=== PATIENT | male | born 1965 ===

== ENCOUNTER 2022-01-10 12:26 | Outpatient (REF) | payer OTHER, SELFPAY | END 2022-01-10 12:27 | disposition home or self-care (01) | LOC: HO.LAB 12:26 | PROVIDERS: Absent Provider Family Medicine; PCP Family Medicine; Visit Provider Internal Medicine Nephrology | DX: Z13.89 Encounter for screening for other disorder (principal) ==

== ENCOUNTER → 2022-01-20 14:16 | Outpatient (BNVA) | payer OTHER, SELFPAY | PROVIDERS: PCP Family Medicine; Visit Provider Internal Medicine Gastroenterology | DX: Z13.89 Encounter for screening for other disorder (principal) | CPT/HCPCS: Q3014 ==

== ENCOUNTER 2023-07-07 13:53 | Outpatient (REF) | payer OTHER, SELFPAY ==
[2023-07-07 16:07] LABS: MANUAL DIFF FLAG NO
[2023-07-07 16:30] LABS: Basophils Absolute Auto 0.1 X10*3/uL (0.0-0.2); Basophils Percent Auto 0.7 % (0-2); Eosinophils Absolute Auto 0.2 X10*3/uL (0.0-0.4); Eosinophils Percent Auto 1.9 % (0-4); Hematocrit 36.3 % (42.0-52.0); Hemoglobin 11.5 g/dl (14.0-18.0); Imm Gran Abs Auto 0.07 X10*3/uL (0.00-0.03); Imm Gran Pct Auto 0.6 % (0.0-0.4); Lymphocytes Absolute Auto 3.1 X10*3/uL (1.2-4.9); Lymphocytes Percent Auto 27.6 % (20-40); Mean Corpuscular HGB Conc 31.7 g/dl (31.0-36.0); Mean Corpuscular Hemoglobin 28.5 pg (27.0-33.0); Mean Corpuscular Volume 89.9 fL (80.0-98.0); Mean Platelet Volume 10.5 fL (9.4-12.4); Monocytes Absolute Auto 0.7 X10*3/uL (0.1-1.2); Monocytes Percent Auto 6.3 % (2-11); Neutrophils Absolute Auto 7.1 x10*3/uL (2.0-8.3); Neutrophils Percent Auto 62.9 % (45-73); Platelet Count 314 X10*3/uL (160-400); Red Blood Count 4.04 X10*6/uL (4.60-5.80); Red Cell Distribution Width 12.8 % (11.0-16.0); White Blood Count 11.4 X10*3/uL (4.8-10.8)
[2023-07-07 16:56] LABS: Cholesterol 130 mg/dL (<200); HDL Cholesterol 25 mg/dL (>40); LDL Cholesterol Calculated 65 mg/dL (<100); Triglycerides 200 mg/dL (<150)
[2023-07-07 17:00] LABS: Microalbum/Creatinine Ratio Ur 21.3 ug/mg cr (<30)
[2023-07-07 17:01] LABS: Alanine Aminotransferase 56 U/L (0-40); Albumin Level 4.2 g/dL (3.5-5.0); Alkaline Phosphatase 125 U/L (39-117); Anion Gap 15 (12-20); Aspartate Amino Transferase 34 U/L (5-37); Bilirubin Total 0.5 mg/dL (0.0-1.0); Blood Urea Nitrogen 16 mg/dL (9-16); Calcium 9.5 mg/dL (8.4-10.2); Carbon Dioxide 23 mmol/L (22-29); Chloride 104 mmol/L (96-108); Estimated Glomerular Filt Rate 48; Glucose Random 233 mg/dL (60-115); Potassium 3.8 mmol/L (3.3-5.1); Sodium 138 mmol/L (135-145); Total Protein 8.4 g/dL (6.5-8.0)
[2023-07-07 17:18] LABS: TSH reflex Free T4 5.45 uIU/mL (0.32-4.0)
[2023-07-07 17:28] LABS: Reflex LDLD? No
[2023-07-07 18:02] LABS: Free T4 (Free Thyroxine) 0.86 ng/dL (0.71-1.85)
[2023-07-12 15:08] LABS: Testosterone, Free 10.9 pg/mL (35.0-155.0); Testosterone, Total 53 ng/dL (250-1100)
== END 2023-07-07 13:54 | disposition home or self-care (01) ==
LOC: HO.HHCL 13:53
PROVIDERS: Visit Provider Family Medicine
DX: I12.9 Hypertensive chronic kidney disease with stage 1 through stage 4 chronic kidney disease, or unspecified chronic kidney disease (principal); E11.22 Type 2 diabetes mellitus with diabetic chronic kidney disease; N18.30 Chronic kidney disease, stage 3 unspecified; R79.89 Other specified abnormal findings of blood chemistry; D63.8 Anemia in other chronic diseases classified elsewhere; E29.1 Testicular hypofunction; Z79.4 Long term (current) use of insulin
CPT/HCPCS: 36415; 80053; 80061; 82043; 82570; 84402; 84403; 84439; 84443; 85025

== ENCOUNTER 2023-08-07 11:57 | Outpatient (REF) | payer OTHER, SELFPAY | END 2023-08-07 11:58 | disposition home or self-care (01) | LOC: HO.US 11:57 | PROVIDERS: PCP Family Medicine; Visit Provider Family Medicine | DX: I87.8 Other specified disorders of veins (principal) | CPT/HCPCS: 93970 ==

== ENCOUNTER 2023-08-26 14:24 | Outpatient (AMB) | payer OTHER, SELFPAY ==
--- NOTE | 2023-08-26 14:50 | A.OFFVIS_ITS ---
Intake Intake Visit Reasons: Testicular Hypofunction/Low testosterone Intake Note: NEW Patient presents today to established treatment for Testicular Hypofunction/Low testosterone: Meds- None Allergies to Antibiotic- No Known Allergies Blood Thinner- None Patient Symptoms: None Frame Bander Required: No Accompanied by: Significant Other Allergies No Known Allergies Allergy (Mild, Verified 09/01/23 13:58) NOT APPLICABLE HPI HPI Comments History of Present Illness Details Hussein is a 58-year-old male who presents today to the office to establish as a new patient for an evaluation of testicular hypofunction/low testosterone. 08/26/2023? He presents today for an evaluation of testicular hypofunction/ low testosterone. The patient has a past medical history significant for DM2, CKD, and venous insufficiency. I reviewed the consult notes from 07/10/2023. He was referred hypogonadism. He had an accident in 2016 and had a brain injury. He is here with a family member, He is a poor historian. He denies urinary complaints. Plan: LH hormone testing, fasting glucose, prolactin test, sex hormone binding globulin, FSH, Free, and total testosterone, HbA1c were ordered. 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 Diabetes mellitus type 2, controlled Traumatic subarachnoid hemorrhage Traumatic subdural hematoma Temporal skull fracture Traumatic brain injury Major depression Controlled type 2 diabetes mellitus with diabetic nephropathy Nephritis NOS in other disease Chronic kidney disease, stage III (moderate) Other chronic pain Neck pain Dyslipidemia Asthma Anemia of chronic disease Chronic constipation HTN (hypertension) Glaucoma suspect Surgical History Bilateral inguinal hernia S/P cervical spinal fusion Patient Tobacco Use Status: Former Tobacco user Tobacco use type: Cigarette Review of Systems Const All systems reviewed & are unremarkable except as noted in HPI and below Reports no additional complaints Eyes Reports no additional complaints ENT Reports no additional complaints Card Denies dyspnea Resp Denies cough and Denies dyspnea GI Reports no additional complaints Musc Reports no additional complaints Skin/Breast Denies rash and Denies unusual bruising Neuro Reports no additional complaints Psych Reports no additional complaints Endo Reports no additional complaints Igor/Lymph Reports no additional complaints Aller/Immun Reports no additional complaints Physical Exam Const General: healthy appearing, no acute distress and well developed Orientation/consciousness: patient oriented x3 HEENT Head: Yes normocephalic and Yes atraumatic Eyes Conjunctivae: conjunctivae normal Neck Neck: Yes normal visual inspection Chest Chest palpation & inspection: normal inspection of the chest Resp Effort & Inspection: normal respiratory effort Cardio Rate: regular rate GI Inspection: Yes normal to inspection Palpation (GI): Soft to palpation General: Yes no CVA tenderness Back/Spine/Pelvis Back: no CVA tenderness Skin General skin exam: no rashes or lesions noted Neuro General: patient oriented x3 Psych Appearance: grossly normal Affect: normal affect Results AMB Urinalysis, Automated UA Leukoctes 0 Shahida/uL Last Edit by Munir Vega [facility] on 08/26/23 15:24 UA Nitrite Negative Last Edit by Munir Vega [facility] on 08/26/23 15:24 UA Urobilinogen 0 mg/dL Last Edit by Munir Vega [facility] on 08/26/23 15:24 UA Protein 0.2 mg/dL Last Edit by Munir Vega [facility] on 08/26/23 15:24 UA pH 6.0 Last Edit by Munir Vega [facility] on 08/26/23 15:24 UA Blood 0 Vidal/uL Last Edit by Munir Vega [facility] on 08/26/23 15:24 UA Specific [place] 1.020 Last Edit by Munir Vega [facility] on 08/26/23 15: 24 UA Ketone Negative Last Edit by Munir Vega [facility] on 08/26/23 15:24 UA Bilirubin 0 mg/dL Last Edit by Munir Vega [facility] on 08/26/23 15:24 UA Glucose 1000 mg/dL Last Edit by Munir Vega [facility] on 08/26/23 15:24 3+ Munir Vega 08/26/23 15:24 Results Reviewed Results Reviewed: Laboratory Last Values Urine pH (Auto) 6.0 08/26/23 15:19 Specific [place] (Auto) 1.020 08/26/23 15:19 Urine Protein (Auto) 0.2 mg/dL 08/26/23 15:19 Glucose (UA)(Auto) 1000 mg/dL 08/26/23 15:19 Urine Ketones (Auto) Negative 08/26/23 15:19 Urine Blood (Auto) 0 Vidal/uL 08/26/23 15:19 Urine Nitrite (Auto) Negative 08/26/23 15:19 Urine Bilirubin (Auto) 0 mg/dL 08/26/23 15:19 Urine Urobilinogen (Auto) 0 mg/dL 08/26/23 15:19 Leukocyte Esterase (Auto) 0 Shahida/uL 08/26/23 15:19 Assessment & Plan Assessment & Plan (1) Hypogonadism in male: Code(s): E29.1 - Testicular hypofunction (2) History of traumatic brain injury: Code(s): Z87.820 - Personal history of traumatic brain injury Plan LH hormone testing, fasting glucose, prolactin test, sex hormone binding globulin, FSH, Free, and total testosterone, HbA1c were ordered. Orders: Orders Lutenizing Hormone 09/01/23 E29.1 - Testicular hypofunction Testosterone, Free/Total 09/01/23 E29.1 - Testicular hypofunction Hemoglobin A1c 09/01/23 E29.1 - Testicular hypofunction AMB Urinalysis Automated 08/26/23 Z13.9 - Encounter for screening, unspecified Glucose Fasting 09/01/23 E29.1 - Testicular hypofunction Sex Hormone Binding Globulin 09/01/23 E29.1 - Testicular hypofunction Prolactin 09/01/23 E29.1 - Testicular hypofunction Follicle Stimulating Hormone 09/01/23 E29.1 - Testicular hypofunction Patient Instructions: The patient had an opportunity to ask questions regarding treatment plan. All questions were answered. Imaging, Laboratory studies and physical exam results were discussed and reviewed in detail. No major barriers to understanding were identified. The patient expressed understanding and agreement with the above treatment plan.? ? ? The patient is aware they should contact our office by phone for worsening of their current condition or the appearance of new symptoms. Compliance is encouraged with any medications and followup testing that is ordered.? ? ? It is a privilege to be allowed the opportunity to participate in the urologic care of your patient. If you have any questions or concerns regarding treatment for the above conditions please do not hesitate to contact me. The office telephone contact is [phone].? ? ? This note is constructed in part using voice recognition software. While every effort has been made to ensure accuracy etl consultant errors may have been included.? ? ? Yours sincerely,? ? ? Bashir Smith MD? Coding Level of Care Code New Pt Level 4 (23978) Diagnoses Hypogonadism in male E29.1 History of traumatic brain injury Z87.820
== END 2023-08-26 16:23 | disposition home or self-care (01) ==
PROVIDERS: PCP Family Medicine; Visit Provider Urology
DX: E29.1 Testicular hypofunction (principal); Z87.820 Personal history of traumatic brain injury
CPT/HCPCS: 99204

== ENCOUNTER → 2023-08-26 14:24 | Outpatient (BNVA) | payer OTHER, SELFPAY | PROVIDERS: PCP Family Medicine; Visit Provider Urology | DX: E29.1 Testicular hypofunction (principal); Z87.820 Personal history of traumatic brain injury | CPT/HCPCS: 81003; 99202 ==

== ENCOUNTER 2023-09-01 10:03 | Outpatient (REF) | payer OTHER, SELFPAY ==
[2023-09-01 10:55] LABS: Estimated Average Glucose 171 mg/dL; Hemoglobin A1c % 7.6 % (<6.0)
[2023-09-01 11:21] LABS: Glucose Fasting 224 mg/dL (60-99)
[2023-09-03 04:19] LABS: Follicle Stimulating Hormone 3.1 mIU/mL (1.6-8.0); Lutenizing Hormone 1.4 mIU/mL (1.5-9.3); Sex Hormone Binding Globulin 14 nmol/L (22-77)
[2023-09-05 17:44] LABS: Testosterone, Free 15.6 pg/mL (35.0-155.0); Testosterone, Total 71 ng/dL (250-1100)
== END 2023-09-01 10:04 | disposition home or self-care (01) ==
LOC: HO.LAB 10:03
PROVIDERS: PCP Family Medicine; Visit Provider Urology
DX: I89.0 Lymphedema, not elsewhere classified (principal); I83.11 Varicose veins of right lower extremity with inflammation; E11.22 Type 2 diabetes mellitus with diabetic chronic kidney disease; N18.9 Chronic kidney disease, unspecified
CPT/HCPCS: 36415; 82947; 83001; 83002; 83036; 84146; 84270; 84402; 84403; 99202

== ENCOUNTER 2023-09-01 13:52 | Outpatient (AMB) | payer OTHER, SELFPAY ==
--- NOTE | 2023-09-01 13:55 | A.OFFVIS_ITS ---
Intake Intake Visit Reasons: [employer]/[facility] referral for LE edema Intake Note: [employer]?[facility] referral for LE edema .Pt says he has alot of swelling redness and discoloration. He says its going on for a few years he has trouble walking most of the days.He states he is diabetic but that it is well controlled. Allergies No Known Allergies Allergy (Mild, Verified 09/01/23 13:58) NOT APPLICABLE HPI [employer]/[facility] referral for LE edema HPI Details Morbidly obese 58-year-old gentleman presents for evaluation regarding lower extremity swelling. He has a history of diabetes and chronic kidney disease. He has become quite concerned about his lower extremity edema. He reports no prior history of any venous surgery. No prior history of DVT. He also denies any trauma or injury to the lower extremities. He is concerned about the discoloration of the lower extremities along with the we being. He now presents for follow-up. Of note primary care team has obtain venous insufficiency testing for us. 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 Diabetes mellitus type 2, controlled Traumatic subarachnoid hemorrhage Traumatic subdural hematoma Temporal skull fracture Traumatic brain injury Major depression Controlled type 2 diabetes mellitus with diabetic nephropathy Nephritis NOS in other disease Chronic kidney disease, stage III (moderate) Other chronic pain Neck pain Dyslipidemia Asthma Anemia of chronic disease Chronic constipation HTN (hypertension) Glaucoma suspect Surgical History Bilateral inguinal hernia S/P cervical spinal fusion Social History Patient Tobacco Use Status: Former Tobacco user Tobacco use type: Cigarette Review of Systems Const Reports as per HPI ENT Reports no additional complaints Card Denies chest pain, Denies chest pain at rest and Denies chest pain with activity Resp Denies chest congestion and Denies cough GI Reports no additional complaints Musc Details: pain over varicosities, aching of lower extremities, swelling, cramping, heaviness and tiredness, itching Denies abnormal gait Skin/Breast Reports pruritus and Denies wounds Neuro Reports no additional complaints and Denies abnormal gait Psych Denies no additional complaints Physical Exam Const General: cooperative, healthy appearing and comfortable Orientation/consciousness: oriented to person, oriented to place and oriented to time Neck Carotids: no bruits Chest Chest palpation & inspection: normal inspection of the chest and normal palpation of entire chest wall Resp Effort & Inspection: normal respiratory effort and able to speak in complete sentences Cardio Rate: regular rate Heart sounds: S1 normal heart sound present and S2 normal heart sound present Peripheral pulses: Peripheral pulses 2+ throughout GI Inspection: Yes normal to inspection Skin Other: +2 edema, limb for Verena hyperplasia skin discoloration Right in cm: Thigh 68 Knee 53 Calf 50.5 Ankle 33.5 Left in cm: Thigh 67 Knee 51 Calf 48.5 Ankle 35.5 Hip/abdomen 127.5 General skin exam: dry skin Neuro General: oriented to person, oriented to place and oriented to time Extrem Right lower extremity: full ROM, normal capillary refill and edema Left lower extremity: full ROM, normal capillary refill and edema Psych Mental Status: mental status grossly normal Assessment & Plan Assessment & Plan (1) Lymphedema: Code(s): I89.0 - Lymphedema, not elsewhere classified Plan: In short the patient has late on sent lymphedema. The patient has been on conservative treatment for at least 3 months with minimal relief. Patient has tried 30 mm of mercury compression garments, elevation, exercise healthy diet and doing manual says self MLD to the best of their ability for over 4 weeks but with no significant relief. She has been compliant with the program but has provided minimal relief. In addition on physical we are noticing hyperpigmenta tion, lymphorrhea, and hyperplasia. It appears that she has stage 2 lymphedema. Patient has completed multiple forms of conservative therapy yet significant symptoms remain. Patient requires the use of a pneumatic compression device which we will assist in trying to have the patient obtain them. In addition he does have some abdominal and truncal swelling. He will require an advance pump A pneumatic compression device will help reduce swelling and other lymphedema comorbidities. Thank you for allowing us to assist in this patient's care. (2) Varicose veins of right lower extremity with inflammation: Code(s): I83.11 - Varicose veins of right lower extremity with inflammation Plan: It appears that the patient does not have any significant venous insufficiency. We will try to obtain him lymphedema pumps. Coding Level of Care Code New Pt Level 4 (44000) Diagnoses Lymphedema I89.0 Varicose veins of right lower extremity with inflammation I83.11
== END 2023-09-01 14:21 | disposition home or self-care (01) ==
LOC: HO.HVS 13:52
PROVIDERS: PCP Family Medicine; Visit Provider Surgery Vascular Surgery
DX: I89.0 Lymphedema, not elsewhere classified (principal); I83.11 Varicose veins of right lower extremity with inflammation
CPT/HCPCS: 99204

== ENCOUNTER 2023-10-07 13:51 | Outpatient (AMB) | payer OTHER, SELFPAY ==
--- NOTE | 2023-10-07 15:00 | MHC.OFFVIS ---
Intake Intake Visit Reasons: F/u Testosterone Labs Result Intake Note: Patient presents today for a follow-up on Testosterone Labs Results: Meds- None Allergies to Antibiotic- No Known Allergies Blood Thinner- None Box Closing Machine Operator Required: No Accompanied by: Significant Other Allergies No Known Allergies Allergy (Mild, Verified 10/07/23 15:02) NOT APPLICABLE Medication List - Last Reconciled 10/07/23 by Bashir Smith MD atorvastatin 40 mg PO BEDTIME dapagliflozin propanediol (Farxiga) 10 mg PO DAILY docusate sodium (Colace) 200 mg (2 x 100 mg) PO BEDTIME 30 days furosemide 20 mg PO DAILY insulin syringe-needle U-100 (BD Insulin Syringe) As directed linaclotide (Linzess) 290 mcg PO QAM naloxegol (Movantik) 12.5 mg PO QAM quetiapine 100 mg PO BEDTIME zolpidem 10 mg PO BEDTIME PRN HPI HPI Comments History of Present Illness Details Hussein is a 58-year-old male who presents today to the office for a follow-up. 10/07/2023? He is followed today for testosterone lab results for testicular hypofunction. The patient has a past medical history significant for DM2, CKD, and venous insufficiency. I have reviewed the lab results, Low testosterone, 09/01/23--TT and FT-- 71 and 15.6, LH 1.4, HB A1c 7.6 Review of chart: I reviewed the consult notes from 07/10/2023. He was referred hypogonadism. He had an accident in 2016 and had a brain injury. He is here with a family member, He is a poor historian. He denies urinary complaints. Plan: LH hormone testing, fasting glucose, prolactin test, sex hormone binding globulin, FSH, Free, and total testosterone, HbA1c were ordered. 10/07/2023: Plan: Xyosted 75 mg injection was ordered. Repeat testosterone levels in 3 months and follow-up via Tele-health to review the results. 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 Diabetes mellitus type 2, controlled Traumatic subarachnoid hemorrhage Traumatic subdural hematoma Temporal skull fracture Traumatic brain injury Major depression Controlled type 2 diabetes mellitus with diabetic nephropathy Nephritis NOS in other disease Chronic kidney disease, stage III (moderate) Other chronic pain Neck pain Dyslipidemia Asthma Anemia of chronic disease Chronic constipation HTN (hypertension) Glaucoma suspect Surgical History Bilateral inguinal hernia S/P cervical spinal fusion Social History Patient Tobacco Use Status: Former Tobacco user Tobacco use type: Cigarette Review of Systems Const All systems reviewed & are unremarkable except as noted in HPI and below Reports no additional complaints Eyes Reports no additional complaints ENT Reports no additional complaints Card Denies dyspnea Resp Denies cough and Denies dyspnea GI Reports no additional complaints Musc Reports no additional complaints Skin/Breast Denies rash and Denies unusual bruising Neuro Reports no additional complaints Psych Reports no additional complaints Endo Reports no additional complaints Igor/Lymph Reports no additional complaints Aller/Immun Reports no additional complaints Assessment & Plan Assessment & Plan (1) Hypogonadism in male: Code(s): E29.1 - Testicular hypofunction (2) History of traumatic brain injury: Code(s): Z87.820 - Personal history of traumatic brain injury Plan Xyosted 75 mg injection was ordered. Repeat testosterone levels in 3 months and follow-up via Tele-health to review the results. Medications: New testosterone enanthate (Xyosted) 75 mg (0.5 mL) subcut QWEEK 2 mL 0RF hypogonadism 4 weeks Patient Instructions: The patient had an opportunity to ask questions regarding treatment plan. All questions were answered. Laboratory studies and physical exam results were discussed and reviewed in detail. No major barriers to understanding were identified. The patient expressed understanding and agreement with the above treatment plan. The patient is aware they should contact our office by phone for worsening of their current condition or the appearance of new symptoms. Compliance is encouraged with any medications and followup testing that is ordered. It is a privilege to be allowed the opportunity to participate in the urologic care of your patient. If you have any questions or concerns regarding treatment for the above conditions please do not hesitate to contact me. The office telephone contact is [phone]. This note is constructed in part using voice recognition software. While every effort has been made to ensure accuracy gas engine operator errors may have been included. Yours sincerely, Bashir Smith MD Coding Level of Care Code Est Pt Level 4 (67567) Diagnoses Hypogonadism in male E29.1 History of traumatic brain injury Z87.820
== END 2023-10-07 15:19 | disposition home or self-care (01) ==
PROVIDERS: PCP Family Medicine; Visit Provider Urology
DX: E29.1 Testicular hypofunction (principal); Z87.820 Personal history of traumatic brain injury
CPT/HCPCS: 99214

== ENCOUNTER → 2023-10-07 13:51 | Outpatient (BNVA) | payer OTHER, SELFPAY | PROVIDERS: PCP Family Medicine; Visit Provider Urology | DX: E29.1 Testicular hypofunction (principal); Z87.820 Personal history of traumatic brain injury | CPT/HCPCS: 99212 ==

== ENCOUNTER 2023-11-17 15:21 | Emergency (ER) | payer OTHER, SELFPAY ==
--- NOTE | ~2023-11-17 | XR_ITS ---
EXAMINATION: XR FOOT, RIGHT CLINICAL INFORMATION: Fifth toe pain. Question ostium myelitis COMPARISON: None available. TECHNIQUE: AP, lateral, and oblique views of the right foot. FINDINGS: There is moderate dorsal foot midfoot soft tissue swelling. The ankle mortise and subtalar joints are normal. There is no visible acute fracture or dislocation. Especially no abnormality seen involving the fifth toe. XR/XR foot RT 2V IMPRESSION: Moderate dorsal foot soft tissue swelling. Otherwise unremarkable right foot. Especially no fracture or abnormality seen right fifth digit.
[2023-11-17 15:25] VITALS: BP 148/90; PULSE 118; O2SAT 98
[2023-11-17 15:40] VITALS: BP 159/69; PULSE 104; RESP 18; TEMP 36.6; O2SAT 96; BMI 38.7
--- NOTE | 2023-11-17 15:42 | ED.GENADULT ---
HPI - General Adult General Chief complaint: General Medical Stated complaint: INCREASED WEAKNESS NAUSEA VOMITING Time Seen by Provider: 11/18/23 00:33 Source: patient Mode of arrival: ambulatory Limitations: no limitations History of Present Illness HPI narrative: Patient comes to the emergency room complaining of diffuse body aches, nausea, vomiting. Patient states that 2 weeks ago he tested positive for COVID. Also, while his here, patient would like us to check out his 5th digit of the right foot. Patient states that he is diabetic and he has had infection in the toe for several days. Patient states that he has very bad neuropathy and is unable to feel much. Patient denies any pain. Related Data Home Medications Medication Instructions Recorded Confirmed atorvastatin 40 mg tablet 40 mg PO BEDTIME 01/20/22 10/07/23 dapagliflozin propanediol 10 mg 10 mg PO DAILY 01/20/22 10/07/23 tablet (Farxiga) furosemide 20 mg tablet 20 mg PO DAILY 01/20/22 10/07/23 quetiapine 100 mg tablet 100 mg PO BEDTIME 01/20/22 10/07/23 zolpidem 10 mg tablet 10 mg PO BEDTIME PRN 01/20/22 10/07/23 Previous Rx's Medication Instructions Recorded docusate sodium 100 mg capsule 200 mg (2 x 100 mg) PO BEDTIME 30 10/17/20 (Colace) days #60 caps insulin syringe-needle U-100 1 mL #25 ea 04/26/21 25 gauge x 5/8 (BD Insulin Syringe) linaclotide 290 mcg capsule 290 mcg PO QAM #30 caps 10/05/23 (Linzess) naloxegol 12.5 mg tablet (Movantik) 12.5 mg PO QAM #30 tabs 10/05/23 testosterone enanthate 75 mg/0.5 75 mg (0.5 mL) subcut QWEEK 11/11/23 mL subcutaneous auto-injector hypogonadism 4 weeks #2 mL (Xyosted) Lactobacillus rhamnosus GG 10 1 cap PO DAILY #30 caps 11/18/23 billion cell capsule (Culturelle) cephalexin 500 mg capsule 500 mg PO BID #20 caps 11/18/23 doxycycline hyclate 100 mg tablet 100 mg PO BID #20 tabs 11/18/23 Allergies Allergy/AdvReac Type Severity Reaction Status Date / Time No Known Allergies Allergy Mild NOT Verified 10/07/23 15:02 APPLICABLE Review of Systems Review of Systems: Constitutional : No Weight loss, No Fever, No Chills, No Night Sweats, complaining of fatigue and generalized malaise, recovering from COVID, complaining of diffuse body aches ENT/Mouth : No Hearing loss, No Ear Pain, No Nasal Congestion, No Sinus Pain, No Hoarseness, No sore throat, No Rhinorrhea, No Swallowing Difficulty Eyes: No Eye Pain, No Swelling, No Redness, No Foreign Body, No Discharge, No Vision Changes Cardiovascular : No Chest Pain, No SOB, No Dyspnea on Exertion, No Orthopnea, No Edema, No Palpitations Respiratory : No Cough, No Sputum, No Wheezing, No Smoke Exposure, No Dyspnea Gastrointestinal : No Nausea, No Vomiting, No Diarrhea, No Constipation, No abdominal Pain, No Hematochezia, No Melena Genitourinary : no irregular bleeding, No Dysuria, No Urinary Frequency, No Hematuria, No Urinary Incontinence, No Urgency, No Flank Pain, No Urinary Flow Changes, No Hesitancy Musculoskeletal : No joint pain, No Myalgias, No Joint Swelling Skin : Complaining of infection in the 5th toe of the right foot No Skin Lesions, No rash Neuro : No Weakness, No Numbness, No Paresthesias, No Loss of Consciousness, No Dizziness, No Headache Psych : No Anxiety/Panic, No Depression, No SI/HI/AH/VH, No Social Issues, Heme/Lymph: No Bruising, No Bleeding,No Lymphadenopathy Endocrine : No Polyuria, No Polydipsia, No Temperature Intolerance PMFSH Past Medical History Onset Date is defined in the Problem List Problems that require an onset date and time if occurred within 24 hrs of arrival to the ED Aortic Dissection and Rupture; Neurologic impairment; Cardiopulmonary Arrest; Endotracheal Intubation; Insertion or Replacement of Mechanical Circulatory Assist Device Medical History Chronic, continuous use of opioids 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 Concussion 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 Diabetes mellitus type 2, controlled Traumatic subarachnoid hemorrhage Traumatic subdural hematoma Temporal skull fracture Traumatic brain injury Major depression Controlled type 2 diabetes mellitus with diabetic nephropathy Nephritis NOS in other disease Chronic kidney disease, stage III (moderate) Other chronic pain Neck pain Dyslipidemia Asthma Anemia of chronic disease Chronic constipation HTN (hypertension) Glaucoma suspect Surgical History Bilateral inguinal hernia S/P cervical spinal fusion Social History Social History Patient Tobacco Use Status: Former Tobacco user Tobacco use type: Cigarette Smoked in Last 30 Days: No Use of substances other than those prescribed or required for medical reasons: No Advance Directives: No Advance Directives Information Provided: Yes Physical Exam ED Vital Signs: Vital Signs - 24 hr 11/17/23 15:40 11/17/23 23:21 11/18/23 01:15 Temperature 97.8 F 99.3 F 98.3 F Pulse Rate 104 H 93 89 Respiratory Rate 18 20 16 Blood Pressure 159/69 H 137/70 144/72 H Pulse Oximetry 96 96 100 Oxygen Delivery Method Room Air Room Air Room Air 11/18/23 01:43 Temperature 98.8 F Pulse Rate 86 Respiratory Rate 18 Blood Pressure 148/79 H Pulse Oximetry 97 Oxygen Delivery Method Room Air BMI result Body Mass Index 38.7 Const Other: Appearance: Alert. Oriented X3. No acute distress. Eyes: Pupils equal, round and reactive to light. ENT: Pharynx normal. Neck: Normal inspection. Neck supple. No lymph nodes noted. No crepitus CVS: Normal heart rate and rhythm. Pulses normal. Normal S1 and S2 Respiratory: No respiratory distress. Breath sounds normal. No Wheezing. No rales Abdomen: Soft and nontender. No rigidity. No distention. Skin: Skin warm and dry. Normal skin color. Normal skin turgor. Extremities: No lower extremity edema. No Lacerations. No Rash, there is mild erythema on the toe, there is no ulcer or foul-smelling smell, no drainage. Neuro: Oriented X 3. No motor deficit. No sensory deficit. Moving all extremities. No slurred speech. CN 2 through 12 grossly intact Psych: calm, cooperative, normal affect Course Course Course Narrative: This is a rapid medical exam: Additional HPI, ROS, PE not included below will be deferred to primary provider. Patient is a 58-year-old male with history of DM, peripheral neuropathy presenting to the emergency department with complaint of weakness, nausea, and vomiting since yesterday. States has been unable to tolerate fluids. States took 2 Covid tests at home which were faintly positive. Also reports that he lose a toenail to 5th toe of right foot, and also noted his dog chewing on the same toe, did not feel it due to his neuropathy. Plan: viral swabs, labs, x-ray Medications Administered Discontinued Medications Generic Name Dose Route Start Last Admin Trade Name Kwasi PRN Reason Stop Dose Admin Doxycycline Monohydrate 100 mg 11/18/23 00:42 11/18/23 01:15 Doxycycline Monohydrate 100 Mg Capsule PO 11/18/23 00:43 100 mg ONCE ONE Administration Sodium Chloride 1,000 mls @ 999 mls/hr 11/18/23 00:42 11/18/23 01:33 Ns IVCONT 11/18/23 01:42 999 mls/hr .Q1H1M ONE Administration Ceftriaxone Sodium 1 gm/ 50 mls @ 100 mls/hr 11/18/23 00:42 11/18/23 01:34 Sodium Chloride IV 11/18/23 01:11 100 mls/hr ONCE ONE Administration Ondansetron HCl 4 mg 11/18/23 00:42 11/18/23 01:15 Ondansetron Hcl 4 Mg/2 Ml Vial IVPUSH 11/18/23 00:43 4 mg ONCE ONE Administration Medical Decision Making Medical Decision Making MDM Narrative: -my interpretation of labs: Patient tested negative for COVID and influenza. Patient likely still decompensated from COVID, however patient is ambulatory, patient's white blood cell count is elevated, likely to reactive leukocytosis from COVID and cellulitis of the toe. Patient's creatinine slightly elevated above baseline, likely secondary to dehydration from vomiting. Patient received IV fluids and Zofran. Patient feeling better. Hyponatremia of 131 improved after IV fluids 133, likely secondary to poor p.o. intake. -my interpretation of x-ray of the foot: No obvious osteomyelitis of the 5th digit -patient in addition to receiving IV fluids received IV ceftriaxone and p.o. doxycycline. Patient will continue p.o. treatment. -discussed with the patient that we will give him the phone number to follow-up with the wound clinic as he will need chronic treatment. -patient agrees with plan Differential Diagnosis Differential Diagnoses: The differential diagnosis associated with the presentation includes (Cellulitis, osteomyelitis, viral syndrome) Admission/Observation Consideration of admission/observation: Escalation of care including admission/observation considered (Admission was considered, I discussed the patient with Dr. Deluna, we both agree that this time the patient would benefit more from wound care rather than admission.) Consult Healthcare Provider Management of the patient was discussed with: Hospitalist Lab Data [facility] Lab Attestation statement: I reviewed the patient's lab results. 11/17/23 16:00 11/18/23 02:16 Labs: Lab Results 11/17/23 11/18/23 11/18/23 Range/Units 16:00 00:29 01:28 WBC 16.8 H (4.8-10.8) X10*3/uL RBC 3.75 L (4.60-5.80) X10*6/uL Hgb 10.6 L (14.0-18.0) g/dl Hct 32.7 L (42.0-52.0) % MCV 87.2 (80.0-98.0) fL MCH 28.3 (27.0-33.0) pg MCHC 32.4 (31.0-36.0) g/dl RDW 13.5 (11.0-16.0) % Plt Count 200 D (160-400) X10*3/uL MPV 9.7 (9.4-12.4) fL Immature Gran % (Auto) 0.9 H (0.0-0.4) % Neut % (Auto) 88.9 H (45-73) % Lymph % (Auto) 5.5 L (20-40) % [place] % (Auto) 4.6 (2-11) % Eos % (Auto) 0.0 (0-4) % Baso % (Auto) 0.1 (0-2) % Lymph # (Auto) 0.9 L (1.2-4.9) X10*3/uL [place] # (Auto) 0.8 (0.1-1.2) X10*3/uL Eos # (Auto) 0.0 (0.0-0.4) X10*3/uL Baso # (Auto) 0.0 (0.0-0.2) X10*3/uL Abs Immat Gran (auto) 0.15 H (0.00-0.03) X10*3/uL Absolute Neuts (auto) 15.0 H (2.0-8.3) x10*3/uL Absolute Nucleated RBC 0.000 (0.0-0.012) X10*3/uL Nucleated RBC % (auto) 0.0 (0.0-0.2) /100WBC ESR 57 H (0-15) MM/HR Sodium 131 L (135-145) mmol/L Potassium 3.6 (3.3-5.1) mmol/L Chloride 98 (96-108) mmol/L Carbon Dioxide 23 (22-29) mmol/L Anion Gap 14 (12-20) BUN 17 H (9-16) mg/dL Creatinine 1.79 H (0.5-1.4) mg/dL Estim Creat Clear Calc 59.0 Estimated GFR 39 POC Glucose 245 H (60-115) mg/dL Random Glucose 288 H (60-115) mg/dL Lactic Acid 1.4 (0.5-2.0) mmol/L Calcium 8.7 D (8.4-10.2) mg/dL Total Bilirubin 1.1 H (0.0-1.0) mg/dL AST 23 (5-37) U/L ALT 37 (0-40) U/L Alkaline Phosphatase 95 (39-117) U/L C-Reactive Protein 16.12 H (< or = 0.50) mg/dL Total Protein 7.9 (6.5-8.0) g/dL Albumin 3.8 (3.5-5.0) g/dL COVID-19 (JACEK) Negative (Negative) COVID-19 Clin Com See Note Influenza Type A (CHARANJIT) Negative (Negative) Influenza Type B (CHARANJIT) Negative (Negative) Influenza A & B Note See Note 11/18/23 Range/Units 02:16 WBC (4.8-10.8) X10*3/uL RBC (4.60-5.80) X10*6/uL Hgb (14.0-18.0) g/dl Hct (42.0-52.0) % MCV (80.0-98.0) fL MCH (27.0-33.0) pg MCHC (31.0-36.0) g/dl RDW (11.0-16.0) % Plt Count (160-400) X10*3/uL MPV (9.4-12.4) fL Immature Gran % (Auto) (0.0-0.4) % Neut % (Auto) (45-73) % Lymph % (Auto) (20-40) % [place] % (Auto) (2-11) % Eos % (Auto) (0-4) % Baso % (Auto) (0-2) % Lymph # (Auto) (1.2-4.9) X10*3/uL [place] # (Auto) (0.1-1.2) X10*3/uL Eos # (Auto) (0.0-0.4) X10*3/uL Baso # (Auto) (0.0-0.2) X10*3/uL Abs Immat Gran (auto) (0.00-0.03) X10*3/uL Absolute Neuts (auto) (2.0-8.3) x10*3/uL Absolute Nucleated RBC (0.0-0.012) X10*3/uL Nucleated RBC % (auto) (0.0-0.2) /100WBC ESR (0-15) MM/HR Sodium 133 L (135-145) mmol/L Potassium 3.9 (3.3-5.1) mmol/L Chloride 99 (96-108) mmol/L Carbon Dioxide 25 (22-29) mmol/L Anion Gap 13 (12-20) BUN 18 H (9-16) mg/dL Creatinine 1.63 H (0.5-1.4) mg/dL Estim Creat Clear Calc 64.8 Estimated GFR 44 POC Glucose (60-115) mg/dL Random Glucose 266 H (60-115) mg/dL Lactic Acid (0.5-2.0) mmol/L Calcium 8.3 L (8.4-10.2) mg/dL Total Bilirubin (0.0-1.0) mg/dL AST (5-37) U/L ALT (0-40) U/L Alkaline Phosphatase (39-117) U/L C-Reactive Protein (< or = 0.50) mg/dL Total Protein (6.5-8.0) g/dL Albumin (3.5-5.0) g/dL COVID-19 (JACEK) (Negative) COVID-19 Clin Com Influenza Type A (CHARANJIT) (Negative) Influenza Type B (CHARANJIT) (Negative) Influenza A & B Note Independent Interpretation I performed an independent interpretation of an: Plain X-Ray Radiology Impression Discussion of test interpretation with radiology: I have reviewed the radiologist's reading. Radiologist Impression: There is moderate dorsal foot midfoot soft tissue swelling. The ankle mortise and subtalar joints are normal. There is no visible acute fracture or dislocation. Especially no abnormality seen involving the fifth toe. XR/XR foot RT 2V IMPRESSION: Moderate dorsal foot soft tissue swelling. Otherwise unremarkable right foot. Especially no fracture or abnormality seen right fifth digit. Critical Care Time Critical Care Time Critical Care Time: Yes Total Critical Care Time: 60 Attestation: I have personally provided critical care time. Time includes review of lab data, radiology results, discussion with consultants, and monitoring for potential decompensation. Intervention performed as documented. Discharge Plan Discharge Clinical Impression: Acute viral syndrome, Cellulitis Patient Disposition: Home, Self-Care Instructions: Cellulitis (ED) Additional Instructions: Please follow-up with your primary care physician and with the wound clinic tomorrow. If you have any worsening or new symptoms, please return to the emergency room or call 911 Prescriptions: New cephalexin 500 mg capsule 500 mg PO BID Qty: 20 0RF doxycycline hyclate 100 mg tablet 100 mg PO BID Qty: 20 0RF Culturelle 10 billion cell capsule 1 cap PO DAILY Qty: 30 0RF No Action docusate sodium [Colace] 100 mg capsule 200 mg PO BEDTIME 30 Days Qty: 60 6RF (DME) BD Insulin Syringe 1 mL 25 gauge x 5/8 syringe See Rx Instructions miscellaneous .MEDSUPPLY Qty: 25 0RF Rx Instructions: As directed Linzess 290 mcg capsule 290 mcg PO QAM Qty: 30 6RF Movantik 12.5 mg tablet 12.5 mg PO QAM Qty: 30 3RF Xyosted 75 mg/0.5 mL auto-injector 75 mg subcut QWEEK 28 Days Qty: 2 5RF Farxiga 10 mg tablet 10 mg PO DAILY quetiapine 100 mg tablet 100 mg PO BEDTIME zolpidem 10 mg tablet 10 mg PO BEDTIME PRN furosemide 20 mg tablet 20 mg PO DAILY atorvastatin 40 mg tablet 40 mg PO BEDTIME Referrals: Paz Richter MD [Physician] - 01/18/24
[2023-11-17 16:05] LABS: MANUAL DIFF FLAG NO
[2023-11-17 16:07] LABS: Basophils Percent Auto 0.1 % (0-2); Hematocrit 32.7 % (42.0-52.0); Hemoglobin 10.6 g/dl (14.0-18.0); Imm Gran Abs Auto 0.15 X10*3/uL (0.00-0.03); Imm Gran Pct Auto 0.9 % (0.0-0.4); Lymphocytes Absolute Auto 0.9 X10*3/uL (1.2-4.9); Lymphocytes Percent Auto 5.5 % (20-40); Mean Corpuscular HGB Conc 32.4 g/dl (31.0-36.0); Mean Corpuscular Hemoglobin 28.3 pg (27.0-33.0); Mean Corpuscular Volume 87.2 fL (80.0-98.0); Mean Platelet Volume 9.7 fL (9.4-12.4); Monocytes Absolute Auto 0.8 X10*3/uL (0.1-1.2); Monocytes Percent Auto 4.6 % (2-11); Neutrophils Percent Auto 88.9 % (45-73); Platelet Count 200 X10*3/uL (160-400); Red Blood Count 3.75 X10*6/uL (4.60-5.80); Red Cell Distribution Width 13.5 % (11.0-16.0); White Blood Count 16.8 X10*3/uL (4.8-10.8)
[2023-11-17 16:26] LABS: Alanine Aminotransferase 37 U/L (0-40); Albumin Level 3.8 g/dL (3.5-5.0); Alkaline Phosphatase 95 U/L (39-117); Anion Gap 14 (12-20); Aspartate Amino Transferase 23 U/L (5-37); Bilirubin Total 1.1 mg/dL (0.0-1.0); Blood Urea Nitrogen 17 mg/dL (9-16); C Reactive Protein 16.12 mg/dL (< or = 0.50); Calcium 8.7 mg/dL (8.4-10.2); Carbon Dioxide 23 mmol/L (22-29); Chloride 98 mmol/L (96-108); Estimated Glomerular Filt Rate 39; Glucose Random 288 mg/dL (60-115); Potassium 3.6 mmol/L (3.3-5.1); Sodium 131 mmol/L (135-145); Total Protein 7.9 g/dL (6.5-8.0)
[2023-11-17 16:32] LABS: COVID-19 Test Negative (Negative); IDNOW Serial# 08D9AD1C; IDNOW Serial# 152EDE1D; Influenza A Negative (Negative); Influenza B2 Negative (Negative)
[2023-11-17 16:55] LABS: Erythrocyte Sedimentation Rate 57 MM/HR (0-15)
[2023-11-17 23:21] VITALS: BP 137/70; PULSE 93; RESP 20; TEMP 37.4; O2SAT 96
[2023-11-18 00:36] LABS: Glucose, Whole Blood 245 mg/dL (60-115)
[2023-11-18 01:15] VITALS: BP 144/72; PULSE 89; RESP 16; TEMP 36.8; O2SAT 100
[2023-11-18] MEDS: Doxycycline Monohydrate 100 MG CAPSULE PO (01:15)
[2023-11-18] MEDS: ondansetron HCL 4 MG/2 ML VIAL IVPUSH (01:15)
[2023-11-18] MEDS: 0.9 % Sodium Chloride 1,000 ML 999 ML IVCONT (01:33)
[2023-11-18] MEDS: cefTRIAXone sodium 1 GM in 0.9 % Sodium Chloride 50 ML IV (01:34)
--- NOTE | 2023-11-18 01:39 | PC.NURSE ---
Pts labs drawn and sent Pt medicated per dec. Plan of care ongoing.
[2023-11-18 01:43] VITALS: BP 148/79; PULSE 86; RESP 18; TEMP 37.1; O2SAT 97
--- NOTE | 2023-11-18 01:43 | PC.NURSE ---
Pt ca&ox4, no signs of distress. Pt reports 8/10 foot and abdm pain. Pt spouse at bedside. Plan of care ongoing.
--- NOTE | 2023-11-18 01:44 | MHC.EDTECH ---
Hourly rounds and vitals completed, Second set of blood cultures obtained and sent to lab. Call chavez in reach and family at bedside
[2023-11-18 01:50] LABS: Lactic Acid 1.4 mmol/L (0.5-2.0)
--- NOTE | 2023-11-18 02:19 | PC.NURSE ---
Labs drawn and sent Plan of care ongoing.
[2023-11-18 02:33] LABS: Anion Gap 13 (12-20); Blood Urea Nitrogen 18 mg/dL (9-16); Calcium 8.3 mg/dL (8.4-10.2); Carbon Dioxide 25 mmol/L (22-29); Chloride 99 mmol/L (96-108); Creatinine Clr Calc Pharmacy 64.8; Estimated Glomerular Filt Rate 44; Glucose Random 266 mg/dL (60-115); Potassium 3.9 mmol/L (3.3-5.1); Sodium 133 mmol/L (135-145)
== END 2023-11-18 03:39 | disposition home or self-care (01) ==
PROVIDERS: Registered Nurse Emergency; Emergency Provider Emergency Medicine
DX: B34.9 Viral infection, unspecified (principal); M79.10 Myalgia, unspecified site; L03.031 Cellulitis of right toe; Z11.52 Encounter for screening for COVID-19; E11.9 Type 2 diabetes mellitus without complications; I10 Essential (primary) hypertension; E78.5 Hyperlipidemia, unspecified; Z79.4 Long term (current) use of insulin; Z79.02 Long term (current) use of antithrombotics/antiplatelets; Z79.899 Other long term (current) drug therapy
CPT/HCPCS: 36415; 73620; 80048; 80053; 82947; 83605; 85025; 85652; 86140; 87040; 87502; 87635; 96361; 96374; 96375; 99284; J0696; J2405

== ENCOUNTER 2024-01-12 10:08 | Outpatient (REF) | payer OTHER, SELFPAY ==
[2024-01-12 10:53] LABS: Hemoglobin 12.5 g/dl (14.0-18.0); Mean Corpuscular HGB Conc 32.1 g/dl (31.0-36.0); Mean Corpuscular Hemoglobin 27.2 pg (27.0-33.0); Mean Corpuscular Volume 84.8 fL (80.0-98.0); Mean Platelet Volume 10.4 fL (9.4-12.4); Platelet Count 282 X10*3/uL (160-400); Red Cell Distribution Width 13.2 % (11.0-16.0); White Blood Count 9.6 X10*3/uL (4.8-10.8)
[2024-01-12 12:22] LABS: PSA,Total (Free>4and<10) 0.17 ng/mL (0.00-4.00)
[2024-01-17 14:23] LABS: Testosterone, Free 136.3 pg/mL (35.0-155.0); Testosterone, Total 459 ng/dL (250-1100)
== END 2024-01-12 10:09 | disposition home or self-care (01) ==
LOC: HO.LAB 10:08
PROVIDERS: PCP Family Medicine; Visit Provider Urology
DX: Z12.5 Encounter for screening for malignant neoplasm of prostate (principal); E29.1 Testicular hypofunction
CPT/HCPCS: 36415; 84153; 84402; 84403; 85027

== ENCOUNTER 2024-01-19 10:40 | Inpatient (IN) | payer OTHER, SELFPAY ==
--- NOTE | ~2024-01-19 | XR_ITS ---
EXAMINATION: XR CHEST CLINICAL INFORMATION: Reason for Exam hypoxia COMPARISON: Chest radiograph 01/19/2024 TECHNIQUE: One view of the chest FINDINGS: Lines and tubes: Cervical fusion hardware. EKG leads overlie the patient. Clear lungs. No pleural effusion. No pneumothorax. Unchanged cardiomediastinal silhouette. XR/XR chest 1V IMPRESSION: * Clear lungs.
--- NOTE | ~2024-01-19 | CT_ITS ---
EXAMINATION: CT HEAD WITHOUT CONTRAST CLINICAL INFORMATION: Altered mental status COMPARISON: None available. TECHNIQUE: Contiguous axial imaging was performed from the skull base to vertex without intravenous administration of contrast. This CT examination was performed using dose optimization techniques as appropriate, variously including the following: *Automated exposure control *Adjustment of mA and/or kV according to patient size (this includes techniques or standardized protocols for targeted exams where dose is matched to indication/reason for exam; i.e. extremities or head) *Use of iterative reconstruction technique DLP: 805 mGy-cm FINDINGS: There is no evidence of acute intracranial hemorrhage or territorial infarction. No abnormal mass effect or midline shift is appreciated. Adame-white differentiation is well preserved. No extra-axial fluid collections. The ventricular system and cortical sulci are minimally prominent, consistent with age-appropriate volume loss. There are areas of low density in the periventricular and subcortical white matter, most consistent with sequelae of microvascular ischemic change. Soft tissues and osseous structures are unremarkable. There are a few opacified ethmoid air cells. The visualized paranasal sinuses and mastoid air cells are otherwise well aerated. CT/CT head/brain wo IV con IMPRESSION: Chronic microvascular ischemic changes with no CT evidence of acute intracranial abnormality.
--- NOTE | ~2024-01-19 | US_ITS ---
EXAMINATION: US VENOUS ULTRASOUND WITH DOPPLER LOWER EXTREMITY, BILATERAL CLINICAL INFORMATION: Bilateral lower extremity edema COMPARISON: CT abdomen pelvis 01/20/2024 TECHNIQUE: Ultrasound of the deep veins is performed from the hip to the calf with compression sonography and color and pulse Doppler assessment. Spectral analysis with color-flow imaging is performed. FINDINGS: RIGHT: There is normal venous compression and respiratory variation and augmented flow. The visualized common femoral vein, superficial femoral vein, profunda femoral vein, popliteal vein, and the posterior tibial vein show no evidence of deep venous thrombosis. The peroneal vein on the right could not be seen secondary to edema. There is no significant popliteal fossa cyst. Prominent lymph nodes are seen in the right inguinal region. LEFT: There is normal venous compression and respiratory variation and augmented flow. The visualized common femoral vein, superficial femoral vein, profunda femoral vein and popliteal vein show no evidence of deep venous thrombosis. Calf veins on the left could not be seen secondary to edema. There is no significant popliteal fossa cyst. Prominent lymph nodes are seen in the left inguinal region. If the patient's symptoms persist, followup ultrasound in 5 days 7 days might be of value to exclude proximal propagation from a non-visualized calf vein. US/US venous duplex LE BI IMPRESSION: No DVT demonstrated in either lower extremity.
--- NOTE | ~2024-01-19 | XR_ITS ---
EXAMINATION: XR CHEST CLINICAL INFORMATION: Shortness of breath and anasarca. COMPARISON: None available. TECHNIQUE: Frontal view of the chest was obtained. FINDINGS: Cardiac silhouette is enlarged. The lungs are well aerated. There is no lobar consolidation. No pleural effusion or pneumothorax. Degenerative and postsurgical changes of the spine. XR/XR chest 1V IMPRESSION: Cardiomegaly without acute pulmonary pathology.
--- NOTE | ~2024-01-19 | CT_ITS ---
EXAMINATION: CT ABDOMEN AND PELVIS WITHOUT CONTRAST CLINICAL INFORMATION: Abdominal distention, acute kidney injury COMPARISON: None available. TECHNIQUE: Multidetector volumetric imaging was performed from the superior aspect of the liver through the pubic symphysis. Sagittal and coronal reformatted images were obtained on the technologist's workstation. This CT examination was performed using dose optimization techniques as appropriate, variously including the following: *Automated exposure control *Adjustment of mA and/or kV according to patient size (this includes techniques or standardized protocols for targeted exams where dose is matched to indication/reason for exam; i.e. extremities or head) *Use of iterative reconstruction technique DLP: 875 mGy-cm FINDINGS: LUNG BASES: Bibasilar atelectasis is present, left greater than right LIVER, GALLBLADDER, AND BILIARY TREE: The liver is enlarged measuring 18.9 cm in cephalocaudad dimension. Attenuation and shape are normal. No focal hepatic lesion or biliary ductal dilatation is present. The gallbladder contains layering stones without pericholecystic inflammatory changes. PANCREAS: There is fatty replacement of the pancreas. SPLEEN: Spleen is enlarged at 14.4 cm in greatest cephalocaudad dimension. ADRENAL GLANDS: Unremarkable. KIDNEYS AND URETERS: The kidneys are normal in size, shape, and attenuation. There is mild prominence of the renal collecting systems and proximal ureters with the ureter is measuring about 1.5 cm in the midportion. However, there is no gross hydronephrosis,, calculi or obstructing mass seen. The study is limited, course, by lack of IV contrast. No perinephric stranding. BLADDER: Unremarkable. GASTROINTESTINAL TRACT: The small and large bowel are unremarkable. The appendix is unremarkable. ABDOMINAL WALL: There is been prior lower abdominal wall hernia repair/surgery with no evidence of significant hernia at this time. There is a tiny periumbilical hernia containing only fat. LYMPH NODES: There are some shotty retroperitoneal and inguinal VASCULAR: Calcific atherosclerotic changes are present in the aorta and iliofemoral vessels. There is no evidence of an abdominal aortic aneurysm. PELVIC VISCERA: There is mild to moderate BPH. Seminal vesicles appear normal. OSSEOUS STRUCTURES: Unremarkable. CT/CT abdomen pelvis wo IV con IMPRESSION: 1. A cause for the patient's abdominal distention has not been found. 2. There is mild prominence of the renal collecting systems bilaterally as well as the proximal ureters. 3. Incidental note made of enlarged liver and spleen, cholelithiasis, fatty replacement of the pancreas, mild to moderate BPH and other findings described above. Fleischner guidelines were followed.
[2024-01-19 11:25] VITALS: BP 124/72; BP 137/86; PULSE 114; RESP 20; TEMP 37.2; O2SAT 87; O2SAT 95; BMI 35.9
[2024-01-19 11:42] VITALS: BP 139/80; PULSE 122; RESP 22; TEMP 36.9; O2SAT 91
--- NOTE | 2024-01-19 11:45 | ED_ITS ---
HPI - General Adult General Chief complaint: Altered Mental Status Stated complaint: CELLULITIS ON BOTH LEGS DIFFICULTY SPEAKING Time Seen by Provider: 01/19/24 11:30 Source: patient, family and EMS Mode of arrival: ambulatory Limitations: no limitations History of Present Illness HPI narrative: Patient brought in by EMS for lethargy and swelling. Mother and patient feels that his legs are infected. Patient denies fever, denies using pain medication or drugs. He has bulla of both legs for weeks Onset (ago): week(s) Pain Consistency: constant Related Data Home Medications Medication Instructions Recorded Confirmed atorvastatin 40 mg tablet 40 mg PO BEDTIME 01/20/22 10/07/23 dapagliflozin propanediol 10 mg 10 mg PO DAILY 01/20/22 10/07/23 tablet (Farxiga) furosemide 20 mg tablet 20 mg PO DAILY 01/20/22 10/07/23 quetiapine 100 mg tablet 100 mg PO BEDTIME 01/20/22 10/07/23 zolpidem 10 mg tablet 10 mg PO BEDTIME PRN 01/20/22 10/07/23 Previous Rx's Medication Instructions Recorded docusate sodium 100 mg capsule 200 mg (2 x 100 mg) PO BEDTIME 30 10/17/20 (Colace) days #60 caps insulin syringe-needle U-100 1 mL #25 ea 04/26/21 25 gauge x 5/8 (BD Insulin Syringe) linaclotide 290 mcg capsule 290 mcg PO QAM #30 caps 10/05/23 (Linzess) naloxegol 12.5 mg tablet (Movantik) 12.5 mg PO QAM #30 tabs 10/05/23 testosterone enanthate 75 mg/0.5 75 mg (0.5 mL) subcut QWEEK 11/11/23 mL subcutaneous auto-injector hypogonadism 4 weeks #2 mL (Xyosted) Lactobacillus rhamnosus GG 10 1 cap PO DAILY #30 caps 11/18/23 billion cell capsule (Culturelle) cephalexin 500 mg capsule 500 mg PO BID #20 caps 11/18/23 doxycycline hyclate 100 mg tablet 100 mg PO BID #20 tabs 11/18/23 Allergies Allergy/AdvReac Type Severity Reaction Status Date / Time No Known Allergies Allergy Mild NOT Verified 10/07/23 15:02 APPLICABLE Review of Systems 2 Review of Systems: Yes all other systems are reviewed and are negative Neurologic: Denies Sensory deficit (Neuro) [facility] Past Medical History Medical History Chronic, continuous use of opioids 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 Concussion 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 Diabetes mellitus type 2, controlled Traumatic subarachnoid hemorrhage Traumatic subdural hematoma Temporal skull fracture Traumatic brain injury Major depression Controlled type 2 diabetes mellitus with diabetic nephropathy Nephritis NOS in other disease Chronic kidney disease, stage III (moderate) Other chronic pain Neck pain Dyslipidemia Asthma Anemia of chronic disease Chronic constipation HTN (hypertension) Glaucoma suspect Surgical History Bilateral inguinal hernia S/P cervical spinal fusion Social History Social History Patient Tobacco Use Status: Former Tobacco user Tobacco use type: Cigarette Smoked in Last 30 Days: No Use of substances other than those prescribed or required for medical reasons: No Advance Directives: No Physical Exam ED Vital Signs: Vital Signs - 24 hr 01/19/24 11:25 01/19/24 11:42 01/19/24 11:58 Temperature 98.9 F 98.5 F Pulse Rate 122 H 110 H Respiratory Rate 20 22 H 14 Blood Pressure 124/72 139/80 Pulse Oximetry 87 L 91 L 96 Oxygen Delivery Method Room Air Room Air Nasal Cannula Oxygen Flow Rate 2 BMI result Body Mass Index 35.9 Const Other: obese, chronically ill appearing lethargic Orientation/consciousness: oriented to person Limitations: no limitations HENMT Head: Yes normal to inspection Ears: external ears normal General nose exam: Normal external nose present Mouth: Normal oral and palatal mucosa present and oropharynx normal Throat: Yes posterior oropharynx normal Eyes Other: small pupils Neck Neck: Yes normal visual inspection Chest Chest palpation & inspection: normal inspection of the chest Resp Auscultation: clear to auscultation bilaterally Cardio Jugular venous distension: no JVD Rate: regular rate Rhythm: regular rhythm Heart sounds: S1 normal heart sound present and S2 normal heart sound present GI Inspection: Yes normal to inspection Palpation (GI): Soft to palpation, nontender and No hepatosplenomegaly present Auscultation: normal bowel sounds General: Yes no CVA tenderness Back/Spine/Pelvis Back: no CVA tenderness Skin Other: chronic edematous changes with weeping and bulla Neuro General: oriented to person Cranial nerves: Yes CN's II-XII intact bilaterally Motor exam (neuro): 5/5 motor strength present throughout Sensory Exam: No Sensory deficit (Neuro) Extrem Other: 3+ edema up abdomen Psych Appearance: grossly normal Course Reevaluation(s) Reevaluation #1: Patient with anasarca and worsening renal function, BNP low, CXR shows large heart will admit for diuresis Time: 13:51 Reevaluation #2: I spent 40 minutes of critical care, with interventions, assessments, speaking to patient, consultants, and family. Time: 14:01 Medications Administered Discontinued Medications Generic Name Dose Route Start Last Admin Trade Name Freq PRN Reason Stop Dose Admin Furosemide 40 mg 01/19/24 11:45 01/19/24 12:01 Furosemide 40 Mg/4 Ml Vial IVPUSH 01/19/24 11:46 40 mg ONCE ONE Administration Protocol Medical Decision Making Differential Diagnosis Differential Diagnoses: The differential diagnosis associated with the presentation includes (CHF, COPD, anasarca, renal failure, opiate use disorder, pneumonia, liver failure were all considered) Admission/Observation Consideration of admission/observation: Escalation of care including admission/observation considered (upon arrival patient considered for admission) Consult Healthcare Provider Management of the patient was discussed with: Hospitalist Lab Data worsening renal function 01/19/24 11:56 01/19/24 12:58 Labs: Lab Results 01/19/24 01/19/24 01/19/24 Range/Units 11:56 11:57 12:29 WBC 19.2 H (4.8-10.8) X10*3/uL RBC 4.53 L (4.60-5.80) X10*6/uL Hgb 12.0 L (14.0-18.0) g/dl Hct 37.7 L (42.0-52.0) % MCV 83.2 (80.0-98.0) fL MCH 26.5 L (27.0-33.0) pg MCHC 31.8 (31.0-36.0) g/dl RDW 13.3 (11.0-16.0) % Plt Count 250 (160-400) X10*3/uL MPV 10.6 (9.4-12.4) fL Immature Gran % (Auto) 0.7 H (0.0-0.4) % Neut % (Auto) 86.8 H (45-73) % Lymph % (Auto) 6.2 L (20-40) % [place] % (Auto) 4.7 (2-11) % Eos % (Auto) 1.4 (0-4) % Baso % (Auto) 0.2 (0-2) % Lymph # (Auto) 1.2 (1.2-4.9) X10*3/uL A[place] # (Auto) 0.9 (0.1-1.2) X10*3/uL Eos # (Auto) 0.3 (0.0-0.4) X10*3/uL Baso # (Auto) 0.0 (0.0-0.2) X10*3/uL Abs Immat Gran (auto) 0.14 H (0.00-0.03) X10*3/uL Absolute Neuts (auto) 16.6 H (2.0-8.3) x10*3/uL Absolute Nucleated RBC 0.000 (0.0-0.012) X10*3/uL Nucleated RBC % (auto) 0.0 (0.0-0.2) /100WBC VBG pH 7.36 (7.32-7.43) VBG pCO2 34 mmHg VBG pO2 68 mmHg VBG HCO3 19 L (22-26) mmol/L VBG O2 Saturation 94.0 % VBG Base Excess -5.0 mmol/L Sodium (135-145) mmol/L Potassium (3.3-5.1) mmol/L Chloride (96-108) mmol/L Carbon Dioxide (22-29) mmol/L Anion Gap (12-20) BUN (9-16) mg/dL Creatinine (0.5-1.4) mg/dL Estim Creat Clear Calc Estimated GFR POC Glucose (60-115) mg/dL Random Glucose (60-115) mg/dL Calcium (8.4-10.2) mg/dL Total Bilirubin (0.0-1.0) mg/dL AST (5-37) U/L ALT (0-40) U/L Alkaline Phosphatase (39-117) U/L Troponin I High Sens (<3.5-35.0) ng/L B-Natriuretic Peptide 39 (<100) pg/mL Total Protein (6.5-8.0) g/dL Albumin (3.5-5.0) g/dL Urine Color Yellow Urine Appearance Clear Urine pH 5.5 (5.0-9.0) Ur Specific [place] >= 1.030 H (1.005-1.025) Urine Protein 30 (1+) H (Neg-Trace) mg/dL Urine Glucose (UA) >=1000 H (Negative) mg/dL Urine Ketones Trace (Negative) mg/dL Urine Blood Small (1+) H (Negative) Urine Nitrite Negative (Negative) Ur Leukocyte Esterase Negative (Negative) Urine RBC 0-2 (0-2) /HPF Urine WBC 0-5 (0-5) /HPF Ur Squamous Epith Cells 0-2 (0-2) /HPF Urine Bacteria None Seen (None Seen) Hyaline Casts 0-2 (0-2) /LPF Urine Opiates Screen POSITIVE H (Not Detect) Urine Fentanyl Screen Not Detected (Not Detect) Ur Barbiturates Screen Not Detected (Not Detect) Ur Phencyclidine Scrn Not Detected (Not Detect) Ur Amphetamines Screen Not Detected (Not Detect) U Benzodiazepines Scrn Not Detected (Not Detect) Urine Cocaine Screen Not Detected (Not Detect) U Marijuana (THC) Screen Not Detected (Not Detect) 01/19/24 01/19/24 Range/Units 12:58 13:55 WBC (4.8-10.8) X10*3/uL RBC (4.60-5.80) X10*6/uL Hgb (14.0-18.0) g/dl Hct (42.0-52.0) % MCV (80.0-98.0) fL MCH (27.0-33.0) pg MCHC (31.0-36.0) g/dl RDW (11.0-16.0) % Plt Count (160-400) X10*3/uL MPV (9.4-12.4) fL Immature Gran % (Auto) (0.0-0.4) % Neut % (Auto) (45-73) % Lymph % (Auto) (20-40) % Avery % (Auto) (2-11) % Eos % (Auto) (0-4) % Baso % (Auto) (0-2) % Lymph # (Auto) (1.2-4.9) X10*3/uL [place] # (Auto) (0.1-1.2) X10*3/uL Eos # (Auto) (0.0-0.4) X10*3/uL Baso # (Auto) (0.0-0.2) X10*3/uL Abs Immat Gran (auto) (0.00-0.03) X10*3/uL Absolute Neuts (auto) (2.0-8.3) x10*3/uL Absolute Nucleated RBC (0.0-0.012) X10*3/uL Nucleated RBC % (auto) (0.0-0.2) /100WBC VBG pH (7.32-7.43) VBG pCO2 mmHg VBG pO2 mmHg VBG HCO3 (22-26) mmol/L VBG O2 Saturation % VBG Base Excess mmol/L Sodium 130 L (135-145) mmol/L Potassium 4.3 (3.3-5.1) mmol/L Chloride 96 (96-108) mmol/L Carbon Dioxide 22 (22-29) mmol/L Anion Gap 16 (12-20) BUN 25 H (9-16) mg/dL Creatinine 2.97 H (0.5-1.4) mg/dL Estim Creat Clear Calc 34.1 Estimated GFR 22 POC Glucose 346 H (60-115) mg/dL Random Glucose 374 H* (60-115) mg/dL Calcium 8.8 D (8.4-10.2) mg/dL Total Bilirubin 1.2 H (0.0-1.0) mg/dL AST 29 (5-37) U/L ALT 23 (0-40) U/L Alkaline Phosphatase 124 H (39-117) U/L Troponin I High Sens 46.4 H (<3.5-35.0) ng/L B-Natriuretic Peptide (<100) pg/mL Total Protein 8.5 H (6.5-8.0) g/dL Albumin 3.7 (3.5-5.0) g/dL Urine Color Urine Appearance Urine pH (5.0-9.0) Ur Specific [place] (1.005-1.025) Urine Protein (Neg-Trace) mg/dL Urine Glucose (UA) (Negative) mg/dL Urine Ketones (Negative) mg/dL Urine Blood (Negative) Urine Nitrite (Negative) Ur Leukocyte Esterase (Negative) Urine RBC (0-2) /HPF Urine WBC (0-5) /HPF Ur Squamous Epith Cells (0-2) /HPF Urine Bacteria (None Seen) Hyaline Casts (0-2) /LPF Urine Opiates Screen (Not Detect) Urine Fentanyl Screen (Not Detect) Ur Barbiturates Screen (Not Detect) Ur Phencyclidine Scrn (Not Detect) Ur Amphetamines Screen (Not Detect) U Benzodiazepines Scrn (Not Detect) Urine Cocaine Screen (Not Detect) U Marijuana (THC) Screen (Not Detect) Independent Interpretation I performed an independent interpretation of an: EKG (sinus 100, non specific st segment changes), Plain X-Ray (CXR: large heart no infiltrate) and CT Scan (brain: atrophy) Radiology Impression Discussion of test interpretation with radiology: I have reviewed the radiologist's reading. Independent Historian Clinical information obtained from an independent historian. History obtained from or confirmed by: Parent Prescription Management I considered prescription management with: Antibiotic (no evidence of infection) Chronic Conditions Patient?s care impacted by: Diabetes and Hypertension Social Determinants Patient?s care significantly limited by Social Determinants of Health including: Low income Discharge Plan Discharge Clinical Impression: Anasarca, Renal failure, Opiate use Patient Disposition: Admitted As Inpatient
--- NOTE | 2024-01-19 11:45 | ECG_ITS ---
Test Reason : LOW O2 SAT,AMS Blood Pressure : / mmHG Vent. Rate : 109 BPM Atrial Rate : 109 BPM P-R Int : 160 ms QRS Dur : 096 ms QT Int : 342 ms P-R-T Axes : 057 068 002 degrees QTc Int : 460 ms Sinus tachycardia Cannot rule out Anterior infarct , age undetermined T wave abnormality, consider inferior ischemia Abnormal ECG When compared with ECG of 24-OCT-2008 13:53, Inverted T waves have replaced nonspecific T wave abnormality in Inferior leads Referred By: Sylvester Tamayo Electronically Signed By:SATYA DENG
--- NOTE | 2024-01-19 11:46 | PC.NURSE ---
Pt coming from home via EMS. Pt reports fall couple weeks ago , with abrasions to bilat shins. Pt believes they are infected, weaping and red/hot. Redness extends to bilat thigh area. Family reports pt is decreased responsiveness and generally unwell, speech slurring and cannot stay awake. Sepsis alert by EMS, no prior interventions. Pt is alert, oriented but slowly answering questions. Breathing is even but appears heavy. Skin is warm and dry, slightly pale. Pt noted to have edema to bilat legs and abdomen, hard and distended. Pt reports all over body pain/aching, 10/10. Pt appears generally unwell. Provider aware and is at bedside. Pt on bedside color television console monitor, sinus tachycardia. Pt on end tidal capno 35-40. SPO2 on RA 87-90%.Wounds on bilat lower legs weaping.
[2024-01-19 11:58] VITALS: PULSE 110; RESP 14; O2SAT 96
[2024-01-19 11:59] LABS: MANUAL DIFF FLAG NO
[2024-01-19 12:01] LABS: Basophils Percent Auto 0.2 % (0-2); Eosinophils Absolute Auto 0.3 X10*3/uL (0.0-0.4); Eosinophils Percent Auto 1.4 % (0-4); Hematocrit 37.7 % (42.0-52.0); Imm Gran Abs Auto 0.14 X10*3/uL (0.00-0.03); Imm Gran Pct Auto 0.7 % (0.0-0.4); Lymphocytes Absolute Auto 1.2 X10*3/uL (1.2-4.9); Lymphocytes Percent Auto 6.2 % (20-40); Mean Corpuscular HGB Conc 31.8 g/dl (31.0-36.0); Mean Corpuscular Hemoglobin 26.5 pg (27.0-33.0); Mean Corpuscular Volume 83.2 fL (80.0-98.0); Mean Platelet Volume 10.6 fL (9.4-12.4); Monocytes Absolute Auto 0.9 X10*3/uL (0.1-1.2); Monocytes Percent Auto 4.7 % (2-11); Neutrophils Absolute Auto 16.6 x10*3/uL (2.0-8.3); Neutrophils Percent Auto 86.8 % (45-73); Platelet Count 250 X10*3/uL (160-400); Red Blood Count 4.53 X10*6/uL (4.60-5.80); Red Cell Distribution Width 13.3 % (11.0-16.0); White Blood Count 19.2 X10*3/uL (4.8-10.8)
[2024-01-19] MEDS: Furosemide 40 MG/4 ML VIAL IVPUSH (12:01)
[2024-01-19 12:03] LABS: VBG HCO3 19 mmol/L (22-26); VBG pCO2 34 mmHg; VBG pH 7.36 (7.32-7.43); VBG pO2 68 mmHg
[2024-01-19 12:03] LABS: Venous Blood Gas Refer to POC result
[2024-01-19 12:24] LABS: B Type Natriuretic Peptide 39 pg/mL (<100)
[2024-01-19 12:41] LABS: Appearance Urine Clear; Color Urine Yellow; Glucose Urine UA >=1000 mg/dL (Negative); Leukocyte Esterase Urine Negative (Negative); Nitrite Urine Negative (Negative); PH 5.5 (5.0-9.0); Specific Gravity - Urine >= 1.030 (1.005-1.025); UMIC TRIGGER UACC YES; Urine Blood Small (1+) (Negative); Urine Ketones Trace mg/dL (Negative); Urine Protein 30 (1+) mg/dL (Neg-Trace)
[2024-01-19 12:45] LABS: Amphetamine Screen Urine Not Detected (Not Detect); Barbiturates, Urine Not Detected (Not Detect); Benzodiazepines Screen Urine Not Detected (Not Detect); Cannabinoid Screen Urine Not Detected (Not Detect); Cocaine Screen Urine Not Detected (Not Detect); Fentanyl, urine Not Detected (Not Detect); Opiate Screen Urine POSITIVE (Not Detect); Phencyclidine Screen Urine Not Detected (Not Detect)
[2024-01-19 12:59] LABS: Bacteria Urine None Seen (None Seen); Hyaline Casts Urine 0-2 /LPF (0-2); RBC Urine 0-2 /HPF (0-2); Squamous Epithelial Cell Urine 0-2 /HPF (0-2); WBC Urine 0-5 /HPF (0-5)
[2024-01-19 13:26] LABS: Alanine Aminotransferase 23 U/L (0-40); Albumin Level 3.7 g/dL (3.5-5.0); Alkaline Phosphatase 124 U/L (39-117); Anion Gap 16 (12-20); Aspartate Amino Transferase 29 U/L (5-37); Bilirubin Total 1.2 mg/dL (0.0-1.0); Blood Urea Nitrogen 25 mg/dL (9-16); Calcium 8.8 mg/dL (8.4-10.2); Carbon Dioxide 22 mmol/L (22-29); Chloride 96 mmol/L (96-108); Creatinine Clr Calc Pharmacy 34.1; Estimated Glomerular Filt Rate 22; Glucose Random 374 mg/dL (60-115); Potassium 4.3 mmol/L (3.3-5.1); Sodium 130 mmol/L (135-145); Total Protein 8.5 g/dL (6.5-8.0)
[2024-01-19 13:28] LABS: Troponin-I High Sensitivity 46.4 ng/L (<3.5-35.0)
[2024-01-19 14:00] LABS: Glucose, Whole Blood 346 mg/dL (60-115)
[2024-01-19] MEDS: Insulin Lispro 100 UNIT/ML 3 ML VIAL 10 UNIT SUBCUT (14:03)
[2024-01-19] MEDS: Naloxone HCl 2 MG/2 ML SYRINGE 1 MG IVPUSH (14:05)
[2024-01-19 14:08] VITALS: BP 189/86; PULSE 123; RESP 16; O2SAT 98
[2024-01-19] MEDS: ondansetron HCL 4 MG/2 ML VIAL IVPUSH (14:13)
[2024-01-19 14:50] LABS: Troponin-I High Sensitivity 49.8 ng/L (<3.5-35.0)
--- NOTE | 2024-01-19 15:11 | PC.NURSE ---
Pt given Narcan as ordered to improve alertness as pt sleepy but easily arousable. Per provider pt denies opiates, Narcan admin and pt noted with chills, yawning, agitation and nausea. Hallucinating. Dr Tamayo to bedside to assess. Pt then reported taking Morphine TID at home prescribed s/p neck injury years ago. Pt agitation is improving at this time. Repositioned in bed. Pt more restful. Leg continue to weep. Skin macerated appearance. Redness and swelling up to abdomen, skin taught all over including b/l arms. Sinus tach on tele rate 106
--- NOTE | 2024-01-19 15:35 | P.HPHOSP_ITS ---
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 Patient is alert and oriented x4, but a poor historian who is unable to provide detailed or accurate HPI, which is instead obtained from family who is at bedside. states that patient fell in December and hit his head, and was hospitalized at [facility]. Apparently did okay once discharged until two weeks ago when he had an open bleeding gash on his lower leg. Has had visiting nurse who has bandaged wound and wrapped legs. However, since wound on leg pt has become slowly more lethargic, weak, and confused. Apparently has been mumbling to himself, grabbing at things that are not there, and speaking nonsensically at times. Also had redness to lower extremities. Pt became progressively weaker, more lethargic, and unable to walk. Patient refused to be evaluated at the hospital, though condition deteriorated further this morning when pt was unable to even stand and leg erythema spread further up legs and to lower back. Denies fever, chills, nausea, vomiting, abdominal pain. Of note, pt is chronically on p.o. morphine for chronic pain and may have taken extra doses the past week due to confusion. Was given Narcan in ED with good response. In the ED pt was tachycardic up to 123, tachypneic up to 22, hypertensive up to 189/86, and satting 91% on RA. Labs were significant for leukocytosis of 19.2, sodium 130, BUN 25, creatinine 2.97, random glucose 374, total bilirubin 1.2, alk-phos 124, and initial troponin 46.4 with repeat flat at 49.8. Lactic acid WNL at 1.3. UA negative for UTI. CXR showed cardiomegaly without acute pulmonary pathology. CT?of head showed chronic microvascular ischemic changes with no CT evidence of acute intracranial abnormality. EKG demonstrated sinus tachycardia with T-wave inversions in III and aVF, but no evidence of ST elevations or depressions. Pt was treated with furosemide, insulin, naloxone, and ondansetron. Pt will be admitted to the hospital for acute metabolic encephalopathy in the setting of lower leg cellulitis with sepsis. Review of Systems 2 Review of Systems: Negative except for that stated in the HPI. [facility] Medical History Chronic, continuous use of opioids 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 Concussion 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 Diabetes mellitus type 2, controlled Traumatic subarachnoid hemorrhage Traumatic subdural hematoma Temporal skull fracture Traumatic brain injury Major depression Controlled type 2 diabetes mellitus with diabetic nephropathy Nephritis NOS in other disease Chronic kidney disease, stage III (moderate) Other chronic pain Neck pain Dyslipidemia Asthma Anemia of chronic disease Chronic constipation HTN (hypertension) Glaucoma suspect Surgical History Bilateral inguinal hernia S/P cervical spinal fusion Social History Patient Tobacco Use Status: Former Tobacco user Tobacco use type: Cigarette Smoked in Last 30 Days: No Use of substances other than those prescribed or required for medical reasons: No Advance Directives: No Meds Allergies Allergy/AdvReac Type Severity Reaction Status Date / Time No Known Allergies Allergy Mild NOT Verified 10/07/23 15:02 APPLICABLE Home Medications Medication Instructions Recorded Confirmed Last Taken Type atorvastatin 40 mg tablet 40 mg PO DAILY 01/20/22 01/19/24 01/18/24 History dapagliflozin propanediol 10 mg 10 mg PO DAILY 01/20/22 01/19/24 01/18/24 History tablet (Farxiga) acetaminophen-caffeine 500 mg-65 1 tab PO Q6H PRN Pain 01/19/24 01/19/24 Unknown History mg tablet amlodipine 2.5 mg tablet 2.5 mg PO DAILY 01/19/24 01/19/24 01/18/24 History aspirin 81 mg tablet,delayed 81 mg PO DAILY 01/19/24 01/19/24 01/18/24 History release docusate sodium 100 mg capsule 200 mg PO DAILY 01/19/24 01/19/24 01/18/24 History (Colace) escitalopram oxalate 20 mg tablet 20 mg PO DAILY 01/19/24 01/19/24 01/18/24 History insulin aspart U-100 100 unit/mL 80 unit subcut TIDAC 01/19/24 01/19/24 01/18/24 History subcutaneous solution (Novolog U-100 Insulin aspart) insulin glargine 100 unit/mL 80 unit subcut BEDTIME 01/19/24 01/19/24 01/18/24 History subcutaneous solution (Lantus U-100 Insulin) ketoconazole 2 % topical cream 1 appl topical DAILY feet 01/19/24 01/19/24 Unknown History linaclotide 290 mcg capsule 290 mcg PO QAM PRN Constipation 01/19/24 01/19/24 Unknown History (Linzess) morphine 30 mg tablet,extended 30 mg PO BEDTIME 01/19/24 01/19/24 01/18/24 History release morphine 30 mg tablet,extended 60 mg PO DAILY 01/19/24 01/19/24 01/18/24 History release naloxegol 12.5 mg tablet (Movantik) 12.5 mg PO QAM PRN Constipation 01/19/24 01/19/24 Unknown History polyethylene glycol 3350 17 gram 17 g PO DAILY PRN Constipation 01/19/24 01/19/24 Unknown History oral powder packet (Gavilax) quetiapine 50 mg tablet 50 mg PO BEDTIME 01/19/24 01/19/24 01/18/24 History sennosides 8.6 mg tablet (senna) 17.2 mg PO DAILY constipation 01/19/24 01/19/24 01/18/24 History testosterone enanthate 75 mg/0.5 75 mg subcut FR hypogonadism 01/19/24 01/19/24 01/15/24 History mL subcutaneous auto-injector (Xyosted) zolpidem 12.5 mg tablet,extended 12.5 mg PO BEDTIME insomnia 01/19/24 01/19/24 01/18/24 History release,multiphase Physical Exam 2 Vital Signs and Narrative: Vital Signs: Last Vital Signs Temp 98.5 F 01/19/24 11:42 Pulse 123 H 01/19/24 14:08 Resp 16 01/19/24 14:08 BP 189/86 H 01/19/24 14:08 Pulse Ox 98 01/19/24 14:08 O2 Del Method Room Air 01/19/24 14:08 O2 Flow Rate 2 01/19/24 11:58 BMI result Body Mass Index 35.9 Constitutional: Alert though somnolent. In no acute distress. Mental Status: Oriented to person, place, and time, though not to situation. Eyes: Pupils are equal, round, and reactive to light. Ear, Nose, and Throat: Oropharynx clear, mucous membranes moist. Ears and nose without deformities. Trachea midline. Respiratory: Clear to auscultation bilaterally. No wheezing, rales, or rhonchi. Cardiovascular: S1, S2, tachy. No murmurs, rubs, or gallops. Gastrointestinal: Abdomen soft, non-tender, obese. Normal bowel sounds. Neurologic: Cranial nerves II-XII are grossly intact bilaterally. No focal neurological deficits. Moves all extremities spontaneously. Skin: Warm, dry. Musculoskeletal: No cyanosis or clubbing. Extremities: Multiple weeping bulla superimposed over chronic venous stasis dermatitis. Erythema with warmth of lower extremities bilaterally extending from calves to lower back. As pictured below. Lower leg edema bilaterally. Psychiatric: Normal mood and affect. Results Labs 01/19/24 11:56 01/19/24 12:58 Labs: Laboratory Results - last 24 hr 01/19/24 01/19/24 01/19/24 11:56 11:57 12:29 MCV 83.2 MCH 26.5 L MCHC 31.8 RDW 13.3 Plt Count 250 MPV 10.6 Immature Gran % (Auto) 0.7 H Neut % (Auto) 86.8 H Lymph % (Auto) 6.2 L Emmons % (Auto) 4.7 Eos % (Auto) 1.4 Baso % (Auto) 0.2 Lymph # (Auto) 1.2 Emmons # (Auto) 0.9 Eos # (Auto) 0.3 Baso # (Auto) 0.0 Abs Immat Gran (auto) 0.14 H Absolute Neuts (auto) 16.6 H Absolute Nucleated RBC 0.000 Nucleated RBC % (auto) 0.0 VBG pH 7.36 VBG pCO2 34 VBG pO2 68 VBG HCO3 19 L VBG O2 Saturation 94.0 VBG Base Excess -5.0 Anion Gap Estim Creat Clear Calc Estimated GFR POC Glucose Random Glucose Calcium Total Bilirubin AST ALT Alkaline Phosphatase Troponin I High Sens B-Natriuretic Peptide 39 Total Protein Albumin Urine Color Yellow Urine Appearance Clear Urine pH 5.5 Ur Specific [place] >= 1.030 H Urine Protein 30 (1+) H Urine Glucose (UA) >=1000 H Urine Ketones Trace Urine Blood Small (1+) H Urine Nitrite Negative Ur Leukocyte Esterase Negative Urine RBC 0-2 Urine WBC 0-5 Ur Squamous Epith Cells 0-2 Urine Bacteria None Seen Hyaline Casts 0-2 Urine Opiates Screen POSITIVE H Urine Fentanyl Screen Not Detected Ur Barbiturates Screen Not Detected Ur Phencyclidine Scrn Not Detected Ur Amphetamines Screen Not Detected U Benzodiazepines Scrn Not Detected Urine Cocaine Screen Not Detected U Marijuana (THC) Screen Not Detected 01/19/24 01/19/24 01/19/24 12:58 13:55 14:23 MCV MCH MCHC RDW Plt Count MPV Immature Gran % (Auto) Neut % (Auto) Lymph % (Auto) Emmons % (Auto) Eos % (Auto) Baso % (Auto) Lymph # (Auto) Emmons # (Auto) Eos # (Auto) Baso # (Auto) Abs Immat Gran (auto) Absolute Neuts (auto) Absolute Nucleated RBC Nucleated RBC % (auto) VBG pH VBG pCO2 VBG pO2 VBG HCO3 VBG O2 Saturation VBG Base Excess Anion Gap 16 Estim Creat Clear Calc 34.1 Estimated GFR 22 POC Glucose 346 H Random Glucose 374 H* Calcium 8.8 D Total Bilirubin 1.2 H AST 29 ALT 23 Alkaline Phosphatase 124 H Troponin I High Sens 46.4 H 49.8 H B-Natriuretic Peptide Total Protein 8.5 H Albumin 3.7 Urine Color Urine Appearance Urine pH Ur Specific [place] Urine Protein Urine Glucose (UA) Urine Ketones Urine Blood Urine Nitrite Ur Leukocyte Esterase Urine RBC Urine WBC Ur Squamous Epith Cells Urine Bacteria Hyaline Casts Urine Opiates Screen Urine Fentanyl Screen Ur Barbiturates Screen Ur Phencyclidine Scrn Ur Amphetamines Screen U Benzodiazepines Scrn Urine Cocaine Screen U Marijuana (THC) Screen Imaging Radiologist's Impressions: Impressions Chest X-Ray 01/19/24 12:34 IMPRESSION: Cardiomegaly without acute pulmonary pathology. Head CT 01/19/24 13:15 IMPRESSION: Chronic microvascular ischemic changes with no CT evidence of acute intracranial abnormality. 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 Pt will be admitted to the hospital for acute metabolic encephalopathy in the setting of lower leg cellulitis with sepsis. Acute metabolic encephalopathy in the setting lower leg cellulitis with sepsis Patient with confusion, lethargy, weakness, warmth and erythema of lower extremities, chronic lower leg wounds, worsening over 1-2 weeks Patient meets sepsis criteria: Tachycardia, tachypnea, leukocytosis; lactic acid WNL at 1.3 Will treat with vancomycin, started 01/19/2024 Will defer IVF to avoid fluid overload Wound care consult Monitor mentation Follow cultures Acute hypoxic respiratory failure Pt desatting as low as 87% on RA No pulmonary diagnosis, not on home O2 Likely multifactorial: secondary to sepsis and obesity Titrate supplemental O2 >92, wean as tolerated Question of CHF CXR showing cardiomegaly, increased lower leg edema CXR without acute pulmonary pathology; BNP WNL Will treat with furosemide 40 mg IV daily Echocardiogram Follow BNP, Mag, I/O Monitor on telemetry ETHAN Creatinine 2.97, up from 0.63 on 11/08/2023 Likely cardiorenal Treat as above Follow BMP Elevated troponins Initial troponin 46.4 with repeat flat at 49.8 Patient asymptomatic, EKG without significant ischemic changes Most likely type 2 in the setting of increased demand Monitor on telemetry Hyponatremia, mild Sodium 130 time of presentation, similar to labs in November Follow BMP Insulin-dependent diabetes type 2 SSI, Lantus Diabetic diet HTN Continue amlodipine HLD Continue statin Chronic musculoskeletal pain Continue chronic home opioids Mood disorder Continue home meds Full Code Attending:?Dr. Guan DVT Prophylaxis: Lovenox Pt will require a hospitalization of at least two nights for treatment of?acute metabolic encephalopathy and acute hypoxic respiratory failure in setting of lower leg cellulitis with sepsis. Patient will require hospitalization for administration of IV antibiotics, IV diuretics, and supplemental O2, and close monitoring of electrolytes, vitals, and mentation. Quality Stroke Does the patient have a stroke diagnosis?: No VTE Prior VTE?: No VTE Risk Level:: Medical - moderate - high VTE Device Contraindication: Treatment Not Indicated VTE Drug Contraindication: N/A - Med Ordered
[2024-01-19 16:26] VITALS: BP 169/64; PULSE 108; RESP 12; TEMP 36.8; O2SAT 95
--- NOTE | 2024-01-19 17:21 | PHA.MEDREC ---
Pharmacy Consult ? Medication Reconciliation Pharmacy has completed the medication reconciliation. Confirmed medications with patient (and girl friend) and through claim history. Patient reports that he takes Movantick and Linzess PRN. Also reports that he take Morphine ER 30mg 2 tablets in the AM and 1tablet at bedtime.
[2024-01-19 17:46] LABS: Lactic Acid 1.3 mmol/L (0.5-2.0)
[2024-01-19] MEDS: Enoxaparin Sodium 40 MG/0.4 ML SYRINGE SUBCUT (18:06)
[2024-01-19] MEDS: vancomycin/NS 2,000 MG/500 ML PLAST..BAG 250 MG IV (18:06)
--- NOTE | 2024-01-19 18:52 | PHA.PROG ---
Admission Date/Time: January 19, 2024 17:01 Indication: Cellulitis Weight in k.398 kg Adjusted body weight in K.1 kg [place] body weight in K kg Obesity Dosing Indication % IBW: 154% Serum Creatinine - Last 168 Hours 01/19/24 12:58 Creatinine 2.97 H Estimated CrCl and GFR - Last 168 Hours 01/19/24 12:58 Estim Creat Clear Calc 34.1 Estimated GFR 22 Vancomycin Loading Dose: 2000 mg Current Vancomycin Dosing Regimen: 1000 mg Q24H Date and Time for next Vancomycin Level to be drawn: 01/20 @ 1600 Pharmacist Comments on Vancomycin Plan: patient received an adequate load dose in the ER on 01/18 @ 1806 maintenance dose vancomycin 1000 mg q24h is scheduled os tart 01/19 @ 1800. Predicted AUC 494 with a trough of 16.8 Patient is obese with %IBW > 154%, therefore carefully monitor is require due to vancomycin's high volume of distribution Level is be drawn prior to 3rd dose to access for safety due to renal function and obesity. If renal function worsen level may need to be drawn prior to starting maintenance dose Pharmacy will monitor renal function daily Trina Mayo, Debbie Vancomycin dosing will take advantage of [employer] as a clinical decision support tool that uses Bayesian modeling to calculate individual patient's pharmacokinetic parameters and forecast the patient's drug concentration time course with the target goal AUC 24 range of 400 - 600 mg/L/hr.
[2024-01-19 18:56] LABS: Glucose, Whole Blood 376 mg/dL (60-115)
[2024-01-19] MEDS: amLODIPine Besylate 2.5 MG TABLET PO (20:05)
[2024-01-19] MEDS: Atorvastatin Calcium 40 MG TABLET PO (20:05)
[2024-01-19] MEDS: Aspirin Enteric Coated 81 MG TABLET.DR PO (20:05)
--- NOTE | 2024-01-19 20:08 | PC.NURSE ---
Pt ca&ox3, no signs of distress. Pt resting in bed quietly. Pt medicated per dec. Plan of care ongoing.
[2024-01-19 21:29] LABS: Glucose, Whole Blood 429 mg/dL (60-115)
--- NOTE | 2024-01-19 21:38 | PC.NURSE ---
Dr Deluna notified of pts 426 POC. Plan of care ongoing.
[2024-01-19] MEDS: Insulin Lispro 100 UNIT/ML 3 ML VIAL SUBCUT (21:40)
[2024-01-19] MEDS: Insulin Glargine,Hum.rec.anlog 100 UNIT/ML 10 ML VIAL 56 UNIT SUBCUT (21:40)
[2024-01-19] MEDS: Morphine Sulfate ER 30 MG TABLET.ER PO (21:41)
[2024-01-19] MEDS: QUEtiapine Fumarate 50 MG TABLET PO (21:41)
[2024-01-19] MEDS: Zolpidem Tartrate 5 MG TABLET 12.5 MG PO (21:41)
--- NOTE | 2024-01-19 21:46 | PC.NURSE ---
Pt ca&ox4, no signs of distress. Pt reporting 10/10 pain. Pt medicated per mar. Plan of care ongoing.
[2024-01-19 22:00] VITALS: BP 158/87; PULSE 101; RESP 14; TEMP 36.8; O2SAT 94
[2024-01-20] VITALS (7 sets, daily range): BP systolic 158–203; BP diastolic 78–98; PULSE 101–122; RESP 12–20; TEMP 35.9–36.8; O2SAT 91–97
[2024-01-20] MEDS: 0.9 % Sodium Chloride Flush 3 ML SYRINGE IVFLUSH ×4 (01:00→22:11)
[2024-01-20] MEDS: Labetalol HCL 100 MG/20 ML VIAL 10 MG IVPUSH (01:51)
--- NOTE | 2024-01-20 07:00 | CA_ITS ---
Transthoracic Echocardiogram Patient (Last, First, Middle): Hussein Mandujano F Gender: Male Date of : 1965 Age: 58 Procedure Date: 01/20/2024 Procedure Type: Transthoracic Echocardiogram Location: [facility] – [place] Height: 177.8 cm Weight: 113.4 kg BSA: 2.29 m2 Heart Rate: bpm BP: 158 / 92 mmHg Assembly Line Brazer: Referring MD: Jose BROWN Symptoms: ?CHF Study Quality: Fair, contrast ECG Rhythm: Sinus tachycardia Conclusions: - The left ventricular systolic function is normal. The visually estimated ejection fraction is between 60-65%. - There is moderately increased left ventricular wall thickness. - No obvious valvular pathology seen on this study. Findings Procedure Information Contrast agent, definity, is being given per protocol without apparent complications. Left Ventricle Normal left ventricular cavity size. There is moderately increased left ventricular wall thickness. The left ventricular systolic function is normal. The visually estimated ejection fraction is between 60-65%. There is no evidence of regional wall motion abnormalities. Diastolic function is normal for age. Right Ventricle The right ventricle was not well visualized. Atria Both atria are normal in size. Aortic Valve The aortic valve was not well visualized. There is no aortic valve stenosis. There is no aortic valve regurgitation. Mitral Valve The mitral valve appears normal. There is no mitral valve regurgitation. There is no mitral valve stenosis. Pulmonic Valve The pulmonic valve is likely normal. Tricuspid Valve There is trace tricuspid valve regurgitation. Tricuspid regurgitation envelope is inadequate for calculation of right ventricular systolic pressure. Great Vessels The asc aorta is normal in size. Venous The inferior vena cava is normal in size and collapses greater than 50% with inspiration. Pericardium/Pleural There is no evidence of pericardial effusion. Prior Study Comparison No prior study available for comparison. Recommendations, Care & Conclusions No obvious valvular pathology seen on this study. Measurements 2D Linear Measurements IVSd: 1.39 0.6-0.9/0.6-1.0 cm LVIDd: 4.28 3.9-5.3/4.2-5.9 cm LVIDd Index: 1.87 2.4-3.2/2.2-3.1 cm/m2 LVIDs: 2.76 2.0-3.6 cm LVPWd: 1.36 0.7-1.1 cm Ao Root: 3.30 2.1-3.5 cm LA Diam: 3.40 2.7-3.8/3.0-4.0 cm LAIDs Index: 1.48 1.5-2.3 cm/m2 LV Mass: 279.79 67-162/88-224 g LV Mass Index: 122.18 43-95/49-115 g/m2 LVOT Diam: 2.00 3.0+(-)1.3 cm 2D Systolic Function EF 4C: 72.20 >55% EF 2C: 68.50 >55% EF BiP: 68.60 >55% Mitral Valve MV Pk E: 0.72 MV PK A: 0.57 MV Decel Time: 104.00 E/A: 1.30 E'Lateral: 4.90 E'Medial: 9.03 E/E' Med: 8.00 E/E' Lat: 14.70 PHT: 30.00 MVA PHT: 7.33 Decel [place]: 6.95 Aortic Valve AoV Pk Arron: 1.38 AoV Mn Arron: 0.91 AoV VTI: 0.20 AoV Pk Grad: 8.00 Aov Mn Grad: 4.00 MELANIA Cont.VTI: 2.32 LVOT LVOT Pk Arron: 0.80 LVOT Mn Arron: 0.53 LVOT VTI: 0.15 LVOT Pk Grad: 3.00 LVOT Mn Grad: 1.00 LVOT Diam: 2.00 LVOT Area: 3.14 Diastolic Function MV Pk E: 0.72 MV Pk A: 0.57 E/A: 1.30 E'Medial: 9.03 E/E' Med: 8.00 E' Laterial: 4.90 E/E' Lat: 14.70 Tricuspid Valve TR Pk Arron: 1.61 TR Pk Grad: 10.00 Great Vessels Aorta Ao Root-2D: 3.30 2.0-3.7 cm Ao Asc: 3.30 2.1-3.4 cm Pulmonary Valve PV Pk Arron: 1.30 Peak PV Grad: 7.00 Updated in Other Vendor System with Status of Final Oswald Burks MD electronically signed on 01/20/2024 11:19:22 AM with status of Final
[2024-01-20 07:10] LABS: Hematocrit 37.3 % (42.0-52.0); Mean Corpuscular HGB Conc 32.2 g/dl (31.0-36.0); Mean Corpuscular Hemoglobin 26.8 pg (27.0-33.0); Mean Corpuscular Volume 83.3 fL (80.0-98.0); Mean Platelet Volume 10.6 fL (9.4-12.4); Platelet Count 274 X10*3/uL (160-400); Red Blood Count 4.48 X10*6/uL (4.60-5.80); Red Cell Distribution Width 13.4 % (11.0-16.0); White Blood Count 18.6 X10*3/uL (4.8-10.8)
[2024-01-20 07:33] LABS: Anion Gap 21 (12-20); Blood Urea Nitrogen 33 mg/dL (9-16); Calcium 8.8 mg/dL (8.4-10.2); Carbon Dioxide 18 mmol/L (22-29); Chloride 95 mmol/L (96-108); Creatinine Clr Calc Pharmacy 29.9; Estimated Glomerular Filt Rate 19; Magnesium 2.1 mg/dL (1.6-2.6); Potassium 4.8 mmol/L (3.3-5.1); Sodium 129 mmol/L (135-145)
[2024-01-20 07:42] LABS: Glucose, Whole Blood 404 mg/dL (60-115)
[2024-01-20 07:44] LABS: Glucose Random 412 mg/dL (60-115)
--- NOTE | 2024-01-20 07:48 | PC.NURSE ---
Provider notified of BS of 404, report given to accepting unit. Patient incont of urine, incont care provided.
--- NOTE | 2024-01-20 08:13 | HE.PHANOTE ---
RE: vanco Patient's renal function worsening, getting random level before first maintenance dose; decreased dose to 750mg Q24H with predicted AUC 413 mg/L, trough of 14.4 mg/L. Will adjust based on results
--- NOTE | 2024-01-20 08:21 | PC.NURSE ---
Unable to give 20 units of insulin d/t no insulin in ED. Pharmacy , provider and accepting provider notified
[2024-01-20] MEDS: Morphine Sulfate ER 30 MG TABLET.ER 60 MG PO (08:51)
[2024-01-20] MEDS: amLODIPine Besylate 2.5 MG TABLET PO (08:52)
[2024-01-20] MEDS: Aspirin Enteric Coated 81 MG TABLET.DR PO (08:52)
[2024-01-20] MEDS: Atorvastatin Calcium 40 MG TABLET PO (08:52)
[2024-01-20] MEDS: Escitalopram Oxalate 20 MG TABLET PO (08:52)
[2024-01-20] MEDS: Docusate Sodium 100 MG CAPSULE 200 MG PO (08:52)
[2024-01-20] MEDS: Sennosides 8.6 MG TABLET 17.2 MG PO (08:52)
[2024-01-20] MEDS: Insulin Glargine,Hum.rec.anlog 100 UNIT/ML 10 ML VIAL 80 UNIT SUBCUT (08:54)
[2024-01-20] MEDS: Insulin Lispro 100 UNIT/ML 3 ML VIAL 10 UNIT SUBCUT (08:55)
[2024-01-20] MEDS: Insulin Lispro 100 UNIT/ML 3 ML VIAL SUBCUT ×4 (08:55→22:11)
--- NOTE | 2024-01-20 09:15 | P.PNIM_ITS ---
Subjective Subjective Date of Service: 01/20/24 Interval History: sore throat Physical Exam 2 Vital Signs: Vital Signs: Last Vital Signs Temp 97.3 F 01/20/24 08:51 Pulse 109 H 01/20/24 08:51 Resp 20 01/20/24 08:51 BP 199/86 H 01/20/24 08:51 Pulse Ox 97 01/20/24 08:51 O2 Del Method Nasal Cannula 01/20/24 08:51 O2 Flow Rate 2 01/20/24 08:51 BMI result Body Mass Index 35.9 General: AO X 3, ill appearing Resp: diminished bilateral, no accessory muscles used CVS: S1,S2,RRR GI: soft, non tender, non distended bilateral lower extremity edema, chronic and acute skin changes Objective Data Active Medications Acetaminophen (Acetaminophen 325 Mg Tablet) 650 mg PO Q6H PRN PRN Reason: Pain, Mild (Pain Scale 1-3) Amlodipine Besylate (Amlodipine Besylate 2.5 Mg Tablet) 2.5 mg PO DAILY [facility]; Protocol Last Admin: 01/20/24 08:52 Dose: 2.5 mg Documented By: VALENTÍN Aspirin (Aspirin Enteric Coated 81 Mg Tablet.) 81 mg PO DAILY [facility] Last Admin: 01/20/24 08:52 Dose: 81 mg Documented By: VALENTÍN Atorvastatin Calcium (Atorvastatin Calcium 40 Mg Tablet) 40 mg PO DAILY [facility] Last Admin: 01/20/24 08:52 Dose: 40 mg Documented By: VALENTÍN Benzonatate (Benzonatate 100 Mg Capsule) 100 mg PO TID PRN PRN Reason: Cough Dextrose (Dextrose 50 % 25 Gm/50 Ml Syringe) 25 gm IVPUSH Q15M PRN; Protocol PRN Reason: per Hypoglycemia Standing Ord. Docusate Sodium (Docusate Sodium 100 Mg Capsule) 200 mg PO DAILY [facility] Last Admin: 01/20/24 08:52 Dose: 200 mg Documented By: VALENTÍN Enoxaparin Sodium (Enoxaparin Sodium 40 Mg/0.4 Ml Syringe) 40 mg SUBCUT Q24H [facility] Last Admin: 01/19/24 18:06 Dose: 40 mg Documented By: KENNEDY Escitalopram Oxalate (Escitalopram Oxalate 20 Mg Tablet) 20 mg PO DAILY [facility] Last Admin: 01/20/24 08:52 Dose: 20 mg Documented By: VALENTÍN Glucose (Glucose Gel 15 Gm Gel..Gram.) 15 gm PO Q15M PRN; Protocol PRN Reason: per Hypoglycemia Standing Ord. Vancomycin HCl 750 mg/ Sodium (Chloride) 265 mls @ 265 mls/hr IV Q24H [facility] Insulin Glargine (Insulin Glargine,Hum.Rec.Anlog 100 Unit/Ml 10 Ml Vial) 56 unit SUBCUT BEDTIME [facility] Last Admin: 01/19/24 21:40 Dose: 56 unit Documented By: LUMA Insulin Glargine (Insulin Glargine,Hum.Rec.Anlog 100 Unit/Ml 10 Ml Vial) 80 unit SUBCUT DAILY [facility] Last Admin: 01/20/24 08:54 Dose: 80 unit Documented By: VALENTÍN Insulin Human Lispro (Insulin Lispro 100 Unit/Ml 3 Ml Vial) 0 unit SUBCUT QIDACHS [facility]; Protocol Last Admin: 01/20/24 08:55 Dose: 10 unit Documented By: VALENTÍN Insulin Human Lispro (Insulin Lispro 100 Unit/Ml 3 Ml Vial) 15 unit SUBCUT QIDACHS [facility] Lidocaine/Diphenhydr/Alum/Mg/Simeth (Mag&Al/Sim/Diphenhyd/Lidocaine 10 Ml Oral.Susp) 10 ml PO Q4H PRN; Protocol PRN Reason: sore throat Melatonin (Melatonin 3 Mg Tablet) 6 mg PO BEDTIME PRN PRN Reason: Insomnia Morphine Sulfate (Morphine Sulfate Er 30 Mg Tablet.Er) 30 mg PO BEDTIME [facility] Last Admin: 01/19/24 21:41 Dose: 30 mg Documented By: LUMA Morphine Sulfate (Morphine Sulfate Er 30 Mg Tablet.Er) 60 mg PO DAILY [facility] Last Admin: 01/20/24 08:51 Dose: 60 mg Documented By: VALENTÍN Ondansetron HCl (Ondansetron Hcl 4 Mg/2 Ml Vial) 4 mg IVPUSH Q8H PRN PRN Reason: Nausea and Vomiting Pharmacy Consult (Consult Rx Vancomycin Dosing) 1 each MISCELLANE DAILY PRN PRN Reason: Consult order Polyethylene Glycol (Polyethylene Glycol 3350 17 Gm Powd.Pack) 17 gm PO DAILY PRN PRN Reason: Constipation Quetiapine Fumarate (Quetiapine Fumarate 50 Mg Tablet) 50 mg PO BEDTIME [facility] Last Admin: 01/19/24 21:41 Dose: 50 mg Documented By: LUMA Senna (Sennosides 8.6 Mg Tablet) 17.2 mg PO DAILY [facility] Last Admin: 01/20/24 08:52 Dose: 17.2 mg Documented By: VALENTÍN Sodium Chloride (0.9 % Sodium Chloride Flush 3 Ml Syringe) 3 ml IVFLUSH QSHIFT [facility] Last Admin: 01/20/24 08:54 Dose: 3 ml Documented By: VALENTÍN Zolpidem Tartrate (Zolpidem Tartrate 5 Mg Tablet) 12.5 mg PO BEDTIME [facility] Last Admin: 01/19/24 21:41 Dose: 12.5 mg Documented By: LUMA Labs 01/20/24 04:51 01/20/24 04:51 Labs: Laboratory Results - last 24 hr 01/19/24 01/19/24 01/19/24 11:56 11:57 12:29 MCV 83.2 MCH 26.5 L MCHC 31.8 RDW 13.3 Plt Count 250 MPV 10.6 Immature Gran % (Auto) 0.7 H Neut % (Auto) 86.8 H Lymph % (Auto) 6.2 L Power % (Auto) 4.7 Eos % (Auto) 1.4 Baso % (Auto) 0.2 Lymph # (Auto) 1.2 Power # (Auto) 0.9 Eos # (Auto) 0.3 Baso # (Auto) 0.0 Abs Immat Gran (auto) 0.14 H Absolute Neuts (auto) 16.6 H Absolute Nucleated RBC 0.000 Nucleated RBC % (auto) 0.0 VBG pH 7.36 VBG pCO2 34 VBG pO2 68 VBG HCO3 19 L VBG O2 Saturation 94.0 VBG Base Excess -5.0 Anion Gap Estim Creat Clear Calc Estimated GFR POC Glucose Random Glucose Lactic Acid Calcium Magnesium Total Bilirubin AST ALT Alkaline Phosphatase Troponin I High Sens B-Natriuretic Peptide 39 Total Protein Albumin Urine Color Yellow Urine Appearance Clear Urine pH 5.5 Ur Specific [place] >= 1.030 H Urine Protein 30 (1+) H Urine Glucose (UA) >=1000 H Urine Ketones Trace Urine Blood Small (1+) H Urine Nitrite Negative Ur Leukocyte Esterase Negative Urine RBC 0-2 Urine WBC 0-5 Ur Squamous Epith Cells 0-2 Urine Bacteria None Seen Hyaline Casts 0-2 Urine Opiates Screen POSITIVE H Urine Fentanyl Screen Not Detected Ur Barbiturates Screen Not Detected Ur Phencyclidine Scrn Not Detected Ur Amphetamines Screen Not Detected U Benzodiazepines Scrn Not Detected Urine Cocaine Screen Not Detected U Marijuana (THC) Screen Not Detected 01/19/24 01/19/24 01/19/24 12:58 13:55 14:23 MCV MCH MCHC RDW Plt Count MPV Immature Gran % (Auto) Neut % (Auto) Lymph % (Auto) Power % (Auto) Eos % (Auto) Baso % (Auto) Lymph # (Auto) Power # (Auto) Eos # (Auto) Baso # (Auto) Abs Immat Gran (auto) Absolute Neuts (auto) Absolute Nucleated RBC Nucleated RBC % (auto) VBG pH VBG pCO2 VBG pO2 VBG HCO3 VBG O2 Saturation VBG Base Excess Anion Gap 16 Estim Creat Clear Calc 34.1 Estimated GFR 22 POC Glucose 346 H Random Glucose 374 H* Lactic Acid Calcium 8.8 D Magnesium Total Bilirubin 1.2 H AST 29 ALT 23 Alkaline Phosphatase 124 H Troponin I High Sens 46.4 H 49.8 H B-Natriuretic Peptide Total Protein 8.5 H Albumin 3.7 Urine Color Urine Appearance Urine pH Ur Specific [place] Urine Protein Urine Glucose (UA) Urine Ketones Urine Blood Urine Nitrite Ur Leukocyte Esterase Urine RBC Urine WBC Ur Squamous Epith Cells Urine Bacteria Hyaline Casts Urine Opiates Screen Urine Fentanyl Screen Ur Barbiturates Screen Ur Phencyclidine Scrn Ur Amphetamines Screen U Benzodiazepines Scrn Urine Cocaine Screen U Marijuana (THC) Screen 01/19/24 01/19/24 01/19/24 17:28 18:50 21:25 MCV MCH MCHC RDW Plt Count MPV Immature Gran % (Auto) Neut % (Auto) Lymph % (Auto) Power % (Auto) Eos % (Auto) Baso % (Auto) Lymph # (Auto) Power # (Auto) Eos # (Auto) Baso # (Auto) Abs Immat Gran (auto) Absolute Neuts (auto) Absolute Nucleated RBC Nucleated RBC % (auto) VBG pH VBG pCO2 VBG pO2 VBG HCO3 VBG O2 Saturation VBG Base Excess Anion Gap Estim Creat Clear Calc Estimated GFR POC Glucose 376 H* 429 H* Random Glucose Lactic Acid 1.3 Calcium Magnesium Total Bilirubin AST ALT Alkaline Phosphatase Troponin I High Sens B-Natriuretic Peptide Total Protein Albumin Urine Color Urine Appearance Urine pH Ur Specific [place] Urine Protein Urine Glucose (UA) Urine Ketones Urine Blood Urine Nitrite Ur Leukocyte Esterase Urine RBC Urine WBC Ur Squamous Epith Cells Urine Bacteria Hyaline Casts Urine Opiates Screen Urine Fentanyl Screen Ur Barbiturates Screen Ur Phencyclidine Scrn Ur Amphetamines Screen U Benzodiazepines Scrn Urine Cocaine Screen U Marijuana (THC) Screen 01/20/24 01/20/24 04:51 07:38 MCV 83.3 MCH 26.8 L MCHC 32.2 RDW 13.4 Plt Count 274 MPV 10.6 Immature Gran % (Auto) Neut % (Auto) Lymph % (Auto) Power % (Auto) Eos % (Auto) Baso % (Auto) Lymph # (Auto) Power # (Auto) Eos # (Auto) Baso # (Auto) Abs Immat Gran (auto) Absolute Neuts (auto) Absolute Nucleated RBC 0.000 Nucleated RBC % (auto) 0.0 VBG pH VBG pCO2 VBG pO2 VBG HCO3 VBG O2 Saturation VBG Base Excess Anion Gap 21 H Estim Creat Clear Calc 29.9 Estimated GFR 19 POC Glucose 404 H* Random Glucose 412 H* Lactic Acid Calcium 8.8 Magnesium 2.1 Total Bilirubin AST ALT Alkaline Phosphatase Troponin I High Sens B-Natriuretic Peptide Total Protein Albumin Urine Color Urine Appearance Urine pH Ur Specific [place] Urine Protein Urine Glucose (UA) Urine Ketones Urine Blood Urine Nitrite Ur Leukocyte Esterase Urine RBC Urine WBC Ur Squamous Epith Cells Urine Bacteria Hyaline Casts Urine Opiates Screen Urine Fentanyl Screen Ur Barbiturates Screen Ur Phencyclidine Scrn Ur Amphetamines Screen U Benzodiazepines Scrn Urine Cocaine Screen U Marijuana (THC) Screen Assessment and Plan (1) Renal failure: Status: Acute Plan 58M PMH HTN, HLD, CKDIII, lymphedema, DM, TBI, hypognoadism, presented with generalized weakness, worsening lower leg redness, and confusion, now complicated by ETHAN and hyperglycemia acute metabolic encephalopathy due to sepsis due to bilateral lower extremity cellulitis in setting of lymphedema continue vancomycin, follow up cultures, wound care acute hypoxic respiratory failure due to sesis, possible acute unspecified chf wean o2, 87%on room air check echo will hold diuretics as creatinine increased with iv lasix, volume status difficult to tell with lymphedema ETHAN on CKD III possible cardiorenal nephro eval montior DM with hyperglycemia basal bolus insulin increased, monitor htn amldopine hld statin mood disorder seroquel dvt prophylaxis - lovenox full code reason for continued hospitalization: hypoxia, ethan Quality Stroke Does the patient have a stroke diagnosis?: No VTE Prior VTE?: No VTE Risk Level:: Medical - moderate - high VTE Device Contraindication: Treatment Not Indicated VTE Drug Contraindication: N/A - Med Ordered
[2024-01-20 10:31] LABS: Glucose, Whole Blood 415 mg/dL (60-115)
[2024-01-20] MEDS: Insulin Lispro 100 UNIT/ML 3 ML VIAL 20 UNIT SUBCUT (10:46)
[2024-01-20] MEDS: Mag&Al/Sim/Diphenhyd/Lidocaine 10 ML ORAL.SUSP PO (11:03)
[2024-01-20 11:49] LABS: Glucose, Whole Blood 440 mg/dL (60-115)
[2024-01-20] MEDS: Insulin Lispro 100 UNIT/ML 3 ML VIAL 30 UNIT SUBCUT (12:05)
--- NOTE | 2024-01-20 12:21 | MHC.CM.PN ---
IMM 01/19. CM intake completed with pt and his girlfriend who was present at beside. Pt somnolent during interview. Pt lives at home alone, his son/WAITER WAITRESS helps care for him, and his girlfriend stays with him to help him. Pt uses a walker. Pts girlfriend will transport him home at D/C. DCP: likely return home with new VNA. No HCP, pt unable to complete one at this time due to somnolence, will attempt to assist with this at a later time when pt more awake. PCP: Dr. Madonna Plascencia
[2024-01-20 13:39] LABS: Glucose, Whole Blood 394 mg/dL (60-115)
[2024-01-20 14:42] LABS: Anion Gap 15 (12-20); Blood Urea Nitrogen 40 mg/dL (9-16); Calcium 8.8 mg/dL (8.4-10.2); Carbon Dioxide 21 mmol/L (22-29); Chloride 96 mmol/L (96-108); Creatinine Clr Calc Pharmacy 25.3; Estimated Glomerular Filt Rate 15; Glucose Random 399 mg/dL (60-115); Sodium 128 mmol/L (135-145)
--- NOTE | 2024-01-20 15:43 | HO.WOUND ---
Wound Consult: Initial 58yr old?Female admitted to [facility] on 01/18 - See progress notes and H&P for detailed history.? Wound consult placed for Bilateral Lower Legs and scrotal wound POA.? Patient agreeable to assessment and photo documentation.? Per my discussion with his girlfriend given his baseline enxiety it is difficult for him to make it to outside appointments. She reports he has tried to treat at the outpatient wound center but has not been able to actually get to the appointments due to panic attacks - she was encouraged to continue to try to get to Wound care clinic for continued treatment. She reports he recently started to treat with Dr. Valdez and was able to get a lymphedema pump for home use. She reports he has been consistent with use and they have seen a significant improvment in his legs since starting lymphedema treatment with the home pump use. She reports his legs were worse a few months ago. Scrotum Etiology: ?Scotum and Bilateral Inner Thighs - MASD- IAD (Moisture Associated Skin Damage - Incontinence Associated Dermatitis) Wound Bed: generalized blanchable redness with in skin folds and on the scrotum - scattered areas of partial thickness tissue loss Drainage / Odor: None noted at the time of my consult Edges: ? Irregular and mirrored within the thighs Aditi wound: ?Intact No Induration, Fluctuance or Warmth noted Pain: Pt reports pain and tenderness Goals of Treatment: ? [place] to protect from excess moisture and friction Bilateral Lower Legs Etiology: ??Venous dermatitis with venous wounds Measurements: various sizes in wounds Wound Bed: multiple areas of partial thickness tissue loss red pink moist wound bed with thin veil of yellow slough noted - dried crusting drainage noted on wound edge Drainage / Odor: dried and crusting - serous fluid noted on linen Edges: ? irregular Aditi wound: Red erythema, firm swelling, hemosiderin staining - No Fluctuance or Warmth noted - of note the open sites do not appear infected - he does have red erythema up bilateral thighs Pain: Patient denies pain Goals of Treatment: ?[place] for moisture management Continued follow up with Dr Valdez and outpt wound clinic if able Recommendations: 1. Turn and Reposition every 2 hours and as needed for patient comfort.? Use pillows or wedges to support off loading positions. 2. Off Load all bony prominences with use of pillows and heel boots if needed.? Apply Preventative foams where needed. ? 3. Monitor for incontinence and moisture control, use barrier creams when needed for prevention and treatment. 4. Provide adequate and supplemental nutrition.? 5. Order or Continue low air loss mattress. 6. When applicable maintain blood glucose levels per Providers order. 7. Scrotum and Bilateral Inner Thighs - Off Load Pressure - Cleanse with PH balance spray or wipes, pat dry. ?Apply thin layer of Triad to wound bed - only pat and dab no scrub and rub when soiling occurs. Reapply thin layer PRN after each episode of incontinence. 8. Bilateral Lower Legs - Elevate lower legs off of surface of bed with use of pillows.? Cleanse with [place], Pat dry.? Apply vaseline to both legs, apply Triad to macerated wound edges, apply Durafiber AG to open wound beds secure with ABD pad, gauze wrap and tape.? Change Daily. Recommend follow up out patient Wound Clinic at [address] [place] [id number] and to call for an appointment at time of discharge. [phone].? Continue to followup with Dr. Valdez. Re-consult wound care Nurse for wound deterioration or wound changes.
--- NOTE | 2024-01-20 15:50 | MHC.SL.SWA ---
Risk of Aspiration Due to: Neurological Condition Dysphasia Diet Status: UPGRADE from NPO Liquid Consistency and Strategies for Safe Swallow: Liquid Intake Recommendation: Thin Liquid Intake Strategies: Double Swallow Solid Food Consistency: Dietary Recommendations: Grnd/Mech Altered (NDD2) Oral Medication Intake: Whole with Liquid (ONE at a time) or crushed/whole in puree depending on patient preference Please contact the pharmacy regarding appropriate crushable or liquid drug formulations that are available whenever modified delivery is recommended. Compensatory Strategies and Precautions to be Taken for Safe Swallow: Sitting Upright (90 deg) Alternate liquids and solids Slow rate of ingestion Supervision While Eating and Drinking for Safe Swallow: Total Assistance (1:1) Foods to Avoid: Sticky foods Recommendation for Speech: Inpatient Speech Therapy Comment: Recommend UPGRADE to GROUND/MECH ALTERED solids (NDD2) and THIN liquids. Pills to be taken ONE at a time if whole w/ liquid or crushed/whole in puree, depending on patient preference. RN and MD provided recommendations via [place]. Patient's whiteboard updated. [employer]ER to continue to follow. Senior Information Security Consultant Clinican/Clinical Fellow: No Supervisory Statement: I have reviewed and agree with the student/clinical fellow's documentation: N/A Speech Language Pathologist: Marion Patel M.A., CCC-CIG[employer] HEAD H[employer]ER
--- NOTE | 2024-01-20 17:06 | HE.PHANOTE ---
Vancomycin Dosing Addendum Vancomycin random level 16.0 after receiveing #1 2000 mg dose. Patients Cr increased from 2.97 to 3.39 today. Reducing dose to 500 mg q24h and will monitor levels daily.
[2024-01-20 17:10] LABS: Glucose, Whole Blood 271 mg/dL (60-115)
[2024-01-20] MEDS: hydrALAZINE HCl 25 MG TABLET PO ×2 (17:18→22:10)
[2024-01-20] MEDS: Enoxaparin Sodium 40 MG/0.4 ML SYRINGE SUBCUT (17:18)
[2024-01-20] MEDS: Insulin Lispro 100 UNIT/ML 3 ML VIAL 60 UNIT SUBCUT (17:38)
[2024-01-20] MEDS: vancomycin HCL 500 MG in 0.9 % Sodium Chloride 100 ML 110 MG IV (18:42)
[2024-01-20 20:40] LABS: Glucose, Whole Blood 171 mg/dL (60-115)
--- NOTE | 2024-01-20 21:00 | PM.CNNEP ---
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 Patient is alert and oriented x4, but a poor historian who is unable to provide detailed or accurate HPI, which is instead obtained from family who is at bedside. states that patient fell in December and hit his head, and was [place] [facility] Apparently did okay once discharged until two weeks ago when he had an open bleeding gash on his lower leg. Has had visiting nurse who has bandaged wound and wrapped legs. However, since wound on leg pt has become slowly more lethargic, weak, and confused. Apparently has been mumbling to himself, grabbing at things that are not there, and speaking nonsensically at times. Also had redness to lower extremities. Pt became progressively weaker, more lethargic, and unable to walk. Patient refused to be evaluated at the hospital, though condition deteriorated & pt was unable to even stand and leg erythema spread further up legs and to lower back. Denies fever, chills, nausea, vomiting, abdominal pain. Of note, pt is chronically on p.o. morphine for chronic pain . Was given Narcan in ED with good response. In the ED pt was tachycardic up to 123, tachypneic up to 22, hypertensive up to 189/86, and satting 91% on RA. Labs were significant for leukocytosis of 19.2, sodium 130, BUN 25, creatinine 2.97, random glucose 374, total bilirubin 1.2, alk-phos 124, and initial troponin 46.4 with repeat flat at 49.8. Lactic acid WNL at 1.3. UA negative for UTI. CXR showed cardiomegaly without acute pulmonary pathology. CT?of head showed chronic microvascular ischemic changes with no CT evidence of acute intracranial abnormality. EKG demonstrated sinus tachycardia with T-wave inversions in III and aVF, but no evidence of ST elevations or depressions. Pt was treated with furosemide, insulin, naloxone, and ondansetron. Pt will be admitted to the hospital for acute metabolic encephalopathy in the setting of lower leg cellulitis with sepsis. His serum creatinine has gone upto 4.0. Nephrology has been consulted to assist in his clinical care during his current hospital stay Review of Systems Review of Systems Yes all other systems are reviewed and are negative PENDING SALE TO [facility] Past Medical History Medical History Chronic, continuous use of opioids 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 Concussion 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 Diabetes mellitus type 2, controlled Traumatic subarachnoid hemorrhage Traumatic subdural hematoma Temporal skull fracture Traumatic brain injury Major depression Controlled type 2 diabetes mellitus with diabetic nephropathy Nephritis NOS in other disease Chronic kidney disease, stage III (moderate) Other chronic pain Neck pain Dyslipidemia Asthma Anemia of chronic disease Chronic constipation HTN (hypertension) Glaucoma suspect Family History Pertinent family history: Mother has ESRD and is on HD Surgical History Surgical History Bilateral inguinal hernia S/P cervical spinal fusion Social History Social History Household Members: Significant Other Housing: House Do you presently have visiting nurse or other home services: Yes Patient Tobacco Use Status: Former Tobacco user Tobacco use type: Cigarette service: No Meds Allergies Allergy/AdvReac Type Severity Reaction Status Date / Time No Known Allergies Allergy Mild NOT Verified 10/07/23 15:02 APPLICABLE Active Medications: Current Medications Acetaminophen (Acetaminophen 325 Mg Tablet) 650 mg PO Q6H PRN PRN Reason: Pain, Mild (Pain Scale 1-3) Amlodipine Besylate (Amlodipine Besylate 5 Mg Tablet) 5 mg PO DAILY [facility]; Protocol Aspirin (Aspirin Enteric Coated 81 Mg Tablet.) 81 mg PO DAILY [facility] Last Admin: 01/20/24 08:52 Dose: 81 mg Atorvastatin Calcium (Atorvastatin Calcium 40 Mg Tablet) 40 mg PO DAILY [facility] Last Admin: 01/20/24 08:52 Dose: 40 mg Benzonatate (Benzonatate 100 Mg Capsule) 100 mg PO TID PRN PRN Reason: Cough Dextrose (Dextrose 50 % 25 Gm/50 Ml Syringe) 25 gm IVPUSH Q15M PRN; Protocol PRN Reason: per Hypoglycemia Standing Ord. Docusate Sodium (Docusate Sodium 100 Mg Capsule) 200 mg PO DAILY [facility] Last Admin: 01/20/24 08:52 Dose: 200 mg Enoxaparin Sodium (Enoxaparin Sodium 40 Mg/0.4 Ml Syringe) 40 mg SUBCUT Q24H [facility] Last Admin: 01/20/24 17:18 Dose: 40 mg Escitalopram Oxalate (Escitalopram Oxalate 20 Mg Tablet) 20 mg PO DAILY [facility] Last Admin: 01/20/24 08:52 Dose: 20 mg Glucose (Glucose Gel 15 Gm Gel..Gram.) 15 gm PO Q15M PRN; Protocol PRN Reason: per Hypoglycemia Standing Ord. Hydralazine HCl (Hydralazine Hcl 25 Mg Tablet) 25 mg PO TID [facility]; Protocol Last Admin: 01/20/24 17:18 Dose: 25 mg Vancomycin HCl 500 mg/ Sodium (Chloride) 110 mls @ 110 mls/hr IV Q24H [facility] Last Infusion: 01/20/24 19:55 Dose: Infused Insulin Glargine (Insulin Glargine,Hum.Rec.Anlog 100 Unit/Ml 10 Ml Vial) 80 unit SUBCUT DAILY [facility] Last Admin: 01/20/24 08:54 Dose: 80 unit Insulin Glargine (Insulin Glargine,Hum.Rec.Anlog 100 Unit/Ml 10 Ml Vial) 80 unit SUBCUT BEDTIME [facility] Insulin Human Lispro (Insulin Lispro 100 Unit/Ml 3 Ml Vial) 0 unit SUBCUT QIDACHS [facility]; Protocol Last Admin: 01/20/24 17:39 Dose: 6 unit Insulin Human Lispro (Insulin Lispro 100 Unit/Ml 3 Ml Vial) 60 unit SUBCUT QIDACHS [facility] Last Admin: 01/20/24 17:38 Dose: 60 unit Lidocaine/Diphenhydr/Alum/Mg/Simeth (Mag&Al/Sim/Diphenhyd/Lidocaine 10 Ml Oral.Susp) 10 ml PO Q4H PRN; Protocol PRN Reason: sore throat Last Admin: 01/20/24 11:03 Dose: 10 ml Melatonin (Melatonin 3 Mg Tablet) 6 mg PO BEDTIME PRN PRN Reason: Insomnia Morphine Sulfate (Morphine Sulfate Er 30 Mg Tablet.Er) 30 mg PO BEDTIME [facility] Last Admin: 01/19/24 21:41 Dose: 30 mg Morphine Sulfate (Morphine Sulfate Er 30 Mg Tablet.Er) 60 mg PO DAILY [facility] Last Admin: 01/20/24 08:51 Dose: 60 mg Ondansetron HCl (Ondansetron Hcl 4 Mg/2 Ml Vial) 4 mg IVPUSH Q8H PRN PRN Reason: Nausea and Vomiting Pharmacy Consult (Consult Rx Vancomycin Dosing) 1 each MISCELLANE DAILY PRN PRN Reason: Consult order Polyethylene Glycol (Polyethylene Glycol 3350 17 Gm Powd.Pack) 17 gm PO DAILY PRN PRN Reason: Constipation Quetiapine Fumarate (Quetiapine Fumarate 50 Mg Tablet) 50 mg PO BEDTIME [facility] Last Admin: 01/19/24 21:41 Dose: 50 mg Senna (Sennosides 8.6 Mg Tablet) 17.2 mg PO DAILY [facility] Last Admin: 01/20/24 08:52 Dose: 17.2 mg Sodium Chloride (0.9 % Sodium Chloride Flush 3 Ml Syringe) 3 ml IVFLUSH QSHIFT [facility] Last Admin: 01/20/24 17:18 Dose: 3 ml Zolpidem Tartrate (Zolpidem Tartrate 5 Mg Tablet) 12.5 mg PO BEDTIME [facility] Last Admin: 01/19/24 21:41 Dose: 12.5 mg Home Medications Medication Instructions Recorded Confirmed Last Taken Type atorvastatin 40 mg tablet 40 mg PO DAILY 01/20/22 01/19/24 01/18/24 History dapagliflozin propanediol 10 mg 10 mg PO DAILY 01/20/22 01/19/24 01/18/24 History tablet (Farxiga) acetaminophen-caffeine 500 mg-65 1 tab PO Q6H PRN Pain 01/19/24 01/19/24 Unknown History mg tablet amlodipine 2.5 mg tablet 2.5 mg PO DAILY 01/19/24 01/19/24 01/18/24 History aspirin 81 mg tablet,delayed 81 mg PO DAILY 01/19/24 01/19/24 01/18/24 History release docusate sodium 100 mg capsule 200 mg PO DAILY 01/19/24 01/19/24 01/18/24 History (Colace) escitalopram oxalate 20 mg tablet 20 mg PO DAILY 01/19/24 01/19/24 01/18/24 History insulin aspart U-100 100 unit/mL 80 unit subcut TIDAC 01/19/24 01/19/24 01/18/24 History subcutaneous solution (Novolog U-100 Insulin aspart) insulin glargine 100 unit/mL 80 unit subcut BEDTIME 01/19/24 01/19/24 01/18/24 History subcutaneous solution (Lantus U-100 Insulin) ketoconazole 2 % topical cream 1 appl topical DAILY feet 01/19/24 01/19/24 Unknown History linaclotide 290 mcg capsule 290 mcg PO QAM PRN Constipation 01/19/24 01/19/24 Unknown History (Linzess) morphine 30 mg tablet,extended 30 mg PO BEDTIME 01/19/24 01/19/24 01/18/24 History release morphine 30 mg tablet,extended 60 mg PO DAILY 01/19/24 01/19/24 01/18/24 History release naloxegol 12.5 mg tablet (Movantik) 12.5 mg PO QAM PRN Constipation 01/19/24 01/19/24 Unknown History polyethylene glycol 3350 17 gram 17 g PO DAILY PRN Constipation 01/19/24 01/19/24 Unknown History oral powder packet (Gavilax) quetiapine 50 mg tablet 50 mg PO BEDTIME 01/19/24 01/19/24 01/18/24 History sennosides 8.6 mg tablet (senna) 17.2 mg PO DAILY constipation 01/19/24 01/19/24 01/18/24 History testosterone enanthate 75 mg/0.5 75 mg subcut FR hypogonadism 01/19/24 01/19/24 01/15/24 History mL subcutaneous auto-injector (Xyosted) zolpidem 12.5 mg tablet,extended 12.5 mg PO BEDTIME insomnia 01/19/24 01/19/24 01/18/24 History release,multiphase Physical Exam Vital Signs: Last Vital Signs Temp 97 F 01/20/24 20:00 Pulse 109 H 01/20/24 20:00 Resp 18 01/20/24 20:00 BP 180/84 H 01/20/24 20:00 Pulse Ox 97 01/20/24 20:00 O2 Del Method Nasal Cannula 01/20/24 20:00 O2 Flow Rate 5 01/20/24 20:00 BMI result Body Mass Index 35.9 Const General: no acute distress Eyes General: appearance normal, both eyes and all related structures Neck Neck: Yes supple Resp Auscultation: diminished lung sounds Cardio Rate: regular rate GI Palpation (GI): Soft to palpation Neuro General: moves all extremities Extrem General: Yes edema Results Lab Results 01/20/24 04:51 01/20/24 14:03 Lab results: Chemistry 01/19/24 01/20/24 01/20/24 12:58 04:51 14:03 Sodium 130 L 129 L 128 L Potassium 4.3 4.8 4.0 Carbon Dioxide 22 18 L 21 L BUN 25 H 33 H 40 H Creatinine 2.97 H 3.39 H 4.01 H* Calcium 8.8 D 8.8 8.8 Hematology 01/19/24 01/20/24 11:56 04:51 WBC 19.2 H 18.6 H Hgb 12.0 L 12.0 L Plt Count 250 274 Urinalysis 01/19/24 12:29 Urine Color Yellow Urine Appearance Clear Urine pH 5.5 Ur Specific Mico >= 1.030 H Urine Protein 30 (1+) H Urine Glucose (UA) >=1000 H Urine Ketones Trace Urine Blood Small (1+) H Urine Nitrite Negative Ur Leukocyte Esterase Negative Urine RBC 0-2 Urine WBC 0-5 Ur Squamous Epith Cells 0-2 Hyaline Casts 0-2 Assessment and Plan (1) Acute kidney injury superimposed on chronic kidney disease: Status: Acute Plan ETHAN likely due to tubular injury Differential diagnosis include dheeraj infectious GN/AIN Ordered C3/C4/Urine eosinophils Monitor Vancomycin levels Clinically very hypervolemic Would start on lasix 10mg/ hr AM for 24 hours May need renal replacement temporarily if he continue to worsen ( No indication at this moment in time) Labs AM; Shall closely F/U; D/W family Procedures Date of Service Date of Service: 01/20/24
[2024-01-20] MEDS: QUEtiapine Fumarate 50 MG TABLET PO (22:09)
[2024-01-20] MEDS: Morphine Sulfate ER 30 MG TABLET.ER PO (22:09)
[2024-01-20] MEDS: Zolpidem Tartrate 5 MG TABLET 12.5 MG PO (22:10)
[2024-01-20] MEDS: Insulin Glargine,Hum.rec.anlog 100 UNIT/ML 10 ML VIAL 20 UNIT SUBCUT (22:11)
[2024-01-21] VITALS (8 sets, daily range): BP systolic 104–180; BP diastolic 64–91; PULSE 97–130; RESP 16–20; TEMP 36.4–37; O2SAT 79–98
[2024-01-21 00:28] LABS: Glucose, Whole Blood 125 mg/dL (60-115)
[2024-01-21 04:16] LABS: Glucose, Whole Blood 142 mg/dL (60-115)
[2024-01-21 07:17] LABS: Glucose, Whole Blood 178 mg/dL (60-115)
[2024-01-21] MEDS: amLODIPine Besylate 5 MG TABLET PO (08:33)
[2024-01-21] MEDS: Aspirin Enteric Coated 81 MG TABLET.DR PO (08:33)
[2024-01-21] MEDS: Escitalopram Oxalate 20 MG TABLET PO (08:34)
[2024-01-21] MEDS: Atorvastatin Calcium 40 MG TABLET PO (08:34)
[2024-01-21] MEDS: Sennosides 8.6 MG TABLET 17.2 MG PO (08:34)
[2024-01-21] MEDS: Morphine Sulfate ER 30 MG TABLET.ER 60 MG PO (08:34)
[2024-01-21] MEDS: Docusate Sodium 100 MG CAPSULE 200 MG PO (08:34)
[2024-01-21] MEDS: Insulin Glargine,Hum.rec.anlog 100 UNIT/ML 10 ML VIAL 80 UNIT SUBCUT (08:34)
[2024-01-21] MEDS: hydrALAZINE HCl 25 MG TABLET PO ×3 (08:34→20:57)
[2024-01-21] MEDS: Insulin Lispro 100 UNIT/ML 3 ML VIAL SUBCUT ×8 (08:35→20:59)
[2024-01-21] MEDS: 0.9 % Sodium Chloride Flush 3 ML SYRINGE IVFLUSH ×3 (08:35→20:59)
--- NOTE | 2024-01-21 08:52 | HO.PM.IMPN ---
Subjective Subjective Date of Service: 01/21/24 Interval History: less sob today Physical Exam Vital Signs: Vital Signs: Last Vital Signs Temp 98.2 F 01/21/24 07:06 Pulse 110 H 01/21/24 07:06 Resp 20 01/21/24 07:06 BP 162/84 H 01/21/24 07:06 Pulse Ox 97 01/21/24 07:06 O2 Del Method Oxymask 01/21/24 07:06 O2 Flow Rate 5 01/21/24 07:06 BMI result Body Mass Index 35.9 Const: General: no acute distress Eyes: General: appearance normal, both eyes and all related structures Neck: Neck: Yes supple Resp: Auscultation: diminished lung sounds Cardio: Rate: regular rate GI: Palpation (GI): Soft to palpation Neuro: General: moves all extremities Extrem: General: Yes edema Objective Data Active Medications Acetaminophen (Acetaminophen 325 Mg Tablet) 650 mg PO Q6H PRN PRN Reason: Pain, Mild (Pain Scale 1-3) Amlodipine Besylate (Amlodipine Besylate 5 Mg Tablet) 5 mg PO DAILY [facility]; Protocol Last Admin: 01/21/24 08:33 Dose: 5 mg Documented By: CARLITOS Aspirin (Aspirin Enteric Coated 81 Mg Tablet.) 81 mg PO DAILY [facility] Last Admin: 01/21/24 08:33 Dose: 81 mg Documented By: CARLITOS Atorvastatin Calcium (Atorvastatin Calcium 40 Mg Tablet) 40 mg PO DAILY [facility] Last Admin: 01/21/24 08:34 Dose: 40 mg Documented By: CARLITOS Benzonatate (Benzonatate 100 Mg Capsule) 100 mg PO TID PRN PRN Reason: Cough Dextrose (Dextrose 50 % 25 Gm/50 Ml Syringe) 25 gm IVPUSH Q15M PRN; Protocol PRN Reason: per Hypoglycemia Standing Ord. Docusate Sodium (Docusate Sodium 100 Mg Capsule) 200 mg PO DAILY [facility] Last Admin: 01/21/24 08:34 Dose: 200 mg Documented By: CARLITOS Enoxaparin Sodium (Enoxaparin Sodium 40 Mg/0.4 Ml Syringe) 40 mg SUBCUT Q24H [facility] Last Admin: 01/20/24 17:18 Dose: 40 mg Documented By: VALENTÍN Escitalopram Oxalate (Escitalopram Oxalate 20 Mg Tablet) 20 mg PO DAILY [facility] Last Admin: 01/21/24 08:34 Dose: 20 mg Documented By: CARLITOS Glucose (Glucose Gel 15 Gm Gel..Gram.) 15 gm PO Q15M PRN; Protocol PRN Reason: per Hypoglycemia Standing Ord. Hydralazine HCl (Hydralazine Hcl 25 Mg Tablet) 25 mg PO TID [facility]; Protocol Last Admin: 01/21/24 08:34 Dose: 25 mg Documented By: CARLITOS Vancomycin HCl 500 mg/ Sodium (Chloride) 110 mls @ 110 mls/hr IV Q24H [facility] Last Infusion: 01/20/24 19:55 Dose: Infused Documented By: TK Insulin Glargine (Insulin Glargine,Hum.Rec.Anlog 100 Unit/Ml 10 Ml Vial) 80 unit SUBCUT DAILY [facility] Last Admin: 01/21/24 08:34 Dose: 80 unit Documented By: CARLITOS Insulin Glargine (Insulin Glargine,Hum.Rec.Anlog 100 Unit/Ml 10 Ml Vial) 20 unit SUBCUT BEDTIME [facility] Last Admin: 01/20/24 22:11 Dose: 20 unit Documented By: TK Insulin Human Lispro (Insulin Lispro 100 Unit/Ml 3 Ml Vial) 0 unit SUBCUT QIDACHS [facility]; Protocol Last Admin: 01/21/24 08:35 Dose: 2 unit Documented By: CARLITOS Insulin Human Lispro (Insulin Lispro 100 Unit/Ml 3 Ml Vial) 5 unit SUBCUT QIDACHS [facility] Last Admin: 01/21/24 08:35 Dose: 5 unit Documented By: CARLITOS Lidocaine/Diphenhydr/Alum/Mg/Simeth (Mag&Al/Sim/Diphenhyd/Lidocaine 10 Ml Oral.Susp) 10 ml PO Q4H PRN; Protocol PRN Reason: sore throat Last Admin: 01/20/24 11:03 Dose: 10 ml Documented By: VALENTÍN Melatonin (Melatonin 3 Mg Tablet) 6 mg PO BEDTIME PRN PRN Reason: Insomnia Morphine Sulfate (Morphine Sulfate Er 30 Mg Tablet.Er) 30 mg PO BEDTIME [facility] Last Admin: 01/20/24 22:09 Dose: 30 mg Documented By: TK Morphine Sulfate (Morphine Sulfate Er 30 Mg Tablet.Er) 60 mg PO DAILY [facility] Last Admin: 01/21/24 08:34 Dose: 60 mg Documented By: CARLITOS Ondansetron HCl (Ondansetron Hcl 4 Mg/2 Ml Vial) 4 mg IVPUSH Q8H PRN PRN Reason: Nausea and Vomiting Pharmacy Consult (Consult Rx Vancomycin Dosing) 1 each MISCELLANE DAILY PRN PRN Reason: Consult order Polyethylene Glycol (Polyethylene Glycol 3350 17 Gm Powd.Pack) 17 gm PO DAILY PRN PRN Reason: Constipation Quetiapine Fumarate (Quetiapine Fumarate 50 Mg Tablet) 50 mg PO BEDTIME [facility] Last Admin: 01/20/24 22:09 Dose: 50 mg Documented By: TK Senna (Sennosides 8.6 Mg Tablet) 17.2 mg PO DAILY [facility] Last Admin: 01/21/24 08:34 Dose: 17.2 mg Documented By: CARLITOS Sodium Chloride (0.9 % Sodium Chloride Flush 3 Ml Syringe) 3 ml IVFLUSH QSHIFT [facility] Last Admin: 01/21/24 08:35 Dose: 3 ml Documented By: CARLITOS Zolpidem Tartrate (Zolpidem Tartrate 5 Mg Tablet) 12.5 mg PO BEDTIME [facility] Last Admin: 01/20/24 22:10 Dose: 12.5 mg Documented By: TK Labs 01/20/24 04:51 01/20/24 14:03 Labs: Laboratory Results - last 24 hr 01/20/24 01/20/24 01/20/24 10:27 11:46 13:33 Anion Gap Estim Creat Clear Calc Estimated GFR POC Glucose 415 H* 440 H* 394 H* Random Glucose Calcium Random Vancomycin 01/20/24 01/20/24 01/20/24 14:03 16:09 17:06 Anion Gap 15 Estim Creat Clear Calc 25.3 Estimated GFR 15 POC Glucose 271 H Random Glucose 399 H* Calcium 8.8 Random Vancomycin 16.0 01/20/24 01/21/24 01/21/24 20:36 00:21 04:12 Anion Gap Estim Creat Clear Calc Estimated GFR POC Glucose 171 H 125 H 142 H Random Glucose Calcium Random Vancomycin 01/21/24 07:09 Anion Gap Estim Creat Clear Calc Estimated GFR POC Glucose 178 H Random Glucose Calcium Random Vancomycin Microbiology Microbiology Results: Microbiology 01/19/24 17:45 Blood Culture - Preliminary Blood - Venous No growth after 24 hours. 01/19/24 17:28 Blood Culture - Preliminary Blood - Venous No growth after 24 hours. Assessment and Plan (1) Renal failure: Status: Acute Plan 58M PMH HTN, HLD, CKDIII, lymphedema, DM, TBI, hypognoadism, presented with generalized weakness, worsening lower leg redness, and confusion, now complicated by ETHAN and hyperglycemia acute metabolic encephalopathy due to sepsis due to bilateral lower extremity cellulitis in setting of lymphedema continue vancomycin, follow up cultures, wound care acute hypoxic respiratory failure due to sesis, acute on chronic diastolic chf weaned to room air, 93% on room air holding diuretics for now, follow up bmp ETHAN on CKD III possible cardiorenal, ATN, GN - work up ongoing follow up ct abd nephro following montior DM with hyperglycemia improved basal bolus insulin, monitor htn amldopine hld statin mood disorder seroquel dvt prophylaxis - lovenox full code reason for continued hospitalization:ethan Quality Stroke Does the patient have a stroke diagnosis?: No VTE Prior VTE?: No VTE Risk Level:: Medical - moderate - high VTE Device Contraindication: Treatment Not Indicated VTE Drug Contraindication: N/A - Med Ordered
[2024-01-21 09:24] LABS: Hematocrit 35.7 % (42.0-52.0); Hemoglobin 11.6 g/dl (14.0-18.0); Mean Corpuscular HGB Conc 32.5 g/dl (31.0-36.0); Mean Corpuscular Hemoglobin 26.5 pg (27.0-33.0); Mean Corpuscular Volume 81.7 fL (80.0-98.0); Mean Platelet Volume 10.1 fL (9.4-12.4); Platelet Count 279 X10*3/uL (160-400); Red Blood Count 4.37 X10*6/uL (4.60-5.80); Red Cell Distribution Width 13.6 % (11.0-16.0); White Blood Count 15.5 X10*3/uL (4.8-10.8)
[2024-01-21 09:29] LABS: Prothrombin Time 12.4 SEC (11.1-13.3)
[2024-01-21 09:41] LABS: Alanine Aminotransferase 39 U/L (0-40); Albumin Level 3.5 g/dL (3.5-5.0); Alkaline Phosphatase 111 U/L (39-117); Anion Gap 15 (12-20); Aspartate Amino Transferase 81 U/L (5-37); Bilirubin Direct 0.5 mg/dL (0.0-0.5); Bilirubin Total 0.8 mg/dL (0.0-1.0); Blood Urea Nitrogen 38 mg/dL (9-16); Calcium 8.8 mg/dL (8.4-10.2); Carbon Dioxide 23 mmol/L (22-29); Chloride 97 mmol/L (96-108); Creatinine Clr Calc Pharmacy 34.3; Estimated Glomerular Filt Rate 22; Glucose Fasting 240 mg/dL (60-99); Glucose Random 244 mg/dL (60-115); Magnesium 2.1 mg/dL (1.6-2.6); Potassium 4.3 mmol/L (3.3-5.1); Sodium 131 mmol/L (135-145); Total Protein 8.3 g/dL (6.5-8.0)
[2024-01-21] MEDS: Furosemide 40 MG/4 ML VIAL IVPUSH ×2 (10:23→16:52)
[2024-01-21 11:12] LABS: Glucose, Whole Blood 242 mg/dL (60-115)
[2024-01-21 13:06] LABS: EOS Counted 0 CELLS; EOS QC POS YES; EOS Stain Quality OK YES; WBC, Counted 100 CELLS
[2024-01-21] MEDS: polyethylene glycoL 3350 17 GM POWD.PACK PO (13:57)
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
--- NOTE | 2024-01-21 15:33 | PC.NURSE ---
Patient reported not having a bowel movement for about 4 days. patient given bowel medication per DEC. Assessed 1 hour later per DEC and patient reported no bowel movement. MD garcia notified and offered enema and Docusate GA which patient refused. Patient mentioned he would rather wait for the PO medications to work.
[2024-01-21 16:09] LABS: Glucose, Whole Blood 334 mg/dL (60-115)
[2024-01-21] MEDS: Enoxaparin Sodium 40 MG/0.4 ML SYRINGE SUBCUT (16:52)
[2024-01-21] MEDS: vancomycin HCL 500 MG in 0.9 % Sodium Chloride 100 ML 110 MG IV (16:53)
[2024-01-21 17:18] LABS: Vancomycin Random 12.1 mcg/mL (15-20)
--- NOTE | 2024-01-21 17:30 | MHC.SLORD ---
Speech Language Pathology Order Status: Patient seen briefly at lunch today. Patient w/ C/o sore throat today, was preferring to eat pureed foods on tray. Patient observed taking food and drinking with straw with no difficulties noted on swallow. [employer] COMPLIANCE SPECIALIST will continue to follow.
--- NOTE | 2024-01-21 17:40 | HE.PHANOTE ---
RE: VANCO DOSING Random came back as 12.1. For the dose due @1800, nurse ([place]) hung it @1653. By the time pharmacy reached out to her, the bag was almost finished. Patient's sCr is high so it's better to be cautious with dosing. Another random is scheduled on 01/22/24 @1600, will reassess and adjust dose.
--- NOTE | 2024-01-21 20:17 | P.PNNP_ITS ---
Subjective Subjective Date of Service: 01/21/24 Interval history: Less sob today; events noted. All recent data reviewed Physical Exam 2 Vital Signs: Vital Signs: Last Vital Signs Temp 98.6 F 01/21/24 19:13 Pulse 104 H 01/21/24 19:13 Resp 20 01/21/24 19:13 BP 122/91 H 01/21/24 19:13 Pulse Ox 92 01/21/24 19:13 O2 Del Method Room Air 01/21/24 19:13 O2 Flow Rate 5 01/21/24 07:06 BMI result Body Mass Index 35.9 Const: General: comfortable and no acute distress O rientation/consciousness: patient oriented x3 HEENT: Head: Yes normocephalic Mouth: Normal oral and palatal mucosa present Eyes: EOM: EOMs intact bilaterally Neck: Neck: Yes supple Resp: Auscultation: clear to auscultation bilaterally Cardio: Rate: regular rate GI: Palpation (GI): Soft to palpation Auscultation: normal bowel sounds : General: Yes no CVA tenderness Back/Spine/Pelvis: Back: no CVA tenderness Skin: General skin exam: no rashes or lesions noted Neuro: General: patient oriented x3 and moves all extremities Extrem: General: Yes edema Objective Data Labs 01/21/24 09:18 01/21/24 09:18 Labs: Laboratory Results - last 24 hr 01/20/24 01/21/24 01/21/24 20:36 00:21 04:12 WBC RBC Hgb Hct MCV MCH MCHC RDW Plt Count MPV Absolute Nucleated RBC Nucleated RBC % (auto) PT INR Sodium Potassium Chloride Carbon Dioxide Anion Gap BUN Creatinine Estim Creat Clear Calc Estimated GFR POC Glucose 171 H 125 H 142 H Random Glucose Fasting Glucose Calcium Magnesium Total Bilirubin Direct Bilirubin AST ALT Alkaline Phosphatase Total Protein Albumin Urine Eosinophils % Random Vancomycin 01/21/24 01/21/24 01/21/24 07:09 09:18 11:04 WBC 15.5 H RBC 4.37 L Hgb 11.6 L Hct 35.7 L MCV 81.7 MCH 26.5 L MCHC 32.5 RDW 13.6 Plt Count 279 MPV 10.1 Absolute Nucleated RBC 0.000 Nucleated RBC % (auto) 0.0 PT 12.4 INR 1.0 Sodium 131 L Potassium 4.3 Chloride 97 Carbon Dioxide 23 Anion Gap 15 BUN 38 H Creatinine 2.96 H Estim Creat Clear Calc 34.3 Estimated GFR 22 POC Glucose 178 H 242 H Random Glucose 244 H Fasting Glucose 240 H Calcium 8.8 Magnesium 2.1 Total Bilirubin 0.8 Direct Bilirubin 0.5 AST 81 H ALT 39 Alkaline Phosphatase 111 Total Protein 8.3 H Albumin 3.5 Urine Eosinophils % Random Vancomycin 01/21/24 01/21/24 01/21/24 11:22 15:43 16:39 WBC RBC Hgb Hct MCV MCH MCHC RDW Plt Count MPV Absolute Nucleated RBC Nucleated RBC % (auto) PT INR Sodium Potassium Chloride Carbon Dioxide Anion Gap BUN Creatinine Estim Creat Clear Calc Estimated GFR POC Glucose 334 H Random Glucose Fasting Glucose Calcium Magnesium Total Bilirubin Direct Bilirubin AST ALT Alkaline Phosphatase Total Protein Albumin Urine Eosinophils % 0.0 Random Vancomycin 12.1 L Microbiology Microbiology Results: Microbiology 01/19/24 17:45 Blood - Venous Blood Culture - Preliminary No growth after 48 hours. 01/19/24 17:28 Blood - Venous Blood Culture - Preliminary No growth after 48 hours. Procedures Date of Service Date of Service: 01/21/24 Assessment & Plan Assessment and plan (1) Acute kidney injury superimposed on chronic kidney disease: Status: Acute Plan ETHAN likely due to tubular injury Differential diagnosis include dheeraj infectious GN/AIN Clinically very hypervolemic Started on lasix today No indication for renal replacement now Labs AM; Shall closely F/U Progress Note: Quality Stroke Does the patient have a stroke diagnosis?: No
[2024-01-21 20:26] LABS: Glucose, Whole Blood 309 mg/dL (60-115)
[2024-01-21] MEDS: QUEtiapine Fumarate 50 MG TABLET PO (20:57)
[2024-01-21] MEDS: Zolpidem Tartrate 5 MG TABLET 12.5 MG PO (20:58)
[2024-01-21] MEDS: Morphine Sulfate ER 30 MG TABLET.ER PO (20:58)
[2024-01-21] MEDS: Insulin Glargine,Hum.rec.anlog 100 UNIT/ML 10 ML VIAL 20 UNIT SUBCUT (20:58)
[2024-01-22 03:18] VITALS: BP 158/72; PULSE 88; RESP 20; TEMP 36.6; O2SAT 98
[2024-01-22 07:12] LABS: Hematocrit 34.2 % (42.0-52.0); Hemoglobin 11.4 g/dl (14.0-18.0); Mean Corpuscular HGB Conc 33.3 g/dl (31.0-36.0); Mean Platelet Volume 10.4 fL (9.4-12.4); Platelet Count 297 X10*3/uL (160-400); Red Blood Count 4.22 X10*6/uL (4.60-5.80); Red Cell Distribution Width 13.8 % (11.0-16.0); White Blood Count 13.9 X10*3/uL (4.8-10.8)
[2024-01-22 07:33] VITALS: BP 165/77; PULSE 98; RESP 20; TEMP 36.4; O2SAT 97
[2024-01-22 07:44] LABS: Alanine Aminotransferase 33 U/L (0-40); Albumin Level 3.5 g/dL (3.5-5.0); Alkaline Phosphatase 108 U/L (39-117); Anion Gap 16 (12-20); Aspartate Amino Transferase 58 U/L (5-37); Bilirubin Direct 0.4 mg/dL (0.0-0.5); Bilirubin Total 0.9 mg/dL (0.0-1.0); Blood Urea Nitrogen 35 mg/dL (9-16); Calcium 8.7 mg/dL (8.4-10.2); Carbon Dioxide 24 mmol/L (22-29); Chloride 96 mmol/L (96-108); Creatinine Clr Calc Pharmacy 38.9; Estimated Glomerular Filt Rate 25; Glucose Fasting 202 mg/dL (60-99); Glucose Random 200 mg/dL (60-115); Magnesium 2.1 mg/dL (1.6-2.6); Potassium 3.9 mmol/L (3.3-5.1); Sodium 132 mmol/L (135-145)
[2024-01-22 08:03] LABS: Glucose, Whole Blood 203 mg/dL (60-115)
[2024-01-22 08:56] VITALS: BP 165/77; PULSE 98; O2SAT 97
--- NOTE | 2024-01-22 09:13 | HO.PM.IMPN ---
Subjective Subjective Date of Service: 01/22/24 Interval History: Pt feels much better today, sob improved Review of Systems Negative except for that stated in the HPI. Physical Exam Vital Signs: Vital Signs: Last Vital Signs Temp 97.6 F 01/22/24 07:33 Pulse 98 01/22/24 07:33 Resp 20 01/22/24 07:33 BP 165/77 H 01/22/24 07:33 Pulse Ox 97 01/22/24 07:33 O2 Del Method Room Air 01/22/24 07:33 O2 Flow Rate 2 01/22/24 03:18 BMI result Body Mass Index 35.9 Const: General: no acute distress Eyes: General: appearance normal, both eyes and all related structures Neck: Neck: Yes supple Resp: Effort & Inspection: normal respiratory effort and able to speak in complete sentences Auscultation: diminished lung sounds Cardio: Rate: regular rate Heart sounds: S1 normal heart sound present and S2 normal heart sound present GI: Palpation (GI): Soft to palpation Neuro: General: moves all extremities Extrem: General: Yes edema Objective Data Active Medications Acetaminophen (Acetaminophen 325 Mg Tablet) 650 mg PO Q6H PRN PRN Reason: Pain, Mild (Pain Scale 1-3) Amlodipine Besylate (Amlodipine Besylate 5 Mg Tablet) 5 mg PO DAILY [facility]; Protocol Last Admin: 01/21/24 08:33 Dose: 5 mg Documented By: CARLITOS Aspirin (Aspirin Enteric Coated 81 Mg Tablet.) 81 mg PO DAILY [facility] Last Admin: 01/21/24 08:33 Dose: 81 mg Documented By: CARLITOS Atorvastatin Calcium (Atorvastatin Calcium 40 Mg Tablet) 40 mg PO DAILY [facility] Last Admin: 01/21/24 08:34 Dose: 40 mg Documented By: CARLITOS Benzonatate (Benzonatate 100 Mg Capsule) 100 mg PO TID PRN PRN Reason: Cough Dextrose (Dextrose 50 % 25 Gm/50 Ml Syringe) 25 gm IVPUSH Q15M PRN; Protocol PRN Reason: per Hypoglycemia Standing Ord. Docusate Sodium (Docusate Sodium 100 Mg Capsule) 200 mg PO DAILY [facility] Last Admin: 01/21/24 08:34 Dose: 200 mg Documented By: CARLITOS Enoxaparin Sodium (Enoxaparin Sodium 40 Mg/0.4 Ml Syringe) 40 mg SUBCUT Q24H [facility] Last Admin: 01/21/24 16:52 Dose: 40 mg Documented By: CARLITOS Escitalopram Oxalate (Escitalopram Oxalate 20 Mg Tablet) 20 mg PO DAILY [facility] Last Admin: 01/21/24 08:34 Dose: 20 mg Documented By: CARLITOS Glucose (Glucose Gel 15 Gm Gel..Gram.) 15 gm PO Q15M PRN; Protocol PRN Reason: per Hypoglycemia Standing Ord. Hydralazine HCl (Hydralazine Hcl 25 Mg Tablet) 25 mg PO TID [facility]; Protocol Last Admin: 01/21/24 20:57 Dose: 25 mg Documented By: HERMILO Vancomycin HCl 500 mg/ Sodium (Chloride) 110 mls @ 110 mls/hr IV Q24H [facility] Last Infusion: 01/21/24 18:06 Dose: Infused Documented By: CARLITOS Insulin Glargine (Insulin Glargine,Hum.Rec.Anlog 100 Unit/Ml 10 Ml Vial) 80 unit SUBCUT DAILY [facility] Last Admin: 01/21/24 08:34 Dose: 80 unit Documented By: CARLITOS Insulin Glargine (Insulin Glargine,Hum.Rec.Anlog 100 Unit/Ml 10 Ml Vial) 20 unit SUBCUT BEDTIME [facility] Last Admin: 01/21/24 20:58 Dose: 20 unit Documented By: HERMILO Insulin Human Lispro (Insulin Lispro 100 Unit/Ml 3 Ml Vial) 0 unit SUBCUT QIDACHS [facility]; Protocol Last Admin: 01/21/24 20:59 Dose: 8 unit Documented By: HERMILO Insulin Human Lispro (Insulin Lispro 100 Unit/Ml 3 Ml Vial) 5 unit SUBCUT QIDACHS [facility] Last Admin: 01/21/24 20:59 Dose: 5 unit Documented By: HERMILO Lidocaine/Diphenhydr/Alum/Mg/Simeth (Mag&Al/Sim/Diphenhyd/Lidocaine 10 Ml Oral.Susp) 10 ml PO Q4H PRN; Protocol PRN Reason: sore throat Last Admin: 01/20/24 11:03 Dose: 10 ml Documented By: VALENTÍN Melatonin (Melatonin 3 Mg Tablet) 6 mg PO BEDTIME PRN PRN Reason: Insomnia Morphine Sulfate (Morphine Sulfate Er 30 Mg Tablet.Er) 30 mg PO BEDTIME [facility] Last Admin: 01/21/24 20:58 Dose: 30 mg Documented By: HERMILO Morphine Sulfate (Morphine Sulfate Er 30 Mg Tablet.Er) 60 mg PO DAILY [facility] Last Admin: 01/21/24 08:34 Dose: 60 mg Documented By: CARLITOS Ondansetron HCl (Ondansetron Hcl 4 Mg/2 Ml Vial) 4 mg IVPUSH Q8H PRN PRN Reason: Nausea and Vomiting Pharmacy Consult (Consult Rx Vancomycin Dosing) 1 each MISCELLANE DAILY PRN PRN Reason: Consult order Polyethylene Glycol (Polyethylene Glycol 3350 17 Gm Powd.Pack) 17 gm PO DAILY PRN PRN Reason: Constipation Last Admin: 01/21/24 13:57 Dose: 17 gm Documented By: CARLITOS Quetiapine Fumarate (Quetiapine Fumarate 50 Mg Tablet) 50 mg PO BEDTIME [facility] Last Admin: 01/21/24 20:57 Dose: 50 mg Documented By: HERMILO Senna (Sennosides 8.6 Mg Tablet) 17.2 mg PO DAILY [facility] Last Admin: 01/21/24 08:34 Dose: 17.2 mg Documented By: CARLITOS Sodium Chloride (0.9 % Sodium Chloride Flush 3 Ml Syringe) 3 ml IVFLUSH QSHIFT [facility] Last Admin: 01/21/24 20:59 Dose: 3 ml Documented By: HERMILO Torsemide (Torsemide 20 Mg Tablet) 20 mg PO BID [facility]; Protocol Zolpidem Tartrate (Zolpidem Tartrate 5 Mg Tablet) 12.5 mg PO BEDTIME [facility] Last Admin: 01/21/24 20:58 Dose: 12.5 mg Documented By: HERMILO Labs 01/22/24 06:26 01/22/24 06:26 Labs: Laboratory Results - last 24 hr 01/21/24 01/21/24 01/21/24 09:18 11:04 11:22 MCV 81.7 MCH 26.5 L MCHC 32.5 RDW 13.6 Plt Count 279 MPV 10.1 Absolute Nucleated RBC 0.000 Nucleated RBC % (auto) 0.0 PT 12.4 INR 1.0 Anion Gap 15 Estim Creat Clear Calc 34.3 Estimated GFR 22 POC Glucose 242 H Random Glucose 244 H Fasting Glucose 240 H Calcium 8.8 Magnesium 2.1 Total Bilirubin 0.8 Direct Bilirubin 0.5 AST 81 H ALT 39 Alkaline Phosphatase 111 Total Protein 8.3 H Albumin 3.5 Urine Eosinophils % 0.0 Random Vancomycin 01/21/24 01/21/24 01/21/24 15:43 16:39 20:18 MCV MCH MCHC RDW Plt Count MPV Absolute Nucleated RBC Nucleated RBC % (auto) PT INR Anion Gap Estim Creat Clear Calc Estimated GFR POC Glucose 334 H 309 H Random Glucose Fasting Glucose Calcium Magnesium Total Bilirubin Direct Bilirubin AST ALT Alkaline Phosphatase Total Protein Albumin Urine Eosinophils % Random Vancomycin 12.1 L 01/22/24 01/22/24 06:26 07:37 MCV 81.0 MCH 27.0 MCHC 33.3 RDW 13.8 Plt Count 297 MPV 10.4 Absolute Nucleated RBC 0.000 Nucleated RBC % (auto) 0.0 PT INR Anion Gap 16 Estim Creat Clear Calc 38.9 Estimated GFR 25 POC Glucose 203 H Random Glucose 200 H Fasting Glucose 202 H Calcium 8.7 Magnesium 2.1 Total Bilirubin 0.9 Direct Bilirubin 0.4 AST 58 H ALT 33 Alkaline Phosphatase 108 Total Protein 8.0 Albumin 3.5 Urine Eosinophils % Random Vancomycin Microbiology Microbiology Results: Microbiology 01/19/24 17:45 Blood Culture - Preliminary Blood - Venous No growth after 48 hours. 01/19/24 17:28 Blood Culture - Preliminary Blood - Venous No growth after 48 hours. Assessment and Plan (1) Acute kidney injury superimposed on chronic kidney disease: Status: Acute Plan 58M PMH HTN, HLD, CKDIII, lymphedema, DM, TBI, hypognoadism, presented with generalized weakness, worsening lower leg redness, and confusion, now complicated by ETHAN and hyperglycemia acute metabolic encephalopathy due to sepsis due to bilateral lower extremity cellulitis in setting of lymphedema encephalopathy resolved continue vancomycin, follow up cultures, wound care acute hypoxic respiratory failure due to sepsis, acute on chronic diastolic chf weaned to room air, 93% on room air ETHAN on CKD III improving with diuresis discussed with nephro - will switch from IV furosemide to po torsemide , follow up with nephro in 2 wks montior DM with hyperglycemia improved Increased basal, continue basal bolus insulin, monitor htn amldopine hld statin mood disorder seroquel dvt prophylaxis - lovenox full code reason for continued hospitalization: rehab placement Quality Stroke Does the patient have a stroke diagnosis?: No VTE Prior VTE?: No VTE Risk Level:: Medical - moderate - high VTE Device Contraindication: Treatment Not Indicated VTE Drug Contraindication: N/A - Med Ordered
[2024-01-22] MEDS: Atorvastatin Calcium 40 MG TABLET PO (09:51)
[2024-01-22] MEDS: Aspirin Enteric Coated 81 MG TABLET.DR PO (09:53)
[2024-01-22] MEDS: Torsemide 20 MG TABLET PO (09:53)
[2024-01-22] MEDS: Sennosides 8.6 MG TABLET 17.2 MG PO (09:53)
[2024-01-22] MEDS: Morphine Sulfate ER 30 MG TABLET.ER 60 MG PO (09:53)
[2024-01-22] MEDS: amLODIPine Besylate 5 MG TABLET PO (09:54)
[2024-01-22] MEDS: Docusate Sodium 100 MG CAPSULE 200 MG PO (09:54)
[2024-01-22] MEDS: Escitalopram Oxalate 20 MG TABLET PO (09:54)
[2024-01-22] MEDS: polyethylene glycoL 3350 17 GM POWD.PACK PO (09:54)
[2024-01-22] MEDS: Insulin Lispro 100 UNIT/ML 3 ML VIAL SUBCUT ×4 (09:54→12:10)
[2024-01-22] MEDS: hydrALAZINE HCl 25 MG TABLET PO (09:54)
[2024-01-22] MEDS: Insulin Glargine,Hum.rec.anlog 100 UNIT/ML 10 ML VIAL 80 UNIT SUBCUT (10:00)
[2024-01-22] MEDS: 0.9 % Sodium Chloride Flush 3 ML SYRINGE IVFLUSH (10:01)
--- NOTE | 2024-01-22 10:43 | P.PNNP_ITS ---
Subjective Subjective Date of Service: 01/22/24 Interval history: Pt feels much better today, sob improved; D/W family Physical Exam 2 Vital Signs: Vital Signs: Last Vital Signs Temp 97.6 F 01/22/24 07:33 Pulse 98 01/22/24 08:56 Resp 20 01/22/24 07:33 BP 165/77 H 01/22/24 08:56 Pulse Ox 97 01/22/24 08:56 O2 Del Method Room Air 01/22/24 07:33 O2 Flow Rate 2 01/22/24 03:18 BMI result Body Mass Index 35.9 Const: General: comfortable and no acute distress O rientation/consciousness: patient oriented x3 HEENT: Head: Yes normocephalic Mouth: Normal oral and palatal mucosa present Eyes: EOM: EOMs intact bilaterally Neck: Neck: Yes supple Resp: Auscultation: clear to auscultation bilaterally Cardio: Jugular venous distension: no JVD Rate: regular rate GI: Palpation (GI): Soft to palpation Auscultation: normal bowel sounds : General: Yes no CVA tenderness Back/Spine/Pelvis: Back: no CVA tenderness Skin: General skin exam: no rashes or lesions noted Neuro: General: patient oriented x3 and moves all extremities Objective Data Labs 01/22/24 06:26 01/22/24 06:26 Labs: Laboratory Results - last 24 hr 01/21/24 01/21/24 01/21/24 11:04 11:22 15:43 WBC RBC Hgb Hct MCV MCH MCHC RDW Plt Count MPV Absolute Nucleated RBC Nucleated RBC % (auto) Sodium Potassium Chloride Carbon Dioxide Anion Gap BUN Creatinine Estim Creat Clear Calc Estimated GFR POC Glucose 242 H 334 H Random Glucose Fasting Glucose Calcium Magnesium Total Bilirubin Direct Bilirubin AST ALT Alkaline Phosphatase Total Protein Albumin Urine Eosinophils % 0.0 Random Vancomycin 01/21/24 01/21/24 01/22/24 16:39 20:18 06:26 WBC 13.9 H RBC 4.22 L Hgb 11.4 L Hct 34.2 L MCV 81.0 MCH 27.0 MCHC 33.3 RDW 13.8 Plt Count 297 MPV 10.4 Absolute Nucleated RBC 0.000 Nucleated RBC % (auto) 0.0 Sodium 132 L Potassium 3.9 Chloride 96 Carbon Dioxide 24 Anion Gap 16 BUN 35 H Creatinine 2.61 H Estim Creat Clear Calc 38.9 Estimated GFR 25 POC Glucose 309 H Random Glucose 200 H Fasting Glucose 202 H Calcium 8.7 Magnesium 2.1 Total Bilirubin 0.9 Direct Bilirubin 0.4 AST 58 H ALT 33 Alkaline Phosphatase 108 Total Protein 8.0 Albumin 3.5 Urine Eosinophils % Random Vancomycin 12.1 L 01/22/24 07:37 WBC RBC Hgb Hct MCV MCH MCHC RDW Plt Count MPV Absolute Nucleated RBC Nucleated RBC % (auto) Sodium Potassium Chloride Carbon Dioxide Anion Gap BUN Creatinine Estim Creat Clear Calc Estimated GFR POC Glucose 203 H Random Glucose Fasting Glucose Calcium Magnesium Total Bilirubin Direct Bilirubin AST ALT Alkaline Phosphatase Total Protein Albumin Urine Eosinophils % Random Vancomycin Microbiology Microbiology Results: Microbiology 01/19/24 17:45 Blood - Venous Blood Culture - Preliminary No growth after 48 hours. 01/19/24 17:28 Blood - Venous Blood Culture - Preliminary No growth after 48 hours. Procedures Date of Service Date of Service: 01/22/24 Assessment & Plan Assessment and plan (1) Acute kidney injury superimposed on chronic kidney disease: Status: Acute Plan ETHAN likely due to tubular injury Differential diagnosis include dheeraj infectious GN/AIN Was very hypervolemic- improved with diuresis Could switch to torsemide 20 mg bid today No indication for renal replacement now Shall closely F/U in 2 weeks after D/C Progress Note: Quality Stroke Does the patient have a stroke diagnosis?: No
[2024-01-22 11:16] VITALS: BP 160/75; PULSE 97; RESP 18; TEMP 36.9; O2SAT 95
[2024-01-22 11:31] LABS: Glucose, Whole Blood 257 mg/dL (60-115)
--- NOTE | 2024-01-22 12:46 | P.DS_ITS ---
DS: Providers Provider Date of Service: 01/22/24 Date of admission: 01/19/24 17:01 Primary care physician: Madonna Plascencia MD Consults: 01/19/24 16:59 Consult to Wound Care Routine Reason for consultation: Weeping bulla superimposed on chronic venous stasis 01/20/24 09:13 Consult to Nephrology Routine Consulting Provider: [facility] Reason for consultation: jamey on ckd 3-4 Has provider been notified: Yes DS: Diagnosis Discharge Diagnosis (1) Acute kidney injury superimposed on chronic kidney disease: Status: Acute (2) Cellulitis: Status: Inactive DS: Summary Hospital Course Hospital Course: Pt is a 58-year-old male with a PMH significant for?HTN, HLD, CKD 3, insulin- dependent type 2 diabetes, 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 Patient is alert and oriented x4, but a poor historian who is unable to provide detailed or accurate HPI, which is instead obtained from family who is at bedside. states that patient fell in December and hit his head, and was hospitalized at [facility]. Apparently did okay once discharged until two weeks ago when he had an open bleeding gash on his lower leg. Has had visiting nurse who has bandaged wound and wrapped legs. However, since wound on leg pt has become slowly more lethargic, weak, and confused. Apparently has been mumbling to himself, grabbing at things that are not there, and speaking nonsensically at times. Also had redness to lower extremities. Pt became progressively weaker, more lethargic, and unable to walk. Patient refused to be evaluated at the hospital, though condition deteriorated further this morning when pt was unable to even stand and leg erythema spread further up legs and to lower back. Denies fever, chills, nausea, vomiting, abdominal pain. Of note, pt is chronically on p.o. morphine for chronic pain and may have taken extra doses the past week due to confusion. Was given Narcan in ED with good response. Hospital course: Patient was initiated on empiric IV antibiotics for sepsis due to lower extremity cellulitis in the setting of lymphedema. Metabolic encephalopathy resolved with IV antibiotics. Leukocytosis and cellulitis improved with IV antibiotics. Blood cultures negative x 48 hours. Patient is stable to be discharged on p.o. antibiotics for 1 week. Patient also needed supplemental oxygen throughout hospital stay due to acute on chronic diastolic CHF. He was initiated on IV diuresis and weaned to room air. Kidney function improved with IV diuresis and patient will be discharged with p.o. torsemide. For diabetes mellitus, patient was on basal bolus regimen throughout hospital stay. He is stable to be discharged with close follow-up with his Nephrology. Physical therapy evaluated the patient and recommended STR but patient refused rehab placement. He will be discharged home with VNA Status at Discharge Overall status at discharge: patient is back to baseline Time Attestation Total time managing care of this patient today: 40 mintues. Discharge Coordination Time (in mins): 40 Quality: Safe Use of Opioids Does Pt have an Active Cancer Diagnosis on the Problem List?: No Quality: Stroke Does the patient have a stroke diagnosis?: No Physical Exam Vital Signs: Vital Signs: Last Vital Signs Temp 98.4 F 01/22/24 11:16 Pulse 97 01/22/24 11:16 Resp 18 01/22/24 11:16 BP 160/75 H 01/22/24 11:16 Pulse Ox 95 01/22/24 11:16 O2 Del Method Room Air 01/22/24 11:16 O2 Flow Rate 2 01/22/24 03:18 BMI result Body Mass Index 35.9 Middle-aged male lying in bed in no distress Neck supple, no JVD Regular rate and rhythm, S1-S2 heard Diminished lung sounds Abdomen soft nontender, no guarding, no rigidity Patient is awake, alert and oriented to self, place, time and person ; no focal motor deficit Psych: Normal mood Bilateral lower extremity edema DS: Data Data Completed and Pending Labs on day of discharge: Laboratory Results - last 24 hr 01/21/24 01/21/24 01/21/24 11:22 15:43 16:39 WBC RBC Hgb Hct MCV MCH MCHC RDW Plt Count MPV Absolute Nucleated RBC Nucleated RBC % (auto) Sodium Potassium Chloride Carbon Dioxide Anion Gap BUN Creatinine Estim Creat Clear Calc Estimated GFR POC Glucose 334 H Random Glucose Fasting Glucose Calcium Magnesium Total Bilirubin Direct Bilirubin AST ALT Alkaline Phosphatase Total Protein Albumin Urine Eosinophils % 0.0 Random Vancomycin 12.1 L 01/21/24 01/22/24 01/22/24 20:18 06:26 07:37 WBC 13.9 H RBC 4.22 L Hgb 11.4 L Hct 34.2 L MCV 81.0 MCH 27.0 MCHC 33.3 RDW 13.8 Plt Count 297 MPV 10.4 Absolute Nucleated RBC 0.000 Nucleated RBC % (auto) 0.0 Sodium 132 L Potassium 3.9 Chloride 96 Carbon Dioxide 24 Anion Gap 16 BUN 35 H Creatinine 2.61 H Estim Creat Clear Calc 38.9 Estimated GFR 25 POC Glucose 309 H 203 H Random Glucose 200 H Fasting Glucose 202 H Calcium 8.7 Magnesium 2.1 Total Bilirubin 0.9 Direct Bilirubin 0.4 AST 58 H ALT 33 Alkaline Phosphatase 108 Total Protein 8.0 Albumin 3.5 Urine Eosinophils % Random Vancomycin 01/22/24 11:22 WBC RBC Hgb Hct MCV MCH MCHC RDW Plt Count MPV Absolute Nucleated RBC Nucleated RBC % (auto) Sodium Potassium Chloride Carbon Dioxide Anion Gap BUN Creatinine Estim Creat Clear Calc Estimated GFR POC Glucose 257 H Random Glucose Fasting Glucose Calcium Magnesium Total Bilirubin Direct Bilirubin AST ALT Alkaline Phosphatase Total Protein Albumin Urine Eosinophils % Random Vancomycin Preliminary micro results at discharge 01/19/24 17:45 Blood Culture - Preliminary Blood - Venous No growth after 48 hours. 01/19/24 17:28 Blood Culture - Preliminary Blood - Venous No growth after 48 hours. Imaging Chest x-ray: Radiologist's impression: ITS Impressions Chest X-Ray 01/19/24 12:34 IMPRESSION: Cardiomegaly without acute pulmonary pathology. Head CT 01/19/24 13:15 IMPRESSION: Chronic microvascular ischemic changes with no CT evidence of acute intracranial abnormality. Chest X-Ray 01/20/24 13:20 IMPRESSION: * Clear lungs. Abdomen/Pelvis CT 01/20/24 16:10 IMPRESSION: 1. A cause for the patient's abdominal distention has not been found. 2. There is mild prominence of the renal collecting systems bilaterally as well as the proximal ureters. 3. Incidental note made of enlarged liver and spleen, cholelithiasis, fatty replacement of the pancreas, mild to moderate BPH and other findings described above. Fleischner guidelines were followed. Venous Duplex 01/21/24 13:07 IMPRESSION: No DVT demonstrated in either lower extremity. Discharge Plan Discharge Anticipated Discharge Date/Time: 01/22/24 12:50 Patient Disposition: Home, Self-Care Discharge Diagnosis: Acute metabolic encephalopathy due to sepsis in the setting of bilateral lower extremity cellulitis Acute hypoxemic respiratory failure and acute kidney injury due to acute on chronic diastolic CHF Referrals: Rmaone Garay MD [Physician] - 2 Weeks Madonna Plascencia MD [Primary Care Provider] - 1 Week Discharge Medications: New torsemide 20 mg Tablet 20 mg PO BID 15 Days Qty: 30 0RF Protocol: Hold for SBP< HOLD for SBP < : 90 amoxicillin-pot clavulanate [Augmentin] 500-125 mg tablet 1 tab PO Q12H 7 Days Qty: 14 0RF Continued (DME) BD Insulin Syringe 1 mL 25 gauge x 5/8 syringe See Rx Instructions miscellaneous .MEDSUPPLY Qty: 25 0RF Rx Instructions: As directed Culturelle 10 billion cell capsule 1 cap PO DAILY Qty: 30 0RF sennosides [senna] 8.6 mg tablet 17.2 mg PO DAILY insulin glargine [Lantus U-100 Insulin] 100 unit/mL solution 80 unit subcut BEDTIME amlodipine 2.5 mg tablet 2.5 mg PO DAILY morphine 30 mg tablet extended release 60 mg PO DAILY aspirin 81 mg tablet,delayed release (DR/EC) 81 mg PO DAILY insulin aspart U-100 [Novolog U-100 Insulin aspart] 100 unit/mL solution 80 unit subcut TIDAC escitalopram oxalate 20 mg tablet 20 mg PO DAILY zolpidem 12.5 mg tablet,ext release multiphase 12.5 mg PO BEDTIME quetiapine 50 mg tablet 50 mg PO BEDTIME acetaminophen-caffeine 500-65 mg Tablet 1 tab PO Q6H PRN (Reason: Pain) morphine 30 mg tablet extended release 30 mg PO BEDTIME ketoconazole 2 % cream 1 appl topical DAILY docusate sodium [Colace] 100 mg capsule 200 mg PO DAILY Linzess 290 mcg capsule 290 mcg PO QAM PRN (Reason: Constipation) Movantik 12.5 mg tablet 12.5 mg PO QAM PRN (Reason: Constipation) Xyosted 75 mg/0.5 mL auto-injector 75 mg subcut FR polyethylene glycol 3350 [Gavilax] 17 gram Powder In Packet 17 g PO DAILY PRN (Reason: Constipation) doxycycline hyclate 100 mg tablet 100 mg PO BID 7 Days Qty: 20 0RF Rx Instructions: x 10 days, finish 01/27/24 Farxiga 10 mg tablet 10 mg PO DAILY atorvastatin 40 mg tablet 40 mg PO DAILY Discharge Orders: Discharge Order (Routine); Ordered 01/22/24 Ordered By: Aravind Deluna Diet: Low salt diet Activity on Discharge: As tolerated Stand Alone Forms: Patient Portal Discharge page Care Plan Goals: Follow-up with PCP within 1 week Follow-up with nephrology within 2 weeks Health Concerns: Bilateral lower extremity lymphedema with cellulitis Chronic kidney disease Congestive heart failure with preserved ejection fraction Plan of Treatment: P.o. doxycycline and p.o. Augmentin twice daily x 7 days Torsemide 20 mg p.o. twice daily Assessment: As above
--- NOTE | 2024-01-22 12:55 | W.MHC.F2F ---
Service Date Service Date: 01/22/24 Encounter Date of encounter: 01/22/24 Reasons for Services Signs and symptoms assessed: FDC for wound care. Reason for fdc: wound care, diabetic teaching and monitoring of unstable blood sugar Reason for physical therapy: home safety and mobility, therapeutic exercises, restore joint function, gait/transfer training, assess need for DME and ADL training Reason for occupational therapy: home safety and mobility, therapeutic exercises, restore joint function, gait/transfer training, assess need for DME and ADL training Homebound: Leaving the home is medically contraindicated at this time without the asist of a device and/or another person due th the listed conditions above and below. Reason homebound: unsteady gait / fall risk and weakness related to hospital stay Certification: Based on the above findings, I certify that this patient is confined to the home and needs intermittent fdc care, physical therapy and/or speech therapy, or continues to need occupational therapy. The patient is under my care, and I have initiated the establishment of the plan of care. The patient will be followed by a physician who will periodically review the plan of care. Time Spent With Patient Time: Total time managing care of this patient today ____ minutes.
--- NOTE | 2024-01-22 13:02 | MHC.CM.PN ---
Second IMM given 01/21. Pt is medically cleared for D/C home with [facility]. Pts girlfriend/HCP Amarylis to transport him home.
[2024-01-22 16:19] LABS: Complement C3 177 mg/dL (82-185)
== END 2024-01-22 14:30 | disposition home or self-care (01) | DRG 871 ==
LOC: HO.ED 14:01 → HO.EDOVER 17:19 → HO.IMC 01-20 07:12
PROVIDERS: Internal Medicine; Internal Medicine Nephrology; Admitting Provider Student in an Organized Health Care Education/Training Program; Emergency Provider Emergency Medicine; PCP Family Medicine; Visit Provider Student in an Organized Health Care Education/Training Program
DX: A41.9 Sepsis, unspecified organism (principal); G93.41 Metabolic encephalopathy; I50.33 Acute on chronic diastolic (congestive) heart failure; J96.01 Acute respiratory failure with hypoxia; N17.0 Acute kidney failure with tubular necrosis; L03.115 Cellulitis of right lower limb; L03.116 Cellulitis of left lower limb; E87.1 Hypo-osmolality and hyponatremia; F39 Unspecified mood [affective] disorder; E11.65 Type 2 diabetes mellitus with hyperglycemia; G89.29 Other chronic pain; I87.8 Other specified disorders of veins; S06.9XAS Unspecified intracranial injury with loss of consciousness status unknown, sequela; X58.XXXS Exposure to other specified factors, sequela; R41.3 Other amnesia; N18.30 Chronic kidney disease, stage 3 unspecified; E11.22 Type 2 diabetes mellitus with diabetic chronic kidney disease; Z98.1 Arthrodesis status; Z87.891 Personal history of nicotine dependence; Z79.4 Long term (current) use of insulin; Z79.891 Long term (current) use of opiate analgesic; Z79.899 Other long term (current) drug therapy
CPT/HCPCS: 36415; 70450; 71045; 74176; 80048; 80053; 80076; 80202; 80307; 81001; 82803; 82947; 83605; 83735; 83880; 84484; 85025; 85027; 85610; 85999; 86160; 87040; 92526; 92610; 93005; 93306; 93970; 97116; 97162; 97166; 99285; J1650; J1920; J1940; J2310; J2405; J3370; Q9957

== ENCOUNTER → 2024-01-19 11:45 | Outpatient (BNV) | payer OTHER, SELFPAY | PROVIDERS: Emergency Provider Emergency Medicine; PCP Family Medicine; Visit Provider Internal Medicine | DX: R94.31 Abnormal electrocardiogram [ECG] [EKG] (principal) | CPT/HCPCS: 93010 ==

== ENCOUNTER 2024-01-19 17:01 | Outpatient (BNV) | payer OTHER, SELFPAY | END 2024-01-20 07:00 | PROVIDERS: Admitting Provider Student in an Organized Health Care Education/Training Program; Emergency Provider Emergency Medicine; PCP Family Medicine; Visit Provider Internal Medicine | DX: I36.1 Nonrheumatic tricuspid (valve) insufficiency (principal) | CPT/HCPCS: 93306 ==

== ENCOUNTER → 2024-01-19 17:01 | Outpatient (BNV) | payer OTHER, SELFPAY | PROVIDERS: Admitting Provider Student in an Organized Health Care Education/Training Program; Emergency Provider Emergency Medicine; PCP Family Medicine; Visit Provider Student in an Organized Health Care Education/Training Program | DX: N17.9 Acute kidney failure, unspecified (principal); N18.30 Chronic kidney disease, stage 3 unspecified; L03.115 Cellulitis of right lower limb; L03.116 Cellulitis of left lower limb | CPT/HCPCS: 99223; 99233; 99239; G0180 ==

== ENCOUNTER → 2024-01-19 17:01 | Outpatient (BNV) | payer OTHER, SELFPAY | PROVIDERS: Admitting Provider Student in an Organized Health Care Education/Training Program; Emergency Provider Emergency Medicine; PCP Family Medicine; Visit Provider Internal Medicine Nephrology | DX: N17.9 Acute kidney failure, unspecified (principal); N18.30 Chronic kidney disease, stage 3 unspecified | CPT/HCPCS: 99223; 99232 ==

== ENCOUNTER 2024-01-25 11:50 | Outpatient (AMB) | payer OTHER, SELFPAY ==
--- NOTE | 2024-01-25 11:51 | A.OFFVIS_ITS ---
Intake Visit Reasons: 14 weeks follow up/ Testo Intake Note: Patient presents today for a telehealth follow up on Testo Meds- Testosterone enanthale subq. Allergies to Antibiotic- No Known Allergies Blood Thinner- Aspirin Support Director Required: No Allergies No Known Allergies Allergy (Mild, Verified 02/01/24 10:09) NOT APPLICABLE HPI Comments Details: Hussein is a 58-year-old male who presents today for telehealth visit, followed for testicular hypofunction. He was started on Xyosted 75 mg. He has not completed repeat testosterone levels. He states he is doing well. LV-?past medical history significant for DM2, CKD, and venous insufficiency. I have reviewed the lab results, Low testosterone, 09/01/23--TT and FT-- 71 and 15.6, LH 1.4, HB A1c 7.6 Review of chart: 07/10/2023. He was referred hypogonadism. He had an accident in 2016 and had a brain injury. He is here with a family member, He is a poor historian. He denies urinary complaints. Plan: LH hormone testing, fasting glucose, prolactin test, sex hormone binding globulin, FSH, Free, and total testosterone, HbA1c were ordered. 01/25/24--Continue Testosterone, Xyosted 75 mg, Repeat Testosterone levels. 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 Diabetes mellitus type 2, controlled Traumatic subarachnoid hemorrhage Traumatic subdural hematoma Temporal skull fracture Traumatic brain injury Major depression Controlled type 2 diabetes mellitus with diabetic nephropathy Nephritis NOS in other disease Chronic kidney disease, stage III (moderate) Other chronic pain Neck pain Dyslipidemia Asthma Anemia of chronic disease Chronic constipation HTN (hypertension) Glaucoma suspect Surgical History Bilateral inguinal hernia S/P cervical spinal fusion Social History Household Members: Significant Other Housing: House Do you presently have visiting nurse or other home services: Yes Patient Tobacco Use Status: Former Tobacco user Tobacco use type: Cigarette service: No Review of Systems Const All systems reviewed & are unremarkable except as noted in HPI and below Reports no additional complaints Eyes Reports no additional complaints ENT Reports no additional complaints Card Reports no additional complaints Resp Reports no additional complaints GI Reports no additional complaints Reports as per HPI Musc Reports no additional complaints Skin/Breast Reports system reviewed and no additional complaints, except as documented Neuro Reports no additional complaints Psych Reports no additional complaints Endo Reports no additional complaints Igor/Lymph Reports no additional complaints Aller/Immun Reports no additional complaints Telehealth Telehealth Location of provider rendering services: practice address Location of patient: address on file Patient Identification confirmed using: Name, : Yes Telehealth method: video Patient verbally consented to treatment: Yes Patient verbally consented to billing insurance company: Yes Patient informed of any privacy concerns related to visit: Yes Assessment & Plan Assessment & Plan (1) Hypogonadism in male: Code(s): E29.1 - Testicular hypofunction Category: Medical (2) Long-term current use of testosterone replacement therapy: Code(s): Z79.890 - Hormone replacement therapy Category: Medical Plan Continue Testosterone, Xyosted 75 mg, Repeat Testosterone levels. Patient Instructions: The patient had an opportunity to ask questions regarding treatment plan. The patient expressed understanding and agreement with the above treatment plan. The patient is aware they should contact our office by phone for worsening of their current condition or the appearance of new symptoms. Compliance is encouraged with any medications and followup testing that is ordered. It is a privilege to be allowed the opportunity to participate in the urologic care of your patient. If you have any questions or concerns regarding treatment for the above conditions please do not hesitate to contact me. The office telephone contact is [phone]. This note is constructed in part using voice recognition software. While every effort has been made to ensure accuracy metal tile setter errors may have been included. Yours sincerely, Bashir Smith MD Coding Level of Care Code Tele Est Pt Level 3 (06586) Diagnoses Hypogonadism in male E29.1 Long-term current use of testosterone replacement therapy Z79.890
== END 2024-01-25 15:01 | disposition home or self-care (01) ==
LOC: HO.HUSH 11:50
PROVIDERS: PCP Family Medicine; Visit Provider Urology
DX: E29.1 Testicular hypofunction (principal); Z79.890 Hormone replacement therapy
CPT/HCPCS: 99213

== ENCOUNTER → 2024-01-25 11:50 | Outpatient (BNVA) | payer OTHER, SELFPAY | PROVIDERS: PCP Family Medicine; Visit Provider Urology ==

== ENCOUNTER 2024-01-29 11:27 | Outpatient (AMB) | payer OTHER, SELFPAY ==
--- NOTE | 2024-01-29 11:37 | HO.NEPHOV ---
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 At the time H/O suggested since he had wound on leg he had become slowly more lethargic, weak, and confused with leg erythema spreading further up legs and to lower back without any fever, chills, nausea, vomiting, abdominal pain. He was initiated on empiric IV antibiotics at presentation for sepsis due to lower extremity cellulitis in the setting of lymphedema. During the course of hospitalization his metabolic encephalopathy resolved with improvement in leukocytosis and cellulitis . He was discharged on p.o. antibiotics for 1 week. Patient also needed supplemental oxygen throughout hospital stay due to acute on chronic diastolic CHF. He was initiated on IV diuresis and weaned to room air. He had developed ETHAN but his renal function improved with IV diuresis and was discharged on p.o. torsemide. He feels improved since hospital discharge and denies nausea, vomiting, diarrhea, chest pain, SOB or urinary symptoms. He is not taking any over the counter medications. 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 Diabetes mellitus type 2, controlled Traumatic subarachnoid hemorrhage Traumatic subdural hematoma Temporal skull fracture Traumatic brain injury Major depression Controlled type 2 diabetes mellitus with diabetic nephropathy Nephritis NOS in other disease Chronic kidney disease, stage III (moderate) Other chronic pain Neck pain Dyslipidemia Asthma Anemia of chronic disease Chronic constipation HTN (hypertension) Glaucoma suspect Surgical History Bilateral inguinal hernia S/P cervical spinal fusion Social History Household Members: Significant Other Housing: House Do you presently have visiting nurse or other home services: Yes Patient Tobacco Use Status: Former Tobacco user Tobacco use type: Cigarette service: No Physical Exam Vital Signs: Last Vital Signs Pulse 94 01/29/24 11:38 BP 132/74 01/29/24 11:38 Pulse Ox 96 01/29/24 11:38 Oxygen Delivery Method Room Air 01/29/24 11:38 BMI result Body Mass Index 41.5 Const General: comfortable and no acute distress HEENT Head: Yes normocephalic Mouth: Normal oral and palatal mucosa present Eyes EOM: EOMs intact bilaterally Neck Neck: Yes supple Resp Auscultation: clear to auscultation bilaterally Cardio Jugular venous distension: no JVD Rate: regular rate GI Palpation (GI): Soft to palpation Auscultation: normal bowel sounds General: Yes no CVA tenderness Back/Spine/Pelvis Back: no CVA tenderness Skin General skin exam: no rashes or lesions noted Neuro General: moves all extremities Results Reviewed Nephrology Results: Hgb 11.4 g/dl (14.0-18.0) L 01/22/24 WBC 13.9 X10*3/uL (4.8-10.8) H 01/22/24 Plt Count 297 X10*3/uL (160-400) 01/22/24 Sodium 132 mmol/L (135-145) L 01/22/24 Potassium 3.9 mmol/L (3.3-5.1) 01/22/24 Chloride 96 mmol/L (96-108) 01/22/24 Carbon Dioxide 24 mmol/L (22-29) 01/22/24 BUN 35 mg/dL (9-16) H 01/22/24 Creatinine 2.61 mg/dL (0.5-1.4) H 01/22/24 Calcium 8.7 mg/dL (8.4-10.2) 01/22/24 Urine Protein 30 (1+) mg/dL (Neg-Trace) H 01/19/24 Assessment & Plan Assessment & Plan (1) Acute kidney injury superimposed on chronic kidney disease: Code(s): N17.9 - Acute kidney failure, unspecified; N18.9 - Chronic kidney disease, unspecified Category: Medical (2) Chronic kidney disease, stage III (moderate): Comment: 01/02/2015 Code(s): N18.30 - Chronic kidney disease, stage 3 unspecified Category: Medical Qualifiers: Chronic kidney disease stage 3 subtype: stage 3b (GFR 30-44) Qualified Code(s): N18.32 - Chronic kidney disease, stage 3b (3) HTN (hypertension): Comment: 08/14/2011 Code(s): I10 - Essential (primary) hypertension Category: Medical Qualifiers: Hypertension type: primary hypertension Qualified Code(s): I10 - Essential (primary) hypertension Plan ETHAN likely due to tubular injury on a backdrop of CKD 3B Differential diagnosis during recent hsopitalizationincluded dheeraj infectious GN/AIN Was very hypervolemic- improved with diuresis; C/W current dose of diuretics On Amlodipine which I may switch as it may be contributing to some edema Continue current dose of SGLT2 i. May not tolerate any ACEI/ARB now- needs to reassess No NSAID's. No other medication changes made. All records of recent hospitalization reviewed Follow up labs ordered. Answered all questions. F/U given( Mom has ESRD and is on HD) Orders: Orders Creatinine 01/29/24 N17.9 - Acute kidney failure, unspecified, N18.9 - Chronic kidney disease, unspecified Blood Urea Nitrogen 01/29/24 N17.9 - Acute kidney failure, unspecified, N18.9 - Chronic kidney disease, unspecified Electrolytes 01/29/24 N17.9 - Acute kidney failure, unspecified, N18.9 - Chronic kidney disease, unspecified Parathyroid Hormone Intact 01/29/24 N17.9 - Acute kidney failure, unspecified, N18.9 - Chronic kidney disease, unspecified Complete Blood Count Auto Diff 01/29/24 N17.9 - Acute kidney failure, unspecified, N18.9 - Chronic kidney disease, unspecified Vitamin D 25-OH Total 01/29/24 N17.9 - Acute kidney failure, unspecified, N18.9 - Chronic kidney disease, unspecified Medications: New torsemide 20 mg PO BID 60 tabs 3RF Discontinued torsemide Discontinued Reason: Doctor's Order 20 mg See Protocol PO BID 15 days 30 tabs 0RF
[2024-01-29 11:38] VITALS: BP 132/74; PULSE 94; O2SAT 96; BMI 41.5
== END 2024-01-29 12:06 | disposition home or self-care (01) ==
PROVIDERS: PCP Family Medicine; Visit Provider Internal Medicine Nephrology
DX: N17.9 Acute kidney failure, unspecified (principal); I12.9 Hypertensive chronic kidney disease with stage 1 through stage 4 chronic kidney disease, or unspecified chronic kidney disease; N18.9 Chronic kidney disease, unspecified; N18.32 Chronic kidney disease, stage 3b
CPT/HCPCS: 99214

== ENCOUNTER → 2024-01-29 11:27 | Outpatient (BNVA) | payer OTHER, SELFPAY | PROVIDERS: PCP Family Medicine; Visit Provider Internal Medicine Nephrology | DX: N17.9 Acute kidney failure, unspecified (principal) | CPT/HCPCS: 99212 ==

== ENCOUNTER 2024-02-01 10:08 | Outpatient (AMB) | payer OTHER, SELFPAY ==
--- NOTE | 2024-02-01 10:09 | A.OFFVIS_ITS ---
Intake Intake Visit Reasons: f/u don Intake Note: Hussein presents as a video call today. CC: Don seems to be working and does not have any concerns. Allergies No Known Allergies Allergy (Mild, Verified 02/01/24 10:09) NOT APPLICABLE HPI f/u don HPI Details A 58 y/o male referred with chronic constipation-being called for f/u RECAP: saw [facility] [facility] 01/2020 He has a BM every couple days, hard to pass stool. On going for years. He will not take fiber, he thinks that it worsens his constipation. If he uses fleets, he has good results- but refuses to use it any further TSH was nml 2007 Colonoscopy 11/2018 - normal poor prep recommend repeat 1 year- Dr. Sidhu- he was given linaclotide and it was working very well He was admitted 01/2024 with AMS and leg erythema, swelling from CHf exacerbation, rx with ABx and diuretics, AMS resolved INTERIM: he had great results with linaclotide and movantik and wants to continue he denies abdominal pain no nausea or vomiting appetite is fair he has been on diurectics which are working well he is not needing to use oxygen at this time he takes morphine for back and neck pain, 20 mg TID EXAM: good color, talking easily, not SOB A/P: 1/ Constipation, related to opiate use, good results with lianclotide and movantik low dose PLAN: cont movantik 12.5 mg, and linaclotide 290 mcg await cardiology assessment, pending, and after that can decide on colonoscopy if indicated [facility] Medical History Chronic, continuous use of opioids 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 Concussion 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 Diabetes mellitus type 2, controlled Traumatic subarachnoid hemorrhage Traumatic subdural hematoma Temporal skull fracture Traumatic brain injury Major depression Controlled type 2 diabetes mellitus with diabetic nephropathy Nephritis NOS in other disease Chronic kidney disease, stage III (moderate) Other chronic pain Neck pain Dyslipidemia Asthma Anemia of chronic disease Chronic constipation HTN (hypertension) Glaucoma suspect Surgical History Bilateral inguinal hernia S/P cervical spinal fusion Social History Household Members: Significant Other Housing: House Do you presently have visiting nurse or other home services: Yes Patient Tobacco Use Status: Former Tobacco user Tobacco use type: Cigarette service: No Assessment & Plan Assessment & Plan (1) Opiate use: Code(s): F11.90 - Opioid use, unspecified, uncomplicated Plan: PLAN: cont movantik 12.5 mg, and linaclotide 290 mcg await cardiology assessment, pending, and after that can decide on colonoscopy if indicated Medications: New naloxegol (Movantik) 12.5 mg PO QAM PRN 30 tabs 2RF Constipation linaclotide (Linzess) 290 mcg PO QAM PRN 30 caps 2RF Constipation Telehealth Telehealth Location of provider rendering services: practice address Location of patient: address on file Patient Identification confirmed using: Name, : Yes Telehealth method: video Patient verbally consented to treatment: Yes Patient verbally consented to billing insurance company: Yes Patient informed of any privacy concerns related to visit: Yes Minutes spent on Phone/Video with Pt.: 8 Coding Level of Care Code Tele Est Pt Level 3 (14916) Diagnoses Opiate use F11.90
== END 2024-02-01 11:39 | disposition home or self-care (01) ==
LOC: HO.HGI 10:09
PROVIDERS: PCP Family Medicine; Visit Provider Internal Medicine Gastroenterology
DX: F11.90 Opioid use, unspecified, uncomplicated (principal)
CPT/HCPCS: 99213

== ENCOUNTER → 2024-02-01 10:08 | Outpatient (BNVA) | payer OTHER, SELFPAY | PROVIDERS: PCP Family Medicine; Visit Provider Internal Medicine Gastroenterology ==

== ENCOUNTER 2024-02-23 10:17 | Outpatient (REF) | payer OTHER, SELFPAY ==
[2024-02-23 11:32] LABS: MANUAL DIFF FLAG NO
[2024-02-23 11:42] LABS: Basophils Absolute Auto 0.1 X10*3/uL (0.0-0.2); Basophils Percent Auto 0.6 % (0-2); Eosinophils Absolute Auto 0.2 X10*3/uL (0.0-0.4); Eosinophils Percent Auto 1.7 % (0-4); Hemoglobin 11.1 g/dl (14.0-18.0); Imm Gran Abs Auto 0.06 X10*3/uL (0.00-0.03); Imm Gran Pct Auto 0.6 % (0.0-0.4); Lymphocytes Absolute Auto 2.2 X10*3/uL (1.2-4.9); Lymphocytes Percent Auto 22.9 % (20-40); Mean Corpuscular HGB Conc 31.7 g/dl (31.0-36.0); Mean Corpuscular Hemoglobin 26.4 pg (27.0-33.0); Mean Corpuscular Volume 83.3 fL (80.0-98.0); Mean Platelet Volume 10.2 fL (9.4-12.4); Monocytes Percent Auto 10.6 % (2-11); Neutrophils Percent Auto 63.6 % (45-73); Platelet Count 319 X10*3/uL (160-400); Red Cell Distribution Width 14.8 % (11.0-16.0); White Blood Count 9.4 X10*3/uL (4.8-10.8)
[2024-02-23 12:29] LABS: Anion Gap 11 (12-20); Blood Urea Nitrogen 18 mg/dL (9-16); Carbon Dioxide 23 mmol/L (22-29); Chloride 104 mmol/L (96-108); Estimated Glomerular Filt Rate 39; Potassium 3.8 mmol/L (3.3-5.1); Sodium 134 mmol/L (135-145)
[2024-02-23 12:46] LABS: Vitamin D 25-OH Total 16.7 ng/mL (>30)
[2024-02-23 12:56] LABS: Parathyroid Hormone Intact 178.9 pg/mL (8.7-77.1)
== END 2024-02-23 10:18 | disposition home or self-care (01) ==
LOC: HO.HHCL 10:17
PROVIDERS: Visit Provider Internal Medicine Nephrology
DX: N17.9 Acute kidney failure, unspecified (principal); N18.9 Chronic kidney disease, unspecified
CPT/HCPCS: 36415; 80051; 82306; 82565; 83970; 84520; 85025

== ENCOUNTER 2024-03-04 11:59 | Outpatient (AMB) | payer OTHER, SELFPAY ==
--- NOTE | 2024-03-04 12:19 | HO.NEPHOV ---
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 At the time H/O suggested since he had wound on leg he had become slowly more lethargic, weak, and confused with leg erythema spreading further up legs and to lower back without any fever, chills, nausea, vomiting, abdominal pain. He was initiated on empiric IV antibiotics at presentation for sepsis due to lower extremity cellulitis in the setting of lymphedema. During the course of hospitalization his metabolic encephalopathy resolved with improvement in leukocytosis and cellulitis . He was discharged on p.o. antibiotics for 1 week. Patient also needed supplemental oxygen throughout hospital stay due to acute on chronic diastolic CHF. He was initiated on IV diuresis and weaned to room air. He had developed ETHAN but his renal function improved with IV diuresis and was discharged on p.o. torsemide. He feels improved since hospital discharge and denies nausea, vomiting, diarrhea, chest pain, SOB or urinary symptoms. He is not taking any over the counter medications. 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 Concussion 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 Diabetes mellitus type 2, controlled Traumatic subarachnoid hemorrhage Traumatic subdural hematoma Temporal skull fracture Traumatic brain injury Major depression Controlled type 2 diabetes mellitus with diabetic nephropathy Nephritis NOS in other disease Chronic kidney disease, stage III (moderate) Other chronic pain Neck pain Dyslipidemia Asthma Anemia of chronic disease Chronic constipation HTN (hypertension) Glaucoma suspect Surgical History Bilateral inguinal hernia S/P cervical spinal fusion Social History Household Members: Significant Other Housing: House Do you presently have visiting nurse or other home services: Yes Patient Tobacco Use Status: Former Tobacco user Tobacco use type: Cigarette service: No Physical Exam Vital Signs: Last Vital Signs Pulse 91 03/04/24 12:22 BP 130/70 03/04/24 12:22 Pulse Ox 96 03/04/24 12:22 Oxygen Delivery Method Room Air 03/04/24 12:22 BMI result Body Mass Index 42.3 Const General: comfortable and no acute distress Orientation/consciousness: patient oriented x3 HEENT Head: Yes normocephalic Mouth: Normal oral and palatal mucosa present Eyes EOM: EOMs intact bilaterally Neck Neck: Yes supple Resp Auscultation: clear to auscultation bilaterally Cardio Jugular venous distension: no JVD Rate: regular rate GI Palpation (GI): Soft to palpation Auscultation: normal bowel sounds General: Yes no CVA tenderness Back/Spine/Pelvis Back: no CVA tenderness Skin General skin exam: no rashes or lesions noted Neuro General: patient oriented x3 and moves all extremities Results Reviewed Nephrology Results: Hgb 11.1 g/dl (14.0-18.0) L 02/23/24 WBC 9.4 X10*3/uL (4.8-10.8) 02/23/24 Plt Count 319 X10*3/uL (160-400) 02/23/24 Sodium 134 mmol/L (135-145) L 02/23/24 Potassium 3.8 mmol/L (3.3-5.1) 02/23/24 Chloride 104 mmol/L (96-108) 02/23/24 Carbon Dioxide 23 mmol/L (22-29) 02/23/24 BUN 18 mg/dL (9-16) H 02/23/24 Creatinine 1.78 mg/dL (0.5-1.4) H 02/23/24 Calcium 8.7 mg/dL (8.4-10.2) 01/22/24 PTH Intact 178.9 pg/mL (8.7-77.1) H 02/23/24 Urine Protein 30 (1+) mg/dL (Neg-Trace) H 01/19/24 Assessment & Plan Assessment & Plan (1) Chronic kidney disease, stage III (moderate): Comment: 01/02/2015 Code(s): N18.30 - Chronic kidney disease, stage 3 unspecified Category: Medical Qualifiers: Chronic kidney disease stage 3 subtype: stage 3b (GFR 30-44) Qualified Code(s): N18.32 - Chronic kidney disease, stage 3b (2) HTN (hypertension): Comment: 08/14/2011 Code(s): I10 - Essential (primary) hypertension Category: Medical Qualifiers: Hypertension type: primary hypertension Qualified Code(s): I10 - Essential (primary) hypertension (3) Vitamin D deficiency: Code(s): E55.9 - Vitamin D deficiency, unspecified Category: Medical (4) Secondary hyperparathyroidism (of renal origin): Code(s): N25.81 - Secondary hyperparathyroidism of renal origin Category: Medical Plan ETHAN likely due to tubular injury on a backdrop of CKD 3B- resolved Was very hypervolemic- improved with diuresis; C/W current dose of diuretics On Amlodipine which I may switch as it may be contributing to some edema Continue current dose of SGLT2 i. May not tolerate any ACEI/ARB now- needs to reassess Started on Vitamin D 67921 U once a week; WIll monitor Vitamin D and PTH No NSAID's. No other medication changes made. Follow up labs ordered. Answered all questions. F/U given( Mom has ESRD and is on HD) Orders: Orders Creatinine Today N18.32 - Chronic kidney disease, stage 3b Vitamin D 25-OH Total Today N18.32 - Chronic kidney disease, stage 3b Blood Urea Nitrogen Today N18.32 - Chronic kidney disease, stage 3b Electrolytes Today N18.32 - Chronic kidney disease, stage 3b Medications: New cholecalciferol (vitamin D3) 1,250 mcg PO QWEEK 3 months 13 caps 0RF Coding Level of Care Code Est Pt Level 4 (59380) Diagnoses Stage 3b chronic kidney disease N18.32 Chronic kidney disease stage 3 subtype: stage 3b (GFR 30-44) Primary hypertension I10 Hypertension type: primary hypertension Vitamin D deficiency E55.9 Secondary hyperparathyroidism (of renal origin) N25.81
[2024-03-04 12:22] VITALS: BP 130/70; PULSE 91; O2SAT 96; BMI 42.3
== END 2024-03-04 12:52 | disposition home or self-care (01) ==
PROVIDERS: PCP Family Medicine; Visit Provider Internal Medicine Nephrology
DX: N18.32 Chronic kidney disease, stage 3b (principal); I10 Essential (primary) hypertension; E55.9 Vitamin D deficiency, unspecified; N25.81 Secondary hyperparathyroidism of renal origin
CPT/HCPCS: 99214

== ENCOUNTER → 2024-03-04 11:59 | Outpatient (BNVA) | payer OTHER, SELFPAY | PROVIDERS: PCP Family Medicine; Visit Provider Internal Medicine Nephrology | DX: I12.9 Hypertensive chronic kidney disease with stage 1 through stage 4 chronic kidney disease, or unspecified chronic kidney disease (principal); N18.32 Chronic kidney disease, stage 3b; E55.9 Vitamin D deficiency, unspecified; N25.81 Secondary hyperparathyroidism of renal origin; Z79.899 Other long term (current) drug therapy | CPT/HCPCS: 99212 ==

== ENCOUNTER 2024-03-08 13:36 | Outpatient (AMB) | payer OTHER, SELFPAY ==
[2024-03-08 13:41] VITALS: BMI 42.2
--- NOTE | 2024-03-08 13:41 | A.OFFVIS_ITS ---
Vital Signs 03/08/24 13:41 Height 5 ft 10 in Weight 294 lb BMI 42.2 Intake Visit Reasons: Hospital follow up LE wounds Intake Note: Hospital follow up for bilateral LE non-healing wounds w/ Hx of lymphedema pumps. Dressing changes daily, heavy drainage. Was on IV Abx for 1 week and started to improve, stopped improving s/p oral Abx. Pt does use lymphedema pumps daily. Allergies No Known Allergies Allergy (Mild, Verified 03/08/24 13:50) NOT APPLICABLE [facility] Hospital follow up LE wounds: Details: Morbidly obese 58-year-old gentleman presents for follow-up regarding nonhealing lower extremity ulcers. History of diabetes and chronic kidney disease. In addition he has history significant for Congestive heart failure. He has no prior histories of DVTs. He had been seen in the hospital and was then re- referred to us he now presents to us for evaluation. 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 Diabetes mellitus type 2, controlled Traumatic subarachnoid hemorrhage Traumatic subdural hematoma Temporal skull fracture Traumatic brain injury Major depression Controlled type 2 diabetes mellitus with diabetic nephropathy Nephritis NOS in other disease Chronic kidney disease, stage III (moderate) Other chronic pain Neck pain Dyslipidemia Asthma Anemia of chronic disease Chronic constipation HTN (hypertension) Glaucoma suspect Surgical History Bilateral inguinal hernia S/P cervical spinal fusion Social History Household Members: Significant Other Housing: House Do you presently have visiting nurse or other home services: Yes Patient Tobacco Use Status: Former Tobacco user Tobacco use type: Cigarette service: No Review of Systems Const Reports as per HPI ENT Reports no additional complaints Card Denies chest pain, Denies chest pain at rest and Denies chest pain with activity Resp Denies chest congestion and Denies cough GI Reports no additional complaints Musc Details: pain over varicosities, aching of lower extremities, swelling, cramping, heaviness and tiredness, itching Denies abnormal gait Skin/Breast Reports pruritus and Denies wounds Neuro Reports no additional complaints and Denies abnormal gait Psych Denies no additional complaints Physical Exam Vital Signs: BMI result Body Mass Index 42.2 Const General: cooperative, healthy appearing and comfortable Orientation/consciousness: oriented to person, oriented to place and oriented to time Neck Carotids: no bruits Chest Chest palpation & inspection: normal inspection of the chest and normal palpation of entire chest wall Resp Effort & Inspection: normal respiratory effort and able to speak in complete sentences Cardio Rate: regular rate Heart sounds: S1 normal heart sound present and S2 normal heart sound present Peripheral pulses: Peripheral pulses 2+ throughout GI Inspection: Yes normal to inspection Skin Other: +2 edema, Hyperkeratosis of skin bilateral lower extremities with significantly edematous legs. Serous fluid drainage. General skin exam: dry skin Neuro General: oriented to person, oriented to place and oriented to time Extrem Right lower extremity: full ROM, normal capillary refill and edema Left lower extremity: full ROM, normal capillary refill and edema Psych Mental Status: mental status grossly normal Assessment & Plan Assessment & Plan (1) Lymphedema: Code(s): I89.0 - Lymphedema, not elsewhere classified Category: Medical Plan: In short patient has significantly edematous bilateral lower extremities. I did re-review his previous venous insufficiency testing which was essentially negative. We did discuss routine risk factor modification and making sure that he stays on his medications. In addition I did suggest that he use his lymphedema pumps twice daily. Does have a wound care center follow-up scheduled for 515. Will follow up with us on an as-needed basis. Thank you for allowing us to assist in his care Coding Level of Care Code Est Pt Level 3 (30265) Diagnoses Lymphedema I89.0
== END 2024-03-08 14:01 | disposition home or self-care (01) ==
PROVIDERS: PCP Family Medicine; Visit Provider Surgery Vascular Surgery
DX: I89.0 Lymphedema, not elsewhere classified (principal)
CPT/HCPCS: 99213

== ENCOUNTER → 2024-03-08 13:36 | Outpatient (BNVA) | payer OTHER, SELFPAY | PROVIDERS: PCP Family Medicine; Visit Provider Surgery Vascular Surgery | DX: I89.0 Lymphedema, not elsewhere classified (principal); E11.22 Type 2 diabetes mellitus with diabetic chronic kidney disease; N18.9 Chronic kidney disease, unspecified; I50.9 Heart failure, unspecified | CPT/HCPCS: 99212 ==

== ENCOUNTER 2024-03-16 11:43 | Outpatient (RCR) | payer OTHER, SELFPAY ==
--- NOTE | ~2024-03-16 | XR_ITS ---
EXAMINATION: XR FOOT, RIGHT CLINICAL INFORMATION: Right foot wound attention fifth metatarsal head COMPARISON: X-rays of the right foot November 2023 TECHNIQUE: AP, lateral, and oblique views of the right foot. FINDINGS: Fifth digit: Metatarsal head normal. Remaining bone and joints of the small toe. Digit normal. First metatarsophalangeal joint there is mild to moderate osteoarthritis manifested by marginal osteophytes and subchondral cystic change stable compared to prior. IP joint of the great toe: Small marginal osteophytes the and possible small subchondral cysts iterative of mild osteoarthritis unchanged. Remaining bone and joints are normal. Soft tissue prominence along the dorsal aspect of the midfoot forefoot compatible edema unchanged. XR/XR foot RT min 3V IMPRESSION: 1. No acute abnormality. 2. Degenerative changes of the first metatarsophalangeal joint and IP joint of the great toe unchanged compared to prior. 3. Dorsal soft tissue swelling unchanged
== END 2024-06-24 10:14 | disposition home or self-care (01) ==
LOC: HO.WCC 11:43
PROVIDERS: PCP Family Medicine; Visit Provider Physician Assistant
DX: E11.621 Type 2 diabetes mellitus with foot ulcer (principal); E11.52 Type 2 diabetes mellitus with diabetic peripheral angiopathy with gangrene; I87.311 Chronic venous hypertension (idiopathic) with ulcer of right lower extremity; L97.515 Non-pressure chronic ulcer of other part of right foot with muscle involvement without evidence of necrosis; I87.302 Chronic venous hypertension (idiopathic) without complications of left lower extremity; E11.22 Type 2 diabetes mellitus with diabetic chronic kidney disease; N18.30 Chronic kidney disease, stage 3 unspecified; Q82.0 Hereditary lymphedema; I11.0 Hypertensive heart disease with heart failure; I50.9 Heart failure, unspecified; Z87.891 Personal history of nicotine dependence
CPT/HCPCS: 11042; 11043; 29581; 73630; 97597; 97598; 99212; 99213

== ENCOUNTER 2024-05-06 10:09 | Inpatient (IN) | payer OTHER, SELFPAY ==
[2024-05-06] VITALS (9 sets, daily range): BP systolic 109–168; BP diastolic 55–84; PULSE 84–108; RESP 15–22; TEMP 36.5–38.9; O2SAT 92–99; BMI 41.6
--- NOTE | ~2024-05-06 | US_ITS ---
EXAMINATION: US ABDOMEN LIMITED CLINICAL INFORMATION: Right upper quadrant abdominal pain. COMPARISON: None available. TECHNIQUE: Real-time imaging of the right upper quadrant abdominal viscera. FINDINGS: PANCREAS: Normal. LIVER: Normal. The liver is normal in size. The liver contour is normal. Parenchymal echogenicity is normal. No focal hepatic lesion. There is no intrahepatic biliary duct dilatation seen. GALLBLADDER: Multiple shadowing stones and sludge seen within the gallbladder. There is nonspecific gallbladder wall thickening measuring 7 mm. No significant pericholecystic fluid. COMMON BILE DUCT: Dilated measuring 1.0 cm in diameter. RIGHT KIDNEY: There is prominence of the right renal pelvis and calyces. No hydronephrosis. No renal calculi or focal parenchymal lesions. The kidney measures 10.9 cm in maximum dimension. FREE FLUID: None. US/US abdomen limited IMPRESSION: Cholelithiasis with nonspecific gallbladder wall thickening. Dilated common bile duct. No significant intrahepatic biliary ductal dilatation. Further evaluation with nuclear medicine biliary scan could be performed.
--- NOTE | ~2024-05-06 | FL_ITS ---
EXAMINATION: XR FLUOROSCOPY WITH IMAGES CLINICAL INFORMATION: Common bile duct stone, fluoroscopic guidance in OR cholangiogram COMPARISON: None available. TECHNIQUE: Fluoroscopy Supervised By: Dr. Triston Gross. Fluoroscopy Time: 0.3 minutes, 38.6 seconds. Cumulative Dose: 99.070 mGy. DAP: 43.094 Gy-cm2. Images: 8. FINDINGS: Fluoroscopic guidance was provided for a cholangiogram. Please refer to operative report for detailed evaluation. FL/FL guidance in OR IMPRESSION: Fluoroscopic guidance provided for a cholangiogram. Please refer to operative report for detailed evaluation.
--- NOTE | ~2024-05-06 | CT_ITS ---
EXAMINATION: CT HEAD WITHOUT CONTRAST CLINICAL INFORMATION: Altered mental status. COMPARISON: Head CT dated 01/19/2024. TECHNIQUE: Contiguous axial imaging was performed from the skullbase to vertex without intravenous administration of contrast. This CT examination was performed using dose optimization techniques as appropriate, variously including the following: *Automated exposure control *Adjustment of mA and/or kV according to patient size (this includes techniques or standardized protocols for targeted exams where dose is matched to indication/reason for exam; i.e. extremities or head) *Use of iterative reconstruction technique DLP: 797.3 mGy-cm. FINDINGS: There is no evidence of acute intracranial hemorrhage or territorial infarction. No abnormal mass effect or midline shift is seen. No extra-axial fluid collections are identified. There is stable ex vacuo prominence of the ventricles. Moderate diffuse brain parenchymal volume loss again evident with encephalomalacia in the left frontotemporal lobes and left insular cortex. Chronic white matter microangiopathy again visible. The osseous structures and soft tissues are normal. The mastoid air cells are well aerated. Mild right ethmoid sinus mucosal thickening visible. There are chronic fatty atrophic changes of the parotid glands bilaterally. CT/CT head/brain wo IV con IMPRESSION: No acute intracranial hemorrhage or territorial infarction. Chronic encephalomalacia in the left frontotemporal lobes and left insular cortex, as on prior imaging. Moderate diffuse brain parenchymal volume loss.
--- NOTE | ~2024-05-06 | CT_ITS ---
EXAMINATION: CT CHEST, ABDOMEN, AND PELVIS WITH CONTRAST CLINICAL INFORMATION: Ascites rule out liver pathology, COMPARISON: CT abdomen from 01/20/2024 TECHNIQUE: Multidetector volumetric CT imaging of the chest, abdomen, and pelvis was obtained after the administration of 100 mL of Omnipaque 300 intravenous contrast without immediate adverse reactions. Axial MIP volume rendering provided. Sagittal and coronal reformatted images were obtained. This CT examination was performed using dose optimization techniques as appropriate, variously including the following: *Automated exposure control *Adjustment of mA and/or kV according to patient size (this includes techniques or standardized protocols for targeted exams where dose is matched to indication/reason for exam; i.e. extremities or head) *Use of iterative reconstruction technique DLP: 1226.7 mGy-cm chest and 633.23mGy-cm abdomen FINDINGS: LUNGS: Bibasilar atelectasis but no nodules infiltrates. MEDIASTINUM: The mediastinum appears unremarkable. CORONARY ARTERY CALCIFICATION: Moderate. PLEURA: There is no pleural effusion. No pleural mass or thickening. AXILLA: No lymphadenopathy by size criteria. LIVER, GALLBLADDER, AND BILIARY TREE: The liver appears unremarkable in size, shape, and attenuation. No focal hepatic lesion or biliary ductal dilatation is appreciated. There is wall thickening of the gallbladder with high attenuation material most likely stones PANCREAS: Pancreas revealed fatty infiltration, atrophic SPLEEN: Spleen measures 15 cm, enlarged ADRENAL GLANDS: Unremarkable KIDNEYS AND URETERS: The kidneys appear unremarkable in size, shape, and attenuation. No hydronephrosis, hydroureter, or calculi seen. BLADDER: Unremarkable GASTROINTESTINAL TRACT: There is constipation with retained feces throughout the colon. No masses or abnormal collections. There is no ascites. ABDOMINAL WALL: There is dehiscence of anterior abdominal wall and status post previous repair of inferior abdominal wall with mesh. LYMPH NODES: No evidence of adenopathy by size criteria. VASCULAR: Unremarkable. PELVIC VISCERA: Unremarkable OSSEOUS STRUCTURES: Unremarkable. CT/CT abdomen pelvis wo IV con IMPRESSION: 1. Bibasilar atelectasis. 2. Splenomegaly. 3. Cholelithiasis. 4. Constipation. 5. Dehiscence of the anterior abdominal wall is status post previous inferior abdominal wall.
--- NOTE | ~2024-05-06 | XR_ITS ---
EXAMINATION: XR FOOT, RIGHT CLINICAL INFORMATION: Diabetic ulcer on great toe COMPARISON: 11/18/2023 TECHNIQUE: AP, lateral, and oblique views of the right foot. FINDINGS: There is no evidence of fracture or osseous destruction. There are mild degenerative changes in the interphalangeal and first metatarsophalangeal joint of great toe and vascular calcifications. There is postdose revealed no abnormal findings. Soft tissues are prominent dorsally. There is minimal ulcer in the proximal foot seen on the lateral view only, measured approximately 3 cm wide XR/XR foot RT min 3V IMPRESSION: Soft tissue swelling, degenerative changes in the interphalangeal and first metatarsophalangeal joints and soft tissue ulcer
--- NOTE | ~2024-05-06 | XR_ITS ---
EXAMINATION: XR CHEST CLINICAL INFORMATION: Acute mental status change COMPARISON: 01/20/2024 TECHNIQUE: 2 views of the chest were obtained. FINDINGS: No significant abnormality is noted involving the heart, lungs, mediastinum, bony thorax or soft tissues. XR/XR chest 2V IMPRESSION: Unremarkable examination, without interval change.
--- NOTE | ~2024-05-06 | CT_ITS ---
EXAMINATION: CT ABDOMEN AND PELVIS WITHOUT CONTRAST CLINICAL INFORMATION: s/p lap loli, anemia, r/o bleed COMPARISON: CT scan abdomen pelvis May 06, 2024. Ultrasound of abdomen May 06, 2024 TECHNIQUE: Multidetector volumetric imaging was performed from the superior aspect of the liver through the pubic symphysis. Sagittal and coronal reformatted images were obtained on the technologist's workstation. This CT examination was performed using dose optimization techniques as appropriate, variously including the following: *Automated exposure control *Adjustment of mA and/or kV according to patient size (this includes techniques or standardized protocols for targeted exams where dose is matched to indication/reason for exam; i.e. extremities or head) *Use of iterative reconstruction technique DLP: 1065 mGy-cm FINDINGS: LUNG BASES: Small dependent bilateral pleural effusions. Compressive atelectasis at right and left lung bases. LIVER, GALLBLADDER, AND BILIARY TREE: The liver is normal in size, shape, and attenuation. No focal hepatic lesion or biliary ductal dilatation is present. Status post cholecystectomy. There is ill-defined density in the surgical bed at the gallbladder fossa but this is likely postoperative. No defined fluid collection or abscess or hematoma. PANCREAS: Fatty atrophy of the pancreas. No pancreatic mass or inflammation. SPLEEN: Unremarkable. ADRENAL GLANDS: Unremarkable. KIDNEYS AND URETERS: The kidneys are normal in size, shape, and attenuation. No hydronephrosis, hydroureter, or calculi seen. No perinephric stranding. BLADDER: Unremarkable. GASTROINTESTINAL TRACT: No acute abnormality of the bowel. There is no bowel wall thickening /edema. There is no bowel obstruction. There is a moderate to large volume of stool in the colon. The appendix is nonvisualized . The small bowel loops are unremarkable. The stomach is normal. There is no hiatal hernia. Mesentery: No inflammation. Small volume of abdominal ascites. This is simple fluid with density measurement about 6 Hounsfield units. No evidence of hematoma in the mesentery. ABDOMINAL WALL: No ventral hernia. Surgical mesh and clips at the lower anterior abdominal wall in the suprapubic region. Mild generalized anasarca. LYMPH NODES: Normal. VASCULAR: Unremarkable. PELVIC VISCERA: Unremarkable. OSSEOUS STRUCTURES: Unremarkable. CT/CT abdomen pelvis wo IV con IMPRESSION: 1. Small dependent bilateral pleural effusions. Compressive atelectasis at right and left lung bases. 2. Small volume of abdominal ascites. Mild generalized anasarca. 3. Status post cholecystectomy. Ill-defined soft tissue density of the gallbladder fossa likely postoperative in nature. No defined abscess or hematoma. 4. No acute abnormality of the bowel. Fleischner guidelines were followed.
--- NOTE | 2024-05-06 10:29 | ECG_ITS ---
Test Reason : sepsis Blood Pressure : / mmHG Vent. Rate : 086 BPM Atrial Rate : 086 BPM P-R Int : 154 ms QRS Dur : 098 ms QT Int : 412 ms P-R-T Axes : 036 049 037 degrees QTc Int : 493 ms Normal sinus rhythm Cannot rule out Anterior infarct (cited on or before 19-JAN-2024) Abnormal ECG When compared with ECG of 06-MAY-2024 10:26, No significant change was found Referred By: Rafia Jefferson Electronically Signed By:SATYA DENG
--- NOTE | 2024-05-06 10:49 | ED_ITS ---
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 at bedside reports fever x3 days with TMAX of 103F this morning. She administered tylenol and motrin with improvement. Also admits patient has yellow coloration to skin which is new as of 1 week ago. Reports liver issues however cannot provide me with further detail. Patient has lymphedema noted to bilateral lower extremities with recent diagnosis of overlying cellulitis. He is not currently on antibiotics for this however does follow with wound care out patient. His mother notes new ulceration to the bottom of his right foot which has not been medically addressed. Denies nausea, vomiting, chest pain/pressure, palpitations, shortness of breath or difficulty breathing. Related Data Home Medications ?Medication ?Instructions ?Recorded ?Confirmed atorvastatin 40 mg tablet 40 mg PO DAILY 01/20/22 05/06/24 amlodipine 2.5 mg tablet 2.5 mg PO DAILY 01/19/24 05/06/24 aspirin 81 mg tablet,delayed 81 mg PO DAILY 01/19/24 05/06/24 release docusate sodium 100 mg capsule 200 mg PO DAILY 01/19/24 05/06/24 (Colace) escitalopram oxalate 20 mg tablet 20 mg PO DAILY 01/19/24 05/06/24 insulin aspart U-100 100 unit/mL 80 unit subcut TIDAC 01/19/24 05/06/24 subcutaneous solution (Novolog U-100 Insulin aspart) insulin glargine 100 unit/mL 80 unit subcut BEDTIME 01/19/24 05/06/24 subcutaneous solution (Lantus U-100 Insulin) ketoconazole 2 % topical cream 1 appl topical DAILY feet 01/19/24 05/06/24 morphine 30 mg tablet,extended 30 mg PO BEDTIME 01/19/24 05/06/24 release morphine 30 mg tablet,extended 60 mg PO DAILY 01/19/24 05/06/24 release polyethylene glycol 3350 17 gram 17 g PO DAILY PRN Constipation 01/19/24 05/06/24 oral powder packet (Gavilax) quetiapine 50 mg tablet 50 mg PO BEDTIME 01/19/24 05/06/24 sennosides 8.6 mg tablet (senna) 17.2 mg PO DAILY constipation 01/19/24 05/06/24 testosterone enanthate 75 mg/0.5 75 mg subcut FR hypogonadism 01/19/24 05/06/24 mL subcutaneous auto-injector (Xyosted) zolpidem 12.5 mg tablet,extended 12.5 mg PO BEDTIME insomnia 01/19/24 05/06/24 release,multiphase insulin syringe-needle U-100 1 mL #10 ea 02/01/24 31 gauge x 5/16 (BD Insulin Syringe Ultra-Fine) naloxegol 12.5 mg tablet (Movantik) 12.5 mg PO DAILY PRN Constipation 05/06/24 05/06/24 Previous Rx's ?Medication ?Instructions ?Recorded insulin syringe-needle U-100 1 mL #25 ea 04/26/21 25 gauge x 5/8 (BD Insulin Syringe) linaclotide 290 mcg capsule 290 mcg PO QAM PRN Constipation 02/01/24 (Linzess) #30 caps torsemide 20 mg tablet 20 mg PO BID #180 tabs 02/09/24 Allergies Allergy/AdvReac Type Severity Reaction Status Date / Time No Known Allergies Allergy Mild NOT Verified 05/06/24 10:18 APPLICABLE Review of Systems 2 Review of Systems: Constitutional: No chills, fatigue, night sweats, weight changes, +fevers ENT/Mouth: No ear pain, hearing loss, nasal congestion, sinus pain, rhinorrhea, sore throat Eyes: No eye pain, swelling, redness, vision changes, discharge Cardio: No chest pain, palpitations, MICHEL, orthopnea, peripheral edema Pulm: No SOB, cough, sputum, wheezing, dyspnea, hemoptysis GI: No nausea, vomiting, hematemesis, abdominal pain, diarrhea, constipation, hematochezia, melena : No irregular bleeding, dysuria, frequency, urgency, hesitancy, hematuria, flank pain, urinary flow changes, urinary incontinence or retention MSK: No back pain, neck pain, joint pain, myalgias Skin: No lesions, rashes, +jaundice Neuro: No weakness, numbness, paresthesias, LOC, dizziness, headache Psych: No anxiety/panic, depression, SI/HI, AH/VH All other systems reviewed and are negative. [facility] Past Medical History Attestation statement: The following information was validated with the patient. 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 Diabetes mellitus type 2, controlled Traumatic subarachnoid hemorrhage Traumatic subdural hematoma Temporal skull fracture Traumatic brain injury Major depression Controlled type 2 diabetes mellitus with diabetic nephropathy Nephritis NOS in other disease Chronic kidney disease, stage III (moderate) Other chronic pain Neck pain Dyslipidemia Asthma Anemia of chronic disease Chronic constipation HTN (hypertension) Glaucoma suspect Surgical History Bilateral inguinal hernia S/P cervical spinal fusion Social History Social History Household Members: Family Housing: House Do you presently have visiting nurse or other home services: Yes Patient Tobacco Use Status: Former Tobacco user Tobacco use type: Cigarette Smoked in Last 30 Days: No Use of substances other than those prescribed or required for medical reasons: No Currently Displaying Signs/Symptoms of Drug Intoxication Withdrawal: No Have you been hit, kicked, punched, or otherwise hurt by someone within the past year? If so, by whom?: No Do you feel safe in your current relationship?: Yes Is there a partner from a previous relationship who is making you feel unsafe now?: No Are you made to feel afraid or neglected: No Are you DNR?: No Advance Directives: No Advance Directives Information Provided: Yes Do you have a plan to hurt others: No Plan Recently lost weight without trying: No Eating poorly because of decreased appetite: Yes Nutrition Risks: Difficulty swallowing Poor oral hygiene: No service: No Physical Exam ED Vital Signs: Vital Signs - 24 hr 05/06/24 14:00 05/06/24 16:00 05/06/24 16:13 Temperature 98.5 F 99.0 F Pulse Rate 108 H 105 H 108 H Respiratory Rate 18 15 22 H Blood Pressure 167/72 H 145/70 H 168/84 H Pulse Oximetry 94 95 93 Oxygen Delivery Method Room Air Room Air Room Air 05/06/24 17:17 05/06/24 18:10 Temperature 98.8 F 100.6 F H Pulse Rate 104 H 98 Respiratory Rate 18 20 Blood Pressure 162/55 H 157/79 H Pulse Oximetry 99 92 Oxygen Delivery Method Room Air Room Air BMI result Body Mass Index 41.6 Patient hypertensive, vitals otherwise wnl. Const Other: Somewhat somnolent however alert to person and place. Skin is jaundiced. General: no acute distress Orientation/consciousness: oriented to person and oriented to place HENMT Head: Yes normal to inspection, Yes No palpable skull fracture present, Yes normocephalic and Yes atraumatic Eyes Other: + Scleral icterus Pupils: Equal, round and reactive pupils present EOM: EOMs intact bilaterally Neck Neck: Yes normal visual inspection, Yes full ROM and Yes no JVD Resp Effort & Inspection: normal respiratory effort and able to speak in complete sentences Auscultation: clear to auscultation bilaterally Cardio Rate: regular rate Rhythm: regular rhythm GI Other: + abdomen distended, firm, nontender to palpation. no rebound or guarding. hypoactive bs x4. General: Yes no CVA tenderness Back/Spine/Pelvis Back: no CVA tenderness Skin Other: + see below + skin is jaundiced Neuro General: oriented to person and oriented to place Cranial nerves: Yes Equal, round and reactive pupils present Extrem Other: + see photos below + multiple weeping bulla with chronic venous stasis dermatitis. there is erythema and warmth noted to bilateral lower extremities extending from feet to knees. lower extremity edema. large ulceration with central necrosis noted to plantar aspect of right foot just proximal to fifth digit. no active drainage. Course Course Course Narrative: 1143-- CBC with leukocytosis to 18.9 with left shift. Chronic anemia, stable when compared to priors. Likely secondary to stage 3 kidney disease. VBG showing low bicarb at 20, otherwise WNL. Ammonia WNL at 23. Chemistry showing hyponatremia to 131. Acute kidney injury on chronic kidney disease with BUN 18 and creatinine 2.18. Patient receiving IV fluids. Random glucose 211. Total bili 7.5. AST 139. ALT 232. Alk phos 495. Concern for obstructive pathology. Dedicated right upper quadrant ultrasound ordered. lactic wnl. blood cultures pending. foot xr pending. > public health technologist attempted to take patient for imaging however patient became anxious when asked to lie flat. I did ask if this is because it is difficult for him to breath with lying flat. He denies orthopnea and tells me he feels anxious any time he is lying flat. 4 of Versed ordered for sedation in order to obtain necessary imaging. patient is agreeable with this. will closely monitor. > concern for severe sepsis. ceftriaxone and vanco ordered. sepsis bolus fluids ordered. 1508-- x-ray right foot with soft tissue ulcer, no evidence of osteomyelitis. Chest x-ray unremarkable. Toxicology positive for opiates and benzos. Ethanol undetectable. CTs are still pending. 1603-- CT head/brain without hemorrhage. There is chronic encephalomalacia in the left frontotemporal lobes and left insular cortex seen on prior imaging. Moderate diffuse brain parenchymal volume loss. > CT chest and abdomen/ pelvis pending. 1640-- CTA chest showing bibasilar atelectasis, otherwise unremarkable. CT abdomen showing splenomegaly, cholelithiasis with gallbladder wall thickening, constipation along with dehiscence of the anterior abdominal wall status post previous inferior abdominal wall mesh repair. I did re-evaluate patient in unable to appreciate any skin infection to abdomen. right upper quadrant ultrasound shows cholelithiasis with nonspecific gallbladder wall thickening along with dilated common bile duct. There is multiple shadowing stones and sludge seen within the gallbladder itself. The liver is normal in size. There is no significant intrahepatic biliary ductal dilation however further nuclear medicine biliary scan is recommended. > unclear if patient has septic presentation is secondary to abdominal wall dehiscence or biliary pathology. I do still have concern for possible acute cholangitis. Will discuss with general surgery and GI. > I discussed all above findings with salon shampoo assistant general surgeon, Dr. Guerrero, who after review recommends admission to medicine with GI consult in MRCP. > I reached out to on-call GI physician, Dr. Gross who agrees with urgent MRCP with admission to medicine. > discussed case with hospitalist Dr. Enriquez who will admit patient to medicine for ETHAN and acute cholangitis. Stat MRCP ordered by me. Medications Administered Generic Name Dose Route Start Last Admin Trade Name Freq PRN Reason Stop Dose Admin Acetaminophen 650 mg 05/06/24 19:02 05/06/24 21:37 Acetaminophen 325 Mg Tablet PO 650 mg Q6H PRN Administration Pain, Mild (Pain Scale 1-3), fever or headache Amlodipine Besylate 2.5 mg 05/07/24 09:00 05/07/24 08:55 Amlodipine Besylate 2.5 Mg Tablet PO 2.5 mg DAILY BUCKY Administration Protocol Atorvastatin Calcium 40 mg 05/07/24 09:00 05/07/24 08:56 Atorvastatin Calcium 40 Mg Tablet PO 40 mg DAILY BUCKY Administration Docusate Sodium 200 mg 05/07/24 09:00 05/07/24 08:56 Docusate Sodium 100 Mg Capsule PO 200 mg DAILY BUCKY Administration Escitalopram Oxalate 20 mg 05/07/24 09:00 05/07/24 08:55 Escitalopram Oxalate 20 Mg Tablet PO 20 mg DAILY BUCKY Administration Insulin Human Lispro 0 unit 05/06/24 21:00 05/07/24 09:06 Insulin Lispro 100 Unit/Ml 3 Ml Vial SUBCUT Not Given QIDACHS [facility] [place] Protocol Morphine Sulfate 30 mg 05/06/24 21:00 05/06/24 21:36 Morphine Sulfate Er 30 Mg Tablet.Er PO 30 mg BEDTIME BUCKY Administration Morphine Sulfate 60 mg 05/07/24 09:00 05/07/24 08:56 Morphine Sulfate Er 30 Mg Tablet.Er PO 60 mg DAILY BUCKY Administration Quetiapine Fumarate 50 mg 05/06/24 21:00 05/06/24 21:36 Quetiapine Fumarate 50 Mg Tablet PO 50 mg BEDTIME BUCKY Administration Senna 17.2 mg 05/07/24 09:00 05/07/24 08:56 Sennosides 8.6 Mg Tablet PO 17.2 mg DAILY BUCKY Administration Sodium Chloride 3 ml 05/07/24 00:00 05/07/24 09:06 0.9 % Sodium Chloride Flush 3 Ml Syringe IVFLUSH 3 ml QSHIFT BUCKY Administration Torsemide 20 mg 05/06/24 21:00 05/07/24 08:55 Torsemide 20 Mg Tablet PO 20 mg BID BUCKY Administration Protocol Zolpidem Tartrate 5 mg 05/06/24 21:00 05/06/24 21:36 Zolpidem Tartrate 5 Mg Tablet PO 5 mg BEDTIME BUCKY Administration Discontinued Medications Generic Name Dose Route Start Last Admin Trade Name Kwasi PRN Reason Stop Dose Admin Ceftriaxone Sodium 1 gm/ 50 mls @ 100 mls/hr 05/06/24 10:34 05/06/24 12:11 Sodium Chloride IV 05/06/24 11:03 Infused ONCE ONE Infusion Vancomycin HCl 2,000 mg in 500 mls @ 250 mls/hr 05/06/24 10:34 05/06/24 14:49 Vancomycin/Ns IV 05/06/24 12:33 Infused ONCE ONE Infusion Sodium Chloride 1,000 mls @ 999 mls/hr 05/06/24 11:00 05/06/24 12:11 Ns IV 05/06/24 12:00 Infused .Q1H1M BUCKY Infusion Sodium Chloride 3,946.26 mls @ 3,946.26 mls/hr 05/06/24 11:42 05/06/24 17:15 Ns 30 ml/kg infuse over 1 hr (3946.26 ml) 05/06/24 12:41 Infused IV Infusion .Q1H STA Phytonadione 10 mg/ Sodium 51 mls @ 51 mls/hr 05/06/24 17:30 05/06/24 18:44 Chloride IV 05/06/24 18:29 Infused ONCE ONE Infusion Piperacillin Sod/Tazobactam 50 mls @ 100 mls/hr 05/06/24 20:00 05/07/24 09:40 Sod 3.375 gm/ Sodium Chloride IV Infused Q6H BUCKY Infusion Midazolam HCl 4 mg 05/06/24 11:36 05/06/24 11:55 Midazolam Hcl/Pf 2 Mg/2 Ml Vial IVPUSH 05/06/24 11:37 4 mg ONCE ONE Administration Midazolam HCl 4 mg 05/06/24 17:33 05/06/24 17:50 Midazolam Hcl/Pf 2 Mg/2 Ml Vial IVPUSH 05/06/24 17:34 2 mg ONCE ONE Increment Incremental Dosing Total Given: 2 mg Medical Decision Making Medical Decision Making MDM Narrative: 58 year old male with pmhx significant for stage 3 CKD not on dialysis, hypertension, HDL, lymphedema, insulin dependent type 2 diabetes, 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 Vital signs stable on arrival. He has remained afebrile however is now tachy to 108. Skin is jaundice. Scleral icterus noted. Abdomen is firm, distended, nontender to palpation. No rebound tenderness or guarding. On lower extremity exam, there are multiple weeping bulla with chronic venous stasis dermatitis. there is erythema and warmth noted to bilateral lower extremities extending from feet to knees. lower extremity edema. large ulceration with central necrosis noted to plantar aspect of right foot just proximal to fifth digit. no active drainage. Differential diagnosis includes diabetic foot ulcer, osteomyelitis, hepatitis, cholelithiasis, cholecystitis, cholangitis, hepatic encephalitis, anemia, dehydration, electrolyte abnormality. Plan for labs, UA, U tox, ethanol, VBG, hepatitis panel, chest x-ray, x-ray right foot, CT head/brain/chest/abdomen/pelvis, EKG. Differential Diagnosis Differential Diagnoses: The differential diagnosis associated with the presentation includes As above Admission/Observation Consideration of admission/observation: Escalation of care including admission/observation considered Patient to be admitted to medicine for acute cholangitis with plan for MRCP and ETHAN. Consult Healthcare Provider Management of the patient was discussed with: Hospitalist (Dr. Enriquez) and Motor Room Controller (Dr. Guerrero (general surgery), Dr. Gross (GI)) Lab Data MDM Lab Attestation statement: I reviewed the patient's lab results. As above 05/07/24 05:26 05/07/24 05:26 Labs: Lab Results 05/06/24 05/06/24 05/06/24 Range/Units 10:38 10:39 10:45 WBC 18.9 H (4.8-10.8) X10*3/uL RBC 4.07 L (4.60-5.80) X10*6/uL Hgb 10.4 L (14.0-18.0) g/dl Hct 31.0 L (42.0-52.0) % MCV 76.2 L (80.0-98.0) fL MCH 25.6 L (27.0-33.0) pg MCHC 33.5 (31.0-36.0) g/dl RDW 15.1 (11.0-16.0) % Plt Count 398 (160-400) X10*3/uL MPV 9.7 (9.4-12.4) fL Immature Gran % (Auto) 1.0 H (0.0-0.4) % Neut % (Auto) 86.3 H (45-73) % Lymph % (Auto) 5.0 L (20-40) % [place] % (Auto) 7.4 (2-11) % Eos % (Auto) 0.1 (0-4) % Baso % (Auto) 0.2 (0-2) % Lymph # (Auto) 0.9 L (1.2-4.9) X10*3/uL [place] # (Auto) 1.4 H (0.1-1.2) X10*3/uL Eos # (Auto) 0.0 (0.0-0.4) X10*3/uL Baso # (Auto) 0.0 (0.0-0.2) X10*3/uL Abs Immat Gran (auto) 0.18 H (0.00-0.03) X10*3/uL Absolute Neuts (auto) 16.4 H (2.0-8.3) x10*3/uL Absolute Nucleated RBC 0.000 (0.0-0.012) X10*3/uL Nucleated RBC % (auto) 0.0 (0.0-0.2) /100WBC PT 16.2 H D (11.1-13.3) SEC INR 1.3 H (0.9-1.1) APTT 35.1 (26.0-36.8) SEC VBG pH (7.32-7.43) VBG pCO2 mmHg VBG pO2 mmHg VBG HCO3 (22-26) mmol/L VBG O2 Saturation % VBG Base Excess mmol/L Sodium 131 L (135-145) mmol/L Potassium 3.4 (3.3-5.1) mmol/L Chloride 99 (96-108) mmol/L Carbon Dioxide 20 L (22-29) mmol/L Anion Gap 15 (12-20) BUN 18 H (9-16) mg/dL Creatinine 2.18 H (0.5-1.4) mg/dL Estim Creat Clear Calc 50.3 Estimated GFR 31 Random Glucose 211 H (60-115) mg/dL Lactic Acid 1.1 (0.5-2.0) mmol/L Calcium 8.9 (8.4-10.2) mg/dL Magnesium 2.1 (1.6-2.6) mg/dL Total Bilirubin 7.5 H (0.0-1.0) mg/dL Direct Bilirubin 5.7 H (0.0-0.5) mg/dL AST 139 H (5-37) U/L ALT 232 H (0-40) U/L Alkaline Phosphatase 495 H (39-117) U/L Ammonia 23 (13-55) umol/L Total Creatine Kinase 52 (38-174) U/L C-Reactive Protein 14.02 H (< or = 0.50) mg/dL B-Natriuretic Peptide 51 (<100) pg/mL Total Protein 8.0 (6.5-8.0) g/dL Albumin 3.3 L (3.5-5.0) g/dL Lipase 12 (8-78) U/L TSH 3.67 (0.32-4.0) uIU/mL Urine Color Urine Appearance Urine pH (5.0-9.0) Ur Specific [place] (1.005-1.025) Urine Protein (Neg-Trace) mg/dL Urine Glucose (UA) (Negative) mg/dL Urine Ketones (Negative) mg/dL Urine Blood (Negative) Urine Nitrite (Negative) Ur Leukocyte Esterase (Negative) Urine RBC (0-2) /HPF Urine WBC (0-5) /HPF Ur Squamous Epith Cells (0-2) /HPF Urine Bacteria (None Seen) Hyaline Casts (0-2) /LPF Urine Opiates Screen (Not Detect) Ur Buprenorphine Scrn (Not Detect) ng/mL Ur Oxycodone Screen (Not Detect) ng/mL Urine Methadone Screen (Not Detect) ng/mL Urine Fentanyl Screen (Not Detect) Ur Barbiturates Screen (Not Detect) Ur Phencyclidine Scrn (Not Detect) Ur Amphetamines Screen (Not Detect) U Benzodiazepines Scrn (Not Detect) Urine Cocaine Screen (Not Detect) U Marijuana (THC) Screen (Not Detect) Ethyl Alcohol < 10 mg/dL Hepatitis A IgM Ab (Nonreactive) Hep Bs Antigen (Negative) Hep Bs Antibody (Nonreactive) Hep B Core Total Ab (Nonreactive) Hepatitis C Ab (EIA) (Nonreactive) 05/06/24 05/06/24 05/06/24 Range/Units 11:10 11:13 14:27 WBC (4.8-10.8) X10*3/uL RBC (4.60-5.80) X10*6/uL Hgb (14.0-18.0) g/dl Hct (42.0-52.0) % MCV (80.0-98.0) fL MCH (27.0-33.0) pg MCHC (31.0-36.0) g/dl RDW (11.0-16.0) % Plt Count (160-400) X10*3/uL MPV (9.4-12.4) fL Immature Gran % (Auto) (0.0-0.4) % Neut % (Auto) (45-73) % Lymph % (Auto) (20-40) % [place] % (Auto) (2-11) % Eos % (Auto) (0-4) % Baso % (Auto) (0-2) % Lymph # (Auto) (1.2-4.9) X10*3/uL [place] # (Auto) (0.1-1.2) X10*3/uL Eos # (Auto) (0.0-0.4) X10*3/uL Baso # (Auto) (0.0-0.2) X10*3/uL Abs Immat Gran (auto) (0.00-0.03) X10*3/uL Absolute Neuts (auto) (2.0-8.3) x10*3/uL Absolute Nucleated RBC (0.0-0.012) X10*3/uL Nucleated RBC % (auto) (0.0-0.2) /100WBC PT (11.1-13.3) SEC INR (0.9-1.1) APTT (26.0-36.8) SEC VBG pH 7.38 (7.32-7.43) VBG pCO2 33 mmHg VBG pO2 71 mmHg VBG HCO3 20 L (22-26) mmol/L VBG O2 Saturation 92.0 % VBG Base Excess -4.2 mmol/L Sodium (135-145) mmol/L Potassium (3.3-5.1) mmol/L Chloride (96-108) mmol/L Carbon Dioxide (22-29) mmol/L Anion Gap (12-20) BUN (9-16) mg/dL Creatinine (0.5-1.4) mg/dL Estim Creat Clear Calc Estimated GFR Random Glucose (60-115) mg/dL Lactic Acid (0.5-2.0) mmol/L Calcium (8.4-10.2) mg/dL Magnesium (1.6-2.6) mg/dL Total Bilirubin (0.0-1.0) mg/dL Direct Bilirubin (0.0-0.5) mg/dL AST (5-37) U/L ALT (0-40) U/L Alkaline Phosphatase (39-117) U/L Ammonia (13-55) umol/L Total Creatine Kinase (38-174) U/L C-Reactive Protein (< or = 0.50) mg/dL B-Natriuretic Peptide (<100) pg/mL Total Protein (6.5-8.0) g/dL Albumin (3.5-5.0) g/dL Lipase (8-78) U/L TSH (0.32-4.0) uIU/mL Urine Color Dark Yellow Urine Appearance Clear Urine pH 6.0 (5.0-9.0) Ur Specific [place] 1.015 (1.005-1.025) Urine Protein 30 (1+) H (Neg-Trace) mg/dL Urine Glucose (UA) >=1000 H (Negative) mg/dL Urine Ketones Trace (Negative) mg/dL Urine Blood Negative (Negative) Urine Nitrite Negative (Negative) Ur Leukocyte Esterase Negative (Negative) Urine RBC 0-2 (0-2) /HPF Urine WBC 0-5 (0-5) /HPF Ur Squamous Epith Cells 0-2 (0-2) /HPF Urine Bacteria None Seen (None Seen) Hyaline Casts 0-2 (0-2) /LPF Urine Opiates Screen POSITIVE H (Not Detect) Ur Buprenorphine Scrn Not Detected (Not Detect) ng/mL Ur Oxycodone Screen Not Detected (Not Detect) ng/mL Urine Methadone Screen Not Detected (Not Detect) ng/mL Urine Fentanyl Screen Not Detected (Not Detect) Ur Barbiturates Screen Not Detected (Not Detect) Ur Phencyclidine Scrn Not Detected (Not Detect) Ur Amphetamines Screen Not Detected (Not Detect) U Benzodiazepines Scrn POSITIVE H (Not Detect) Urine Cocaine Screen Not Detected (Not Detect) U Marijuana (THC) Screen Not Detected (Not Detect) Ethyl Alcohol mg/dL Hepatitis A IgM Ab Nonreactive (Nonreactive) Hep Bs Antigen Negative (Negative) Hep Bs Antibody REACTIVE (Nonreactive) Hep B Core Total Ab Nonreactive (Nonreactive) Hepatitis C Ab (EIA) GRAYZONE (Nonreactive) Independent Interpretation I performed an independent interpretation of an: EKG, Plain X-Ray, Ultrasound and CT Scan Interpretation: EKG showing normal sinus rhythm with a rate of 86 beats per minute, QT 412, prolonged QTC at 493, no acute ischemic changes or ST elevations. CXR without consolidation or infiltrate, agree with radiologist's interpretation. XR right foot with soft tissue ulcer, agree with radiologist's interpretation. CT chest showing atelectasis, agree with radiologist's interpretation. CT head/brain without mass, agree with radiologist's interpretation. CT abdomen/pelvis showing cholelithiasis, agree with radiologist's interpretation. Ultrasound right upper quadrant showing gallbladder wall thickening, agree with radiologist's interpretation. Radiology Impression Discussion of test interpretation with radiology: I have reviewed the radiologist's reading. Radiologist Impression: EXAMINATION: XR CHEST CLINICAL INFORMATION: Acute mental status change COMPARISON: 01/20/2024 TECHNIQUE: 2 views of the chest were obtained. FINDINGS: No significant abnormality is noted involving the heart, lungs, mediastinum, bony thorax or soft tissues. XR/XR chest 2V IMPRESSION: Unremarkable examination, without interval change. -------- EXAMINATION: XR FOOT, RIGHT CLINICAL INFORMATION: Diabetic ulcer on great toe COMPARISON: 11/18/2023 TECHNIQUE: AP, lateral, and oblique views of the right foot. FINDINGS: There is no evidence of fracture or osseous destruction. There are mild degenerative changes in the interphalangeal and first metatarsophalangeal joint of great toe and vascular calcifications. There is postdose revealed no abnormal findings. Soft tissues are prominent dorsally. There is minimal ulcer in the proximal foot seen on the lateral view only, measured approximately 3 cm wide XR/XR foot RT min 3V IMPRESSION: Soft tissue swelling, degenerative changes in the interphalangeal and first metatarsophalangeal joints and soft tissue ulcer EXAMINATION: CT HEAD WITHOUT CONTRAST CLINICAL INFORMATION: Altered mental status. COMPARISON: Head CT dated 01/19/2024. TECHNIQUE: Contiguous axial imaging was performed from the skullbase to vertex without intravenous administration of contrast. This CT examination was performed using dose optimization techniques as appropriate, variously including the following: *Automated exposure control *Adjustment of mA and/or kV according to patient size (this includes techniques or standardized protocols for targeted exams where dose is matched to indication/reason for exam; i.e. extremities or head) *Use of iterative reconstruction technique DLP: 797.3 mGy-cm. FINDINGS: There is no evidence of acute intracranial hemorrhage or territorial infarction. No abnormal mass effect or midline shift is seen. No extra-axial fluid collections are identified. There is stable ex vacuo prominence of the ventricles. Moderate diffuse brain parenchymal volume loss again evident with encephalomalacia in the left frontotemporal lobes and left insular cortex. Chronic white matter microangiopathy again visible. The osseous structures and soft tissues are normal. The mastoid air cells are well aerated. Mild right ethmoid sinus mucosal thickening visible. There are chronic fatty atrophic changes of the parotid glands bilaterally. CT/CT head/brain wo IV con IMPRESSION: No acute intracranial hemorrhage or territorial infarction. Chronic encephalomalacia in the left frontotemporal lobes and left insular cortex, as on prior imaging. Moderate diffuse brain parenchymal volume loss. EXAMINATION: CT CHEST, ABDOMEN, AND PELVIS WITH CONTRAST CLINICAL INFORMATION: Ascites rule out liver pathology, COMPARISON: CT abdomen from 01/20/2024 TECHNIQUE: Multidetector volumetric CT imaging of the chest, abdomen, and pelvis was obtained after the administration of 100 mL of Omnipaque 300 intravenous contrast without immediate adverse reactions. Axial MIP volume rendering provided. Sagittal and coronal reformatted images were obtained. This CT examination was performed using dose optimization techniques as appropriate, variously including the following: *Automated exposure control *Adjustment of mA and/or kV according to patient size (this includes techniques or standardized protocols for targeted exams where dose is matched to indication/reason for exam; i.e. extremities or head) *Use of iterative reconstruction technique DLP: 1226.7 mGy-cm chest and 633.23mGy-cm abdomen FINDINGS: LUNGS: Bibasilar atelectasis but no nodules infiltrates. MEDIASTINUM: The mediastinum appears unremarkable. CORONARY ARTERY CALCIFICATION: Moderate. PLEURA: There is no pleural effusion. No pleural mass or thickening. AXILLA: No lymphadenopathy by size criteria. LIVER, GALLBLADDER, AND BILIARY TREE: The liver appears unremarkable in size, shape, and attenuation. No focal hepatic lesion or biliary ductal dilatation is appreciated. There is wall thickening of the gallbladder with high attenuation material most likely stones PANCREAS: Pancreas revealed fatty infiltration, atrophic SPLEEN: Spleen measures 15 cm, enlarged ADRENAL GLANDS: Unremarkable KIDNEYS AND URETERS: The kidneys appear unremarkable in size, shape, and attenuation. No hydronephrosis, hydroureter, or calculi seen. BLADDER: Unremarkable GASTROINTESTINAL TRACT: There is constipation with retained feces throughout the colon. No masses or abnormal collections. There is no ascites. ABDOMINAL WALL: There is dehiscence of anterior abdominal wall and status post previous repair of inferior abdominal wall with mesh. LYMPH NODES: No evidence of adenopathy by size criteria. VASCULAR: Unremarkable. PELVIC VISCERA: Unremarkable OSSEOUS STRUCTURES: Unremarkable. CT/CT abdomen pelvis wo IV con IMPRESSION: 1. Bibasilar atelectasis. 2. Splenomegaly. 3. Cholelithiasis. 4. Constipation. 5. Dehiscence of the anterior abdominal wall is status post previous inferior abdominal wall. EXAMINATION: US ABDOMEN LIMITED CLINICAL INFORMATION: Right upper quadrant abdominal pain. COMPARISON: None available. TECHNIQUE: Real-time imaging of the right upper quadrant abdominal viscera. FINDINGS: PANCREAS: Normal. LIVER: Normal. The liver is normal in size. The liver contour is normal. Parenchymal echogenicity is normal. No focal hepatic lesion. There is no intrahepatic biliary duct dilatation seen. GALLBLADDER: Multiple shadowing stones and sludge seen within the gallbladder. There is nonspecific gallbladder wall thickening measuring 7 mm. No significant pericholecystic fluid. COMMON BILE DUCT: Dilated measuring 1.0 cm in diameter. RIGHT KIDNEY: There is prominence of the right renal pelvis and calyces. No hydronephrosis. No renal calculi or focal parenchymal lesions. The kidney measures 10.9 cm in maximum dimension. FREE FLUID: None. US/US abdomen limited IMPRESSION: Cholelithiasis with nonspecific gallbladder wall thickening. Dilated common bile duct. No significant intrahepatic biliary ductal dilatation. Further evaluation with nuclear medicine biliary scan could be performed. Independent Historian Clinical information obtained from an independent historian. History obtained from or confirmed by: Spouse () External Record Review External record reviewed: Inpatient record, Office record, Outpatient record, Prior outpatient labs, Prior outpatient radiology, Primary care record and Outside ED record Prescription Management I considered prescription management with: Pain Medication and Antibiotic Chronic Conditions Patient?s care impacted by: Diabetes Social Determinants Patient?s care significantly limited by Social Determinants of Health including: Other Social Determinant of Health Critical Care Time Critical Care Time Critical Care Time: Yes Total Critical Care Time: 45 Attestation: Critical care time in the amount of 45 minutes has been provided to the patient in terms of direct patient care, frequent reevaluation, consultation with general surgery, GI, and hospitalist, review and interpretation of medical data and results, and management of potentially life-threatening conditions. This is all outside of any medical procedures. Discharge Plan Discharge Clinical Impression: Cholangitis, ETHAN (acute kidney injury), Lymphedema, Hyponatremia Patient Disposition: Admitted As Inpatient Interventions: Admission Worksheet (ED) Last Done: 05/06/24 23:40 Discharge Date/Time: 05/07/24 04:56
--- NOTE | 2024-05-06 10:50 | PC.NURSE ---
patient arrives via external triage via wheelchair accompanied by family member, patient family states for the last few days the patient has been experiencing weakness and more lethargy and confusion. family states that the patients skin looks different and that his right leg is more swollen. patient with significant bilateral lower extremity swelling that they say is normal for them, right leg appears red and there is a large wound to the bottom of his foot that he stats is being treated by wound care. patient with extensive medical history, appears jaundice, abdomen is distended, sclera yellow. states he is unable to lay flat on the bed or else he has a panic attack. patient also states that he has a hard time urinating and states when he does lately it has been very dark in color. patient provided with urinal and states he can void for us for a urine sample. patient is alert and oriented while answering questions however lethargic. lung sounds are CTA, abdomen distended and firm, patient denies any pain to palpation, bowel sounds present in all fpur quadrants, limited mobility to bilateral lower extremities, obvious swelling, no pitting appreciated, approximately 4cm wound to right foot, no drainage apprecaited, redness noted to top of foot and appears more swollen than left. patient states he is unable to lay flat, and refused CT scan at this time. provider made aware. PIVx2 placed, EKG completed. blood work drawn and sent to lab. awaiting further orders at this time. callbell within reach, lights dimmed for comfort, remains on front desk monitor, family member at bedside
[2024-05-06 10:51] LABS: MANUAL DIFF FLAG NO
[2024-05-06 10:53] LABS: Basophils Percent Auto 0.2 % (0-2); Eosinophils Percent Auto 0.1 % (0-4); Hemoglobin 10.4 g/dl (14.0-18.0); Imm Gran Abs Auto 0.18 X10*3/uL (0.00-0.03); Lymphocytes Absolute Auto 0.9 X10*3/uL (1.2-4.9); Mean Corpuscular HGB Conc 33.5 g/dl (31.0-36.0); Mean Corpuscular Hemoglobin 25.6 pg (27.0-33.0); Mean Corpuscular Volume 76.2 fL (80.0-98.0); Mean Platelet Volume 9.7 fL (9.4-12.4); Monocytes Absolute Auto 1.4 X10*3/uL (0.1-1.2); Monocytes Percent Auto 7.4 % (2-11); Neutrophils Absolute Auto 16.4 x10*3/uL (2.0-8.3); Neutrophils Percent Auto 86.3 % (45-73); Platelet Count 398 X10*3/uL (160-400); Red Blood Count 4.07 X10*6/uL (4.60-5.80); Red Cell Distribution Width 15.1 % (11.0-16.0); White Blood Count 18.9 X10*3/uL (4.8-10.8)
[2024-05-06 10:59] LABS: INTERNATIONAL NORM RATIO 1.3 (0.9-1.1); Prothrombin Time 16.2 SEC (11.1-13.3)
[2024-05-06] MEDS: cefTRIAXone sodium 1 GM in 0.9 % Sodium Chloride 50 ML IV (11:00)
[2024-05-06] MEDS: vancomycin/NS 2,000 MG/500 ML PLAST..BAG 250 MG IV (11:00)
[2024-05-06 11:01] LABS: Ammonia 23 umol/L (13-55)
[2024-05-06] MEDS: 0.9 % Sodium Chloride 1,000 ML 999 ML IV (11:01)
[2024-05-06 11:02] LABS: Lactic Acid 1.1 mmol/L (0.5-2.0); Partial Thromboplastin Time 35.1 SEC (26.0-36.8)
[2024-05-06 11:09] LABS: Ethanol < 10 mg/dL
[2024-05-06 11:09] LABS: Alanine Aminotransferase 232 U/L (0-40); Albumin Level 3.3 g/dL (3.5-5.0); Alkaline Phosphatase 495 U/L (39-117); Anion Gap 15 (12-20); Aspartate Amino Transferase 139 U/L (5-37); Bilirubin Total 7.5 mg/dL (0.0-1.0); Blood Urea Nitrogen 18 mg/dL (9-16); Calcium 8.9 mg/dL (8.4-10.2); Carbon Dioxide 20 mmol/L (22-29); Chloride 99 mmol/L (96-108); Creatinine Clr Calc Pharmacy 50.3; Estimated Glomerular Filt Rate 31; Glucose Random 211 mg/dL (60-115); Lipase 12 U/L (8-78); Magnesium 2.1 mg/dL (1.6-2.6); Potassium 3.4 mmol/L (3.3-5.1); Sodium 131 mmol/L (135-145)
[2024-05-06 11:20] LABS: VBG Base Excess -4.2 mmol/L; VBG HCO3 20 mmol/L (22-26); VBG pCO2 33 mmHg; VBG pH 7.38 (7.32-7.43); VBG pO2 71 mmHg
[2024-05-06 11:23] LABS: Venous Blood Gas Refer to POC result
[2024-05-06 11:29] LABS: TSH reflex Free T4 3.67 uIU/mL (0.32-4.0)
[2024-05-06 11:32] LABS: B Type Natriuretic Peptide 51 pg/mL (<100)
[2024-05-06 11:54] LABS: HBS Num1 13.09 mIU/mL (0-7.99); HBc Num1 0.22 S/CO (0.00-0.79); Hepatitis B Core Antibody Nonreactive (Nonreactive); Hepatitis B Surface Antigen Negative (Negative); ~HepC Num1 0.83 S/CO (0.00-0.79); ~Hepatitis A Antibody IgM Nonreactive (Nonreactive); ~Hepatitis B Surface Antibody REACTIVE (Nonreactive)
[2024-05-06] MEDS: Midazolam HCl/PF 2 MG/2 ML VIAL 4 MG IVPUSH ×2 (11:55→17:50)
--- NOTE | 2024-05-06 12:00 | PC.NURSE ---
patient to be medicated with 4mg of midazolam per provider order. per provider patient to recieve 2mg now and 2mg before CT scan, patient verbalizes to this RN that he will allow us to straight cath him for urine while he is asleep from the meds
[2024-05-06 12:49] LABS: ~HepC Num2 0.95; ~HepC Num3 0.89; ~Hepatitis C Antibody GRAYZONE (Nonreactive)
--- NOTE | 2024-05-06 13:25 | PC.NURSE ---
patient reeducated on need for urine sample, at this time now refusing straight catheterization.
[2024-05-06 14:36] LABS: Appearance Urine Clear; Color Urine Dark Yellow; Glucose Urine UA >=1000 mg/dL (Negative); Leukocyte Esterase Urine Negative (Negative); Nitrite Urine Negative (Negative); Specific Gravity - Urine 1.015 (1.005-1.025); UMIC TRIGGER UACC YES; Urine Blood Negative (Negative); Urine Ketones Trace mg/dL (Negative); Urine Protein 30 (1+) mg/dL (Neg-Trace)
--- NOTE | 2024-05-06 14:42 | PC.NURSE ---
Patient shaking stating he is cold, rectal temp obtained. HR sinus tach, provider notified.
[2024-05-06 14:43] LABS: Amphetamine Screen Urine Not Detected (Not Detect); Barbiturates, Urine Not Detected (Not Detect); Benzodiazepines Screen Urine POSITIVE (Not Detect); Buprenorphine Scr Not Detected (Not Detect); Cannabinoid Screen Urine Not Detected (Not Detect); Cocaine Screen Urine Not Detected (Not Detect); Fentanyl, urine Not Detected (Not Detect); Methadone Screen, Urine Not Detected (Not Detect); Opiate Screen Urine POSITIVE (Not Detect); Oxycodone Screen Urine Not Detected (Not Detect); Phencyclidine Screen Urine Not Detected (Not Detect)
[2024-05-06 14:47] LABS: Bacteria Urine None Seen (None Seen); Hyaline Casts Urine 0-2 /LPF (0-2); RBC Urine 0-2 /HPF (0-2); Squamous Epithelial Cell Urine 0-2 /HPF (0-2); WBC Urine 0-5 /HPF (0-5)
--- NOTE | 2024-05-06 16:13 | PC.NURSE ---
Alert and oriented, provider at bedside aware of abdominal distention and tachycardia. Patient aware NPO until results of CT scan return. Per provider continue to infuse remainder of sepsis fluids
[2024-05-06 17:10] LABS: Bilirubin Direct 5.7 mg/dL (0.0-0.5); C Reactive Protein 14.02 mg/dL (< or = 0.50)
--- NOTE | 2024-05-06 17:16 | PC.NURSE ---
MRI screening form completed with patient and family memebr at bedside
--- NOTE | 2024-05-06 17:18 | P.HPHOSP_ITS ---
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 Patient is accompanied by his girlfriend who helps supplement HPI. Family has noticed that patient's skin and eyes have been turning yellow for the past week. During this time patient has occasionally appeared altered and confused, mumbling to himself and not speaking sensibly or incomplete sentences. Patient has also been weaker than normal and unable to ambulate for the past few days, and has noticed increased swelling bilaterally in his lower extremities. Last night patient's measured a fever of 103 degrees. Patient himself denies nausea, vomiting. Notes some ?gas? but denies significant abdominal pain. No change to bowel or bladder habits. Denies chest pain/pressure, palpitations. No shortness a breath or difficulty breathing. In the ED pt had elevated temperature as high as 100.6 degrees, was tachycardic up to 108, tachypneic up to 22, and hypertensive as high as 168/84. Labs were significant for leukocytosis of 18.9, H&H of 10.4/31.0 (around baseline), sodium 131, BUN 18, creatinine 2.18 (up from 1.78 on 02/23/24), total bilirubin 7.5, direct bilirubin 5.7, AST 139, ALT 232, alk-phos 495, and CRP 14.02. Tox screen positive for opiates and benzodiazepines. CXR was unremarkable without interval change. CT of head no acute intracranial hemorrhage or territorial infarction, but showed chronic encephalomalacia as seen on prior imaging. CT of chest found bibasilar atelectasis, splenomegaly, cholelithiasis, constipation, and dehiscence of the anterior abdominal wall s/p repair of inferior abdominal wall with mesh. Abdominal ultrasound found cholelithiasis with nonspecific gallbladder wall thickening with dilated CBD but without significant intrahepatic biliary ductal dilation. EKG demonstrated normal sinus rhythm with QTc of 493 without evidence of significant ST elevations or depressions. Pt was treated with ceftriaxone, vancomycin, IVF, and vitamin K. Pt will be admitted to the hospital for treatment and further evaluation of cholangitis with sepsis. Review of Systems 2 Review of Systems: Jaundice Fever Abdominal discomfort [facility] Medical History Anasarca Chronic, continuous use of opioids 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 Concussion 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 Diabetes mellitus type 2, controlled Traumatic subarachnoid hemorrhage Traumatic subdural hematoma Temporal skull fracture Traumatic brain injury Major depression Controlled type 2 diabetes mellitus with diabetic nephropathy Nephritis NOS in other disease Chronic kidney disease, stage III (moderate) Other chronic pain Neck pain Dyslipidemia Asthma Anemia of chronic disease Chronic constipation HTN (hypertension) Glaucoma suspect Surgical History Bilateral inguinal hernia S/P cervical spinal fusion Social History Household Members: Significant Other Housing: House Do you presently have visiting nurse or other home services: Yes Patient Tobacco Use Status: Former Tobacco user Tobacco use type: Cigarette service: No Meds Allergies Allergy/AdvReac Type Severity Reaction Status Date / Time No Known Allergies Allergy Mild NOT Verified 05/06/24 10:18 APPLICABLE Active Medications: Current Medications Phytonadione 10 mg/ Sodium (Chloride) 51 mls @ 51 mls/hr IV ONCE ONE Stop: 05/06/24 18:06 Home Medications ?Medication ?Instructions ?Recorded ?Confirmed ?Last Taken ?Type atorvastatin 40 mg tablet 40 mg PO DAILY 01/20/22 05/06/24 05/05/24 History amlodipine 2.5 mg tablet 2.5 mg PO DAILY 01/19/24 05/06/24 05/05/24 History aspirin 81 mg tablet,delayed 81 mg PO DAILY 01/19/24 05/06/24 05/05/24 History release docusate sodium 100 mg capsule 200 mg PO DAILY 01/19/24 05/06/24 05/05/24 History (Colace) escitalopram oxalate 20 mg tablet 20 mg PO DAILY 01/19/24 05/06/24 05/05/24 History insulin aspart U-100 100 unit/mL 80 unit subcut TIDAC 01/19/24 05/06/24 05/05/24 History subcutaneous solution (Novolog U-100 Insulin aspart) insulin glargine 100 unit/mL 80 unit subcut BEDTIME 01/19/24 05/06/24 05/05/24 History subcutaneous solution (Lantus U-100 Insulin) ketoconazole 2 % topical cream 1 appl topical DAILY feet 01/19/24 05/06/24 05/05/24 History morphine 30 mg tablet,extended 30 mg PO BEDTIME 01/19/24 05/06/24 05/05/24 History release morphine 30 mg tablet,extended 60 mg PO DAILY 01/19/24 05/06/24 05/05/24 History release polyethylene glycol 3350 17 gram 17 g PO DAILY PRN Constipation 01/19/24 05/06/24 05/05/24 History oral powder packet (Gavilax) quetiapine 50 mg tablet 50 mg PO BEDTIME 01/19/24 05/06/24 05/05/24 History sennosides 8.6 mg tablet (senna) 17.2 mg PO DAILY constipation 01/19/24 05/06/24 05/05/24 History testosterone enanthate 75 mg/0.5 75 mg subcut FR hypogonadism 01/19/24 05/06/24 04/29/24 History mL subcutaneous auto-injector (Xyosted) zolpidem 12.5 mg tablet,extended 12.5 mg PO BEDTIME insomnia 01/19/24 05/06/24 05/05/24 History release,multiphase insulin syringe-needle U-100 1 mL #10 ea 02/01/24 Unknown History 31 gauge x 5/16 (BD Insulin Syringe Ultra-Fine) naloxegol 12.5 mg tablet (Movantik) 12.5 mg PO DAILY PRN Constipation 05/06/24 05/06/24 05/05/24 History Physical Exam 2 Vital Signs and Narrative: Vital Signs: Last Vital Signs Temp 99.0 F 05/06/24 16:13 Pulse 108 H 05/06/24 16:13 Resp 22 H 05/06/24 16:13 BP 168/84 H 05/06/24 16:13 Pulse Ox 93 05/06/24 16:13 O2 Del Method Room Air 05/06/24 16:13 BMI result Body Mass Index 41.6 Constitutional: Alert, in no acute distress. Mental Status: Oriented to person, place and time. Eyes: Pupils are equal, round, and reactive to light. Sclerae icteric. Ear, Nose, and Throat: Oropharynx clear, mucous membranes moist. Ears and nose without deformities. Trachea midline. Respiratory: Clear to auscultation bilaterally. No wheezing, rales, or rhonchi. Cardiovascular: S1, S2 regular. No murmurs, rubs, or gallops. Gastrointestinal: Abdomen firm, non-tender, obese. Normal bowel sounds. Neurologic: Cranial nerves II-XII are grossly intact bilaterally. No focal neurological deficits. Moves all extremities spontaneously. Skin: Warm, dry. Jaundiced. Musculoskeletal: No cyanosis or clubbing. Extremities: Pt with lymphedema and multiple weeping bulla superimposed over chronic venous stasis dermatitis. Chronic nonhealing diabetic ulcer on bottom of left 5th toe. As pictured below Psychiatric: Normal mood and affect. Results Labs 05/06/24 10:38 05/06/24 10:39 Labs: Laboratory Results - last 24 hr 05/06/24 05/06/24 05/06/24 10:38 10:39 10:45 MCV 76.2 L MCH 25.6 L MCHC 33.5 RDW 15.1 Plt Count 398 MPV 9.7 Immature Gran % (Auto) 1.0 H Neut % (Auto) 86.3 H Lymph % (Auto) 5.0 L Jackson % (Auto) 7.4 Eos % (Auto) 0.1 Baso % (Auto) 0.2 Lymph # (Auto) 0.9 L Jackson # (Auto) 1.4 H Eos # (Auto) 0.0 Baso # (Auto) 0.0 Abs Immat Gran (auto) 0.18 H Absolute Neuts (auto) 16.4 H Absolute Nucleated RBC 0.000 Nucleated RBC % (auto) 0.0 PT 16.2 H D INR 1.3 H APTT 35.1 VBG pH VBG pCO2 VBG pO2 VBG HCO3 VBG O2 Saturation VBG Base Excess Anion Gap 15 Estim Creat Clear Calc 50.3 Estimated GFR 31 Random Glucose 211 H Lactic Acid 1.1 Calcium 8.9 Magnesium 2.1 Total Bilirubin 7.5 H Direct Bilirubin 5.7 H AST 139 H ALT 232 H Alkaline Phosphatase 495 H Ammonia 23 Total Creatine Kinase 52 C-Reactive Protein 14.02 H B-Natriuretic Peptide 51 Total Protein 8.0 Albumin 3.3 L Lipase 12 TSH 3.67 Urine Color Urine Appearance Urine pH Ur Specific Buckhorn Urine Protein Urine Glucose (UA) Urine Ketones Urine Blood Urine Nitrite Ur Leukocyte Esterase Urine RBC Urine WBC Ur Squamous Epith Cells Urine Bacteria Hyaline Casts Urine Opiates Screen Ur Buprenorphine Scrn Ur Oxycodone Screen Urine Methadone Screen Urine Fentanyl Screen Ur Barbiturates Screen Ur Phencyclidine Scrn Ur Amphetamines Screen U Benzodiazepines Scrn Urine Cocaine Screen U Marijuana (THC) Screen Ethyl Alcohol < 10 Hepatitis A IgM Ab Hep Bs Antigen Hep Bs Antibody Hep B Core Total Ab Hepatitis C Ab (EIA) 05/06/24 05/06/24 05/06/24 11:10 11:13 14:27 MCV MCH MCHC RDW Plt Count MPV Immature Gran % (Auto) Neut % (Auto) Lymph % (Auto) Jackson % (Auto) Eos % (Auto) Baso % (Auto) Lymph # (Auto) Jackson # (Auto) Eos # (Auto) Baso # (Auto) Abs Immat Gran (auto) Absolute Neuts (auto) Absolute Nucleated RBC Nucleated RBC % (auto) PT INR APTT VBG pH 7.38 VBG pCO2 33 VBG pO2 71 VBG HCO3 20 L VBG O2 Saturation 92.0 VBG Base Excess -4.2 Anion Gap Estim Creat Clear Calc Estimated GFR Random Glucose Lactic Acid Calcium Magnesium Total Bilirubin Direct Bilirubin AST ALT Alkaline Phosphatase Ammonia Total Creatine Kinase C-Reactive Protein B-Natriuretic Peptide Total Protein Albumin Lipase TSH Urine Color Dark Yellow Urine Appearance Clear Urine pH 6.0 Ur Specific Buckhorn 1.015 Urine Protein 30 (1+) H Urine Glucose (UA) >=1000 H Urine Ketones Trace Urine Blood Negative Urine Nitrite Negative Ur Leukocyte Esterase Negative Urine RBC 0-2 Urine WBC 0-5 Ur Squamous Epith Cells 0-2 Urine Bacteria None Seen Hyaline Casts 0-2 Urine Opiates Screen POSITIVE H Ur Buprenorphine Scrn Not Detected Ur Oxycodone Screen Not Detected Urine Methadone Screen Not Detected Urine Fentanyl Screen Not Detected Ur Barbiturates Screen Not Detected Ur Phencyclidine Scrn Not Detected Ur Amphetamines Screen Not Detected U Benzodiazepines Scrn POSITIVE H Urine Cocaine Screen Not Detected U Marijuana (THC) Screen Not Detected Ethyl Alcohol Hepatitis A IgM Ab Nonreactive Hep Bs Antigen Negative Hep Bs Antibody REACTIVE Hep B Core Total Ab Nonreactive Hepatitis C Ab (EIA) [facility] Radiologist's Impressions: Impressions Chest X-Ray 05/06/24 11:51 IMPRESSION: Unremarkable examination, without interval change. Foot X-Ray 05/06/24 11:51 IMPRESSION: Soft tissue swelling, degenerative changes in the interphalangeal and first metatarsophalangeal joints and soft tissue ulcer Abdomen/Pelvis CT 05/06/24 13:30 IMPRESSION: 1. Bibasilar atelectasis. 2. Splenomegaly. 3. Cholelithiasis. 4. Constipation. 5. Dehiscence of the anterior abdominal wall is status post previous inferior abdominal wall. Chest CT 05/06/24 13:30 IMPRESSION: 1. Bibasilar atelectasis. 2. Splenomegaly. 3. Cholelithiasis. 4. Constipation. 5. Dehiscence of the anterior abdominal wall is status post previous inferior abdominal wall. Head CT 05/06/24 13:30 IMPRESSION: No acute intracranial hemorrhage or territorial infarction. Chronic encephalomalacia in the left frontotemporal lobes and left insular cortex, as on prior imaging. Moderate diffuse brain parenchymal volume loss. Abdomen Ultrasound 05/06/24 14:00 IMPRESSION: Cholelithiasis with nonspecific gallbladder wall thickening. Dilated common bile duct. No significant intrahepatic biliary ductal dilatation. Further evaluation with nuclear medicine biliary scan could be performed. 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 Pt will be admitted to the hospital for treatment and further evaluation of cholangitis with sepsis. Cholangitis Imaging showing dilated CBD and cholelithiasis, LFTs with obstructive pattern, jaundice, reported fever of 103 at home Patient meets sepsis criteria: Tachycardia, tachypnea, leukocytosis; lactic acid WNL Patient received IVF and started on broad-spectrum antibiotics in the ED Will treat with Zosyn, started 05/06/2024 GI consult for likely ERCP in the morning General surgery consult for cholecystectomy evaluation NPO after midnight Follow CMP, blood cultures ETHAN Creatinine 2.18, up from 1.78 on 02/23/24 Pt received IVF in the ED Follow BMP Hyponatremia, mild Sodium 131 at time of presentation, similar to labs Follow BMP Chronic nonhealing diabetic right foot ulcer Wound care consult Chronic lymphedema Continue home torsemide Insulin-dependent diabetes type 2 SSI, Lantus Diabetic diet HTN Continue amlodipine HLD Continue statin Chronic musculoskeletal pain Continue chronic home opioids Mood disorder Continue home meds Full Code Attending:?Dr. Enriquez DVT Prophylaxis: Pneumatic compression due to likely surgical procedures Pt will require a hospitalization of at least two nights for treatment of?cholangitis with sepsis. Patient will require administration of IV antibiotics, close monitoring of labs, and specialist consultation with GI and General surgery for likely surgical procedures. Quality Stroke Does the patient have a stroke diagnosis?: No VTE Prior VTE?: No VTE Risk Level:: Medical - moderate - high VTE Device Contraindication: N/A - Device Ordered VTE Drug Contraindication: Treatment Not Indicated
[2024-05-06] MEDS: Phytonadione (Vit K1) 10 MG in 0.9 % Sodium Chloride 50 ML 51 MG IV (17:42)
--- NOTE | 2024-05-06 18:33 | PC.NURSE ---
Pre medicated prior to beig brought for MRI per provider only give 2mg. Patient unable to tolerate laying flat in CT , brought back to ED, provider aware stating with talk to GI
--- NOTE | 2024-05-06 19:46 | PC.NURSE ---
pt with a history of asthma, noted to be fluctuating between 85-93% on room air. he is awake and alert, denies shortness of breath or diff breathing. States he uses a PRN inhaler at home for SOB. RN outreached the hospitalist to make him aware and determine if new orders or an O2 orders to be placed.
--- NOTE | 2024-05-06 19:56 | PHA.MEDREC ---
Pharmacy Consult ? Medication Reconciliation Pharmacy has completed the medication reconciliation. Confirmed medications with patient and patients family member at bedside. They confirmed he is taking Insulin Novolog 80units TID and Lantus 80units at bedtime and he took them last yesterday. Patient is also taking a weekly injection of Xyosted on Fridays and the patient did it last 04/29/2024.
[2024-05-06] MEDS: Piperacillin Sodium/Tazobactam 3.375 GM in 0.9 % Sodium Chloride 50 ML IV (20:46)
[2024-05-06 21:31] LABS: Glucose, Whole Blood 184 mg/dL (60-115)
[2024-05-06] MEDS: Morphine Sulfate ER 30 MG TABLET.ER PO (21:36)
[2024-05-06] MEDS: Torsemide 20 MG TABLET PO (21:36)
[2024-05-06] MEDS: Insulin Lispro 100 UNIT/ML 3 ML VIAL SUBCUT (21:36)
[2024-05-06] MEDS: QUEtiapine Fumarate 50 MG TABLET PO (21:36)
[2024-05-06] MEDS: Zolpidem Tartrate 5 MG TABLET PO (21:36)
[2024-05-06] MEDS: Acetaminophen 325 MG TABLET 650 MG PO (21:37)
--- NOTE | 2024-05-06 23:36 | MHC.SHP ---
Pre-Procedural Eval Section A - 24 Hr Update-Section A only Date of Service: 05/07/24 The patient is an INPATIENT: Yes The patient has been examined within 24 hours of the surgical procedure. The History & Physical has been completed within 30 days and I have reviewed it.: Yes Section B - Complete if H&P > 30 days Chief Complaint: Cholangitis Allergies: Allergies Allergy/AdvReac Type Severity Reaction Status Date / Time No Known Allergies Allergy Mild NOT Verified 05/06/24 10:18 APPLICABLE Plan I have reviewed the history and physical and performed a pertinent physical examination on my patient. No changes have occurred unless specified. Time Spent With Patient Time: Total time managing care of this patient today ____ minutes.
--- NOTE | 2024-05-06 23:38 | PM.EVENT ---
Event Note Date of Service: 05/06/24 Event Note: GI Consult-Full note dictated. History via patient, his significant other, and the EMR. Patient seen at 8:30PM in the ER. Imp: 58 yo male with multiple comorbidities presenting with progressive jaundice, fevers, chills, weakness, RUQ pain/tenderness, leukocytosis, and the finding of gallstones along with a dilated CBD on U/S. He could not have a MRCP due to his size and anxiety. His presentation is consistent with sepsis and ascending cholangitis in relation to choledocholithiasis. He seems to have clinically imrpoved since arrival and treatment in the ER. Rec: IV antibiotics, IV Vit K for the elevated PT/INR, F/U labs in the AM, surgery consult, and ERCP 05/07/24 given high potential for continued sepsis in relation to his comorbidities and the biliary obstruction. Full consent is obtained for this, including risks of bleeding, perforation, cholangitis, and pancreatitis. D/W patient and his significant other in detail. They are comfortable with this plan. Thanks Time Spent With Patient Time: Total time managing care of this patient today ____ minutes.
[2024-05-07] VITALS (18 sets, daily range): BP systolic 130–165; BP diastolic 60–79; PULSE 59–100; RESP 14–20; TEMP 36.1–37.7; O2SAT 92–96; BMI 39.4
--- NOTE | 2024-05-07 00:02 | PC.NURSE ---
some blood noted on rectal thermometer, pt states he has hemorrhoids
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
--- NOTE | 2024-05-07 03:14 | PC.NURSE ---
pt removed both IVs. abx delayed d/t no IV access. 20g R forarm. arm is wrapped in gauze to prevent removal.
[2024-05-07] MEDS: Piperacillin Sodium/Tazobactam 3.375 GM in 0.9 % Sodium Chloride 50 ML IV ×2 (03:16→08:57)
[2024-05-07] MEDS: 0.9 % Sodium Chloride Flush 3 ML SYRINGE IVFLUSH ×3 (03:16→15:06)
--- NOTE | 2024-05-07 04:12 | PC.NURSE ---
blood cultures positive
[2024-05-07 05:46] LABS: Hematocrit 29.4 % (42.0-52.0); Mean Corpuscular Hemoglobin 25.4 pg (27.0-33.0); Mean Corpuscular Volume 74.6 fL (80.0-98.0); Mean Platelet Volume 9.5 fL (9.4-12.4); Platelet Count 362 X10*3/uL (160-400); Red Blood Count 3.94 X10*6/uL (4.60-5.80); Red Cell Distribution Width 15.2 % (11.0-16.0)
[2024-05-07 06:03] LABS: Alanine Aminotransferase 154 U/L (0-40); Albumin Level 2.9 g/dL (3.5-5.0); Alkaline Phosphatase 373 U/L (39-117); Anion Gap 16 (12-20); Aspartate Amino Transferase 69 U/L (5-37); Bilirubin Direct 4.6 mg/dL (0.0-0.5); Bilirubin Total 5.6 mg/dL (0.0-1.0); Blood Urea Nitrogen 16 mg/dL (9-16); Calcium 8.4 mg/dL (8.4-10.2); Carbon Dioxide 18 mmol/L (22-29); Chloride 104 mmol/L (96-108); Creatinine Clr Calc Pharmacy 60.5; Estimated Glomerular Filt Rate 40; Glucose Random 190 mg/dL (60-115); Potassium 3.3 mmol/L (3.3-5.1); Sodium 135 mmol/L (135-145); Total Protein 7.4 g/dL (6.5-8.0)
[2024-05-07 06:30] LABS: INTERNATIONAL NORM RATIO 1.5 (0.9-1.1); Prothrombin Time 18.3 SEC (11.1-13.3)
[2024-05-07 07:27] LABS: Glucose, Whole Blood 173 mg/dL (60-115)
[2024-05-07] MEDS: Torsemide 20 MG TABLET PO ×2 (08:55→22:32)
[2024-05-07] MEDS: Escitalopram Oxalate 20 MG TABLET PO (08:55)
[2024-05-07] MEDS: amLODIPine Besylate 2.5 MG TABLET PO (08:55)
[2024-05-07] MEDS: Sennosides 8.6 MG TABLET 17.2 MG PO (08:56)
[2024-05-07] MEDS: Docusate Sodium 100 MG CAPSULE 200 MG PO (08:56)
[2024-05-07] MEDS: Atorvastatin Calcium 40 MG TABLET PO (08:56)
[2024-05-07] MEDS: Morphine Sulfate ER 30 MG TABLET.ER 60 MG PO (08:56)
--- NOTE | 2024-05-07 09:22 | P.CONAN_ITS ---
HPI - Anesthesia Eval Consult details Narrative: Acute cholangitis PMFSH Active Problems Active Problems: All Active Problems Cholangitis (Acute) Secondary hyperparathyroidism (of renal origin) (Acute) Vitamin D deficiency (Acute) Long-term current use of testosterone replacement therapy (Acute) HTN (hypertension) (Acute) Chronic kidney disease, stage III (moderate) (Acute) Opiate use (Acute) History of traumatic brain injury (Acute) Varicose veins of right lower extremity with inflammation (Acute) Lymphedema (Acute) Hypogonadism in male (Acute) Past Medical History Medical History Anasarca Chronic, continuous use of opioids 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 Concussion 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 Diabetes mellitus type 2, controlled Traumatic subarachnoid hemorrhage Traumatic subdural hematoma Temporal skull fracture Traumatic brain injury Major depression Controlled type 2 diabetes mellitus with diabetic nephropathy Nephritis NOS in other disease Chronic kidney disease, stage III (moderate) Other chronic pain Neck pain Dyslipidemia Asthma Anemia of chronic disease Chronic constipation HTN (hypertension) Glaucoma suspect Family History Family history of problems with anesthesia: No Surgical History Surgical History Bilateral inguinal hernia S/P cervical spinal fusion History of Problems with Anesthesia: No Social History Social History Household Members: Family Housing: House Do you presently have visiting nurse or other home services: Yes Patient Tobacco Use Status: Former Tobacco user Tobacco use type: Cigarette Smoked in Last 30 Days: No Use of substances other than those prescribed or required for medical reasons: No Currently Displaying Signs/Symptoms of Drug Intoxication Withdrawal: No Have you been hit, kicked, punched, or otherwise hurt by someone within the past year? If so, by whom?: No Do you feel safe in your current relationship?: Yes Is there a partner from a previous relationship who is making you feel unsafe now?: No Are you made to feel afraid or neglected: No Are you DNR?: No Advance Directives: No Advance Directives Information Provided: Yes Do you have a plan to hurt others: No Plan Recently lost weight without trying: No Eating poorly because of decreased appetite: Yes Nutrition Risks: Difficulty swallowing Poor oral hygiene: No service: No Meds Allergies Allergy/AdvReac Type Severity Reaction Status Date / Time No Known Allergies Allergy Mild NOT Verified 05/06/24 10:18 APPLICABLE Active Medications: Current Medications Acetaminophen (Acetaminophen 325 Mg Tablet) 650 mg PO Q6H PRN PRN Reason: Pain, Mild (Pain Scale 1-3), fever or headache Last Admin: 05/06/24 21:37 Dose: 650 mg Amlodipine Besylate (Amlodipine Besylate 2.5 Mg Tablet) 2.5 mg PO DAILY [facility]; Protocol Last Admin: 05/07/24 08:55 Dose: 2.5 mg Atorvastatin Calcium (Atorvastatin Calcium 40 Mg Tablet) 40 mg PO DAILY [facility] Last Admin: 05/07/24 08:56 Dose: 40 mg Benzonatate (Benzonatate 100 Mg Capsule) 100 mg PO TID PRN PRN Reason: Cough Calcium Carbonate (Calcium Carbonate 750 Mg Tab.Chew) 750 mg PO Q4H PRN PRN Reason: Heartburn Docusate Sodium (Docusate Sodium 100 Mg Capsule) 200 mg PO DAILY [facility] Last Admin: 05/07/24 08:56 Dose: 200 mg Escitalopram Oxalate (Escitalopram Oxalate 20 Mg Tablet) 20 mg PO DAILY [facility] Last Admin: 05/07/24 08:55 Dose: 20 mg Glucose (Glucose Gel 15 Gm Gel..Gram.) 15 gm PO Q15M PRN; Protocol PRN Reason: per Hypoglycemia Standing Ord. Piperacillin Sod/Tazobactam (Sod 3.375 gm/ Sodium Chloride) 50 mls @ 100 mls/hr IV Q6H [facility] Last Admin: 05/07/24 08:57 Dose: 100 mls/hr Dextrose (D10) 250 mls @ 750 mls/hr IV Q15M PRN; Protocol PRN Reason: per Hypoglycemia Standing Ord. Lactated Ringer's (Lr) 1,000 mls @ 125 mls/hr IVCONT .Q8H [facility] Insulin Human Lispro (Insulin Lispro 100 Unit/Ml 3 Ml Vial) 0 unit SUBCUT QIDACHS [facility]; Protocol Last Admin: 05/07/24 09:06 Dose: Not Given Magnesium Hydroxide (Milk Of Magnesia 30 Ml Oral.Susp) 30 ml PO DAILY PRN PRN Reason: Constipation Morphine Sulfate (Morphine Sulfate Er 30 Mg Tablet.Er) 30 mg PO BEDTIME [facility] Last Admin: 05/06/24 21:36 Dose: 30 mg Morphine Sulfate (Morphine Sulfate Er 30 Mg Tablet.Er) 60 mg PO DAILY [facility] Last Admin: 05/07/24 08:56 Dose: 60 mg Ondansetron HCl (Ondansetron Hcl 4 Mg/2 Ml Vial) 4 mg IVPUSH Q8H PRN PRN Reason: Nausea and Vomiting Polyethylene Glycol (Polyethylene Glycol 3350 17 Gm Powd.Pack) 17 gm PO DAILY PRN PRN Reason: Constipation Quetiapine Fumarate (Quetiapine Fumarate 50 Mg Tablet) 50 mg PO BEDTIME [facility] Last Admin: 05/06/24 21:36 Dose: 50 mg Senna (Sennosides 8.6 Mg Tablet) 17.2 mg PO DAILY [facility] Last Admin: 05/07/24 08:56 Dose: 17.2 mg Sodium Chloride (0.9 % Sodium Chloride Flush 3 Ml Syringe) 3 ml IVFLUSH QSHIFT [facility] Last Admin: 05/07/24 09:06 Dose: 3 ml Torsemide (Torsemide 20 Mg Tablet) 20 mg PO BID [facility]; Protocol Last Admin: 05/07/24 08:55 Dose: 20 mg Zolpidem Tartrate (Zolpidem Tartrate 5 Mg Tablet) 5 mg PO BEDTIME [facility] Last Admin: 05/06/24 21:36 Dose: 5 mg Home Medications ?Medication ?Instructions ?Recorded ?Confirmed ?Last Taken ?Type atorvastatin 40 mg tablet 40 mg PO DAILY 01/20/22 05/06/24 05/05/24 History amlodipine 2.5 mg tablet 2.5 mg PO DAILY 01/19/24 05/06/24 05/05/24 History aspirin 81 mg tablet,delayed 81 mg PO DAILY 01/19/24 05/06/24 05/05/24 History release docusate sodium 100 mg capsule 200 mg PO DAILY 01/19/24 05/06/24 05/05/24 History (Colace) escitalopram oxalate 20 mg tablet 20 mg PO DAILY 01/19/24 05/06/24 05/05/24 History insulin aspart U-100 100 unit/mL 80 unit subcut TIDAC 01/19/24 05/06/24 05/05/24 History subcutaneous solution (Novolog U-100 Insulin aspart) insulin glargine 100 unit/mL 80 unit subcut BEDTIME 01/19/24 05/06/24 05/05/24 History subcutaneous solution (Lantus U-100 Insulin) ketoconazole 2 % topical cream 1 appl topical DAILY feet 01/19/24 05/06/24 05/05/24 History morphine 30 mg tablet,extended 30 mg PO BEDTIME 01/19/24 05/06/24 05/05/24 History release morphine 30 mg tablet,extended 60 mg PO DAILY 01/19/24 05/06/24 05/05/24 History release polyethylene glycol 3350 17 gram 17 g PO DAILY PRN Constipation 01/19/24 05/06/24 05/05/24 History oral powder packet (Gavilax) quetiapine 50 mg tablet 50 mg PO BEDTIME 01/19/24 05/06/24 05/05/24 History sennosides 8.6 mg tablet (senna) 17.2 mg PO DAILY constipation 01/19/24 05/06/24 05/05/24 History testosterone enanthate 75 mg/0.5 75 mg subcut FR hypogonadism 01/19/24 05/06/24 04/29/24 History mL subcutaneous auto-injector (Xyosted) zolpidem 12.5 mg tablet,extended 12.5 mg PO BEDTIME insomnia 01/19/24 05/06/24 05/05/24 History release,multiphase insulin syringe-needle U-100 1 mL #10 ea 02/01/24 Unknown History 31 gauge x 5/16 (BD Insulin Syringe Ultra-Fine) naloxegol 12.5 mg tablet (Movantik) 12.5 mg PO DAILY PRN Constipation 05/06/24 05/06/24 05/05/24 History Exam Height,Weight and Vital Signs: Height 5 ft 10 in Weight 124.6 kg Last Vital Signs Temp 98 F 05/07/24 07:06 Pulse 67 05/07/24 07:06 Resp 18 05/07/24 07:06 BP 152/70 H 05/07/24 07:06 Pulse Ox 92 05/07/24 07:06 O2 Del Method Room Air 05/07/24 07:06 Pertinent Lab Results Pertinent Lab Results: Laboratory Tests 05/06/24 05/06/24 05/06/24 10:38 10:39 10:45 WBC 18.9 H RBC 4.07 L Hgb 10.4 L Hct 31.0 L MCV 76.2 L MCH 25.6 L MCHC 33.5 RDW 15.1 Plt Count 398 MPV 9.7 Immature Gran % (Auto) 1.0 H Neut % (Auto) 86.3 H Lymph % (Auto) 5.0 L [place] % (Auto) 7.4 Eos % (Auto) 0.1 Baso % (Auto) 0.2 Lymph # (Auto) 0.9 L [place] # (Auto) 1.4 H Eos # (Auto) 0.0 Baso # (Auto) 0.0 Abs Immat Gran (auto) 0.18 H Absolute Neuts (auto) 16.4 H Absolute Nucleated RBC 0.000 Nucleated RBC % (auto) 0.0 PT 16.2 H D INR 1.3 H APTT 35.1 VBG pH VBG pCO2 VBG pO2 VBG HCO3 VBG O2 Saturation VBG Base Excess Sodium 131 L Potassium 3.4 Chloride 99 Carbon Dioxide 20 L Anion Gap 15 BUN 18 H Creatinine 2.18 H Estim Creat Clear Calc 50.3 Estimated GFR 31 POC Glucose Random Glucose 211 H Lactic Acid 1.1 Calcium 8.9 Magnesium 2.1 Total Bilirubin 7.5 H Direct Bilirubin 5.7 H AST 139 H ALT 232 H Alkaline Phosphatase 495 H Ammonia 23 Total Creatine Kinase 52 C-Reactive Protein 14.02 H B-Natriuretic Peptide 51 Total Protein 8.0 Albumin 3.3 L Lipase 12 TSH 3.67 Urine Color Urine Appearance Urine pH Ur Specific [place] Urine Protein Urine Glucose (UA) Urine Ketones Urine Blood Urine Nitrite Ur Leukocyte Esterase Urine RBC Urine WBC Ur Squamous Epith Cells Urine Bacteria Hyaline Casts Urine Opiates Screen Ur Buprenorphine Scrn Ur Oxycodone Screen Urine Methadone Screen Urine Fentanyl Screen Ur Barbiturates Screen Ur Phencyclidine Scrn Ur Amphetamines Screen U Benzodiazepines Scrn Urine Cocaine Screen U Marijuana (THC) Screen Ethyl Alcohol < 10 Hepatitis A IgM Ab Hep Bs Antigen Hep Bs Antibody Hep B Core Total Ab Hepatitis C Ab (EIA) 05/06/24 05/06/24 05/06/24 11:10 11:13 14:27 WBC RBC Hgb Hct MCV MCH MCHC RDW Plt Count MPV Immature Gran % (Auto) Neut % (Auto) Lymph % (Auto) [place] % (Auto) Eos % (Auto) Baso % (Auto) Lymph # (Auto) [place] # (Auto) Eos # (Auto) Baso # (Auto) Abs Immat Gran (auto) Absolute Neuts (auto) Absolute Nucleated RBC Nucleated RBC % (auto) PT INR APTT VBG pH 7.38 VBG pCO2 33 VBG pO2 71 VBG HCO3 20 L VBG O2 Saturation 92.0 VBG Base Excess -4.2 Sodium Potassium Chloride Carbon Dioxide Anion Gap BUN Creatinine Estim Creat Clear Calc Estimated GFR POC Glucose Random Glucose Lactic Acid Calcium Magnesium Total Bilirubin Direct Bilirubin AST ALT Alkaline Phosphatase Ammonia Total Creatine Kinase C-Reactive Protein B-Natriuretic Peptide Total Protein Albumin Lipase TSH Urine Color Dark Yellow Urine Appearance Clear Urine pH 6.0 Ur Specific [place] 1.015 Urine Protein 30 (1+) H Urine Glucose (UA) >=1000 H Urine Ketones Trace Urine Blood Negative Urine Nitrite Negative Ur Leukocyte Esterase Negative Urine RBC 0-2 Urine WBC 0-5 Ur Squamous Epith Cells 0-2 Urine Bacteria None Seen Hyaline Casts 0-2 Urine Opiates Screen POSITIVE H Ur Buprenorphine Scrn Not Detected Ur Oxycodone Screen Not Detected Urine Methadone Screen Not Detected Urine Fentanyl Screen Not Detected Ur Barbiturates Screen Not Detected Ur Phencyclidine Scrn Not Detected Ur Amphetamines Screen Not Detected U Benzodiazepines Scrn POSITIVE H Urine Cocaine Screen Not Detected U Marijuana (THC) Screen Not Detected Ethyl Alcohol Hepatitis A IgM Ab Nonreactive Hep Bs Antigen Negative Hep Bs Antibody REACTIVE Hep B Core Total Ab Nonreactive Hepatitis C Ab (EIA) GRAYZONE 05/06/24 05/07/24 05/07/24 21:26 05:26 07:04 WBC 17.0 H RBC 3.94 L Hgb 10.0 L Hct 29.4 L MCV 74.6 L MCH 25.4 L MCHC 34.0 RDW 15.2 Plt Count 362 MPV 9.5 Immature Gran % (Auto) Neut % (Auto) Lymph % (Auto) [place] % (Auto) Eos % (Auto) Baso % (Auto) Lymph # (Auto) [place] # (Auto) Eos # (Auto) Baso # (Auto) Abs Immat Gran (auto) Absolute Neuts (auto) Absolute Nucleated RBC 0.000 Nucleated RBC % (auto) 0.0 PT 18.3 H INR 1.5 H APTT VBG pH VBG pCO2 VBG pO2 VBG HCO3 VBG O2 Saturation VBG Base Excess Sodium 135 Potassium 3.3 Chloride 104 Carbon Dioxide 18 L Anion Gap 16 BUN 16 Creatinine 1.76 H Estim Creat Clear Calc 60.5 Estimated GFR 40 POC Glucose 184 H 173 H Random Glucose 190 H Lactic Acid Calcium 8.4 Magnesium Total Bilirubin 5.6 H Direct Bilirubin 4.6 H AST 69 H ALT 154 H Alkaline Phosphatase 373 H Ammonia Total Creatine Kinase C-Reactive Protein B-Natriuretic Peptide Total Protein 7.4 Albumin 2.9 L Lipase TSH Urine Color Urine Appearance Urine pH Ur Specific [place] Urine Protein Urine Glucose (UA) Urine Ketones Urine Blood Urine Nitrite Ur Leukocyte Esterase Urine RBC Urine WBC Ur Squamous Epith Cells Urine Bacteria Hyaline Casts Urine Opiates Screen Ur Buprenorphine Scrn Ur Oxycodone Screen Urine Methadone Screen Urine Fentanyl Screen Ur Barbiturates Screen Ur Phencyclidine Scrn Ur Amphetamines Screen U Benzodiazepines Scrn Urine Cocaine Screen U Marijuana (THC) Screen Ethyl Alcohol Hepatitis A IgM Ab Hep Bs Antigen Hep Bs Antibody Hep B Core Total Ab Hepatitis C Ab (EIA) Airway Mallampati Class: II TM Dist: >3cm Neck ROM: Full Loose/Missing/Broken Teeth: No Heart: RRR Lungs: CTA Assessment and Plan Assessment Anesthesia Assessment: Anesthesia Plan Discussed and Chart Reviewed Final Anesthetic Review Family History of Problems with Anesthesia: No History of Problems with Anesthesia: No NPO: Yes ASA Class: III Final Preanesthetic Review: No Changes in Pt Med Stat, Consent Obtained/Reviewed and Anes Risks/Benef Reviewed Patient Risk: Intermediate Procedure Risk: Low Anesthetic Plan Anesthetic Plan: GA Disposition: Standard PACU
--- NOTE | 2024-05-07 10:18 | HO.PM.IMPN ---
Subjective Subjective Date of Service: 05/07/24 Interval History: Febrile to 102.1 overnight. Jaundiced + has dark urine. RUQ discomfort improved. No N/V. NPO. BCx with GPCs on Gram stain. Review of Systems Review of Systems: Yes all other systems are reviewed and are negative Physical Exam Vital Signs: Vital Signs: Last Vital Signs Temp 99.8 F 05/07/24 09:44 Pulse 71 05/07/24 09:44 Resp 18 05/07/24 07:06 BP 146/70 H 05/07/24 09:44 Pulse Ox 94 05/07/24 09:44 O2 Del Method Room Air 05/07/24 09:44 BMI result Body Mass Index 39.4 Gen: in no acute distress HEENT: sclera icteric, moist mucus membranes Neck: supple Lungs: clear to auscultation bilaterally Heart: regular rate and rhythm, no murmurs Abd: soft, RUQ tender, protuberant Ext: no edema Skin: warm/well-perfused, jaundiced Neuro: alert and oriented x3, no focal findings Psych: appropriate affect Objective Data Active Medications Acetaminophen (Acetaminophen 325 Mg Tablet) 650 mg PO Q6H PRN PRN Reason: Pain, Mild (Pain Scale 1-3), fever or headache Last Admin: 05/06/24 21:37 Dose: 650 mg Documented By: RENA Amlodipine Besylate (Amlodipine Besylate 2.5 Mg Tablet) 2.5 mg PO DAILY [facility]; Protocol Last Admin: 05/07/24 08:55 Dose: 2.5 mg Documented By: NELLA Atorvastatin Calcium (Atorvastatin Calcium 40 Mg Tablet) 40 mg PO DAILY [facility] Last Admin: 05/07/24 08:56 Dose: 40 mg Documented By: NELLA Benzonatate (Benzonatate 100 Mg Capsule) 100 mg PO TID PRN PRN Reason: Cough Calcium Carbonate (Calcium Carbonate 750 Mg Tab.Chew) 750 mg PO Q4H PRN PRN Reason: Heartburn Docusate Sodium (Docusate Sodium 100 Mg Capsule) 200 mg PO DAILY [facility] Last Admin: 05/07/24 08:56 Dose: 200 mg Documented By: NELLA Escitalopram Oxalate (Escitalopram Oxalate 20 Mg Tablet) 20 mg PO DAILY [facility] Last Admin: 05/07/24 08:55 Dose: 20 mg Documented By: NELLA Fentanyl (Fentanyl Citrate/Pf 100 Mcg/2 Ml Vial) 50 mcg IVPUSH Q5M PRN PRN Reason: Pain, Severe (Pain Scale 7-10) Stop: 05/07/24 15:24 Glucose (Glucose Gel 15 Gm Gel..Gram.) 15 gm PO Q15M PRN; Protocol PRN Reason: per Hypoglycemia Standing Ord. Hydromorphone HCl (Hydromorphone Hcl 0.5 Mg/0.5 Ml Syringe) 0.5 mg IVPUSH Q5M PRN PRN Reason: Pain, Moderate(Pain Scale 4-6) Stop: 05/07/24 15:24 Piperacillin Sod/Tazobactam (Sod 3.375 gm/ Sodium Chloride) 50 mls @ 100 mls/hr IV Q6H [facility] Last Infusion: 05/07/24 09:40 Dose: Infused Documented By: NELLA Dextrose (D10) 250 mls @ 750 mls/hr IV Q15M PRN; Protocol PRN Reason: per Hypoglycemia Standing Ord. Lactated Ringer's (Lr) 1,000 mls @ 125 mls/hr IVCONT .Q8H [facility] Sodium Chloride (Ns) 100 mls @ 100 mls/hr IV ONCE ONE Stop: 05/07/24 11:13 Sodium Chloride (Ns) 100 mls @ 100 mls/hr IV ONCE ONE Stop: 05/07/24 11:13 Insulin Human Lispro (Insulin Lispro 100 Unit/Ml 3 Ml Vial) 0 unit SUBCUT QIDACHS [facility]; Protocol Last Admin: 05/07/24 09:06 Dose: Not Given Documented By: NELLA Non-Admin Reason: pt npo Magnesium Hydroxide (Milk Of Magnesia 30 Ml Oral.Susp) 30 ml PO DAILY PRN PRN Reason: Constipation Morphine Sulfate (Morphine Sulfate Er 30 Mg Tablet.Er) 30 mg PO BEDTIME [facility] Last Admin: 05/06/24 21:36 Dose: 30 mg Documented By: RENA Morphine Sulfate (Morphine Sulfate Er 30 Mg Tablet.Er) 60 mg PO DAILY [facility] Last Admin: 05/07/24 08:56 Dose: 60 mg Documented By: NELLA Ondansetron HCl (Ondansetron Hcl 4 Mg/2 Ml Vial) 4 mg IVPUSH Q8H PRN PRN Reason: Nausea and Vomiting Polyethylene Glycol (Polyethylene Glycol 3350 17 Gm Powd.Pack) 17 gm PO DAILY PRN PRN Reason: Constipation Quetiapine Fumarate (Quetiapine Fumarate 50 Mg Tablet) 50 mg PO BEDTIME [facility] Last Admin: 05/06/24 21:36 Dose: 50 mg Documented By: REAN Senna (Sennosides 8.6 Mg Tablet) 17.2 mg PO DAILY [facility] Last Admin: 05/07/24 08:56 Dose: 17.2 mg Documented By: NELLA Sodium Chloride (0.9 % Sodium Chloride Flush 3 Ml Syringe) 3 ml IVFLUSH QSHIFT [facility] Last Admin: 05/07/24 09:06 Dose: 3 ml Documented By: NELLA Torsemide (Torsemide 20 Mg Tablet) 20 mg PO BID [facility]; Protocol Last Admin: 05/07/24 08:55 Dose: 20 mg Documented By: NELLA Zolpidem Tartrate (Zolpidem Tartrate 5 Mg Tablet) 5 mg PO BEDTIME [facility] Last Admin: 05/06/24 21:36 Dose: 5 mg Documented By: RENA Labs 05/07/24 05:26 05/07/24 05:26 Labs: Laboratory Results - last 24 hr 05/06/24 05/06/24 05/06/24 10:38 10:39 10:45 MCV 76.2 L MCH 25.6 L MCHC 33.5 RDW 15.1 Plt Count 398 MPV 9.7 Immature Gran % (Auto) 1.0 H Neut % (Auto) 86.3 H Lymph % (Auto) 5.0 L Day % (Auto) 7.4 Eos % (Auto) 0.1 Baso % (Auto) 0.2 Lymph # (Auto) 0.9 L Day # (Auto) 1.4 H Eos # (Auto) 0.0 Baso # (Auto) 0.0 Abs Immat Gran (auto) 0.18 H Absolute Neuts (auto) 16.4 H Absolute Nucleated RBC 0.000 Nucleated RBC % (auto) 0.0 PT 16.2 H D INR 1.3 H APTT 35.1 VBG pH VBG pCO2 VBG pO2 VBG HCO3 VBG O2 Saturation VBG Base Excess Anion Gap 15 Estim Creat Clear Calc 50.3 Estimated GFR 31 POC Glucose Random Glucose 211 H Lactic Acid 1.1 Calcium 8.9 Magnesium 2.1 Total Bilirubin 7.5 H Direct Bilirubin 5.7 H AST 139 H ALT 232 H Alkaline Phosphatase 495 H Ammonia 23 Total Creatine Kinase 52 C-Reactive Protein 14.02 H B-Natriuretic Peptide 51 Total Protein 8.0 Albumin 3.3 L Lipase 12 TSH 3.67 Urine Color Urine Appearance Urine pH Ur Specific [place] Urine Protein Urine Glucose (UA) Urine Ketones Urine Blood Urine Nitrite Ur Leukocyte Esterase Urine RBC Urine WBC Ur Squamous Epith Cells Urine Bacteria Hyaline Casts Urine Opiates Screen Ur Buprenorphine Scrn Ur Oxycodone Screen Urine Methadone Screen Urine Fentanyl Screen Ur Barbiturates Screen Ur Phencyclidine Scrn Ur Amphetamines Screen U Benzodiazepines Scrn Urine Cocaine Screen U Marijuana (THC) Screen Ethyl Alcohol < 10 Hepatitis A IgM Ab Hep Bs Antigen Hep Bs Antibody Hep B Core Total Ab Hepatitis C Ab (EIA) 05/06/24 05/06/24 05/06/24 11:10 11:13 14:27 MCV MCH MCHC RDW Plt Count MPV Immature Gran % (Auto) Neut % (Auto) Lymph % (Auto) Day % (Auto) Eos % (Auto) Baso % (Auto) Lymph # (Auto) Day # (Auto) Eos # (Auto) Baso # (Auto) Abs Immat Gran (auto) Absolute Neuts (auto) Absolute Nucleated RBC Nucleated RBC % (auto) PT INR APTT VBG pH 7.38 VBG pCO2 33 VBG pO2 71 VBG HCO3 20 L VBG O2 Saturation 92.0 VBG Base Excess -4.2 Anion Gap Estim Creat Clear Calc Estimated GFR POC Glucose Random Glucose Lactic Acid Calcium Magnesium Total Bilirubin Direct Bilirubin AST ALT Alkaline Phosphatase Ammonia Total Creatine Kinase C-Reactive Protein B-Natriuretic Peptide Total Protein Albumin Lipase TSH Urine Color Dark Yellow Urine Appearance Clear Urine pH 6.0 Ur Specific [place] 1.015 Urine Protein 30 (1+) H Urine Glucose (UA) >=1000 H Urine Ketones Trace Urine Blood Negative Urine Nitrite Negative Ur Leukocyte Esterase Negative Urine RBC 0-2 Urine WBC 0-5 Ur Squamous Epith Cells 0-2 Urine Bacteria None Seen Hyaline Casts 0-2 Urine Opiates Screen POSITIVE H Ur Buprenorphine Scrn Not Detected Ur Oxycodone Screen Not Detected Urine Methadone Screen Not Detected Urine Fentanyl Screen Not Detected Ur Barbiturates Screen Not Detected Ur Phencyclidine Scrn Not Detected Ur Amphetamines Screen Not Detected U Benzodiazepines Scrn POSITIVE H Urine Cocaine Screen Not Detected U Marijuana (THC) Screen Not Detected Ethyl Alcohol Hepatitis A IgM Ab Nonreactive Hep Bs Antigen Negative Hep Bs Antibody REACTIVE Hep B Core Total Ab Nonreactive Hepatitis C Ab (EIA) GRAYZONE 05/06/24 05/07/24 05/07/24 21:26 05:26 07:04 MCV 74.6 L MCH 25.4 L MCHC 34.0 RDW 15.2 Plt Count 362 MPV 9.5 Immature Gran % (Auto) Neut % (Auto) Lymph % (Auto) Day % (Auto) Eos % (Auto) Baso % (Auto) Lymph # (Auto) Day # (Auto) Eos # (Auto) Baso # (Auto) Abs Immat Gran (auto) Absolute Neuts (auto) Absolute Nucleated RBC 0.000 Nucleated RBC % (auto) 0.0 PT 18.3 H INR 1.5 H APTT VBG pH VBG pCO2 VBG pO2 VBG HCO3 VBG O2 Saturation VBG Base Excess Anion Gap 16 Estim Creat Clear Calc 60.5 Estimated GFR 40 POC Glucose 184 H 173 H Random Glucose 190 H Lactic Acid Calcium 8.4 Magnesium Total Bilirubin 5.6 H Direct Bilirubin 4.6 H AST 69 H ALT 154 H Alkaline Phosphatase 373 H Ammonia Total Creatine Kinase C-Reactive Protein B-Natriuretic Peptide Total Protein 7.4 Albumin 2.9 L Lipase TSH Urine Color Urine Appearance Urine pH Ur Specific [place] Urine Protein Urine Glucose (UA) Urine Ketones Urine Blood Urine Nitrite Ur Leukocyte Esterase Urine RBC Urine WBC Ur Squamous Epith Cells Urine Bacteria Hyaline Casts Urine Opiates Screen Ur Buprenorphine Scrn Ur Oxycodone Screen Urine Methadone Screen Urine Fentanyl Screen Ur Barbiturates Screen Ur Phencyclidine Scrn Ur Amphetamines Screen U Benzodiazepines Scrn Urine Cocaine Screen U Marijuana (THC) Screen Ethyl Alcohol Hepatitis A IgM Ab Hep Bs Antigen Hep Bs Antibody Hep B Core Total Ab Hepatitis C Ab (EIA) Microbiology Microbiology Results: Microbiology 05/06/24 10:45 Blood Culture - Preliminary Blood - Venous Prelim: GPC Gram Stain only 05/06/24 10:38 Blood Culture - Preliminary Blood - Venous Prelim: GPC Gram Stain only Assessment and Plan (1) Cholangitis: Status: Acute Plan d2 58yo M with HTN, HLD, CKD3, DM2, hx TBI 2016, hypogonadism, anxiety, panic disorder with agoraphobia presenting with fever, AMS, and jaundice found to be sepsis from cholangitis sepsis due to acute cholangitis + GPC bacteremia - started on pip/fatemeh 05/06-, change to amp/sul 05/07- as likely enterococcal infection; repeat BCx 05/08, check TTE - GI consulted, ERCP today, surgery consult for lap loli dysphagia to solids - EGD at same time as ERCP per GI coagulopathy - recheck coags; vit K given ETHAN/CKD3 - SCr at baseline after fluid resuscitation mild hypovolemic hyponatremia - resolved after fluid resuscitation chronic nonhealing DFU R foot - Wound Care consult chronic lymphedema - torsemide HTN - amlodipine HLD - statin DM2 - basal-bolus insulin chronic pain - continue MSSR mood disorder - continue quetiapine + escitalopram + zolpidem VTE ppx - SCDs dispo - TBD In my clinical judgment, the patient requires continued inpatient hospitalization for the following reasons: endoscopic + surgical intervention, IV ABX Total time managing care of this patient today: 50 minutes. Quality Stroke Does the patient have a stroke diagnosis?: No VTE Prior VTE?: No VTE Risk Level:: Medical - moderate - high VTE Device Contraindication: N/A - Device Ordered VTE Drug Contraindication: Treatment Not Indicated
--- NOTE | 2024-05-07 12:07 | PM.OP ---
Brief Operative Note Date of Service: 05/07/24 Pre-op diagnosis: Dysphagia, Cholangitis Post-op diagnosis: other (Hiatal hernia, Same, Gallstones) Procedure: EGD, ERCP with sphincterotomy Surgeon: Triston Gross MD Anesthesia: GETA Was an Data Analyst Etl Developer used for this Procedure?: No Estimated blood loss (mL): 0 Pathology: none sent Condition: stable Disposition: PACU
--- NOTE | 2024-05-07 12:09 | PM.EVENT ---
Event Note Date of Service: 05/07/24 Event Note: GI-Full note dictated EGD 1. Hiatal hernia, otherwise WNL. No sign of esophageal ring or stricture, and no esophagitis. No dilation performed. 2. Stomach and duodenum WNL ERCP 1. Normal major papilla 2. Selective cholangiograms revealed normal intrahepatic bile ducts and a slightly dilated extrahepatic bile duct but without any definitive filling defects 3. Cystic duct and GB filled 4. Performed an approx. 8mm sphincterotomy without any immediate complication. This was followed by excellent flow of bile and contrast, but no purulence. 5. Bile duct swept with a 15mm balloon and no stones seen. The 15mm balloon pulled easily into the duodenum. Followup occlusion cholangiograms were negative for filling defects. The bile duct drained very well. 6. Pancreatic duct was not cannulated nor injected Imp/Recs: Gallstones with associated cholangitis, ? passed a CBD stone. Presently he has clinically improved with no further fevers and improved LFT's. Await surgical consult but I would recommend a CCY. Depending on timing of surgery his diet can be advanced as tolerated. Please keep him off all aspirin, NSAIDs, and other blood thinners for 1 week. F/U labs in AM. D/W his significant other, Amallais. Of note he did receive a total of 2 units of FFP during and after the procedure due to the prolonged PT/INR and sphincterotomy. Please call or text me if problems or questions. Thanks Time Spent With Patient Time: Total time managing care of this patient today ____ minutes.
[2024-05-07 12:46] LABS: Glucose, Whole Blood 186 mg/dL (60-115)
[2024-05-07] MEDS: Lactated Ringers 1,000 ML 125 ML IVCONT (14:54)
[2024-05-07] MEDS: Ampicillin Sodium/Sulbactam Na 3 GM VIAL IV ×2 (15:56→22:46)
--- NOTE | 2024-05-07 15:58 | PM.HPGS ---
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 Patient is accompanied by his girlfriend who helps supplement HPI. Family has noticed that patient's skin and eyes have been turning yellow for the past week. During this time patient has occasionally appeared altered and confused, mumbling to himself and not speaking sensibly or incomplete sentences. Patient has also been weaker than normal and unable to ambulate for the past few days, and has noticed increased swelling bilaterally in his lower extremities. Last night patient's measured a fever of 103 degrees. Patient himself denies nausea, vomiting. Patient had right upper quadrant ultrasound which shows distended dilated common bile duct with LFTs elevated white count elevated. He was admitted by the medical team and underwent IV hydration IV antibiotics and seen by Gastroenterology He was admitted and underwent urgent ERCP today without any findings of any stones in his distal common bile duct or purulent material. Patient feels better. Review of Systems Review of Systems: Yes all other systems are reviewed and are negative [facility] Past Medical History Medical History Anasarca Chronic, continuous use of opioids 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 Concussion 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 Diabetes mellitus type 2, controlled Traumatic subarachnoid hemorrhage Traumatic subdural hematoma Temporal skull fracture Traumatic brain injury Major depression Controlled type 2 diabetes mellitus with diabetic nephropathy Nephritis NOS in other disease Chronic kidney disease, stage III (moderate) Other chronic pain Neck pain Dyslipidemia Asthma Anemia of chronic disease Chronic constipation HTN (hypertension) Glaucoma suspect Surgical History Surgical History Bilateral inguinal hernia S/P cervical spinal fusion Social History Social History Household Members: Family Housing: House Do you presently have visiting nurse or other home services: Yes Patient Tobacco Use Status: Former Tobacco user Tobacco use type: Cigarette Smoked in Last 30 Days: No Use of substances other than those prescribed or required for medical reasons: No Currently Displaying Signs/Symptoms of Drug Intoxication Withdrawal: No Have you been hit, kicked, punched, or otherwise hurt by someone within the past year? If so, by whom?: No Do you feel safe in your current relationship?: Yes Is there a partner from a previous relationship who is making you feel unsafe now?: No Are you made to feel afraid or neglected: No Are you DNR?: No Advance Directives: No Advance Directives Information Provided: Yes Do you have a plan to hurt others: No Plan Recently lost weight without trying: No Eating poorly because of decreased appetite: Yes Nutrition Risks: Difficulty swallowing Poor oral hygiene: No service: No Meds Allergies Allergy/AdvReac Type Severity Reaction Status Date / Time No Known Allergies Allergy Mild NOT Verified 05/06/24 10:18 APPLICABLE Active Medications: Current Medications Acetaminophen (Acetaminophen 325 Mg Tablet) 650 mg PO Q6H PRN PRN Reason: Pain, Mild (Pain Scale 1-3), fever or headache Last Admin: 05/06/24 21:37 Dose: 650 mg Amlodipine Besylate (Amlodipine Besylate 2.5 Mg Tablet) 2.5 mg PO DAILY [facility]; Protocol Last Admin: 05/07/24 08:55 Dose: 2.5 mg Ampicillin Sodium/Sulbactam Sodium (Ampicillin Sodium/Sulbactam Na 3 Gm Vial) 3 gm IV Q6H [facility] Atorvastatin Calcium (Atorvastatin Calcium 40 Mg Tablet) 40 mg PO DAILY [facility] Last Admin: 05/07/24 08:56 Dose: 40 mg Benzonatate (Benzonatate 100 Mg Capsule) 100 mg PO TID PRN PRN Reason: Cough Calcium Carbonate (Calcium Carbonate 750 Mg Tab.Chew) 750 mg PO Q4H PRN PRN Reason: Heartburn Docusate Sodium (Docusate Sodium 100 Mg Capsule) 200 mg PO DAILY [facility] Last Admin: 05/07/24 08:56 Dose: 200 mg Escitalopram Oxalate (Escitalopram Oxalate 20 Mg Tablet) 20 mg PO DAILY [facility] Last Admin: 05/07/24 08:55 Dose: 20 mg Glucose (Glucose Gel 15 Gm Gel..Gram.) 15 gm PO Q15M PRN; Protocol PRN Reason: per Hypoglycemia Standing Ord. Dextrose (D10) 250 mls @ 750 mls/hr IV Q15M PRN; Protocol PRN Reason: per Hypoglycemia Standing Ord. Lactated Ringer's (Lr) 1,000 mls @ 125 mls/hr IVCONT .Q8H [facility] Last Admin: 05/07/24 14:54 Dose: 125 mls/hr Insulin Human Lispro (Insulin Lispro 100 Unit/Ml 3 Ml Vial) 0 unit SUBCUT QIDACHS [facility]; Protocol Last Admin: 05/07/24 13:54 Dose: Not Given Magnesium Hydroxide (Milk Of Magnesia 30 Ml Oral.Susp) 30 ml PO DAILY PRN PRN Reason: Constipation Morphine Sulfate (Morphine Sulfate Er 30 Mg Tablet.Er) 30 mg PO BEDTIME [facility] Last Admin: 05/06/24 21:36 Dose: 30 mg Morphine Sulfate (Morphine Sulfate Er 30 Mg Tablet.Er) 60 mg PO DAILY [facility] Last Admin: 05/07/24 08:56 Dose: 60 mg Ondansetron HCl (Ondansetron Hcl 4 Mg/2 Ml Vial) 4 mg IVPUSH Q8H PRN PRN Reason: Nausea and Vomiting Polyethylene Glycol (Polyethylene Glycol 3350 17 Gm Powd.Pack) 17 gm PO DAILY PRN PRN Reason: Constipation Quetiapine Fumarate (Quetiapine Fumarate 50 Mg Tablet) 50 mg PO BEDTIME [facility] Last Admin: 05/06/24 21:36 Dose: 50 mg Senna (Sennosides 8.6 Mg Tablet) 17.2 mg PO DAILY [facility] Last Admin: 05/07/24 08:56 Dose: 17.2 mg Sodium Chloride (0.9 % Sodium Chloride Flush 3 Ml Syringe) 3 ml IVFLUSH QSHIFT [facility] Last Admin: 05/07/24 15:06 Dose: 3 ml Torsemide (Torsemide 20 Mg Tablet) 20 mg PO BID [facility]; Protocol Last Admin: 05/07/24 08:55 Dose: 20 mg Zolpidem Tartrate (Zolpidem Tartrate 5 Mg Tablet) 5 mg PO BEDTIME [facility] Last Admin: 05/06/24 21:36 Dose: 5 mg Home Medications ?Medication ?Instructions ?Recorded ?Confirmed ?Last Taken ?Type atorvastatin 40 mg tablet 40 mg PO DAILY 01/20/22 05/06/24 05/05/24 History amlodipine 2.5 mg tablet 2.5 mg PO DAILY 01/19/24 05/06/24 05/05/24 History aspirin 81 mg tablet,delayed 81 mg PO DAILY 01/19/24 05/06/24 05/05/24 History release docusate sodium 100 mg capsule 200 mg PO DAILY 01/19/24 05/06/24 05/05/24 History (Colace) escitalopram oxalate 20 mg tablet 20 mg PO DAILY 01/19/24 05/06/24 05/05/24 History insulin aspart U-100 100 unit/mL 80 unit subcut TIDAC 01/19/24 05/06/24 05/05/24 History subcutaneous solution (Novolog U-100 Insulin aspart) insulin glargine 100 unit/mL 80 unit subcut BEDTIME 01/19/24 05/06/24 05/05/24 History subcutaneous solution (Lantus U-100 Insulin) ketoconazole 2 % topical cream 1 appl topical DAILY feet 01/19/24 05/06/24 05/05/24 History morphine 30 mg tablet,extended 30 mg PO BEDTIME 01/19/24 05/06/24 05/05/24 History release morphine 30 mg tablet,extended 60 mg PO DAILY 01/19/24 05/06/24 05/05/24 History release polyethylene glycol 3350 17 gram 17 g PO DAILY PRN Constipation 01/19/24 05/06/24 05/05/24 History oral powder packet (Gavilax) quetiapine 50 mg tablet 50 mg PO BEDTIME 01/19/24 05/06/24 05/05/24 History sennosides 8.6 mg tablet (senna) 17.2 mg PO DAILY constipation 01/19/24 05/06/24 05/05/24 History testosterone enanthate 75 mg/0.5 75 mg subcut FR hypogonadism 01/19/24 05/06/24 04/29/24 History mL subcutaneous auto-injector (Xyosted) zolpidem 12.5 mg tablet,extended 12.5 mg PO BEDTIME insomnia 01/19/24 05/06/24 05/05/24 History release,multiphase insulin syringe-needle U-100 1 mL #10 ea 02/01/24 Unknown History 31 gauge x 5/16 (BD Insulin Syringe Ultra-Fine) naloxegol 12.5 mg tablet (Movantik) 12.5 mg PO DAILY PRN Constipation 05/06/24 05/06/24 05/05/24 History Physical Exam Vital Signs: Vital Signs: Last Vital Signs Temp 97.2 F 05/07/24 15:16 Pulse 69 05/07/24 15:16 Resp 18 05/07/24 15:16 BP 165/79 H 05/07/24 15:16 Pulse Ox 95 05/07/24 15:16 O2 Del Method Nasal Cannula 05/07/24 15:16 O2 Flow Rate 3 05/07/24 15:16 BMI result Body Mass Index 39.4 Const: General: cooperative, healthy appearing, comfortable and no acute distress GI: Other: Abdomen is soft nondistended mildly tender in the right upper quadrant epigastric area no guarding no rebound Skin: Other: Mild icteric Results Results Labs: Short CBC 05/07/24 Range/Units 05:26 WBC 17.0 H (4.8-10.8) X10*3/uL Hgb 10.0 L (14.0-18.0) g/dl Hct 29.4 L (42.0-52.0) % Plt Count 362 (160-400) X10*3/uL BMP 05/07/24 05:26 Sodium 135 Potassium 3.3 Chloride 104 Carbon Dioxide 18 L BUN 16 Creatinine 1.76 H Calcium 8.4 Liver Function 05/06/24 05/07/24 Range/Units 10:38 05:26 Total Bilirubin 5.6 H (0.0-1.0) mg/dL Direct Bilirubin 5.7 H 4.6 H (0.0-0.5) mg/dL AST 69 H (5-37) U/L ALT 154 H (0-40) U/L Alkaline Phosphatase 373 H (39-117) U/L Albumin 2.9 L (3.5-5.0) g/dL Urine 05/06/24 Range/Units 14:27 Urine Color Dark Yellow Urine Appearance Clear Urine pH 6.0 (5.0-9.0) Ur Specific [place] 1.015 (1.005-1.025) Urine Protein 30 (1+) H (Neg-Trace) mg/dL Urine Glucose (UA) >=1000 H (Negative) mg/dL Additional studies: [address] [address] Ultrasound Report Signed Patient: Hussein Mandujano MR#: [id number] : 1965 Acct:[id number] Age/Sex: 58 / M ADM Date: 05/06/24 Loc: HO.ED Attending Dr: Ordering Physician: Rafia Jefferson Date of Service: 05/06/24 Procedure(s): US abdomen limited Accession Number(s): [id number] cc: Rafia Jefferson; Madonna Plascencia MD~ EXAMINATION: US ABDOMEN LIMITED CLINICAL INFORMATION: Right upper quadrant abdominal pain. COMPARISON: None available. TECHNIQUE: Real-time imaging of the right upper quadrant abdominal viscera. FINDINGS: PANCREAS: Normal. LIVER: Normal. The liver is normal in size. The liver contour is normal. Parenchymal echogenicity is normal. No focal hepatic lesion. There is no intrahepatic biliary duct dilatation seen. GALLBLADDER: Multiple shadowing stones and sludge seen within the gallbladder. There is nonspecific gallbladder wall thickening measuring 7 mm. No significant pericholecystic fluid. COMMON BILE DUCT: Dilated measuring 1.0 cm in diameter. RIGHT KIDNEY: There is prominence of the right renal pelvis and calyces. No hydronephrosis. No renal calculi or focal parenchymal lesions. The kidney measures 10.9 cm in maximum dimension. FREE FLUID: None. US/US abdomen limited IMPRESSION: Cholelithiasis with nonspecific gallbladder wall thickening. Dilated common bile duct. No significant intrahepatic biliary ductal dilatation. Further evaluation with nuclear medicine biliary scan could be performed. Dictated By: Tomasz Stone MD Signed By: <Electronically signed by Tomasz Stone MD in OV> 05/06/24 1628 DD/ 1400 TD/TT: Audiologist: Assessment and Plan (1) Cholangitis: Status: Acute Plan 58-year-old male with cholangitis improving with medical management and undergoing ERCP. Plan to continue with slow advancement of his diet continue with IV antibiotics and evaluate tomorrow. If continues to do well consider laparoscopic cholecystectomy on Thursday. Quality Stroke Does the patient have a stroke diagnosis?: No VTE Prior VTE?: No VTE Risk Level:: Medical - moderate - high VTE Device Contraindication: N/A - Device Ordered VTE Drug Contraindication: Treatment Not Indicated Procedures Date of Service Date of Service: 05/07/24
[2024-05-07 16:16] LABS: Glucose, Whole Blood 217 mg/dL (60-115)
[2024-05-07] MEDS: Insulin Lispro 100 UNIT/ML 3 ML VIAL SUBCUT ×2 (17:40→22:33)
--- NOTE | 2024-05-07 18:47 | PC.NURSE ---
Patient down for ERCP and upper endo procedure this afternoon. Upon patients arrival to unit vitals assessed and bedside report performed with PACU nurses who verbalized patient had been given 1 unit of plasma following procedure, and the bag of plasma that continued to be administered was the second bag. Patient oriented to room and family updated. 2nd bag of plasma completed and patient assessed and did not present with any signs and symptoms of infusion reaction. Patient diet advanced to clear liquid diet and patient tolerated well. Patient dressing to R foot changed per MD order and frequent rounding performed throughout shift and safety maintained.
[2024-05-07 20:25] LABS: Glucose, Whole Blood 241 mg/dL (60-115)
[2024-05-07] MEDS: Morphine Sulfate ER 30 MG TABLET.ER PO (22:32)
[2024-05-07] MEDS: Zolpidem Tartrate 5 MG TABLET PO (22:32)
[2024-05-07] MEDS: QUEtiapine Fumarate 50 MG TABLET PO (22:32)
--- NOTE | 2024-05-07 22:51 | OP_ITS ---
DATE OF SERVICE: 05/07/2024 SURGEON: Triston Gross MD INDICATIONS: The patient presents for evaluation of dysphagia and cholangitis with associated gallstones and dilated bile duct on imaging study. Full consent has been obtained from him for both procedures, including risks of bleeding, perforation, cholangitis, and pancreatitis. PREOPERATIVE DIAGNOSIS: POSTOPERATIVE DIAGNOSIS: PROCEDURE PERFORMED: Esophagogastroduodenoscopy, and endoscopic retrograde cholangiopancreatography with sphincterotomy. ESTIMATED BLOOD LOSS: COMPLICATIONS: ANESTHESIA: General anesthesia. Of note, he did receive a total of 2 units of FFP during and after the procedure due to his prolonged INR and sphincterotomy during the procedure. ASSISTANTS: SPECIMENS: PREOPERATIVE DIAGNOSES: Dysphagia, cholangitis, gallstones, abnormal imaging of bile duct. POSTOPERATIVE DIAGNOSES: Dysphagia, cholangitis, gallstones, abnormal imaging of bile duct, small hiatal hernia, dilated extrahepatic bile duct, but without any definitive stones, status post sphincterotomy, gallstones within gallbladder. DESCRIPTION OF PROCEDURE: The patient was placed in the semiprone position. The Olympus video gastroscope was passed in the posterior oropharynx and upper esophagus. The scope was passed slowly into the distal esophagus. The gastroesophageal junction appeared at 39 cm. There was no sign of any mass, inflammation, stricture, nor ring. There was no evidence of any [place] esophagus. The scope entered the stomach easily. There was a small hiatal hernia. The scope was advanced to pylorus and the duodenum was cannulated to the descending portion. The duodenum including the bulb appeared normal without mass or ulceration. The scope was withdrawn back into the stomach. The gastric antrum and body appeared normal with good peristalsis. The scope was retroflexed, visualizing the proximal stomach carefully, which appeared normal, without any sign of mass or ulceration. The scope was straightened and withdrawn back to the esophagus. The gastroesophageal junction was widely patent and therefore no dilation was performed. The scope was withdrawn through the remainder of the esophagus, which appeared normal. The scope was withdrawn from the patient. The Olympus video therapeutic duodenoscope was then passed into the posterior oropharynx and upper esophagus. The scope was advanced into the stomach and to the pylorus. The duodenum was cannulated to the descending portion. The region of the major papilla was visualized. The papilla appeared normal other than somewhat bulging in appearance. Using a [employer] triple lumen sphincterotome, a selective cannulation of the biliary tree was obtained over the straight guidewire. Selective cholangiograms revealed good filling of the intrahepatic and extrahepatic biliary tree. The intrahepatic ducts appeared normal. The extrahepatic bile duct did appear to be somewhat dilated, but with a smooth tapering in the distal portion. There were no definitive filling defects noted. The cystic duct and gallbladder did fill partially. Given his presentation, I did perform a sphincterotomy to ensure good drainage and be sure there were no small stones. I performed an approximately 8 mm sphincterotomy over the guidewire without any immediate complication. At the end of the sphincterotomy, there was excellent drainage of bile and contrast noted but no purulence. Followup cholangiograms with the balloon inflated and deflated, did not reveal any filling defects. The balloon pulled easily into the duodenum in the 15 mm position. Again, there was excellent drainage of contrast and bile. At that point without any filling defects noted and the biliary tree otherwise appearing normal, the procedure was terminated. Of note, the pancreas was not injected nor cannulated. The scope was withdrawn from the patient. He tolerated the procedure well and was returned to recovery area in stable condition. IMPRESSION: 1. Somewhat dilated extrahepatic bile duct without any sign of choledocholithiasis. 2. Small hiatal hernia. 3. Gallstones. PLAN: At this point, the patient will be observed. He will be kept n.p.o. today except for medication, ice chips, and sips of liquid. He will have followup laboratories tomorrow. He will have surgical consultation regarding eventual cholecystectomy given the presentation and his gallstones. He will have followup PT/INR tomorrow as well. I did request that he not receive any aspirin, NSAIDs, nor any other blood thinners for 1 week. I did review this with his significant other in detail as well. MD MELODIE Fish/ERAN / [id number]
[2024-05-08] VITALS (8 sets, daily range): BP systolic 134–162; BP diastolic 66–82; PULSE 62–79; RESP 16–20; TEMP 36–37.1; O2SAT 92–96
[2024-05-08] MEDS: Lactated Ringers 1,000 ML 125 ML IVCONT ×3 (00:04→15:56)
[2024-05-08] MEDS: Ampicillin Sodium/Sulbactam Na 3 GM VIAL IV ×4 (04:02→22:45)
[2024-05-08 05:42] LABS: Hematocrit 26.8 % (42.0-52.0); Hemoglobin 9.1 g/dl (14.0-18.0); Mean Corpuscular Hemoglobin 25.5 pg (27.0-33.0); Mean Corpuscular Volume 75.1 fL (80.0-98.0); Platelet Count 339 X10*3/uL (160-400); Red Blood Count 3.57 X10*6/uL (4.60-5.80); Red Cell Distribution Width 15.2 % (11.0-16.0); White Blood Count 11.6 X10*3/uL (4.8-10.8)
[2024-05-08 05:47] LABS: INTERNATIONAL NORM RATIO 1.1 (0.9-1.1); Prothrombin Time 13.3 SEC (11.1-13.3)
[2024-05-08 06:09] LABS: Alanine Aminotransferase 103 U/L (0-40); Albumin Level 2.8 g/dL (3.5-5.0); Alkaline Phosphatase 299 U/L (39-117); Anion Gap 13 (12-20); Aspartate Amino Transferase 39 U/L (5-37); Bilirubin Total 3.7 mg/dL (0.0-1.0); Blood Urea Nitrogen 18 mg/dL (9-16); Calcium 8.4 mg/dL (8.4-10.2); Carbon Dioxide 22 mmol/L (22-29); Chloride 104 mmol/L (96-108); Creatinine Clr Calc Pharmacy 54.4; Estimated Glomerular Filt Rate 35; Glucose Random 191 mg/dL (60-115); Potassium 3.4 mmol/L (3.3-5.1); Sodium 136 mmol/L (135-145); Total Protein 7.1 g/dL (6.5-8.0)
[2024-05-08 07:14] LABS: Glucose, Whole Blood 175 mg/dL (60-115)
[2024-05-08 07:31] LABS: Iron 50 mcg/dL (45-160); Percent Iron Saturation 31 % (15-50); Total Iron Binding Capacity 162 mcg/dL (228-428); Unsaturated Iron Binding 112 ug/dL
[2024-05-08 07:51] LABS: Ferritin 721 ng/mL (20-250)
[2024-05-08] MEDS: Insulin Lispro 100 UNIT/ML 3 ML VIAL SUBCUT ×4 (07:53→20:14)
[2024-05-08] MEDS: Docusate Sodium 100 MG CAPSULE 200 MG PO (07:54)
[2024-05-08] MEDS: Sennosides 8.6 MG TABLET 17.2 MG PO (07:54)
[2024-05-08] MEDS: Escitalopram Oxalate 20 MG TABLET PO (07:54)
[2024-05-08] MEDS: Morphine Sulfate ER 30 MG TABLET.ER 60 MG PO (07:55)
[2024-05-08] MEDS: amLODIPine Besylate 2.5 MG TABLET PO (07:55)
[2024-05-08] MEDS: Atorvastatin Calcium 40 MG TABLET PO (07:56)
--- NOTE | 2024-05-08 09:20 | P.PNIM_ITS ---
Subjective Subjective Date of Service: 05/08/24 Interval History: s/p ERCP done yesterday minimal RUQ pain; no fever no N/V Review of Systems Review of Systems: Yes all other systems are reviewed and are negative Physical Exam 2 Vital Signs: Vital Signs: Last Vital Signs Temp 97 F 05/08/24 07:08 Pulse 65 05/08/24 07:08 Resp 17 05/08/24 07:08 BP 152/82 H 05/08/24 07:55 Pulse Ox 93 05/08/24 08:25 O2 Del Method Room Air 05/08/24 08:25 O2 Flow Rate 2 05/08/24 03:42 BMI result Body Mass Index 39.4 Gen: in no acute distress HEENT: sclera icteric, moist mucus membranes Neck: supple Lungs: clear to auscultation bilaterally Heart: regular rate and rhythm, no murmurs Abd: soft, RUQ mildly tender Ext: no edema Skin: warm/well-perfused, jaundiced Neuro: alert and oriented x3, no focal findings Psych: appropriate affect Objective Data Active Medications Acetaminophen (Acetaminophen 325 Mg Tablet) 650 mg PO Q6H PRN PRN Reason: Pain, Mild (Pain Scale 1-3), fever or headache Last Admin: 05/06/24 21:37 Dose: 650 mg Documented By: RENA Amlodipine Besylate (Amlodipine Besylate 2.5 Mg Tablet) 2.5 mg PO DAILY [facility]; Protocol Last Admin: 05/08/24 07:55 Dose: 2.5 mg Documented By: ELEONORA Ampicillin Sodium/Sulbactam Sodium (Ampicillin Sodium/Sulbactam Na 3 Gm Vial) 3 gm IV Q6H [facility] Last Admin: 05/08/24 04:02 Dose: 3 gm Documented By: LUCILLE Atorvastatin Calcium (Atorvastatin Calcium 40 Mg Tablet) 40 mg PO DAILY [facility] Last Admin: 05/08/24 07:56 Dose: 40 mg Documented By: ELEONORA Benzonatate (Benzonatate 100 Mg Capsule) 100 mg PO TID PRN PRN Reason: Cough Calcium Carbonate (Calcium Carbonate 750 Mg Tab.Chew) 750 mg PO Q4H PRN PRN Reason: Heartburn Collagenase (Collagenase Clostridium Hist. 30 Gm Tube) 1 appl TOPICAL DAILY [facility]; Protocol Docusate Sodium (Docusate Sodium 100 Mg Capsule) 200 mg PO DAILY [facility] Last Admin: 05/08/24 07:54 Dose: 200 mg Documented By: ELEONORA Escitalopram Oxalate (Escitalopram Oxalate 20 Mg Tablet) 20 mg PO DAILY [facility] Last Admin: 05/08/24 07:54 Dose: 20 mg Documented By: ELEONORA Glucose (Glucose Gel 15 Gm Gel..Gram.) 15 gm PO Q15M PRN; Protocol PRN Reason: per Hypoglycemia Standing Ord. Dextrose (D10) 250 mls @ 750 mls/hr IV Q15M PRN; Protocol PRN Reason: per Hypoglycemia Standing Ord. Lactated Ringer's (Lr) 1,000 mls @ 125 mls/hr IVCONT .Q8H [facility] Last Admin: 05/08/24 07:52 Dose: 125 mls/hr Documented By: ELEONORA Insulin Human Lispro (Insulin Lispro 100 Unit/Ml 3 Ml Vial) 0 unit SUBCUT QIDACHS [facility]; Protocol Last Admin: 05/08/24 07:53 Dose: 2 unit Documented By: ELEONORA Magnesium Hydroxide (Milk Of Magnesia 30 Ml Oral.Susp) 30 ml PO DAILY PRN PRN Reason: Constipation Morphine Sulfate (Morphine Sulfate Er 30 Mg Tablet.Er) 30 mg PO BEDTIME [facility] Last Admin: 05/07/24 22:32 Dose: 30 mg Documented By: LUCILLE Morphine Sulfate (Morphine Sulfate Er 30 Mg Tablet.Er) 60 mg PO DAILY [facility] Last Admin: 05/08/24 07:55 Dose: 60 mg Documented By: ELEONORA Ondansetron HCl (Ondansetron Hcl 4 Mg/2 Ml Vial) 4 mg IVPUSH Q8H PRN PRN Reason: Nausea and Vomiting Polyethylene Glycol (Polyethylene Glycol 3350 17 Gm Powd.Pack) 17 gm PO DAILY PRN PRN Reason: Constipation Quetiapine Fumarate (Quetiapine Fumarate 50 Mg Tablet) 50 mg PO BEDTIME [facility] Last Admin: 05/07/24 22:32 Dose: 50 mg Documented By: LUCILLE Senna (Sennosides 8.6 Mg Tablet) 17.2 mg PO DAILY [facility] Last Admin: 05/08/24 07:54 Dose: 17.2 mg Documented By: ELEONORA Sodium Chloride (0.9 % Sodium Chloride Flush 3 Ml Syringe) 3 ml IVFLUSH QSHIFT [facility] Last Admin: 05/08/24 07:26 Dose: Not Given Documented By: ELEONORA Non-Admin Reason: IV Running Torsemide (Torsemide 20 Mg Tablet) 20 mg PO BID [facility]; Protocol Last Admin: 05/07/24 22:32 Dose: 20 mg Documented By: LUCILLE Zolpidem Tartrate (Zolpidem Tartrate 5 Mg Tablet) 5 mg PO BEDTIME [facility] Last Admin: 05/07/24 22:32 Dose: 5 mg Documented By: LUCILLE Labs 05/08/24 05:30 05/08/24 05:30 Labs: Laboratory Results - last 24 hr 05/07/24 05/07/24 05/07/24 10:29 12:43 16:09 MCV MCH MCHC RDW Plt Count MPV Absolute Nucleated RBC Nucleated RBC % (auto) PT INR Anion Gap Estim Creat Clear Calc Estimated GFR POC Glucose 186 H 217 H Random Glucose Calcium Iron TIBC % Saturation Unsat Iron Binding Ferritin Total Bilirubin Direct Bilirubin AST ALT Alkaline Phosphatase Total Protein Albumin Blood Type O Negative Antibody Screen NEGATIVE 05/07/24 05/08/24 05/08/24 20:19 05:30 07:09 MCV 75.1 L MCH 25.5 L MCHC 34.0 RDW 15.2 Plt Count 339 MPV 10.0 Absolute Nucleated RBC 0.000 Nucleated RBC % (auto) 0.0 PT 13.3 D INR 1.1 Anion Gap 13 Estim Creat Clear Calc 54.4 Estimated GFR 35 POC Glucose 241 H 175 H Random Glucose 191 H Calcium 8.4 Iron 50 TIBC 162 L % Saturation 31 Unsat Iron Binding 112 Ferritin 721 H Total Bilirubin 3.7 H Direct Bilirubin 3.0 H AST 39 H ALT 103 H Alkaline Phosphatase 299 H Total Protein 7.1 Albumin 2.8 L Blood Type Antibody Screen Microbiology Microbiology Results: Microbiology 05/06/24 10:45 Blood Culture - Preliminary Blood - Venous Prelim: GPC Gram Stain only 05/06/24 10:38 Blood Culture - Preliminary Blood - Venous Prelim: GPC Gram Stain only Assessment and Plan (1) Cholangitis: Status: Acute Plan d3 58yo M with HTN, HLD, CKD3, DM2, hx TBI 2016, hypogonadism, anxiety, panic disorder with agoraphobia presenting with fever, AMS, and jaundice admitted for sepsis from cholangitis/bacteremia sepsis due to acute cholangitis + GPC bacteremia - started on pip/fatemeh 05/06-, changed to amp/sul 05/07- when BCx stained GPCs as likely enterococcal infection; repeat BCx 05/08 drawn, check TTE 05/09 - GI consulted, ERCP + sphincterotomy done 05/07; no choledocholithiasis; likely passed a stone - Gen Surg consulted; plan lap loli 05/08; NPO p MN dysphagia to solids - EGD at same time as ERCP per GI showed only small hiatal hernia coagulopathy - resolved s/p vit K given ETHAN/CKD3 - continue fluid resuscitation; hold torsemide mild hypovolemic hyponatremia - resolved after fluid resuscitation chronic nonhealing DFU R foot - Wound Care consult pending chronic lymphedema - hold torsemide for now HTN - amlodipine HLD - statin DM2 - basal-bolus insulin chronic pain - continue MSSR mood disorder - continue quetiapine + escitalopram + zolpidem VTE ppx - SCDs; no blood thinners for at least 1 wk p sphincterotomy dispo - TBD In my clinical judgment, the patient requires continued inpatient hospitalization for the following reasons: surgery, IV ABX for bacteremia Total time managing care of this patient today: 45 minutes. Quality Stroke Does the patient have a stroke diagnosis?: No VTE Prior VTE?: No VTE Risk Level:: Medical - moderate - high VTE Device Contraindication: N/A - Device Ordered VTE Drug Contraindication: Treatment Not Indicated
--- NOTE | 2024-05-08 09:34 | HO.POSTANES ---
Post Anesthesia Evaluation Post Anesthesia Evaluation Date of Service: 05/08/24 Vital Signs: Vital Signs Temp Pulse Resp BP Pulse Ox O2 Del Method O2 Flow Rate 05/08/24 08:25 93 Room Air 05/08/24 07:55 152/82 H 05/08/24 07:08 97 F 65 17 152/82 H 96 Nasal Cannula 05/08/24 03:42 96.8 F 79 20 162/77 H 94 Nasal Cannula 2 05/07/24 23:18 97.0 F 59 20 164/79 H 96 Nasal Cannula 2 05/07/24 22:32 144/71 H Anesthesia: General Endotracheal-GETA Mental Status: Awake Pain Control: Satisfactory Nausea/Vomiting: None Hydration: Adequate Anesthesia-Related Issues: No Anes. Related Issues
[2024-05-08] MEDS: Collagenase Clostridium Hist. 30 GM TUBE 1 APPL TOPICAL (10:07)
[2024-05-08 11:16] LABS: Glucose, Whole Blood 269 mg/dL (60-115)
--- NOTE | 2024-05-08 11:45 | P.PNGS_ITS ---
Subjective Subjective Date of Service: 05/08/24 Interval history: feeling well no issues Physical Exam 2 Vital Signs: Vital Signs: Last Vital Signs Temp 97 F 05/08/24 07:08 Pulse 65 05/08/24 07:08 Resp 17 05/08/24 07:08 BP 152/82 H 05/08/24 07:55 Pulse Ox 93 05/08/24 08:25 O2 Del Method Room Air 05/08/24 08:25 O2 Flow Rate 2 05/08/24 03:42 BMI result Body Mass Index 39.4 Const: General: cooperative, healthy appearing, comfortable and no acute distress GI: Other: abdo soft nontender nondistended Objective Data Active Medications Acetaminophen (Acetaminophen 325 Mg Tablet) 650 mg PO Q6H PRN PRN Reason: Pain, Mild (Pain Scale 1-3), fever or headache Last Admin: 05/06/24 21:37 Dose: 650 mg Documented By: RENA Amlodipine Besylate (Amlodipine Besylate 2.5 Mg Tablet) 2.5 mg PO DAILY [facility]; Protocol Last Admin: 05/08/24 07:55 Dose: 2.5 mg Documented By: ELEONORA Ampicillin Sodium/Sulbactam Sodium (Ampicillin Sodium/Sulbactam Na 3 Gm Vial) 3 gm IV Q6H [facility] Last Admin: 05/08/24 10:06 Dose: 3 gm Documented By: ELEONORA Atorvastatin Calcium (Atorvastatin Calcium 40 Mg Tablet) 40 mg PO DAILY [facility] Last Admin: 05/08/24 07:56 Dose: 40 mg Documented By: ELEONORA Benzonatate (Benzonatate 100 Mg Capsule) 100 mg PO TID PRN PRN Reason: Cough Calcium Carbonate (Calcium Carbonate 750 Mg Tab.Chew) 750 mg PO Q4H PRN PRN Reason: Heartburn Collagenase (Collagenase Clostridium Hist. 30 Gm Tube) 1 appl TOPICAL DAILY [facility]; Protocol Last Admin: 05/08/24 10:07 Dose: 1 appl Documented By: ELEONORA Docusate Sodium (Docusate Sodium 100 Mg Capsule) 200 mg PO DAILY [facility] Last Admin: 05/08/24 07:54 Dose: 200 mg Documented By: ELEONORA Escitalopram Oxalate (Escitalopram Oxalate 20 Mg Tablet) 20 mg PO DAILY [facility] Last Admin: 05/08/24 07:54 Dose: 20 mg Documented By: ELEONORA Glucose (Glucose Gel 15 Gm Gel..Gram.) 15 gm PO Q15M PRN; Protocol PRN Reason: per Hypoglycemia Standing Ord. Dextrose (D10) 250 mls @ 750 mls/hr IV Q15M PRN; Protocol PRN Reason: per Hypoglycemia Standing Ord. Lactated Ringer's (Lr) 1,000 mls @ 125 mls/hr IVCONT .Q8H [facility] Last Admin: 05/08/24 07:52 Dose: 125 mls/hr Documented By: ELEONORA Insulin Human Lispro (Insulin Lispro 100 Unit/Ml 3 Ml Vial) 0 unit SUBCUT QIDACHS [facility]; Protocol Last Admin: 05/08/24 07:53 Dose: 2 unit Documented By: ELEONORA Magnesium Hydroxide (Milk Of Magnesia 30 Ml Oral.Susp) 30 ml PO DAILY PRN PRN Reason: Constipation Morphine Sulfate (Morphine Sulfate Er 30 Mg Tablet.Er) 30 mg PO BEDTIME [facility] Last Admin: 05/07/24 22:32 Dose: 30 mg Documented By: LUCILLE Morphine Sulfate (Morphine Sulfate Er 30 Mg Tablet.Er) 60 mg PO DAILY [facility] Last Admin: 05/08/24 07:55 Dose: 60 mg Documented By: ELEONORA Ondansetron HCl (Ondansetron Hcl 4 Mg/2 Ml Vial) 4 mg IVPUSH Q8H PRN PRN Reason: Nausea and Vomiting Polyethylene Glycol (Polyethylene Glycol 3350 17 Gm Powd.Pack) 17 gm PO DAILY PRN PRN Reason: Constipation Quetiapine Fumarate (Quetiapine Fumarate 50 Mg Tablet) 50 mg PO BEDTIME [facility] Last Admin: 05/07/24 22:32 Dose: 50 mg Documented By: LUCILLE Senna (Sennosides 8.6 Mg Tablet) 17.2 mg PO DAILY [facility] Last Admin: 05/08/24 07:54 Dose: 17.2 mg Documented By: ELEONORA Sodium Chloride (0.9 % Sodium Chloride Flush 3 Ml Syringe) 3 ml IVFLUSH QSHIFT [facility] Last Admin: 05/08/24 07:26 Dose: Not Given Documented By: ELEONORA Non-Admin Reason: IV Running Torsemide (Torsemide 20 Mg Tablet) 20 mg PO BID [facility]; Protocol Last Admin: 05/07/24 22:32 Dose: 20 mg Documented By: LUCILLE Zolpidem Tartrate (Zolpidem Tartrate 5 Mg Tablet) 5 mg PO BEDTIME [facility] Last Admin: 05/07/24 22:32 Dose: 5 mg Documented By: LUCILLE Labs 05/08/24 05:30 05/08/24 05:30 Labs: Laboratory Results - last 24 hr 05/07/24 05/07/24 05/07/24 10:29 12:43 16:09 MCV MCH MCHC RDW Plt Count MPV Absolute Nucleated RBC Nucleated RBC % (auto) PT INR Anion Gap Estim Creat Clear Calc Estimated GFR POC Glucose 186 H 217 H Random Glucose Calcium Iron TIBC % Saturation Unsat Iron Binding Ferritin Total Bilirubin Direct Bilirubin AST ALT Alkaline Phosphatase Total Protein Albumin Blood Type O Negative Antibody Screen NEGATIVE 05/07/24 05/08/24 05/08/24 20:19 05:30 07:09 MCV 75.1 L MCH 25.5 L MCHC 34.0 RDW 15.2 Plt Count 339 MPV 10.0 Absolute Nucleated RBC 0.000 Nucleated RBC % (auto) 0.0 PT 13.3 D INR 1.1 Anion Gap 13 Estim Creat Clear Calc 54.4 Estimated GFR 35 POC Glucose 241 H 175 H Random Glucose 191 H Calcium 8.4 Iron 50 TIBC 162 L % Saturation 31 Unsat Iron Binding 112 Ferritin 721 H Total Bilirubin 3.7 H Direct Bilirubin 3.0 H AST 39 H ALT 103 H Alkaline Phosphatase 299 H Total Protein 7.1 Albumin 2.8 L Blood Type Antibody Screen 05/08/24 11:05 MCV MCH MCHC RDW Plt Count MPV Absolute Nucleated RBC Nucleated RBC % (auto) PT INR Anion Gap Estim Creat Clear Calc Estimated GFR POC Glucose 269 H Random Glucose Calcium Iron TIBC % Saturation Unsat Iron Binding Ferritin Total Bilirubin Direct Bilirubin AST ALT Alkaline Phosphatase Total Protein Albumin Blood Type Antibody Screen Microbiology Microbiology Results: Microbiology 05/06/24 10:45 Blood Culture - Preliminary Blood - Venous Enterococcus/Streptococcus sp 05/06/24 10:38 Blood Culture - Preliminary Blood - Venous Enterococcus/Streptococcus sp Procedures Date of Service Date of Service: 05/08/24 Progress Note: A&P Assessment and plan (1) Cholangitis: Status: Acute Assessment and Plan: pt doing well sp ercp and antibx for cholangitis - will plan for lap loli this week possibly tomorrow. will make npo after midnight. Time Spent With Patient Time: Total time managing care of this patient today ____ minutes. Quality Stroke Does the patient have a stroke diagnosis?: No VTE Prior VTE?: No VTE Risk Level:: Medical - moderate - high VTE Device Contraindication: N/A - Device Ordered VTE Drug Contraindication: Treatment Not Indicated
[2024-05-08 16:28] LABS: Glucose, Whole Blood 243 mg/dL (60-115)
[2024-05-08 20:06] LABS: Glucose, Whole Blood 281 mg/dL (60-115)
[2024-05-08] MEDS: QUEtiapine Fumarate 50 MG TABLET PO (20:13)
[2024-05-08] MEDS: Morphine Sulfate ER 30 MG TABLET.ER PO (20:13)
[2024-05-08] MEDS: Zolpidem Tartrate 5 MG TABLET PO (20:14)
[2024-05-09] VITALS (14 sets, daily range): BP systolic 112–180; BP diastolic 60–92; PULSE 64–98; RESP 14–20; TEMP 36.2–36.6; O2SAT 92–97
[2024-05-09] MEDS: Lactated Ringers 1,000 ML 125 ML IVCONT ×3 (00:38→21:26)
[2024-05-09] MEDS: Ampicillin Sodium/Sulbactam Na 3 GM VIAL IV ×3 (04:32→21:20)
--- NOTE | 2024-05-09 05:15 | PC.NURSE ---
Patient is refusing high fall risk precautions despite education. Camera sitter in room.
[2024-05-09 06:18] LABS: Hemoglobin 9.7 g/dl (14.0-18.0); Mean Corpuscular HGB Conc 33.4 g/dl (31.0-36.0); Mean Corpuscular Hemoglobin 25.2 pg (27.0-33.0); Mean Corpuscular Volume 75.3 fL (80.0-98.0); Mean Platelet Volume 10.1 fL (9.4-12.4); Platelet Count 399 X10*3/uL (160-400); Red Blood Count 3.85 X10*6/uL (4.60-5.80); Red Cell Distribution Width 15.4 % (11.0-16.0); White Blood Count 10.9 X10*3/uL (4.8-10.8)
--- NOTE | 2024-05-09 07:00 | CA_ITS ---
Transthoracic Echocardiogram Patient (Last, First, Middle): Hussein Mandujano F Gender: Male Date of : 1965 Age: 58 Procedure Date: 05/09/2024 Procedure Type: Transthoracic Echocardiogram Location: S3W Height: 177.8 cm Weight: 124.29 kg BSA: 2.39 m2 Heart Rate: 75 bpm BP: 138 / 82 mmHg Bus Driver: SB Referring MD: Jason Lam MD Symptoms: r/o endocarditis Study Quality: Poor/limited ordered/HOB up/supine ECG Rhythm: Sinus Conclusions: - Limited echo. - No obvious vegetation noted. Tricuspid valve could not be well visualized. Findings Procedure Information The quality of the study was technically difficult. The study quality is limited by patients body habitus and lung artifact. Left Ventricle Normal left ventricular size and systolic function. The visually estimated ejection fraction is between 55-60%. Aortic Valve There is a normal trileaflet aortic valve. Mitral Valve The mitral valve appears normal. There is no mitral valve regurgitation. There is no mitral valve stenosis. Pulmonic Valve The pulmonic valve was not well visualized. Tricuspid Valve The tricuspid valve was not well visualized. Great Vessels All visible segments of the aorta are normal in size. The visualized portions of the pulmonary artery and branches are normal. Measurements 2D Linear Measurements IVSd: 1.15 0.6-0.9/0.6-1.0 cm LVIDd: 5.64 3.9-5.3/4.2-5.9 cm LVIDd Index: 2.36 2.4-3.2/2.2-3.1 cm/m2 LVIDs: 3.46 2.0-3.6 cm LVPWd: 0.64 0.7-1.1 cm LV Mass: 240.00 67-162/88-224 g LV Mass Index: 100.42 43-95/49-115 g/m2 LVOT Diam: 2.30 3.0+(-)1.3 cm LVOT LVOT Diam: 2.30 LVOT Area: 4.15 Great Vessels Aorta Ao Asc: 2.80 2.1-3.4 cm Updated in Other Vendor System with Status of Final Tyler Clark MD electronically signed on 05/09/2024 2:12:50 PM with status of Final
[2024-05-09 07:19] LABS: Alanine Aminotransferase 88 U/L (0-40); Alkaline Phosphatase 367 U/L (39-117); Anion Gap 16 (12-20); Aspartate Amino Transferase 35 U/L (5-37); Bilirubin Total 2.9 mg/dL (0.0-1.0); Blood Urea Nitrogen 13 mg/dL (9-16); Calcium 8.7 mg/dL (8.4-10.2); Carbon Dioxide 21 mmol/L (22-29); Chloride 101 mmol/L (96-108); Creatinine Clr Calc Pharmacy 62.3; Estimated Glomerular Filt Rate 41; Glucose Random 192 mg/dL (60-115); Potassium 3.3 mmol/L (3.3-5.1); Sodium 135 mmol/L (135-145); Total Protein 7.8 g/dL (6.5-8.0)
[2024-05-09] MEDS: amLODIPine Besylate 2.5 MG TABLET PO (07:56)
[2024-05-09] MEDS: Escitalopram Oxalate 20 MG TABLET PO (07:56)
[2024-05-09] MEDS: Atorvastatin Calcium 40 MG TABLET PO (07:56)
[2024-05-09 07:59] LABS: Glucose, Whole Blood 189 mg/dL (60-115)
--- NOTE | 2024-05-09 08:52 | PM.PNGS ---
Subjective Subjective Date of Service: 05/09/24 Interval history: Patient evaluated today also when hospitalist was evaluated patient. also present. Patient was ready for his laparoscopic cholecystectomy. Physical Exam Vital Signs: Vital Signs: Last Vital Signs Temp 97.6 F 05/09/24 07:51 Pulse 67 05/09/24 07:51 Resp 20 05/09/24 07:51 BP 178/92 H 05/09/24 08:20 Pulse Ox 94 05/09/24 07:51 O2 Del Method Room Air 05/09/24 07:51 O2 Flow Rate 2 05/08/24 03:42 BMI result Body Mass Index 39.4 GI: Other: Abdomen corpulent, soft, benign Objective Data Active Medications Acetaminophen (Acetaminophen 325 Mg Tablet) 650 mg PO Q6H PRN PRN Reason: Pain, Mild (Pain Scale 1-3), fever or headache Last Admin: 05/06/24 21:37 Dose: 650 mg Documented By: RENA Amlodipine Besylate (Amlodipine Besylate 2.5 Mg Tablet) 2.5 mg PO DAILY [facility]; Protocol Last Admin: 05/09/24 07:56 Dose: 2.5 mg Documented By: MORENO Ampicillin Sodium/Sulbactam Sodium (Ampicillin Sodium/Sulbactam Na 3 Gm Vial) 3 gm IV Q6H [facility] Last Admin: 05/09/24 04:32 Dose: 3 gm Documented By: BRYNN Atorvastatin Calcium (Atorvastatin Calcium 40 Mg Tablet) 40 mg PO DAILY [facility] Last Admin: 05/09/24 07:56 Dose: 40 mg Documented By: MORENO Benzonatate (Benzonatate 100 Mg Capsule) 100 mg PO TID PRN PRN Reason: Cough Calcium Carbonate (Calcium Carbonate 750 Mg Tab.Chew) 750 mg PO Q4H PRN PRN Reason: Heartburn Collagenase (Collagenase Clostridium Hist. 30 Gm Tube) 1 appl TOPICAL DAILY [facility]; Protocol Last Admin: 05/08/24 10:07 Dose: 1 appl Documented By: ELEONORA Docusate Sodium (Docusate Sodium 100 Mg Capsule) 200 mg PO DAILY [facility] Last Admin: 05/08/24 07:54 Dose: 200 mg Documented By: ELEONORA Escitalopram Oxalate (Escitalopram Oxalate 20 Mg Tablet) 20 mg PO DAILY [facility] Last Admin: 05/09/24 07:56 Dose: 20 mg Documented By: MORENO Glucose (Glucose Gel 15 Gm Gel..Gram.) 15 gm PO Q15M PRN; Protocol PRN Reason: per Hypoglycemia Standing Ord. Dextrose (D10) 250 mls @ 750 mls/hr IV Q15M PRN; Protocol PRN Reason: per Hypoglycemia Standing Ord. Lactated Ringer's (Lr) 1,000 mls @ 125 mls/hr IVCONT .Q8H [facility] Last Admin: 05/09/24 00:38 Dose: 125 mls/hr Documented By: BRYNN Insulin Human Lispro (Insulin Lispro 100 Unit/Ml 3 Ml Vial) 0 unit SUBCUT QIDACHS [facility]; Protocol Last Admin: 05/09/24 07:55 Dose: Not Given Documented By: MORENO Non-Admin Reason: NPO Magnesium Hydroxide (Milk Of Magnesia 30 Ml Oral.Susp) 30 ml PO DAILY PRN PRN Reason: Constipation Morphine Sulfate (Morphine Sulfate Er 30 Mg Tablet.Er) 30 mg PO BEDTIME [facility] Last Admin: 05/08/24 20:13 Dose: 30 mg Documented By: GUILLERMO Morphine Sulfate (Morphine Sulfate Er 30 Mg Tablet.Er) 60 mg PO DAILY [facility] Last Admin: 05/08/24 07:55 Dose: 60 mg Documented By: ELEONORA Ondansetron HCl (Ondansetron Hcl 4 Mg/2 Ml Vial) 4 mg IVPUSH Q8H PRN PRN Reason: Nausea and Vomiting Polyethylene Glycol (Polyethylene Glycol 3350 17 Gm Powd.Pack) 17 gm PO DAILY PRN PRN Reason: Constipation Quetiapine Fumarate (Quetiapine Fumarate 50 Mg Tablet) 50 mg PO BEDTIME [facility] Last Admin: 05/08/24 20:13 Dose: 50 mg Documented By: GUILLERMO Senna (Sennosides 8.6 Mg Tablet) 17.2 mg PO DAILY [facility] Last Admin: 05/08/24 07:54 Dose: 17.2 mg Documented By: ELEONORA Sodium Chloride (0.9 % Sodium Chloride Flush 3 Ml Syringe) 3 ml IVFLUSH QSHIFT [facility] Last Admin: 05/09/24 07:57 Dose: Not Given Documented By: MORENO Non-Admin Reason: IV Running Torsemide (Torsemide 20 Mg Tablet) 20 mg PO BID [facility]; Protocol Last Admin: 05/07/24 22:32 Dose: 20 mg Documented By: LUCILLE Zolpidem Tartrate (Zolpidem Tartrate 5 Mg Tablet) 5 mg PO BEDTIME [facility] Last Admin: 05/08/24 20:14 Dose: 5 mg Documented By: GUILLERMO Labs 05/09/24 05:38 05/09/24 05:38 Labs: Laboratory Results - last 24 hr 05/08/24 05/08/24 05/08/24 11:05 16:20 19:57 MCV MCH MCHC RDW Plt Count MPV Absolute Nucleated RBC Nucleated RBC % (auto) Anion Gap Estim Creat Clear Calc Estimated GFR POC Glucose 269 H 243 H 281 H Random Glucose Calcium Total Bilirubin AST ALT Alkaline Phosphatase Total Protein Albumin 05/09/24 05/09/24 05:38 07:55 MCV 75.3 L MCH 25.2 L MCHC 33.4 RDW 15.4 Plt Count 399 MPV 10.1 Absolute Nucleated RBC 0.000 Nucleated RBC % (auto) 0.0 Anion Gap 16 Estim Creat Clear Calc 62.3 Estimated GFR 41 POC Glucose 189 H Random Glucose 192 H Calcium 8.7 Total Bilirubin 2.9 H AST 35 ALT 88 H Alkaline Phosphatase 367 H Total Protein 7.8 Albumin 3.0 L Microbiology Microbiology Results: Microbiology 05/08/24 05:30 Blood Culture - Preliminary Blood - Venous No growth after 24 hours. 05/08/24 05:30 Blood Culture - Preliminary Blood - Venous No growth after 24 hours. 05/06/24 10:45 Blood Culture - Preliminary Blood - Venous Enterococcus/Streptococcus sp 05/06/24 10:38 Blood Culture - Preliminary Blood - Venous Enterococcus/Streptococcus sp Procedures Date of Service Date of Service: 05/09/24 Progress Note: A&P Assessment and plan (1) Gallbladder & bile duct stone with obstruction: Status: Acute Plan Risks, benefits, alternatives laparoscopic possible open cholecystectomy and possible cholangiogram reviewed with the patient and included but not limited to bleeding, infection, recurrence of symptoms, numbness, pain, scarring, bowel or bile duct injury or leak and the patient wished to proceed. All questions answered. Arrangements made for this as an add on case for today. Patient was NPO Time Spent With Patient Time: Total time managing care of this patient today ____ minutes. Quality Stroke Does the patient have a stroke diagnosis?: No VTE Prior VTE?: No VTE Risk Level:: Medical - moderate - high VTE Device Contraindication: N/A - Device Ordered VTE Drug Contraindication: Treatment Not Indicated
[2024-05-09] MEDS: Morphine Sulfate ER 30 MG TABLET.ER 60 MG PO (09:09)
[2024-05-09] MEDS: Collagenase Clostridium Hist. 30 GM TUBE 1 APPL TOPICAL (09:56)
--- NOTE | 2024-05-09 10:36 | HO.WOUND ---
Wound Consult: Initial 58yr old? [place] [facility] [place] - See progress notes and H&P for detailed history.? Wound consult placed for Right Diabetic Foot wound.? Patient agreeable to assessment and photo documentation.? Patient reports he treats with outpt Wound Clinic [place] [facility] Estrella ordered Santyl while inpatient to continue enzymatic debridement. Patient and family aware he should continue to treat with outpt clinic for continued debridement and treatment. Right Lateral Plantar Foot Etiology: ?Diabetic Wound Measurements: 3cm x 3cm x 1cm Wound Bed: adherent mclain black necrotic tissue Drainage / Odor: Malodor noted - celestin drainage noted on dressing and linen under foot Edges: ?epibole Aditi wound: callused? No Induration, Fluctuance or Warmth noted Pain: Reports tenderness Goals of Treatment: ? Santyl for continued enzymatic debridement Bilateral Lower Legs noted for venous stasis / Dermatitis - No open wounds noted - firm swelling noted - thickened tissue dry flaking tissue noted - provider to consider ordering Ammonium Lactate (Lac-hydrin) cream from pharmacy. Recommendations: 1. Turn and Reposition every 2 hours and as needed for patient comfort.? Use pillows or wedges to support off loading positions. 2. Off Load all bony prominences with use of pillows and heel boots if needed.? Apply Preventative foams where needed. ? 3. Monitor for incontinence and moisture control, use barrier creams when needed for prevention and treatment. 4. Provide adequate and supplemental nutrition.? 5. Order or Continue low air loss mattress. 6. When applicable maintain blood glucose levels per Providers order. 7. Right Plantar Foot - Elevate Lower Legs - Cleanse with NS moist gauze, Pat dry. Apply skinprep to periwound - apply thick layer of Santyl to entire wound bed, pack with saline moist gauze, apply dry gauze, ABD pad and gauze wrap. Change Daily. Re-consult wound care Nurse for wound deterioration or wound changes.
--- NOTE | 2024-05-09 10:58 | MHC.CM.PN ---
PER MD ROUNDS, PT NOT MEDICALLY CLEARED, PLAN FOR LAP-AIDE TODAY DCP: HOME NO SERVICES VIA FAMILY TRANSPORT
--- NOTE | 2024-05-09 11:33 | MHC.CLN ---
NUTRITION CONSULT FOR POOR PO AND NON HEALING SKIN. PATIENT IS NPO TODAY FOR CHOLECYSTECTOMY. SEEN BY WOUND RN. VENOUS STASIS TO BILATERAL LOWER LEGS AND NO OPEN WOUNDS. RIGHT FOOT WITH DIABETIC WOUND. FOLLOW UP FOR DIET ADVANCEMENT AND INTAKE.
[2024-05-09 11:35] LABS: Glucose, Whole Blood 213 mg/dL (60-115)
[2024-05-09 13:09] LABS: Glucose, Whole Blood 208 mg/dL (60-115)
[2024-05-09] MEDS: Lactated Ringers 1,000 ML 100 ML IVCONT (13:12)
--- NOTE | 2024-05-09 13:52 | P.CONAN_ITS ---
[facility] Active Problems Active Problems: All Active Problems Gallbladder & bile duct stone with obstruction (Acute) Hyponatremia (Acute) Lymphedema (Acute) ETHAN (acute kidney injury) (Acute) Cholangitis (Acute) Secondary hyperparathyroidism (of renal origin) (Acute) Vitamin D deficiency (Acute) Long-term current use of testosterone replacement therapy (Acute) HTN (hypertension) (Acute) Chronic kidney disease, stage III (moderate) (Acute) Opiate use (Acute) History of traumatic brain injury (Acute) Varicose veins of right lower extremity with inflammation (Acute) Lymphedema (Acute) Hypogonadism in male (Acute) Past Medical History Medical History Anasarca Chronic, continuous use of opioids 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 Concussion 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 Diabetes mellitus type 2, controlled Traumatic subarachnoid hemorrhage Traumatic subdural hematoma Temporal skull fracture Traumatic brain injury Major depression Controlled type 2 diabetes mellitus with diabetic nephropathy Nephritis NOS in other disease Chronic kidney disease, stage III (moderate) Other chronic pain Neck pain Dyslipidemia Asthma Anemia of chronic disease Chronic constipation HTN (hypertension) Glaucoma suspect Family History Family history of problems with anesthesia: No Surgical History Surgical History Bilateral inguinal hernia S/P cervical spinal fusion History of Problems with Anesthesia: No Social History Social History Household Members: Family Housing: House Do you presently have visiting nurse or other home services: Yes Patient Tobacco Use Status: Former Tobacco user Tobacco use type: Cigarette Smoked in Last 30 Days: No Use of substances other than those prescribed or required for medical reasons: No Currently Displaying Signs/Symptoms of Drug Intoxication Withdrawal: No Have you been hit, kicked, punched, or otherwise hurt by someone within the past year? If so, by whom?: No Do you feel safe in your current relationship?: Yes Is there a partner from a previous relationship who is making you feel unsafe now?: No Are you made to feel afraid or neglected: No Are you DNR?: No Advance Directives: No Advance Directives Information Provided: Yes Do you have a plan to hurt others: No Plan Recently lost weight without trying: No Eating poorly because of decreased appetite: Yes Nutrition Risks: Difficulty swallowing Poor oral hygiene: No service: No Meds Allergies Allergy/AdvReac Type Severity Reaction Status Date / Time No Known Allergies Allergy Mild NOT Verified 05/06/24 10:18 APPLICABLE Active Medications: Current Medications Acetaminophen (Acetaminophen 325 Mg Tablet) 650 mg PO Q6H PRN PRN Reason: Pain, Mild (Pain Scale 1-3), fever or headache Last Admin: 05/06/24 21:37 Dose: 650 mg Amlodipine Besylate (Amlodipine Besylate 2.5 Mg Tablet) 2.5 mg PO DAILY [facility]; Protocol Last Admin: 05/09/24 07:56 Dose: 2.5 mg Ampicillin Sodium/Sulbactam Sodium (Ampicillin Sodium/Sulbactam Na 3 Gm Vial) 3 gm IV Q6H [facility] Last Admin: 05/09/24 09:10 Dose: 3 gm Atorvastatin Calcium (Atorvastatin Calcium 40 Mg Tablet) 40 mg PO DAILY [facility] Last Admin: 05/09/24 07:56 Dose: 40 mg Benzonatate (Benzonatate 100 Mg Capsule) 100 mg PO TID PRN PRN Reason: Cough Calcium Carbonate (Calcium Carbonate 750 Mg Tab.Chew) 750 mg PO Q4H PRN PRN Reason: Heartburn Collagenase (Collagenase Clostridium Hist. 30 Gm Tube) 1 appl TOPICAL DAILY [facility]; Protocol Last Admin: 05/09/24 09:56 Dose: 1 appl Docusate Sodium (Docusate Sodium 100 Mg Capsule) 200 mg PO DAILY [facility] Last Admin: 05/09/24 10:06 Dose: Not Given Escitalopram Oxalate (Escitalopram Oxalate 20 Mg Tablet) 20 mg PO DAILY [facility] Last Admin: 05/09/24 07:56 Dose: 20 mg Glucose (Glucose Gel 15 Gm Gel..Gram.) 15 gm PO Q15M PRN; Protocol PRN Reason: per Hypoglycemia Standing Ord. Dextrose (D10) 250 mls @ 750 mls/hr IV Q15M PRN; Protocol PRN Reason: per Hypoglycemia Standing Ord. Lactated Ringer's (Lr) 1,000 mls @ 125 mls/hr IVCONT .Q8H [facility] Last Admin: 05/09/24 09:11 Dose: 125 mls/hr Lactated Ringer's (Lr) 1,000 mls @ 100 mls/hr IVCONT .Q10H [facility] Last Admin: 05/09/24 13:12 Dose: 100 mls/hr Cefazolin Sodium/Dextrose (Ancef) 2 gm in 50 mls @ 100 mls/hr IV PREOP ONE Stop: 05/09/24 14:17 Insulin Human Lispro (Insulin Lispro 100 Unit/Ml 3 Ml Vial) 0 unit SUBCUT QIDACHS [facility]; Protocol Last Admin: 05/09/24 11:53 Dose: Not Given Magnesium Hydroxide (Milk Of Magnesia 30 Ml Oral.Susp) 30 ml PO DAILY PRN PRN Reason: Constipation Morphine Sulfate (Morphine Sulfate Er 30 Mg Tablet.Er) 30 mg PO BEDTIME [facility] Last Admin: 05/08/24 20:13 Dose: 30 mg Morphine Sulfate (Morphine Sulfate Er 30 Mg Tablet.Er) 60 mg PO DAILY [facility] Last Admin: 05/09/24 09:09 Dose: 60 mg Ondansetron HCl (Ondansetron Hcl 4 Mg/2 Ml Vial) 4 mg IVPUSH Q8H PRN PRN Reason: Nausea and Vomiting Polyethylene Glycol (Polyethylene Glycol 3350 17 Gm Powd.Pack) 17 gm PO DAILY PRN PRN Reason: Constipation Quetiapine Fumarate (Quetiapine Fumarate 50 Mg Tablet) 50 mg PO BEDTIME [facility] Last Admin: 05/08/24 20:13 Dose: 50 mg Senna (Sennosides 8.6 Mg Tablet) 17.2 mg PO DAILY [facility] Last Admin: 05/09/24 10:06 Dose: Not Given Sodium Chloride (0.9 % Sodium Chloride Flush 3 Ml Syringe) 3 ml IVFLUSH QSHIFT [facility] Last Admin: 05/09/24 07:57 Dose: Not Given Torsemide (Torsemide 20 Mg Tablet) 20 mg PO BID [facility]; Protocol Last Admin: 05/07/24 22:32 Dose: 20 mg Zolpidem Tartrate (Zolpidem Tartrate 5 Mg Tablet) 5 mg PO BEDTIME [facility] Last Admin: 05/08/24 20:14 Dose: 5 mg Home Medications ?Medication ?Instructions ?Recorded ?Confirmed ?Last Taken ?Type atorvastatin 40 mg tablet 40 mg PO DAILY 01/20/22 05/06/24 05/05/24 History amlodipine 2.5 mg tablet 2.5 mg PO DAILY 01/19/24 05/06/24 05/05/24 History aspirin 81 mg tablet,delayed 81 mg PO DAILY 01/19/24 05/06/24 05/05/24 History release docusate sodium 100 mg capsule 200 mg PO DAILY 01/19/24 05/06/24 05/05/24 History (Colace) escitalopram oxalate 20 mg tablet 20 mg PO DAILY 01/19/24 05/06/24 05/05/24 History insulin aspart U-100 100 unit/mL 80 unit subcut TIDAC 01/19/24 05/06/24 05/05/24 History subcutaneous solution (Novolog U-100 Insulin aspart) insulin glargine 100 unit/mL 80 unit subcut BEDTIME 01/19/24 05/06/24 05/05/24 History subcutaneous solution (Lantus U-100 Insulin) ketoconazole 2 % topical cream 1 appl topical DAILY feet 01/19/24 05/06/24 05/05/24 History morphine 30 mg tablet,extended 30 mg PO BEDTIME 01/19/24 05/06/24 05/05/24 History release morphine 30 mg tablet,extended 60 mg PO DAILY 01/19/24 05/06/24 05/05/24 History release polyethylene glycol 3350 17 gram 17 g PO DAILY PRN Constipation 01/19/24 05/06/24 05/05/24 History oral powder packet (Gavilax) quetiapine 50 mg tablet 50 mg PO BEDTIME 01/19/24 05/06/24 05/05/24 History sennosides 8.6 mg tablet (senna) 17.2 mg PO DAILY constipation 01/19/24 05/06/24 05/05/24 History testosterone enanthate 75 mg/0.5 75 mg subcut FR hypogonadism 01/19/24 05/06/24 04/29/24 History mL subcutaneous auto-injector (Xyosted) zolpidem 12.5 mg tablet,extended 12.5 mg PO BEDTIME insomnia 01/19/24 05/06/24 05/05/24 History release,multiphase insulin syringe-needle U-100 1 mL #10 ea 02/01/24 Unknown History 31 gauge x 5/16 (BD Insulin Syringe Ultra-Fine) naloxegol 12.5 mg tablet (Movantik) 12.5 mg PO DAILY PRN Constipation 05/06/24 05/06/24 05/05/24 History Exam Height,Weight and Vital Signs: Height 5 ft 10 in Weight 124.6 kg Last Vital Signs Temp 97.8 F 05/09/24 12:58 Pulse 92 05/09/24 12:58 Resp 18 05/09/24 12:58 BP 173/91 H 05/09/24 12:58 Pulse Ox 92 05/09/24 12:58 O2 Del Method Room Air 05/09/24 12:58 O2 Flow Rate 2 05/08/24 03:42 Pertinent Lab Results Pertinent Lab Results: Laboratory Tests 05/06/24 05/06/24 05/06/24 10:38 10:39 10:45 WBC 18.9 H RBC 4.07 L Hgb 10.4 L Hct 31.0 L MCV 76.2 L MCH 25.6 L MCHC 33.5 RDW 15.1 Plt Count 398 MPV 9.7 Immature Gran % (Auto) 1.0 H Neut % (Auto) 86.3 H Lymph % (Auto) 5.0 L [place] % (Auto) 7.4 Eos % (Auto) 0.1 Baso % (Auto) 0.2 Lymph # (Auto) 0.9 L [place] # (Auto) 1.4 H Eos # (Auto) 0.0 Baso # (Auto) 0.0 Abs Immat Gran (auto) 0.18 H Absolute Neuts (auto) 16.4 H Absolute Nucleated RBC 0.000 Nucleated RBC % (auto) 0.0 PT 16.2 H D INR 1.3 H APTT 35.1 VBG pH VBG pCO2 VBG pO2 VBG HCO3 VBG O2 Saturation VBG Base Excess Sodium 131 L Potassium 3.4 Chloride 99 Carbon Dioxide 20 L Anion Gap 15 BUN 18 H Creatinine 2.18 H Estim Creat Clear Calc 50.3 Estimated GFR 31 POC Glucose Random Glucose 211 H Lactic Acid 1.1 Calcium 8.9 Magnesium 2.1 Iron TIBC % Saturation Unsat Iron Binding Ferritin Total Bilirubin 7.5 H Direct Bilirubin 5.7 H AST 139 H ALT 232 H Alkaline Phosphatase 495 H Ammonia 23 Total Creatine Kinase 52 C-Reactive Protein 14.02 H B-Natriuretic Peptide 51 Total Protein 8.0 Albumin 3.3 L Lipase 12 TSH 3.67 Urine Color Urine Appearance Urine pH Ur Specific [place] Urine Protein Urine Glucose (UA) Urine Ketones Urine Blood Urine Nitrite Ur Leukocyte Esterase Urine RBC Urine WBC Ur Squamous Epith Cells Urine Bacteria Hyaline Casts Urine Opiates Screen Ur Buprenorphine Scrn Ur Oxycodone Screen Urine Methadone Screen Urine Fentanyl Screen Ur Barbiturates Screen Ur Phencyclidine Scrn Ur Amphetamines Screen U Benzodiazepines Scrn Urine Cocaine Screen U Marijuana (THC) Screen Ethyl Alcohol < 10 Hepatitis A IgM Ab Hep Bs Antigen Hep Bs Antibody Hep B Core Total Ab Hepatitis C Ab (EIA) Blood Type Antibody Screen 05/06/24 05/06/24 05/06/24 11:10 11:13 14:27 WBC RBC Hgb Hct MCV MCH MCHC RDW Plt Count MPV Immature Gran % (Auto) Neut % (Auto) Lymph % (Auto) [place] % (Auto) Eos % (Auto) Baso % (Auto) Lymph # (Auto) [place] # (Auto) Eos # (Auto) Baso # (Auto) Abs Immat Gran (auto) Absolute Neuts (auto) Absolute Nucleated RBC Nucleated RBC % (auto) PT INR APTT VBG pH 7.38 VBG pCO2 33 VBG pO2 71 VBG HCO3 20 L VBG O2 Saturation 92.0 VBG Base Excess -4.2 Sodium Potassium Chloride Carbon Dioxide Anion Gap BUN Creatinine Estim Creat Clear Calc Estimated GFR POC Glucose Random Glucose Lactic Acid Calcium Magnesium Iron TIBC % Saturation Unsat Iron Binding Ferritin Total Bilirubin Direct Bilirubin AST ALT Alkaline Phosphatase Ammonia Total Creatine Kinase C-Reactive Protein B-Natriuretic Peptide Total Protein Albumin Lipase TSH Urine Color Dark Yellow Urine Appearance Clear Urine pH 6.0 Ur Specific [place] 1.015 Urine Protein 30 (1+) H Urine Glucose (UA) >=1000 H Urine Ketones Trace Urine Blood Negative Urine Nitrite Negative Ur Leukocyte Esterase Negative Urine RBC 0-2 Urine WBC 0-5 Ur Squamous Epith Cells 0-2 Urine Bacteria None Seen Hyaline Casts 0-2 Urine Opiates Screen POSITIVE H Ur Buprenorphine Scrn Not Detected Ur Oxycodone Screen Not Detected Urine Methadone Screen Not Detected Urine Fentanyl Screen Not Detected Ur Barbiturates Screen Not Detected Ur Phencyclidine Scrn Not Detected Ur Amphetamines Screen Not Detected U Benzodiazepines Scrn POSITIVE H Urine Cocaine Screen Not Detected U Marijuana (THC) Screen Not Detected Ethyl Alcohol Hepatitis A IgM Ab Nonreactive Hep Bs Antigen Negative Hep Bs Antibody REACTIVE Hep B Core Total Ab Nonreactive Hepatitis C Ab (EIA) GRAYZONE Blood Type Antibody Screen 05/06/24 05/07/24 05/07/24 21:26 05:26 07:04 WBC 17.0 H RBC 3.94 L Hgb 10.0 L Hct 29.4 L MCV 74.6 L MCH 25.4 L MCHC 34.0 RDW 15.2 Plt Count 362 MPV 9.5 Immature Gran % (Auto) Neut % (Auto) Lymph % (Auto) [place] % (Auto) Eos % (Auto) Baso % (Auto) Lymph # (Auto) [place] # (Auto) Eos # (Auto) Baso # (Auto) Abs Immat Gran (auto) Absolute Neuts (auto) Absolute Nucleated RBC 0.000 Nucleated RBC % (auto) 0.0 PT 18.3 H INR 1.5 H APTT VBG pH VBG pCO2 VBG pO2 VBG HCO3 VBG O2 Saturation VBG Base Excess Sodium 135 Potassium 3.3 Chloride 104 Carbon Dioxide 18 L Anion Gap 16 BUN 16 Creatinine 1.76 H Estim Creat Clear Calc 60.5 Estimated GFR 40 POC Glucose 184 H 173 H Random Glucose 190 H Lactic Acid Calcium 8.4 Magnesium Iron TIBC % Saturation Unsat Iron Binding Ferritin Total Bilirubin 5.6 H Direct Bilirubin 4.6 H AST 69 H ALT 154 H Alkaline Phosphatase 373 H Ammonia Total Creatine Kinase C-Reactive Protein B-Natriuretic Peptide Total Protein 7.4 Albumin 2.9 L Lipase TSH Urine Color Urine Appearance Urine pH Ur Specific [place] Urine Protein Urine Glucose (UA) Urine Ketones Urine Blood Urine Nitrite Ur Leukocyte Esterase Urine RBC Urine WBC Ur Squamous Epith Cells Urine Bacteria Hyaline Casts Urine Opiates Screen Ur Buprenorphine Scrn Ur Oxycodone Screen Urine Methadone Screen Urine Fentanyl Screen Ur Barbiturates Screen Ur Phencyclidine Scrn Ur Amphetamines Screen U Benzodiazepines Scrn Urine Cocaine Screen U Marijuana (THC) Screen Ethyl Alcohol Hepatitis A IgM Ab Hep Bs Antigen Hep Bs Antibody Hep B Core Total Ab Hepatitis C Ab (EIA) Blood Type Antibody Screen 05/07/24 05/07/24 05/07/24 10:29 12:43 16:09 WBC RBC Hgb Hct MCV MCH MCHC RDW Plt Count MPV Immature Gran % (Auto) Neut % (Auto) Lymph % (Auto) [place] % (Auto) Eos % (Auto) Baso % (Auto) Lymph # (Auto) [place] # (Auto) Eos # (Auto) Baso # (Auto) Abs Immat Gran (auto) Absolute Neuts (auto) Absolute Nucleated RBC Nucleated RBC % (auto) PT INR APTT VBG pH VBG pCO2 VBG pO2 VBG HCO3 VBG O2 Saturation VBG Base Excess Sodium Potassium Chloride Carbon Dioxide Anion Gap BUN Creatinine Estim Creat Clear Calc Estimated GFR POC Glucose 186 H 217 H Random Glucose Lactic Acid Calcium Magnesium Iron TIBC % Saturation Unsat Iron Binding Ferritin Total Bilirubin Direct Bilirubin AST ALT Alkaline Phosphatase Ammonia Total Creatine Kinase C-Reactive Protein B-Natriuretic Peptide Total Protein Albumin Lipase TSH Urine Color Urine Appearance Urine pH Ur Specific [place] Urine Protein Urine Glucose (UA) Urine Ketones Urine Blood Urine Nitrite Ur Leukocyte Esterase Urine RBC Urine WBC Ur Squamous Epith Cells Urine Bacteria Hyaline Casts Urine Opiates Screen Ur Buprenorphine Scrn Ur Oxycodone Screen Urine Methadone Screen Urine Fentanyl Screen Ur Barbiturates Screen Ur Phencyclidine Scrn Ur Amphetamines Screen U Benzodiazepines Scrn Urine Cocaine Screen U Marijuana (THC) Screen Ethyl Alcohol Hepatitis A IgM Ab Hep Bs Antigen Hep Bs Antibody Hep B Core Total Ab Hepatitis C Ab (EIA) Blood Type O Negative Antibody Screen NEGATIVE 05/07/24 05/08/24 05/08/24 20:19 05:30 07:09 WBC 11.6 H RBC 3.57 L Hgb 9.1 L Hct 26.8 L MCV 75.1 L MCH 25.5 L MCHC 34.0 RDW 15.2 Plt Count 339 MPV 10.0 Immature Gran % (Auto) Neut % (Auto) Lymph % (Auto) [place] % (Auto) Eos % (Auto) Baso % (Auto) Lymph # (Auto) [place] # (Auto) Eos # (Auto) Baso # (Auto) Abs Immat Gran (auto) Absolute Neuts (auto) Absolute Nucleated RBC 0.000 Nucleated RBC % (auto) 0.0 PT 13.3 D INR 1.1 APTT VBG pH VBG pCO2 VBG pO2 VBG HCO3 VBG O2 Saturation VBG Base Excess Sodium 136 Potassium 3.4 Chloride 104 Carbon Dioxide 22 Anion Gap 13 BUN 18 H Creatinine 1.96 H Estim Creat Clear Calc 54.4 Estimated GFR 35 POC Glucose 241 H 175 H Random Glucose 191 H Lactic Acid Calcium 8.4 Magnesium Iron 50 TIBC 162 L % Saturation 31 Unsat Iron Binding 112 Ferritin 721 H Total Bilirubin 3.7 H Direct Bilirubin 3.0 H AST 39 H ALT 103 H Alkaline Phosphatase 299 H Ammonia Total Creatine Kinase C-Reactive Protein B-Natriuretic Peptide Total Protein 7.1 Albumin 2.8 L Lipase TSH Urine Color Urine Appearance Urine pH Ur Specific [place] Urine Protein Urine Glucose (UA) Urine Ketones Urine Blood Urine Nitrite Ur Leukocyte Esterase Urine RBC Urine WBC Ur Squamous Epith Cells Urine Bacteria Hyaline Casts Urine Opiates Screen Ur Buprenorphine Scrn Ur Oxycodone Screen Urine Methadone Screen Urine Fentanyl Screen Ur Barbiturates Screen Ur Phencyclidine Scrn Ur Amphetamines Screen U Benzodiazepines Scrn Urine Cocaine Screen U Marijuana (THC) Screen Ethyl Alcohol Hepatitis A IgM Ab Hep Bs Antigen Hep Bs Antibody Hep B Core Total Ab Hepatitis C Ab (EIA) Blood Type Antibody Screen 05/08/24 05/08/24 05/08/24 11:05 16:20 19:57 WBC RBC Hgb Hct MCV MCH MCHC RDW Plt Count MPV Immature Gran % (Auto) Neut % (Auto) Lymph % (Auto) [place] % (Auto) Eos % (Auto) Baso % (Auto) Lymph # (Auto) [place] # (Auto) Eos # (Auto) Baso # (Auto) Abs Immat Gran (auto) Absolute Neuts (auto) Absolute Nucleated RBC Nucleated RBC % (auto) PT INR APTT VBG pH VBG pCO2 VBG pO2 VBG HCO3 VBG O2 Saturation VBG Base Excess Sodium Potassium Chloride Carbon Dioxide Anion Gap BUN Creatinine Estim Creat Clear Calc Estimated GFR POC Glucose 269 H 243 H 281 H Random Glucose Lactic Acid Calcium Magnesium Iron TIBC % Saturation Unsat Iron Binding Ferritin Total Bilirubin Direct Bilirubin AST ALT Alkaline Phosphatase Ammonia Total Creatine Kinase C-Reactive Protein B-Natriuretic Peptide Total Protein Albumin Lipase TSH Urine Color Urine Appearance Urine pH Ur Specific [place] Urine Protein Urine Glucose (UA) Urine Ketones Urine Blood Urine Nitrite Ur Leukocyte Esterase Urine RBC Urine WBC Ur Squamous Epith Cells Urine Bacteria Hyaline Casts Urine Opiates Screen Ur Buprenorphine Scrn Ur Oxycodone Screen Urine Methadone Screen Urine Fentanyl Screen Ur Barbiturates Screen Ur Phencyclidine Scrn Ur Amphetamines Screen U Benzodiazepines Scrn Urine Cocaine Screen U Marijuana (THC) Screen Ethyl Alcohol Hepatitis A IgM Ab Hep Bs Antigen Hep Bs Antibody Hep B Core Total Ab Hepatitis C Ab (EIA) Blood Type Antibody Screen 05/09/24 05/09/24 05/09/24 05:38 07:55 11:23 WBC 10.9 H RBC 3.85 L Hgb 9.7 L Hct 29.0 L MCV 75.3 L MCH 25.2 L MCHC 33.4 RDW 15.4 Plt Count 399 MPV 10.1 Immature Gran % (Auto) Neut % (Auto) Lymph % (Auto) [place] % (Auto) Eos % (Auto) Baso % (Auto) Lymph # (Auto) [place] # (Auto) Eos # (Auto) Baso # (Auto) Abs Immat Gran (auto) Absolute Neuts (auto) Absolute Nucleated RBC 0.000 Nucleated RBC % (auto) 0.0 PT INR APTT VBG pH VBG pCO2 VBG pO2 VBG HCO3 VBG O2 Saturation VBG Base Excess Sodium 135 Potassium 3.3 Chloride 101 Carbon Dioxide 21 L Anion Gap 16 BUN 13 Creatinine 1.71 H Estim Creat Clear Calc 62.3 Estimated GFR 41 POC Glucose 189 H 213 H Random Glucose 192 H Lactic Acid Calcium 8.7 Magnesium Iron TIBC % Saturation Unsat Iron Binding Ferritin Total Bilirubin 2.9 H Direct Bilirubin AST 35 ALT 88 H Alkaline Phosphatase 367 H Ammonia Total Creatine Kinase C-Reactive Protein B-Natriuretic Peptide Total Protein 7.8 Albumin 3.0 L Lipase TSH Urine Color Urine Appearance Urine pH Ur Specific [place] Urine Protein Urine Glucose (UA) Urine Ketones Urine Blood Urine Nitrite Ur Leukocyte Esterase Urine RBC Urine WBC Ur Squamous Epith Cells Urine Bacteria Hyaline Casts Urine Opiates Screen Ur Buprenorphine Scrn Ur Oxycodone Screen Urine Methadone Screen Urine Fentanyl Screen Ur Barbiturates Screen Ur Phencyclidine Scrn Ur Amphetamines Screen U Benzodiazepines Scrn Urine Cocaine Screen U Marijuana (THC) Screen Ethyl Alcohol Hepatitis A IgM Ab Hep Bs Antigen Hep Bs Antibody Hep B Core Total Ab Hepatitis C Ab (EIA) Blood Type Antibody Screen 05/09/24 13:05 WBC RBC Hgb Hct MCV MCH MCHC RDW Plt Count MPV Immature Gran % (Auto) Neut % (Auto) Lymph % (Auto) [place] % (Auto) Eos % (Auto) Baso % (Auto) Lymph # (Auto) [place] # (Auto) Eos # (Auto) Baso # (Auto) Abs Immat Gran (auto) Absolute Neuts (auto) Absolute Nucleated RBC Nucleated RBC % (auto) PT INR APTT VBG pH VBG pCO2 VBG pO2 VBG HCO3 VBG O2 Saturation VBG Base Excess Sodium Potassium Chloride Carbon Dioxide Anion Gap BUN Creatinine Estim Creat Clear Calc Estimated GFR POC Glucose 208 H Random Glucose Lactic Acid Calcium Magnesium Iron TIBC % Saturation Unsat Iron Binding Ferritin Total Bilirubin Direct Bilirubin AST ALT Alkaline Phosphatase Ammonia Total Creatine Kinase C-Reactive Protein B-Natriuretic Peptide Total Protein Albumin Lipase TSH Urine Color Urine Appearance Urine pH Ur Specific [place] Urine Protein Urine Glucose (UA) Urine Ketones Urine Blood Urine Nitrite Ur Leukocyte Esterase Urine RBC Urine WBC Ur Squamous Epith Cells Urine Bacteria Hyaline Casts Urine Opiates Screen Ur Buprenorphine Scrn Ur Oxycodone Screen Urine Methadone Screen Urine Fentanyl Screen Ur Barbiturates Screen Ur Phencyclidine Scrn Ur Amphetamines Screen U Benzodiazepines Scrn Urine Cocaine Screen U Marijuana (THC) Screen Ethyl Alcohol Hepatitis A IgM Ab Hep Bs Antigen Hep Bs Antibody Hep B Core Total Ab Hepatitis C Ab (EIA) Blood Type Antibody Screen Airway Mallampati Class: III TM Dist: >3cm Neck ROM: Full Assessment and Plan Assessment Anesthesia Assessment: Anesthesia Plan Discussed and Chart Reviewed Final Anesthetic Review Family History of Problems with Anesthesia: No History of Problems with Anesthesia: No NPO: Yes ASA Class: III and Emergency Final Preanesthetic Review: No Changes in Pt Med Stat, Meds/Allgs Chart Reviewed, Consent Obtained/Reviewed and Anes Risks/Benef Reviewed Patient Risk: Intermediate Procedure Risk: Intermediate Anesthetic Plan Anesthetic Plan: GA Disposition: Standard PACU
--- NOTE | 2024-05-09 13:52 | MHC.SHP ---
Pre-Procedural Eval Section A - 24 Hr Update-Section A only Date of Service: 05/09/24 The patient is an INPATIENT: Yes Changes since office visit: No Cold of Flu in the past 2 weeks, No New Medical Problems, No Changes in Medication and No Patient answered all questions The patient has been examined within 24 hours of the surgical procedure. The History & Physical has been completed within 30 days and I have reviewed it.: Yes Section B - Complete if H&P > 30 days Chief Complaint: Cholangitis Allergies: Allergies Allergy/AdvReac Type Severity Reaction Status Date / Time No Known Allergies Allergy Mild NOT Verified 05/06/24 10:18 APPLICABLE Plan I have reviewed the history and physical and performed a pertinent physical examination on my patient. No changes have occurred unless specified. Time Spent With Patient Time: Total time managing care of this patient today ____ minutes.
--- NOTE | 2024-05-09 13:57 | P.PNIM_ITS ---
Subjective Subjective Date of Service: 05/09/24 Interval History: NPO for laparoscopic cholecystectomy Offers no acute complaints of abdominal pain, no fevers, no nausea, no vomiting, no acute events overnight. Review of Systems All other system are reviewed and negative. Physical Exam 2 Vital Signs: Vital Signs: Last Vital Signs Temp 97.8 F 05/09/24 12:58 Pulse 92 05/09/24 12:58 Resp 18 05/09/24 12:58 BP 173/91 H 05/09/24 12:58 Pulse Ox 92 05/09/24 12:58 O2 Del Method Room Air 05/09/24 12:58 O2 Flow Rate 2 05/08/24 03:42 BMI result Body Mass Index 39.4 Const: Other: Gen: in no acute distress HEENT: sclera icteric, moist mucus membranes Neck: supple Lungs: clear to auscultation bilaterally Heart: regular rate and rhythm, no murmurs Abd: soft, non tender, bowel sounds audible Ext: no edema Skin: warm/well-perfused, jaundiced Neuro: alert and oriented x3, no focal findings Psych: appropriate affect Objective Data Active Medications Acetaminophen (Acetaminophen 325 Mg Tablet) 650 mg PO Q6H PRN PRN Reason: Pain, Mild (Pain Scale 1-3), fever or headache Last Admin: 05/06/24 21:37 Dose: 650 mg Documented By: RENA Amlodipine Besylate (Amlodipine Besylate 2.5 Mg Tablet) 2.5 mg PO DAILY [facility]; Protocol Last Admin: 05/09/24 07:56 Dose: 2.5 mg Documented By: MORENO Ampicillin Sodium/Sulbactam Sodium (Ampicillin Sodium/Sulbactam Na 3 Gm Vial) 3 gm IV Q6H [facility] Last Admin: 05/09/24 09:10 Dose: 3 gm Documented By: MORENO Atorvastatin Calcium (Atorvastatin Calcium 40 Mg Tablet) 40 mg PO DAILY [facility] Last Admin: 05/09/24 07:56 Dose: 40 mg Documented By: MORENO Benzonatate (Benzonatate 100 Mg Capsule) 100 mg PO TID PRN PRN Reason: Cough Calcium Carbonate (Calcium Carbonate 750 Mg Tab.Chew) 750 mg PO Q4H PRN PRN Reason: Heartburn Collagenase (Collagenase Clostridium Hist. 30 Gm Tube) 1 appl TOPICAL DAILY [facility]; Protocol Last Admin: 05/09/24 09:56 Dose: 1 appl Documented By: MORENO Docusate Sodium (Docusate Sodium 100 Mg Capsule) 200 mg PO DAILY [facility] Last Admin: 05/09/24 10:06 Dose: Not Given Documented By: MORENO Non-Admin Reason: Patient Refused Escitalopram Oxalate (Escitalopram Oxalate 20 Mg Tablet) 20 mg PO DAILY [facility] Last Admin: 05/09/24 07:56 Dose: 20 mg Documented By: MORENO Fentanyl (Fentanyl Citrate/Pf 100 Mcg/2 Ml Vial) 50 mcg IVPUSH Q5M PRN PRN Reason: Pain, Severe (Pain Scale 7-10) Stop: 05/09/24 19:54 Glucose (Glucose Gel 15 Gm Gel..Gram.) 15 gm PO Q15M PRN; Protocol PRN Reason: per Hypoglycemia Standing Ord. Dextrose (D10) 250 mls @ 750 mls/hr IV Q15M PRN; Protocol PRN Reason: per Hypoglycemia Standing Ord. Lactated Ringer's (Lr) 1,000 mls @ 125 mls/hr IVCONT .Q8H [facility] Last Admin: 05/09/24 09:11 Dose: 125 mls/hr Documented By: MORENO Lactated Ringer's (Lr) 1,000 mls @ 100 mls/hr IVCONT .Q10H [facility] Last Admin: 05/09/24 13:12 Dose: 100 mls/hr Documented By: RONI Cefazolin Sodium/Dextrose (Ancef) 2 gm in 50 mls @ 100 mls/hr IV PREOP ONE Stop: 05/09/24 14:17 Insulin Human Lispro (Insulin Lispro 100 Unit/Ml 3 Ml Vial) 0 unit SUBCUT QIDACHS [facility]; Protocol Last Admin: 05/09/24 11:53 Dose: Not Given Documented By: MORENO Non-Admin Reason: NPO Magnesium Hydroxide (Milk Of Magnesia 30 Ml Oral.Susp) 30 ml PO DAILY PRN PRN Reason: Constipation Morphine Sulfate (Morphine Sulfate Er 30 Mg Tablet.Er) 30 mg PO BEDTIME [facility] Last Admin: 05/08/24 20:13 Dose: 30 mg Documented By: TARGOLDIE Morphine Sulfate (Morphine Sulfate Er 30 Mg Tablet.Er) 60 mg PO DAILY [facility] Last Admin: 05/09/24 09:09 Dose: 60 mg Documented By: MORENO Ondansetron HCl (Ondansetron Hcl 4 Mg/2 Ml Vial) 4 mg IVPUSH Q8H PRN PRN Reason: Nausea and Vomiting Ondansetron HCl (Ondansetron Hcl 4 Mg/2 Ml Vial) 4 mg IVPUSH ONCE PRN PRN Reason: Nausea and Vomiting Stop: 05/09/24 19:54 Polyethylene Glycol (Polyethylene Glycol 3350 17 Gm Powd.Pack) 17 gm PO DAILY PRN PRN Reason: Constipation Quetiapine Fumarate (Quetiapine Fumarate 50 Mg Tablet) 50 mg PO BEDTIME [facility] Last Admin: 05/08/24 20:13 Dose: 50 mg Documented By: GUILLERMO Senna (Sennosides 8.6 Mg Tablet) 17.2 mg PO DAILY [facility] Last Admin: 05/09/24 10:06 Dose: Not Given Documented By: MORENO Non-Admin Reason: Patient Refused Sodium Chloride (0.9 % Sodium Chloride Flush 3 Ml Syringe) 3 ml IVFLUSH QSHIFT [facility] Last Admin: 05/09/24 07:57 Dose: Not Given Documented By: MORENO Non-Admin Reason: IV Running Torsemide (Torsemide 20 Mg Tablet) 20 mg PO BID [facility]; Protocol Last Admin: 05/07/24 22:32 Dose: 20 mg Documented By: LUCILLE Zolpidem Tartrate (Zolpidem Tartrate 5 Mg Tablet) 5 mg PO BEDTIME [facility] Last Admin: 05/08/24 20:14 Dose: 5 mg Documented By: GUILLERMO Labs 05/09/24 05:38 05/09/24 05:38 Labs: Laboratory Results - last 24 hr 05/08/24 05/08/24 05/09/24 16:20 19:57 05:38 MCV 75.3 L MCH 25.2 L MCHC 33.4 RDW 15.4 Plt Count 399 MPV 10.1 Absolute Nucleated RBC 0.000 Nucleated RBC % (auto) 0.0 Anion Gap 16 Estim Creat Clear Calc 62.3 Estimated GFR 41 POC Glucose 243 H 281 H Random Glucose 192 H Calcium 8.7 Total Bilirubin 2.9 H AST 35 ALT 88 H Alkaline Phosphatase 367 H Total Protein 7.8 Albumin 3.0 L 07/08/24 07/08/24 07/08/24 07:55 11:23 13:05 MCV MCH MCHC RDW Plt Count MPV Absolute Nucleated RBC Nucleated RBC % (auto) Anion Gap Estim Creat Clear Calc Estimated GFR POC Glucose 189 H 213 H 208 H Random Glucose Calcium Total Bilirubin AST ALT Alkaline Phosphatase Total Protein Albumin Microbiology Microbiology Results: Microbiology 05/08/24 05:30 Blood Culture - Preliminary Blood - Venous No growth after 24 hours. 05/08/24 05:30 Blood Culture - Preliminary Blood - Venous No growth after 24 hours. Assessment and Plan (1) Cholangitis: Status: Acute Plan 58yo M with HTN, HLD, CKD3, DM2, hx TBI 2016, hypogonadism, anxiety, panic disorder with agoraphobia, presenting with fever, AMS, and jaundice, admitted for sepsis from cholangitis/bacteremia Sepsis due to acute cholangitis + GPC bacteremia -no fevers WBC trending down - started on pip/fatemeh 05/06-, changed to amp/sul 05/07- BC grew GPCs as likely enterococcal /streptococcal infection; repeat BCx 05/08 preliminary x2 negative /transthoracic echo pending to rule out vegetation. - ERCP + sphincterotomy done 05/[address] Gross, no choledocholithiasis; likely passed a stone, will avoid all aspirin, NSAIDs and blood thinners x1 week LFTs trending down - scheduled for lap loli today dysphagia to solids - EGD at same time as ERCP per GI showed only small hiatal hernia, follow clinical once place on diet. coagulopathy - resolved s/p vit K given ETHAN/CKD3 - creatinine at baseline, will DC IV fluids once placed on diet, hold torsemide. mild hypovolemic hyponatremia - resolved after fluid resuscitation. chronic nonhealing DFU R foot - seen by wound nurse for right plantar wound she recommend Santyl with daily dressing, also recommend ammonium lactate cream for both legs due to thick dry skin. chronic lymphedema -stable, hold diuretics HTN - amlodipine HLD - statin DM2 - basal-bolus insulin chronic pain - continue MSSR mood disorder - continue quetiapine + escitalopram + zolpidem VTE ppx - SCDs; no blood thinners for at least 1 wk p sphincterotomy dispo - TBD In my clinical judgment, the patient requires continued inpatient hospitalization for the following reasons: surgery, IV ABX for bacteremia Total time managing care of this patient today: 45 minutes. Quality Stroke Does the patient have a stroke diagnosis?: No VTE Prior VTE?: No VTE Risk Level:: Medical - moderate - high VTE Device Contraindication: N/A - Device Ordered VTE Drug Contraindication: Treatment Not Indicated
[2024-05-09] MEDS: ceFAZolin Sodium/Dextrose,Iso 2 GM/50 ML PIGGYBACK IV (14:12)
--- NOTE | 2024-05-09 15:27 | W.PM.OPN ---
Operative Note Operative Note Date of Service: 05/09/24 Narrative: Preoperative diagnosis: [] History of cholangitis, symptomatic gallstones Postop diagnosis: [] The same Procedure [] laparoscopic cholecystectomy Surgeon: [] Don. Forensic Science Technician: [] Michaela Type of Anesthesia: [] General Indication for surgery: [] Very corpulent abdomen. Omental and gastric adhesions to the gallbladder. Extremely intrahepatic gallbladder. Multiple gallstones and sludge in the gallbladder. Gallstone impacted in the cystic duct/Daniel's pouch junction. Findings: [] Patient brought to the operating room, placed on operative table in supine position, after an adequate level general anesthesia was induced, the patient's abdomen which is very corpulent was prepped and draped in usual sterile fashion. Using a supraumbilical curvilinear incision, Rao technique was used to insufflate the abdominal cavity to 15 mm CO2. Upper midline and right subcostal were placed under direct laparoscopic view and the patient placed in reverse Trendelenburg position and tilted to the left. Gallbladder was grasped using laparoscopic graspers and retracted superiorly and laterally. Soft Gastric and omental adhesions were swept off the gallbladder where its hilum was approached. There was marked cicatrization and scarring here. At the cystic duct/Daniel's pouch junction, a stone was impacted. This was encircled and cystic duct and cystic artery were identified, circumferentially skeletonized, traced directly into the gallbladder and critical view obtained. Each was clipped proximally x2, distally x1, and transected. The gallbladder, which was very intrahepatic , was then cauterized from the gallbladder fossa using Bovie. Specimen was placed in an Endo-Catch bag, a retrieved through the umbilical port. Wound was irrigated, secured hemostasis,. A Pablo-Castillo drain was left in the gallbladder fossa and exited through the right lateral subcostal port. This was secured to the skin using 2-0 Vicryl suture. Abdominal cavity was again secured for hemostasis and all ports removed under direct laparoscopic view. Wounds were closed in the following manner; umbilical wound has fascia reapproximated using interrupted 0 Vicryl sutures. Skin wounds were closed using subcuticular 4-0 Vicryl sutures followed by Steri-Strips and sterile dressings. Wounds were infiltrated 0.5% Marcaine at completion. Sponge, needle, and instrument counts reported correct. Patient tolerated the procedure well and emerged from anesthesia stable condition. EBL minimal
[2024-05-09] MEDS: fentaNYL citrate/PF 100 MCG/2 ML VIAL 50 MCG IVPUSH (16:15)
--- NOTE | 2024-05-09 16:37 | P.CNID_ITS ---
History of Present Illness Data of Consult Service Date: 05/09/24 Requesting physician: Jason Lam Primary Care Provider: Madonna Plascencia MD HPI Reason for consult: common bile duct enlargement,strep anginosus bacteremia He presents with confusion and fever to 103. He has strep anginosis blood and concern over cholecystitis. He is going to surgery. 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 Diabetes mellitus type 2, controlled Traumatic subarachnoid hemorrhage Traumatic subdural hematoma Temporal skull fracture Traumatic brain injury Major depression Controlled type 2 diabetes mellitus with diabetic nephropathy Nephritis NOS in other disease Chronic kidney disease, stage III (moderate) Other chronic pain Neck pain Dyslipidemia Asthma Anemia of chronic disease Chronic constipation HTN (hypertension) Glaucoma suspect Family History Family history: reviewed and not pertinent Surgical History Surgical History Bilateral inguinal hernia S/P cervical spinal fusion Social History Social History Household Members: Family Housing: House Do you presently have visiting nurse or other home services: Yes Patient Tobacco Use Status: Former Tobacco user Tobacco use type: Cigarette Smoked in Last 30 Days: No Use of substances other than those prescribed or required for medical reasons: No Currently Displaying Signs/Symptoms of Drug Intoxication Withdrawal: No Have you been hit, kicked, punched, or otherwise hurt by someone within the past year? If so, by whom?: No Do you feel safe in your current relationship?: Yes Is there a partner from a previous relationship who is making you feel unsafe now?: No Are you made to feel afraid or neglected: No Are you DNR?: No Advance Directives: No Advance Directives Information Provided: Yes Do you have a plan to hurt others: No Plan Recently lost weight without trying: No Eating poorly because of decreased appetite: Yes Nutrition Risks: Difficulty swallowing Poor oral hygiene: No service: No Meds Allergies Allergy/AdvReac Type Severity Reaction Status Date / Time No Known Allergies Allergy Mild NOT Verified 05/06/24 10:18 APPLICABLE Active Medications: Current Medications Acetaminophen (Acetaminophen 325 Mg Tablet) 650 mg PO Q6H PRN PRN Reason: Pain, Mild (Pain Scale 1-3), fever or headache Last Admin: 05/06/24 21:37 Dose: 650 mg Amlodipine Besylate (Amlodipine Besylate 2.5 Mg Tablet) 2.5 mg PO DAILY [facility]; Protocol Last Admin: 05/09/24 07:56 Dose: 2.5 mg Ampicillin Sodium/Sulbactam Sodium (Ampicillin Sodium/Sulbactam Na 3 Gm Vial) 3 gm IV Q6H [facility] Last Admin: 05/09/24 15:44 Dose: Not Given Atorvastatin Calcium (Atorvastatin Calcium 40 Mg Tablet) 40 mg PO DAILY [facility] Last Admin: 05/09/24 07:56 Dose: 40 mg Benzonatate (Benzonatate 100 Mg Capsule) 100 mg PO TID PRN PRN Reason: Cough Calcium Carbonate (Calcium Carbonate 750 Mg Tab.Chew) 750 mg PO Q4H PRN PRN Reason: Heartburn Collagenase (Collagenase Clostridium Hist. 30 Gm Tube) 1 appl TOPICAL DAILY [facility]; Protocol Last Admin: 05/09/24 09:56 Dose: 1 appl Docusate Sodium (Docusate Sodium 100 Mg Capsule) 200 mg PO DAILY [facility] Last Admin: 05/09/24 10:06 Dose: Not Given Escitalopram Oxalate (Escitalopram Oxalate 20 Mg Tablet) 20 mg PO DAILY [facility] Last Admin: 05/09/24 07:56 Dose: 20 mg Fentanyl (Fentanyl Citrate/Pf 100 Mcg/2 Ml Vial) 50 mcg IVPUSH Q5M PRN PRN Reason: Pain, Severe (Pain Scale 7-10) Stop: 05/09/24 19:54 Last Admin: 05/09/24 16:15 Dose: 50 mcg Glucose (Glucose Gel 15 Gm Gel..Gram.) 15 gm PO Q15M PRN; Protocol PRN Reason: per Hypoglycemia Standing Ord. Dextrose (D10) 250 mls @ 750 mls/hr IV Q15M PRN; Protocol PRN Reason: per Hypoglycemia Standing Ord. Lactated Ringer's (Lr) 1,000 mls @ 125 mls/hr IVCONT .Q8H [facility] Last Admin: 05/09/24 09:11 Dose: 125 mls/hr Lactated Ringer's (Lr) 1,000 mls @ 100 mls/hr IVCONT .Q10H [facility] Last Admin: 05/09/24 13:12 Dose: 100 mls/hr Insulin Human Lispro (Insulin Lispro 100 Unit/Ml 3 Ml Vial) 0 unit SUBCUT QIDACHS [facility]; Protocol Last Admin: 05/09/24 11:53 Dose: Not Given Lactic Acid (Ammonium Lactate 12 % Cream 140 Gm Tube) 1 appl TOPICAL DAILY [facility]; Protocol Magnesium Hydroxide (Milk Of Magnesia 30 Ml Oral.Susp) 30 ml PO DAILY PRN PRN Reason: Constipation Morphine Sulfate (Morphine Sulfate Er 30 Mg Tablet.Er) 30 mg PO BEDTIME [facility] Last Admin: 05/08/24 20:13 Dose: 30 mg Morphine Sulfate (Morphine Sulfate Er 30 Mg Tablet.Er) 60 mg PO DAILY [facility] Last Admin: 05/09/24 09:09 Dose: 60 mg Ondansetron HCl (Ondansetron Hcl 4 Mg/2 Ml Vial) 4 mg IVPUSH Q8H PRN PRN Reason: Nausea and Vomiting Ondansetron HCl (Ondansetron Hcl 4 Mg/2 Ml Vial) 4 mg IVPUSH ONCE PRN PRN Reason: Nausea and Vomiting Stop: 05/09/24 19:54 Polyethylene Glycol (Polyethylene Glycol 3350 17 Gm Powd.Pack) 17 gm PO DAILY PRN PRN Reason: Constipation Quetiapine Fumarate (Quetiapine Fumarate 50 Mg Tablet) 50 mg PO BEDTIME [facility] Last Admin: 05/08/24 20:13 Dose: 50 mg Senna (Sennosides 8.6 Mg Tablet) 17.2 mg PO DAILY [facility] Last Admin: 05/09/24 10:06 Dose: Not Given Sodium Chloride (0.9 % Sodium Chloride Flush 3 Ml Syringe) 3 ml IVFLUSH QSHIFT [facility] Last Admin: 05/09/24 15:44 Dose: Not Given Torsemide (Torsemide 20 Mg Tablet) 20 mg PO BID [facility]; Protocol Last Admin: 05/07/24 22:32 Dose: 20 mg Zolpidem Tartrate (Zolpidem Tartrate 5 Mg Tablet) 5 mg PO BEDTIME [facility] Last Admin: 05/08/24 20:14 Dose: 5 mg Home Medications ?Medication ?Instructions ?Recorded ?Confirmed ?Last Taken ?Type atorvastatin 40 mg tablet 40 mg PO DAILY 01/20/22 05/06/24 05/05/24 History amlodipine 2.5 mg tablet 2.5 mg PO DAILY 01/19/24 05/06/24 05/05/24 History aspirin 81 mg tablet,delayed 81 mg PO DAILY 01/19/24 05/06/24 05/05/24 History release docusate sodium 100 mg capsule 200 mg PO DAILY 01/19/24 05/06/24 05/05/24 History (Colace) escitalopram oxalate 20 mg tablet 20 mg PO DAILY 01/19/24 05/06/24 05/05/24 History insulin aspart U-100 100 unit/mL 80 unit subcut TIDAC 01/19/24 05/06/24 05/05/24 History subcutaneous solution (Novolog U-100 Insulin aspart) insulin glargine 100 unit/mL 80 unit subcut BEDTIME 01/19/24 05/06/24 05/05/24 History subcutaneous solution (Lantus U-100 Insulin) ketoconazole 2 % topical cream 1 appl topical DAILY feet 01/19/24 05/06/24 05/05/24 History morphine 30 mg tablet,extended 30 mg PO BEDTIME 01/19/24 05/06/24 05/05/24 History release morphine 30 mg tablet,extended 60 mg PO DAILY 01/19/24 05/06/24 05/05/24 History release polyethylene glycol 3350 17 gram 17 g PO DAILY PRN Constipation 01/19/24 05/06/24 05/05/24 History oral powder packet (Gavilax) quetiapine 50 mg tablet 50 mg PO BEDTIME 01/19/24 05/06/24 05/05/24 History sennosides 8.6 mg tablet (senna) 17.2 mg PO DAILY constipation 01/19/24 05/06/24 05/05/24 History testosterone enanthate 75 mg/0.5 75 mg subcut FR hypogonadism 01/19/24 05/06/24 04/29/24 History mL subcutaneous auto-injector (Xyosted) zolpidem 12.5 mg tablet,extended 12.5 mg PO BEDTIME insomnia 01/19/24 05/06/24 05/05/24 History release,multiphase insulin syringe-needle U-100 1 mL #10 ea 02/01/24 Unknown History 31 gauge x 5/16 (BD Insulin Syringe Ultra-Fine) naloxegol 12.5 mg tablet (Movantik) 12.5 mg PO DAILY PRN Constipation 05/06/24 05/06/24 05/05/24 History Physical Exam 2 Vital Signs: Vital Signs: Last Vital Signs Temp 97.5 F 05/09/24 16:25 Pulse 79 05/09/24 16:25 Resp 14 05/09/24 16:25 BP 145/73 H 05/09/24 16:25 Pulse Ox 96 05/09/24 16:25 O2 Del Method Nasal Cannula 05/09/24 16:25 O2 Flow Rate 2 05/09/24 16:25 BMI result Body Mass Index 39.4 Const: General: cooperative HEENT: Head: Yes normal to inspection Face and sinus: Yes normal facial exam Mouth: Normal oral and palatal mucosa present Teeth and gingiva: d entition normal Eyes: General: appearance normal, both eyes and all related structures P upils: Equal, round and reactive pupils present Resp: Effort & Inspection: normal respiratory effort Cardio: Rate: regular rate Rhythm: regular rhythm GI: Palpation (GI): Soft to palpation and Tenderness to palpation present (GI) (RUQ) : General: Yes no CVA tenderness Back/Spine/Pelvis: Back: no CVA tenderness Skin: General skin exam: no rashes or lesions noted Neuro: General: moves all extremities Cranial nerves: Yes Equal, round and reactive pupils present Extrem: General: Yes normal to inspection Psych: Appearance: grossly normal Results Labs 05/09/24 05:38 05/09/24 05:38 Labs: Short CBC 05/09/24 Range/Units 05:38 WBC 10.9 H (4.8-10.8) X10*3/uL Hgb 9.7 L (14.0-18.0) g/dl Hct 29.0 L (42.0-52.0) % Plt Count 399 (160-400) X10*3/uL BMP 05/09/24 05:38 Sodium 135 Potassium 3.3 Chloride 101 Carbon Dioxide 21 L BUN 13 Creatinine 1.71 H Calcium 8.7 Liver Function 05/09/24 Range/Units 05:38 Total Bilirubin 2.9 H (0.0-1.0) mg/dL AST 35 (5-37) U/L ALT 88 H (0-40) U/L Alkaline Phosphatase 367 H (39-117) U/L Albumin 3.0 L (3.5-5.0) g/dL Microbiology Microbiology Results: Microbiology 05/06/24 10:45 Blood - Venous Blood Culture - Final Streptococcus anginosus 05/06/24 10:38 Blood - Venous Blood Culture - Final Streptococcus anginosus 05/08/24 05:30 Blood - Venous Blood Culture - Preliminary No growth after 24 hours. 05/08/24 05:30 Blood - Venous Blood Culture - Preliminary No growth after 24 hours. Assessment and Plan (1) Gallbladder & bile duct stone with obstruction: Status: Acute (2) Lymphedema: Status: Acute (3) Cholangitis: Status: Acute Plan There is concern over strep bacteremia He has gallbladder source He is getting surgery now. Agree Unasyn for now. On discharge total 14 days antibiotics with po Ceftin 14 d 250 bid due to CKD
[2024-05-09 17:09] LABS: Glucose, Whole Blood 262 mg/dL (60-115)
[2024-05-09] MEDS: Insulin Lispro 100 UNIT/ML 3 ML VIAL SUBCUT ×2 (17:22→21:21)
[2024-05-09] MEDS: oxyCODONE HCl Immed Release 5 MG TABLET PO (17:22)
[2024-05-09 20:09] LABS: Glucose, Whole Blood 296 mg/dL (60-115)
[2024-05-09] MEDS: Zolpidem Tartrate 5 MG TABLET PO (21:19)
[2024-05-09] MEDS: Morphine Sulfate ER 30 MG TABLET.ER PO (21:19)
[2024-05-09] MEDS: QUEtiapine Fumarate 50 MG TABLET PO (21:19)
[2024-05-09] MEDS: 0.9 % Sodium Chloride Flush 3 ML SYRINGE IVFLUSH (21:21)
[2024-05-10] VITALS (14 sets, daily range): BP systolic 118–180; BP diastolic 62–82; PULSE 75–100; RESP 16–20; TEMP 36–37.3; O2SAT 90–98
[2024-05-10] MEDS: Ampicillin Sodium/Sulbactam Na 3 GM VIAL IV ×2 (03:18→09:20)
[2024-05-10] MEDS: Lactated Ringers 1,000 ML 125 ML IVCONT (05:47)
[2024-05-10] MEDS: Morphine Sulfate 4 MG/ML CARTRIDGE IVPUSH ×2 (05:50→10:19)
[2024-05-10 06:30] LABS: Hematocrit 22.3 % (42.0-52.0); Hemoglobin 7.3 g/dl (14.0-18.0); Mean Corpuscular HGB Conc 32.7 g/dl (31.0-36.0); Mean Corpuscular Hemoglobin 24.7 pg (27.0-33.0); Mean Corpuscular Volume 75.3 fL (80.0-98.0); Mean Platelet Volume 10.2 fL (9.4-12.4); Platelet Count 367 X10*3/uL (160-400); Red Blood Count 2.96 X10*6/uL (4.60-5.80); Red Cell Distribution Width 15.6 % (11.0-16.0); White Blood Count 15.6 X10*3/uL (4.8-10.8)
[2024-05-10 06:55] LABS: Alanine Aminotransferase 85 U/L (0-40); Albumin Level 2.6 g/dL (3.5-5.0); Alkaline Phosphatase 287 U/L (39-117); Anion Gap 13 (12-20); Aspartate Amino Transferase 78 U/L (5-37); Bilirubin Direct 1.5 mg/dL (0.0-0.5); Blood Urea Nitrogen 15 mg/dL (9-16); Carbon Dioxide 24 mmol/L (22-29); Chloride 101 mmol/L (96-108); Creatinine Clr Calc Pharmacy 65.4; Estimated Glomerular Filt Rate 44; Glucose Random 252 mg/dL (60-115); Potassium 3.9 mmol/L (3.3-5.1); Sodium 134 mmol/L (135-145); Total Protein 6.5 g/dL (6.5-8.0)
--- NOTE | 2024-05-10 07:25 | P.PNGS_ITS ---
Subjective Subjective Date of Service: 05/10/24 Interval history: Very sore at incision sites. Pain meds not alleviating pain. Tolerating solid diet without N/V. Has not been OOB yet. Passing flatus. Physical Exam 2 Vital Signs: Vital Signs: Last Vital Signs Temp 97.5 F 05/10/24 07:15 Pulse 83 05/10/24 07:20 Resp 18 05/10/24 07:20 BP 124/69 05/10/24 07:20 Pulse Ox 92 05/10/24 07:20 O2 Del Method Room Air 05/10/24 07:20 O2 Flow Rate 2 05/10/24 04:00 BMI result Body Mass Index 39.4 Const: General: comfortable, no acute distress and alert O rientation/consciousness: patient oriented x3 Resp: Effort & Inspection: normal respiratory effort GI: Other: ADIN drain with scant serosanguineous drainage, dressing saturated round, protuberant abdomen Palpation (GI): Soft to palpation, Tenderness to palpation present (GI) and no guarding Percussion: Yes tympanic to percussion Skin: General skin exam: jaundice Neuro: General: patient oriented x3 Objective Data Active Medications Acetaminophen (Acetaminophen 325 Mg Tablet) 650 mg PO Q6H PRN PRN Reason: Pain, Mild (Pain Scale 1-3), fever or headache Last Admin: 05/06/24 21:37 Dose: 650 mg Documented By: RENA Amlodipine Besylate (Amlodipine Besylate 2.5 Mg Tablet) 2.5 mg PO DAILY [facility]; Protocol Last Admin: 05/09/24 07:56 Dose: 2.5 mg Documented By: MORENO Ampicillin Sodium/Sulbactam Sodium (Ampicillin Sodium/Sulbactam Na 3 Gm Vial) 3 gm IV Q6H [facility] Last Admin: 05/10/24 03:18 Dose: 3 gm Documented By: HECTOR Atorvastatin Calcium (Atorvastatin Calcium 40 Mg Tablet) 40 mg PO DAILY [facility] Last Admin: 05/09/24 07:56 Dose: 40 mg Documented By: MORENO Benzonatate (Benzonatate 100 Mg Capsule) 100 mg PO TID PRN PRN Reason: Cough Calcium Carbonate (Calcium Carbonate 750 Mg Tab.Chew) 750 mg PO Q4H PRN PRN Reason: Heartburn Collagenase (Collagenase Clostridium Hist. 30 Gm Tube) 1 appl TOPICAL DAILY [facility]; Protocol Last Admin: 05/09/24 09:56 Dose: 1 appl Documented By: MORENO Docusate Sodium (Docusate Sodium 100 Mg Capsule) 200 mg PO DAILY [facility] Last Admin: 05/09/24 10:06 Dose: Not Given Documented By: MORENO Non-Admin Reason: Patient Refused Escitalopram Oxalate (Escitalopram Oxalate 20 Mg Tablet) 20 mg PO DAILY [facility] Last Admin: 05/09/24 07:56 Dose: 20 mg Documented By: MORENO Glucose (Glucose Gel 15 Gm Gel..Gram.) 15 gm PO Q15M PRN; Protocol PRN Reason: per Hypoglycemia Standing Ord. Dextrose (D10) 250 mls @ 750 mls/hr IV Q15M PRN; Protocol PRN Reason: per Hypoglycemia Standing Ord. Lactated Ringer's (Lr) 1,000 mls @ 125 mls/hr IVCONT .Q8H [facility] Last Admin: 05/10/24 05:47 Dose: 125 mls/hr Documented By: HECTOR Insulin Human Lispro (Insulin Lispro 100 Unit/Ml 3 Ml Vial) 0 unit SUBCUT QIDACHS [facility]; Protocol Last Admin: 05/09/24 21:21 Dose: 6 unit Documented By: HECTOR Lactic Acid (Ammonium Lactate 12 % Cream 140 Gm Tube) 1 appl TOPICAL DAILY [facility]; Protocol Magnesium Hydroxide (Milk Of Magnesia 30 Ml Oral.Susp) 30 ml PO DAILY PRN PRN Reason: Constipation Morphine Sulfate (Morphine Sulfate Er 30 Mg Tablet.Er) 30 mg PO BEDTIME [facility] Last Admin: 05/09/24 21:19 Dose: 30 mg Documented By: HECTOR Morphine Sulfate (Morphine Sulfate Er 30 Mg Tablet.Er) 60 mg PO DAILY [facility] Last Admin: 05/09/24 09:09 Dose: 60 mg Documented By: MORENO Morphine Sulfate (Morphine Sulfate 4 Mg/Ml Cartridge) 4 mg IVPUSH Q4H PRN; Protocol PRN Reason: Pain, Severe (Pain Scale 7-10) Last Admin: 05/10/24 05:50 Dose: 4 mg Documented By: HECTOR Ondansetron HCl (Ondansetron Hcl 4 Mg/2 Ml Vial) 4 mg IVPUSH Q8H PRN PRN Reason: Nausea and Vomiting Oxycodone HCl (Oxycodone Hcl Immed Release 5 Mg Tablet) 5 mg PO Q4H PRN PRN Reason: Pain, Moderate(Pain Scale 4-6) Last Admin: 05/09/24 17:22 Dose: 5 mg Documented By: DOMI Polyethylene Glycol (Polyethylene Glycol 3350 17 Gm Powd.Pack) 17 gm PO DAILY PRN PRN Reason: Constipation Quetiapine Fumarate (Quetiapine Fumarate 50 Mg Tablet) 50 mg PO BEDTIME [facility] Last Admin: 05/09/24 21:19 Dose: 50 mg Documented By: HECTOR Senna (Sennosides 8.6 Mg Tablet) 17.2 mg PO DAILY [facility] Last Admin: 05/09/24 10:06 Dose: Not Given Documented By: MORENO Non-Admin Reason: Patient Refused Sodium Chloride (0.9 % Sodium Chloride Flush 3 Ml Syringe) 3 ml IVFLUSH QSHIFT [facility] Last Admin: 05/10/24 07:01 Dose: Not Given Documented By: THAD Non-Admin Reason: IV Running Torsemide (Torsemide 20 Mg Tablet) 20 mg PO BID [facility]; Protocol Last Admin: 05/07/24 22:32 Dose: 20 mg Documented By: LUCILLE Zolpidem Tartrate (Zolpidem Tartrate 5 Mg Tablet) 5 mg PO BEDTIME [facility] Last Admin: 05/09/24 21:19 Dose: 5 mg Documented By: HECTOR Labs 05/10/24 05:46 05/10/24 05:46 Labs: Laboratory Results - last 24 hr 05/09/24 05/09/24 05/09/24 07:55 11:23 13:05 MCV MCH MCHC RDW Plt Count MPV Absolute Nucleated RBC Nucleated RBC % (auto) Anion Gap Estim Creat Clear Calc Estimated GFR POC Glucose 189 H 213 H 208 H Random Glucose Calcium Total Bilirubin Direct Bilirubin AST ALT Alkaline Phosphatase Total Protein Albumin 05/09/24 05/09/24 05/10/24 17:05 19:35 05:46 MCV 75.3 L MCH 24.7 L MCHC 32.7 RDW 15.6 Plt Count 367 MPV 10.2 Absolute Nucleated RBC 0.000 Nucleated RBC % (auto) 0.0 Anion Gap 13 Estim Creat Clear Calc 65.4 Estimated GFR 44 POC Glucose 262 H 296 H Random Glucose 252 H Calcium 8.0 L D Total Bilirubin 2.0 H Direct Bilirubin 1.5 H AST 78 H ALT 85 H Alkaline Phosphatase 287 H Total Protein 6.5 Albumin 2.6 L Microbiology Microbiology Results: Microbiology 05/06/24 10:45 Blood Culture - Final Blood - Venous Streptococcus anginosus 05/06/24 10:38 Blood Culture - Final Blood - Venous Streptococcus anginosus 05/08/24 05:30 Blood Culture - Preliminary Blood - Venous No growth after 24 hours. 05/08/24 05:30 Blood Culture - Preliminary Blood - Venous No growth after 24 hours. Procedures Date of Service Date of Service: 05/10/24 Progress Note: A&P Assessment and plan (1) S/P laparoscopic cholecystectomy: Status: Acute Plan POD #1 s/p lap loli for acute cholangitis, cholecystitis. Doing fairly well post op. Abd is protuberant but he reports this is his baseline. Dressings intact. ADIN drain output nonbilious. Diet as tolerated. Pain control. Encouraged OOB/ambulation. LFTs cont to downtrend. Time Spent With Patient Time: Total time managing care of this patient today ____ minutes. Quality Stroke Does the patient have a stroke diagnosis?: No VTE Prior VTE?: No VTE Risk Level:: Medical - moderate - high VTE Device Contraindication: N/A - Device Ordered VTE Drug Contraindication: Treatment Not Indicated
[2024-05-10 07:31] LABS: Glucose, Whole Blood 234 mg/dL (60-115)
[2024-05-10] MEDS: Morphine Sulfate ER 30 MG TABLET.ER 60 MG PO (07:40)
[2024-05-10] MEDS: Sennosides 8.6 MG TABLET 17.2 MG PO (07:40)
[2024-05-10] MEDS: amLODIPine Besylate 2.5 MG TABLET PO (07:41)
[2024-05-10] MEDS: Insulin Lispro 100 UNIT/ML 3 ML VIAL SUBCUT ×4 (07:41→21:04)
[2024-05-10] MEDS: Docusate Sodium 100 MG CAPSULE 200 MG PO (07:41)
[2024-05-10] MEDS: Atorvastatin Calcium 40 MG TABLET PO (07:41)
[2024-05-10] MEDS: Escitalopram Oxalate 20 MG TABLET PO (07:41)
[2024-05-10] MEDS: Collagenase Clostridium Hist. 30 GM TUBE 1 APPL TOPICAL (07:43)
--- NOTE | 2024-05-10 08:09 | HO.POSTANES ---
Post Anesthesia Evaluation Post Anesthesia Evaluation Date of Service: 05/10/24 Vital Signs: Vital Signs Temp Pulse Resp BP Pulse Ox O2 Del Method O2 Flow Rate 05/10/24 07:20 83 18 124/69 92 Room Air 05/10/24 07:15 97.5 F 05/10/24 04:00 96.8 F 86 16 118/82 98 Nasal Cannula 2 05/09/24 23:22 97.2 F 86 16 112/70 96 Nasal Cannula 2 Anesthesia: General Endotracheal-GETA Mental Status: Awake Pain Control: Satisfactory Nausea/Vomiting: None Hydration: Adequate Anesthesia-Related Issues: No Anes. Related Issues
[2024-05-10 11:29] LABS: Glucose, Whole Blood 254 mg/dL (60-115)
[2024-05-10 11:39] LABS: HCV Log PCR <1.18 NOT DETECTED Log IU/mL (NOT DETECTED); HepC Viral Load <15 NOT DETECTED IU/mL (NOT DETECTED)
--- NOTE | 2024-05-10 14:07 | HO.PM.IMPN ---
Subjective Subjective Date of Service: 05/10/24 Interval History: Being followed for acute cholangitis/status post laparoscopic cholecystectomy on 05/09 This morning patient complaining of abdominal pain, feels lightheaded, no nausea, no vomiting, tolerating diet, noted to have bleeding around ADIN drain, hematocrit dropped to 22.3, patient agreed for blood transfusion, denies fever, no chills. Review of Systems All other system are reviewed and are negative. Physical Exam Vital Signs: Vital Signs: Last Vital Signs Temp 98.7 F 05/10/24 13:00 Pulse 87 05/10/24 13:00 Resp 18 05/10/24 13:00 BP 132/62 05/10/24 13:00 Pulse Ox 91 L 05/10/24 11:42 O2 Del Method Room Air 05/10/24 11:42 O2 Flow Rate 2 05/10/24 04:00 BMI result Body Mass Index 39.4 Const: Other: Gen: Awake alert, in no acute distress Neck: supple Lungs: clear to auscultation bilaterally Heart: regular rate and rhythm, no murmurs Abd: Dressing at site of cholecystectomy saturated with blood, ADIN drain is scant serosanguineous drainage , mild tenderness at site of surgery, bowel sounds audible, no rebound, no rigidity Ext: no edema Skin: pallor Neuro: alert and oriented x3, no focal findings Psych: appropriate affect Objective Data Active Medications Acetaminophen (Acetaminophen 325 Mg Tablet) 650 mg PO Q6H PRN PRN Reason: Pain, Mild (Pain Scale 1-3), fever or headache Last Admin: 05/06/24 21:37 Dose: 650 mg Documented By: RENA Amlodipine Besylate (Amlodipine Besylate 2.5 Mg Tablet) 2.5 mg PO DAILY [facility]; Protocol Last Admin: 05/10/24 07:41 Dose: 2.5 mg Documented By: THAD Ampicillin Sodium/Sulbactam Sodium (Ampicillin Sodium/Sulbactam Na 3 Gm Vial) 3 gm IV Q6H [facility] Last Admin: 05/10/24 09:20 Dose: 3 gm Documented By: THAD Atorvastatin Calcium (Atorvastatin Calcium 40 Mg Tablet) 40 mg PO DAILY [facility] Last Admin: 05/10/24 07:41 Dose: 40 mg Documented By: THAD Benzonatate (Benzonatate 100 Mg Capsule) 100 mg PO TID PRN PRN Reason: Cough Calcium Carbonate (Calcium Carbonate 750 Mg Tab.Chew) 750 mg PO Q4H PRN PRN Reason: Heartburn Collagenase (Collagenase Clostridium Hist. 30 Gm Tube) 1 appl TOPICAL DAILY [facility]; Protocol Last Admin: 05/10/24 07:43 Dose: 1 appl Documented By: THAD Docusate Sodium (Docusate Sodium 100 Mg Capsule) 200 mg PO DAILY [facility] Last Admin: 05/10/24 07:41 Dose: 200 mg Documented By: THAD Escitalopram Oxalate (Escitalopram Oxalate 20 Mg Tablet) 20 mg PO DAILY [facility] Last Admin: 05/10/24 07:41 Dose: 20 mg Documented By: THAD Glucose (Glucose Gel 15 Gm Gel..Gram.) 15 gm PO Q15M PRN; Protocol PRN Reason: per Hypoglycemia Standing Ord. Dextrose (D10) 250 mls @ 750 mls/hr IV Q15M PRN; Protocol PRN Reason: per Hypoglycemia Standing Ord. Insulin Human Lispro (Insulin Lispro 100 Unit/Ml 3 Ml Vial) 0 unit SUBCUT QIDACHS [facility]; Protocol Last Admin: 05/10/24 11:45 Dose: 6 unit Documented By: THAD Lactic Acid (Ammonium Lactate 12 % Cream 140 Gm Tube) 1 appl TOPICAL DAILY [facility]; Protocol Last Admin: 05/10/24 12:57 Dose: Not Given Documented By: THAD Non-Admin Reason: Med Not Available Magnesium Hydroxide (Milk Of Magnesia 30 Ml Oral.Susp) 30 ml PO DAILY PRN PRN Reason: Constipation Morphine Sulfate (Morphine Sulfate Er 30 Mg Tablet.Er) 30 mg PO BEDTIME [facility] Last Admin: 05/09/24 21:19 Dose: 30 mg Documented By: MICHIQC Morphine Sulfate (Morphine Sulfate Er 30 Mg Tablet.Er) 60 mg PO DAILY [facility] Last Admin: 05/10/24 07:40 Dose: 60 mg Documented By: THAD Morphine Sulfate (Morphine Sulfate 4 Mg/Ml Cartridge) 4 mg IVPUSH Q4H PRN; Protocol PRN Reason: Pain, Severe (Pain Scale 7-10) Last Admin: 05/10/24 10:19 Dose: 4 mg Documented By: THAD Ondansetron HCl (Ondansetron Hcl 4 Mg/2 Ml Vial) 4 mg IVPUSH Q8H PRN PRN Reason: Nausea and Vomiting Oxycodone HCl (Oxycodone Hcl Immed Release 5 Mg Tablet) 5 mg PO Q4H PRN PRN Reason: Pain, Moderate(Pain Scale 4-6) Last Admin: 05/09/24 17:22 Dose: 5 mg Documented By: DOMI Polyethylene Glycol (Polyethylene Glycol 3350 17 Gm Powd.Pack) 17 gm PO DAILY PRN PRN Reason: Constipation Quetiapine Fumarate (Quetiapine Fumarate 50 Mg Tablet) 50 mg PO BEDTIME [facility] Last Admin: 05/09/24 21:19 Dose: 50 mg Documented By: HECTOR Senna (Sennosides 8.6 Mg Tablet) 17.2 mg PO DAILY [facility] Last Admin: 05/10/24 07:40 Dose: 17.2 mg Documented By: THAD Sodium Chloride (0.9 % Sodium Chloride Flush 3 Ml Syringe) 3 ml IVFLUSH QSHIFT [facility] Last Admin: 05/10/24 07:01 Dose: Not Given Documented By: THAD Non-Admin Reason: IV Running Torsemide (Torsemide 20 Mg Tablet) 20 mg PO BID [facility]; Protocol Last Admin: 05/07/24 22:32 Dose: 20 mg Documented By: LUCILLE Zolpidem Tartrate (Zolpidem Tartrate 5 Mg Tablet) 5 mg PO BEDTIME [facility] Last Admin: 05/09/24 21:19 Dose: 5 mg Documented By: HECTOR Labs 05/10/24 05:46 05/10/24 05:46 Labs: Laboratory Results - last 24 hr 05/07/24 05/08/24 05/09/24 10:29 05:30 17:05 MCV MCH MCHC RDW Plt Count MPV Absolute Nucleated RBC Nucleated RBC % (auto) Anion Gap Estim Creat Clear Calc Estimated GFR POC Glucose 262 H Random Glucose Calcium Total Bilirubin Direct Bilirubin AST ALT Alkaline Phosphatase Total Protein Albumin Hep C Viral Load <15 NOT DETECTED Hep C Viral Load Log <1.18 NOT DETECTED Blood Type Antibody Screen Crossmatch See Detail 05/09/24 05/10/24 05/10/24 19:35 05:46 07:24 MCV 75.3 L MCH 24.7 L MCHC 32.7 RDW 15.6 Plt Count 367 MPV 10.2 Absolute Nucleated RBC 0.000 Nucleated RBC % (auto) 0.0 Anion Gap 13 Estim Creat Clear Calc 65.4 Estimated GFR 44 POC Glucose 296 H 234 H Random Glucose 252 H Calcium 8.0 L D Total Bilirubin 2.0 H Direct Bilirubin 1.5 H AST 78 H ALT 85 H Alkaline Phosphatase 287 H Total Protein 6.5 Albumin 2.6 L Hep C Viral Load Hep C Viral Load Log Blood Type Antibody Screen Crossmatch 05/10/24 05/10/24 11:03 11:19 MCV MCH MCHC RDW Plt Count MPV Absolute Nucleated RBC Nucleated RBC % (auto) Anion Gap Estim Creat Clear Calc Estimated GFR POC Glucose 254 H Random Glucose Calcium Total Bilirubin Direct Bilirubin AST ALT Alkaline Phosphatase Total Protein Albumin Hep C Viral Load Hep C Viral Load Log Blood Type O Negative Antibody Screen NEGATIVE Crossmatch See Detail Microbiology Microbiology Results: Microbiology 05/08/24 05:30 Blood Culture - Preliminary Blood - Venous No growth after 48 hours. 05/08/24 05:30 Blood Culture - Preliminary Blood - Venous No growth after 48 hours. 05/06/24 10:45 Blood Culture - Final Blood - Venous Streptococcus anginosus 05/06/24 10:38 Blood Culture - Final Blood - Venous Streptococcus anginosus Assessment and Plan (1) Cholangitis: Status: Acute Plan 58yo M with HTN, HLD, CKD3, DM2, hx TBI 2016, hypogonadism, anxiety, panic disorder with agoraphobia, presenting with fever, AMS, and jaundice, admitted for sepsis from cholangitis/bacteremia Sepsis due to acute cholangitis + GPC bacteremia -no fevers , bump in leukocytosis likely reactive - started on pip/fatemeh 05/06-, changed to amp/sul 05/07- BC grew streptococcus repeat BCx 05/08 x2 negative /transthoracic echo showed no obvious vegetation, tricuspid valve not well visualized - ERCP + sphincterotomy done 05/[address] Gross, no choledocholithiasis; likely passed a stone, will avoid all aspirin, NSAIDs and blood thinners x1 week LFTs trending down - s/p lap loli , noted to have bleeding around ADIN drain,ADIN pulled by surgery due to scant serosanguineous drainage, reinforce dressing -repeat imaging study -follow CBC Acute on chronic microcytic anemia likely dilutional/bleeding from site of ADIN drain Normal iron studies Transfuse 2 units of packed RBC follow CBC closely dysphagia to solids - EGD at same time as ERCP per GI showed only small hiatal hernia, follow clinical once place on diet. coagulopathy - resolved s/p vit K given ETHAN/CKD3 - creatinine at baseline, hold torsemide, DC fluids. mild hypovolemic hyponatremia - resolved after fluid resuscitation. chronic nonhealing DFU R foot - seen by wound nurse for right plantar wound she recommend Santyl with daily dressing, also recommend ammonium lactate cream for both legs due to thick dry skin. chronic lymphedema -stable, hold diuretics HTN - amlodipine HLD - statin DM2 - basal-bolus insulin chronic pain - continue MSSR mood disorder - continue quetiapine + escitalopram + zolpidem VTE ppx - SCDs; no blood thinners for at least 1 wk p sphincterotomy dispo - TBD In my clinical judgment, the patient requires continued inpatient hospitalization for the following reasons: surgery, IV ABX for bacteremia Total time managing care of this patient today: 45 minutes. Quality Stroke Does the patient have a stroke diagnosis?: No VTE Prior VTE?: No VTE Risk Level:: Medical - moderate - high VTE Device Contraindication: N/A - Device Ordered VTE Drug Contraindication: Treatment Not Indicated
[2024-05-10] MEDS: LORazepam 2 MG/ML VIAL 0.5 MG IVPUSH (14:15)
--- NOTE | 2024-05-10 14:53 | PC.NURSE ---
3 dressings changes to barrett drain site by 11 am . made aware . drain removed . dressings continue to be saturated x2 after barrett drain removal , CT scan done . Surgeon at bedside , and stitch applied , no bleeding at this time . Will cont to monitor
[2024-05-10] MEDS: Phytonadione (Vit K1) Oral 10 MG/ML AMPUL PO (15:42)
[2024-05-10] MEDS: Ampicillin Sodium/Sulbactam Na 3 GM in 0.9 % Sodium Chloride 100 ML IV ×2 (15:43→21:07)
[2024-05-10] MEDS: 0.9 % Sodium Chloride Flush 3 ML SYRINGE IVFLUSH ×2 (15:44→21:04)
[2024-05-10 16:14] LABS: Glucose, Whole Blood 249 mg/dL (60-115)
[2024-05-10 20:30] LABS: Hematocrit 25.6 % (42.0-52.0); Hemoglobin 8.8 g/dl (14.0-18.0); Mean Corpuscular HGB Conc 34.4 g/dl (31.0-36.0); Mean Corpuscular Hemoglobin 26.8 pg (27.0-33.0); Mean Platelet Volume 10.1 fL (9.4-12.4); Platelet Count 357 X10*3/uL (160-400); Red Blood Count 3.28 X10*6/uL (4.60-5.80); Red Cell Distribution Width 16.2 % (11.0-16.0); White Blood Count 16.5 X10*3/uL (4.8-10.8)
[2024-05-10 20:39] LABS: Glucose, Whole Blood 240 mg/dL (60-115)
[2024-05-10] MEDS: Morphine Sulfate ER 30 MG TABLET.ER PO (21:03)
[2024-05-10] MEDS: QUEtiapine Fumarate 50 MG TABLET PO (21:04)
[2024-05-10] MEDS: Zolpidem Tartrate 5 MG TABLET PO (21:04)
[2024-05-11 03:03] VITALS: BP 162/72; PULSE 75; RESP 18; TEMP 37.1; O2SAT 93
[2024-05-11] MEDS: Ampicillin Sodium/Sulbactam Na 3 GM in 0.9 % Sodium Chloride 100 ML IV ×2 (03:07→09:23)
[2024-05-11 06:32] LABS: Hematocrit 24.9 % (42.0-52.0); Hemoglobin 8.5 g/dl (14.0-18.0); Mean Corpuscular HGB Conc 34.1 g/dl (31.0-36.0); Mean Corpuscular Hemoglobin 26.4 pg (27.0-33.0); Mean Corpuscular Volume 77.3 fL (80.0-98.0); Mean Platelet Volume 10.2 fL (9.4-12.4); Platelet Count 334 X10*3/uL (160-400); Red Blood Count 3.22 X10*6/uL (4.60-5.80)
[2024-05-11 06:56] LABS: Anion Gap 14 (12-20); Blood Urea Nitrogen 16 mg/dL (9-16); Calcium 8.4 mg/dL (8.4-10.2); Carbon Dioxide 22 mmol/L (22-29); Chloride 101 mmol/L (96-108); Estimated Glomerular Filt Rate 50; Glucose Random 184 mg/dL (60-115); Potassium 3.9 mmol/L (3.3-5.1); Sodium 133 mmol/L (135-145)
[2024-05-11 07:35] LABS: Glucose, Whole Blood 181 mg/dL (60-115)
[2024-05-11 07:54] VITALS: BP 193/88; PULSE 75; RESP 17; TEMP 36.6; O2SAT 95
[2024-05-11] MEDS: amLODIPine Besylate 2.5 MG TABLET PO (07:59)
[2024-05-11] MEDS: Sennosides 8.6 MG TABLET 17.2 MG PO (07:59)
[2024-05-11] MEDS: 0.9 % Sodium Chloride Flush 3 ML SYRINGE IVFLUSH (08:00)
[2024-05-11] MEDS: Docusate Sodium 100 MG CAPSULE 200 MG PO (08:00)
[2024-05-11] MEDS: Morphine Sulfate ER 30 MG TABLET.ER 60 MG PO (08:00)
[2024-05-11] MEDS: Escitalopram Oxalate 20 MG TABLET PO (08:00)
[2024-05-11] MEDS: Atorvastatin Calcium 40 MG TABLET PO (08:00)
[2024-05-11] MEDS: Insulin Lispro 100 UNIT/ML 3 ML VIAL SUBCUT (08:02)
[2024-05-11 10:00] VITALS: BP 183/79
--- NOTE | 2024-05-11 10:20 | MHC.CM.PN ---
IMM 05/10/24 Patient is discharged to home today. [facility] will resume services. Patients will provide transport home. PCP Ann Marie Peacokc
[2024-05-11 11:15] LABS: Glucose, Whole Blood 187 mg/dL (60-115)
--- NOTE | 2024-05-11 12:00 | P.PNGS_ITS ---
Subjective Subjective Date of Service: 05/11/24 Interval history: Tolerating diet. Pain controlled. No drainage from old ADIN site. Physical Exam 2 Vital Signs: Vital Signs: Last Vital Signs Temp 97.9 F 05/11/24 07:54 Pulse 75 05/11/24 07:54 Resp 17 05/11/24 07:54 BP 183/79 H 05/11/24 10:00 Pulse Ox 95 05/11/24 07:54 O2 Del Method Room Air 05/11/24 07:54 O2 Flow Rate 2 05/10/24 23:54 BMI result Body Mass Index 39.4 Const: General: comfortable, no acute distress and alert Resp: Effort & Inspection: normal respiratory effort GI: Other: round, protuberant abdomen old ADIN drain site dressing clean Inspection: Yes incision (clean) Palpation (GI): Soft to palpation, Tenderness to palpation present (GI) (mild incisional) and no guarding Skin: General skin exam: no rashes or lesions noted Objective Data Active Medications Acetaminophen (Acetaminophen 325 Mg Tablet) 650 mg PO Q6H PRN PRN Reason: Pain, Mild (Pain Scale 1-3), fever or headache Last Admin: 05/06/24 21:37 Dose: 650 mg Documented By: RENA Amlodipine Besylate (Amlodipine Besylate 2.5 Mg Tablet) 2.5 mg PO DAILY [facility]; Protocol Last Admin: 05/11/24 07:59 Dose: 2.5 mg Documented By: THAD Atorvastatin Calcium (Atorvastatin Calcium 40 Mg Tablet) 40 mg PO DAILY [facility] Last Admin: 05/11/24 08:00 Dose: 40 mg Documented By: THAD Benzonatate (Benzonatate 100 Mg Capsule) 100 mg PO TID PRN PRN Reason: Cough Calcium Carbonate (Calcium Carbonate 750 Mg Tab.Chew) 750 mg PO Q4H PRN PRN Reason: Heartburn Collagenase (Collagenase Clostridium Hist. 30 Gm Tube) 1 appl TOPICAL DAILY [facility]; Protocol Last Admin: 05/10/24 07:43 Dose: 1 appl Documented By: THAD Docusate Sodium (Docusate Sodium 100 Mg Capsule) 200 mg PO DAILY [facility] Last Admin: 05/11/24 08:00 Dose: 200 mg Documented By: THAD Escitalopram Oxalate (Escitalopram Oxalate 20 Mg Tablet) 20 mg PO DAILY [facility] Last Admin: 05/11/24 08:00 Dose: 20 mg Documented By: THAD Glucose (Glucose Gel 15 Gm Gel..Gram.) 15 gm PO Q15M PRN; Protocol PRN Reason: per Hypoglycemia Standing Ord. Dextrose (D10) 250 mls @ 750 mls/hr IV Q15M PRN; Protocol PRN Reason: per Hypoglycemia Standing Ord. Ampicillin Sodium/Sulbactam (Sodium 3 gm/ Sodium Chloride) 100 mls @ 200 mls/hr IV Q6H [facility] Last Infusion: 05/11/24 09:56 Dose: Infused Documented By: THAD Insulin Human Lispro (Insulin Lispro 100 Unit/Ml 3 Ml Vial) 0 unit SUBCUT QIDACHS [facility]; Protocol Last Admin: 05/11/24 08:02 Dose: 2 unit Documented By: THAD Lactic Acid (Ammonium Lactate 12 % Cream 140 Gm Tube) 1 appl TOPICAL DAILY [facility]; Protocol Last Admin: 05/11/24 10:02 Dose: Not Given Documented By: THAD Non-Admin Reason: Med Not Available Magnesium Hydroxide (Milk Of Magnesia 30 Ml Oral.Susp) 30 ml PO DAILY PRN PRN Reason: Constipation Morphine Sulfate (Morphine Sulfate Er 30 Mg Tablet.Er) 30 mg PO BEDTIME [facility] Last Admin: 05/10/24 21:03 Dose: 30 mg Documented By: HECTOR Morphine Sulfate (Morphine Sulfate Er 30 Mg Tablet.Er) 60 mg PO DAILY [facility] Last Admin: 05/11/24 08:00 Dose: 60 mg Documented By: THAD Morphine Sulfate (Morphine Sulfate 4 Mg/Ml Cartridge) 4 mg IVPUSH Q4H PRN; Protocol PRN Reason: Pain, Severe (Pain Scale 7-10) Last Admin: 05/10/24 10:19 Dose: 4 mg Documented By: THAD Ondansetron HCl (Ondansetron Hcl 4 Mg/2 Ml Vial) 4 mg IVPUSH Q8H PRN PRN Reason: Nausea and Vomiting Oxycodone HCl (Oxycodone Hcl Immed Release 5 Mg Tablet) 5 mg PO Q4H PRN PRN Reason: Pain, Moderate(Pain Scale 4-6) Last Admin: 05/09/24 17:22 Dose: 5 mg Documented By: DOMI Polyethylene Glycol (Polyethylene Glycol 3350 17 Gm Powd.Pack) 17 gm PO DAILY PRN PRN Reason: Constipation Quetiapine Fumarate (Quetiapine Fumarate 50 Mg Tablet) 50 mg PO BEDTIME [facility] Last Admin: 05/10/24 21:04 Dose: 50 mg Documented By: HECTOR Senna (Sennosides 8.6 Mg Tablet) 17.2 mg PO DAILY [facility] Last Admin: 05/11/24 07:59 Dose: 17.2 mg Documented By: THAD Sodium Chloride (0.9 % Sodium Chloride Flush 3 Ml Syringe) 3 ml IVFLUSH QSHIFT [facility] Last Admin: 05/11/24 08:00 Dose: 3 ml Documented By: THAD Torsemide (Torsemide 20 Mg Tablet) 20 mg PO BID [facility]; Protocol Last Admin: 05/07/24 22:32 Dose: 20 mg Documented By: LUCILLE Zolpidem Tartrate (Zolpidem Tartrate 5 Mg Tablet) 5 mg PO BEDTIME [facility] Last Admin: 05/10/24 21:04 Dose: 5 mg Documented By: HECTOR Labs 05/11/24 05:53 05/11/24 05:53 Labs: Laboratory Results - last 24 hr 05/10/24 05/10/24 05/10/24 11:03 16:06 20:06 MCV 78.0 L MCH 26.8 L MCHC 34.4 RDW 16.2 H Plt Count 357 MPV 10.1 Absolute Nucleated RBC 0.000 Nucleated RBC % (auto) 0.0 Anion Gap Estim Creat Clear Calc Estimated GFR POC Glucose 249 H Random Glucose Calcium Blood Type O Negative Antibody Screen NEGATIVE Crossmatch See Detail 05/10/24 05/11/24 05/11/24 20:32 05:53 07:28 MCV 77.3 L MCH 26.4 L MCHC 34.1 RDW 16.0 Plt Count 334 MPV 10.2 Absolute Nucleated RBC 0.000 Nucleated RBC % (auto) 0.0 Anion Gap 14 Estim Creat Clear Calc 73.0 Estimated GFR 50 POC Glucose 240 H 181 H Random Glucose 184 H Calcium 8.4 Blood Type Antibody Screen Crossmatch 05/11/24 11:08 MCV MCH MCHC RDW Plt Count MPV Absolute Nucleated RBC Nucleated RBC % (auto) Anion Gap Estim Creat Clear Calc Estimated GFR POC Glucose 187 H Random Glucose Calcium Blood Type Antibody Screen Crossmatch Procedures Date of Service Date of Service: 05/11/24 Progress Note: A&P Assessment and plan (1) S/P laparoscopic cholecystectomy: Status: Acute (2) Cholangitis: Status: Acute Plan POD #2 s/p lap loli. Had drop in H/H with continued leakage around ADIN drain. CT scan yesterday therefore performed showed no significant hemoperitoneum, H/H stable this am. Incisions clean, old ADIN drain site dressing clean. Stable for dc from surgical standpoint, f/u in office in 1 week. Time Spent With Patient Time: Total time managing care of this patient today ____ minutes. Quality Stroke Does the patient have a stroke diagnosis?: No VTE Prior VTE?: No VTE Risk Level:: Medical - moderate - high VTE Device Contraindication: N/A - Device Ordered VTE Drug Contraindication: Treatment Not Indicated
--- NOTE | 2024-05-11 12:06 | PM.DS ---
DS: Providers Provider Date of Service: 05/11/24 Date of admission: 05/06/24 19:02 Primary care physician: Madonna Plascencia MD Consults: 05/06/24 18:24 Consult to Gastroenterology Routine Consulting Provider: Triston Gross Reason for consultation: Likely cholangitis Consult to General Surgery Routine Consulting Provider: [facility] Reason for consultation: Likely cholangitis. ?Cholecystectomy 05/06/24 19:12 Consult to Wound Care Routine Reason for consultation: Chronic right diabetic foot wound 05/09/24 14:13 Consult to Infectious Diseases Routine Consulting Provider: [facility] Reason for consultation: gm pos bacteremia Has provider been notified: No DS: Diagnosis Discharge Diagnosis (1) S/P laparoscopic cholecystectomy: Status: Acute (2) Cholangitis: Status: Acute DS: Summary Hospital Course Hospital Course: History of presenting illness: Date of Service: 05/06/24 Attending physician on admission: Matt Enriquez Chief Complaint: AMS, fever, jaundice Pt is a 58-year-old male with a PMH significant for?HTN, HLD, CKD 3, insulin-dependent type 2 diabetes, 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 Patient is accompanied by his girlfriend who helps supplement HPI. Family has noticed that patient's skin and eyes have been turning yellow for the past week. During this time patient has occasionally appeared altered and confused, mumbling to himself and not speaking sensibly or incomplete sentences. Patient has also been weaker than normal and unable to ambulate for the past few days, and has noticed increased swelling bilaterally in his lower extremities. Last night patient's measured a fever of 103 degrees. Patient himself denies nausea, vomiting. Notes some ?gas? but denies significant abdominal pain. No change to bowel or bladder habits. Denies chest pain/pressure, palpitations. No shortness a breath or difficulty breathing. In the ED pt had elevated temperature as high as 100.6 degrees, was tachycardic up to 108, tachypneic up to 22, and hypertensive as high as 168/84. Labs were significant for leukocytosis of 18.9, H&H of 10.4/31.0 (around baseline), sodium 131, BUN 18, creatinine 2.18 (up from 1.78 on 02/23/24), total bilirubin 7.5, direct bilirubin 5.7, AST 139, ALT 232, alk-phos 495, and CRP 14.02. Tox screen positive for opiates and benzodiazepines. CXR was unremarkable without interval change. CT of head no acute intracranial hemorrhage or territorial infarction, but showed chronic encephalomalacia as seen on prior imaging. CT of chest found bibasilar atelectasis, splenomegaly, cholelithiasis, constipation, and dehiscence of the anterior abdominal wall s/p repair of inferior abdominal wall with mesh. Abdominal ultrasound found cholelithiasis with nonspecific gallbladder wall thickening with dilated CBD but without significant intrahepatic biliary ductal dilation. EKG demonstrated normal sinus rhythm with QTc of 493 without evidence of significant ST elevations or depressions. Pt was treated with ceftriaxone, vancomycin, IVF, and vitamin K. Pt will be admitted to the hospital for treatment and further evaluation of cholangitis with sepsis. Hospital course; 58yo M with HTN, HLD, CKD3, DM2, hx TBI 2016, hypogonadism, anxiety, panic disorder with agoraphobia, presenting with fever, AMS, and jaundice, admitted for sepsis from cholangitis, admitted to medical floor treated with IV Zosyn, blood culture grew Streptococcus , transthoracic echocardiogram showed no obvious vegetations, patient underwent ERCP with sphincterotomy on May [address] Gross no choledocholithiasis was noted likely patient passed a stone LFTs are gradually trending down subsequently patient underwent laparoscopic cholecystectomy, postprocedure noted to have bleeding from site of ADIN drain, CT abdomen and pelvis was obtained no hematoma was noted, H&H dropped therefore required 2 units of packed RBC, repeat hematocrit is stable patient is asymptomatic with good pain control therefore he is being discharged home on Ceftin 250 mg b.i.d. renally dose to finish a total 2 week course of antibiotics he has been recommended outpatient follow-up with General surgery and recommended to avoid aspirin, NSAIDs and blood thinners 1 week. Patient was noted to have mild ETHAN on chronic kidney disease stage 3 and mild hyponatremia, his torsemide was held and he was treated with IV fluids renal function returned to baseline, he is recommended to resume home medications . Chronic nonhealing DFU R foot - recommend outpatient follow-up at wound clinic HLD statins were held due to elevated LFTs recommend to resume statin early next week DM2 patient noted to have elevated blood sugars is on high dose of Lantus and pre meal insulin, dosage has been reduced and patient has been strongly advised to follow diabetic diet exercise and follow blood sugar carefully Mood disorder no acute behavioral issues noted recommend to continue quetiapine + escitalopram + zolpidem. Time Attestation Discharge Coordination Time (in mins): 40 Quality: Safe Use of Opioids Does Pt have an Active Cancer Diagnosis on the Problem List?: No Quality: Stroke Does the patient have a stroke diagnosis?: No Physical Exam Vital Signs: Vital Signs: Last Vital Signs Temp 97.9 F 05/11/24 07:54 Pulse 75 05/11/24 07:54 Resp 17 05/11/24 07:54 BP 183/79 H 05/11/24 10:00 Pulse Ox 95 05/11/24 07:54 O2 Del Method Room Air 05/11/24 07:54 O2 Flow Rate 2 05/10/24 23:54 BMI result Body Mass Index 39.4 Const: Other: Gen: Awake alert, in no acute distress Neck: supple Lungs: clear to auscultation bilaterally Heart: regular rate and rhythm, no murmurs Abd: mild tenderness at site of surgery, bowel sounds audible, no rebound, no rigidity Ext: Chronic lymphedema/dressing to right foot in place no drainage noted. Skin: pallor Neuro: alert and oriented x3, no focal findings Psych: appropriate affect DS: Data Data Completed and Pending Pending studies at discharge: Pending at discharge 05/09/24 15:16 Surgical [PTH] Routine Labs on day of discharge: Laboratory Results - last 24 hr 05/10/24 05/10/24 05/10/24 11:03 16:06 20:06 WBC 16.5 H RBC 3.28 L Hgb 8.8 L D Hct 25.6 L MCV 78.0 L MCH 26.8 L MCHC 34.4 RDW 16.2 H Plt Count 357 MPV 10.1 Absolute Nucleated RBC 0.000 Nucleated RBC % (auto) 0.0 Sodium Potassium Chloride Carbon Dioxide Anion Gap BUN Creatinine Estim Creat Clear Calc Estimated GFR POC Glucose 249 H Random Glucose Calcium Blood Type O Negative Antibody Screen NEGATIVE Crossmatch See Detail 05/10/24 05/11/24 05/11/24 20:32 05:53 07:28 WBC 14.0 H RBC 3.22 L Hgb 8.5 L Hct 24.9 L MCV 77.3 L MCH 26.4 L MCHC 34.1 RDW 16.0 Plt Count 334 MPV 10.2 Absolute Nucleated RBC 0.000 Nucleated RBC % (auto) 0.0 Sodium 133 L Potassium 3.9 Chloride 101 Carbon Dioxide 22 Anion Gap 14 BUN 16 Creatinine 1.46 H Estim Creat Clear Calc 73.0 Estimated GFR 50 POC Glucose 240 H 181 H Random Glucose 184 H Calcium 8.4 Blood Type Antibody Screen Crossmatch 05/11/24 11:08 WBC RBC Hgb Hct MCV MCH MCHC RDW Plt Count MPV Absolute Nucleated RBC Nucleated RBC % (auto) Sodium Potassium Chloride Carbon Dioxide Anion Gap BUN Creatinine Estim Creat Clear Calc Estimated GFR POC Glucose 187 H Random Glucose Calcium Blood Type Antibody Screen Crossmatch Preliminary micro results at discharge 05/08/24 05:30 Blood Culture - Preliminary Blood - Venous No growth after 48 hours. 05/08/24 05:30 Blood Culture - Preliminary Blood - Venous No growth after 48 hours. Discharge Plan Discharge Anticipated Discharge Date/Time: 05/11/24 10:38 Patient Disposition: Home Health Service Discharge Diagnosis: Sepsis due to Acute cholangitis Acute on chronic microcytic anemia ETHAN on chronic kidney disease stage 3 Referrals: [facility] [Outside] - 1 Week Ritchie Ochoa MD [Physician] - 1 Week Madonna Plascencia MD [Primary Care Provider] - 1 Week Discharge Medications: New cefuroxime axetil 250 mg tablet 250 mg PO BID Qty: 18 0RF Continued (DME) BD Insulin Syringe 1 mL 25 gauge x 5/8 syringe See Rx Instructions miscellaneous .MEDSUPPLY Qty: 25 0RF Rx Instructions: As directed torsemide 20 mg tablet 20 mg PO BID Qty: 180 6RF sennosides [senna] 8.6 mg tablet 17.2 mg PO DAILY amlodipine 2.5 mg tablet 2.5 mg PO DAILY morphine 30 mg tablet extended release 60 mg PO DAILY escitalopram oxalate 20 mg tablet 20 mg PO DAILY zolpidem 12.5 mg tablet,ext release multiphase 12.5 mg PO BEDTIME quetiapine 50 mg tablet 50 mg PO BEDTIME morphine 30 mg tablet extended release 30 mg PO BEDTIME ketoconazole 2 % cream 1 appl topical DAILY docusate sodium [Colace] 100 mg capsule 200 mg PO DAILY Xyosted 75 mg/0.5 mL auto-injector 75 mg subcut FR polyethylene glycol 3350 [Gavilax] 17 gram Powder In Packet 17 g PO DAILY PRN (Reason: Constipation) Movantik 12.5 mg tablet 12.5 mg PO DAILY PRN (Reason: Constipation) (DME) insulin syringe-needle U-100 [BD Insulin Syringe Ultra-Fine] 1 mL 31 gauge x 5/16 syringe See Rx Instructions .ROUTE .MEDSUPPLY Qty: 10 Rx Instructions: As directed Linzess 290 mcg capsule 290 mcg PO QAM PRN (Reason: Constipation) Qty: 30 2RF Changed insulin glargine [Lantus U-100 Insulin] 100 unit/mL solution 40 unit subcut BEDTIME Qty: 10 0RF insulin aspart U-100 [Novolog U-100 Insulin aspart] 100 unit/mL solution 20 unit subcut TIDAC Qty: 10 0RF Held aspirin 81 mg tablet,delayed release (DR/EC) 81 mg PO DAILY Hold Instructions: Resume on 05/16/24. atorvastatin 40 mg tablet 40 mg PO DAILY Hold Instructions: Resume on 05/16/24. Discharge Orders: Discharge Order (Routine); Ordered 05/11/24 Ordered By: Jason Lam Diet: Advance to usual diet Activity on Discharge: No heavy lifting Stand Alone Forms: Patient Portal Discharge page Print Language: [place] Activity Restrictions/Additional Instructions: Ice to wound 20 minutes several times today and tomorrow. May shower in 2 days. Remove outside dressing only. Leave Steri-Strips intact. No strenuous activities Care Plan Goals: Follow low-fat, low carbohydrate diet Continue Ceftin 250 mg 1 tablet twice daily for 9 more days Health Concerns: Diabetes mellitus dose of Lantus reduced from 80 u at bedtime to 40 units at bedtime, follow blood sugars and increase dose as needed Dose of pre meal insulin reduced from 80 units to 20 units , Strongly advised to follow low-calorie diet/monitor blood sugar closely Plan of Treatment: Outpatient follow-up with Dr. Ochoa in 1 week Outpatient follow-up with primary care physician call for appointment Assessment: As above
== END 2024-05-11 12:13 | disposition home health service (06) | DRG 854 ==
LOC: HO.ED 11:13 → HO.EDOVER 19:13 → HO.S3 23:11
PROVIDERS: Family Medicine; Internal Medicine; Physician Assistant Medical; Surgery; Admitting Provider Student in an Organized Health Care Education/Training Program; Emergency Provider Emergency Medicine Emergency Medical Services; PCP Family Medicine; Visit Provider Hospitalist
PROC: 0F798ZZ Dilation of Common Bile Duct, Via Natural or Artificial Opening Endoscopic (ICD-10-PCS; CPT 43260; principal; 2024-05-07 10:30)
PROC: 0FT44ZZ Resection of Gallbladder, Percutaneous Endoscopic Approach (ICD-10-PCS; CPT 47562; principal; 2024-05-09 13:00)
DX: A40.8 Other streptococcal sepsis (principal); D68.9 Coagulation defect, unspecified; E87.1 Hypo-osmolality and hyponatremia; K83.09 Other cholangitis; K80.71 Calculus of gallbladder and bile duct without cholecystitis with obstruction; N17.9 Acute kidney failure, unspecified; E11.621 Type 2 diabetes mellitus with foot ulcer; E86.1 Hypovolemia; K44.9 Diaphragmatic hernia without obstruction or gangrene; I89.0 Lymphedema, not elsewhere classified; D63.1 Anemia in chronic kidney disease; E78.5 Hyperlipidemia, unspecified; L97.529 Non-pressure chronic ulcer of other part of left foot with unspecified severity; R13.10 Dysphagia, unspecified; I87.2 Venous insufficiency (chronic) (peripheral); N18.30 Chronic kidney disease, stage 3 unspecified; E11.22 Type 2 diabetes mellitus with diabetic chronic kidney disease; F40.01 Agoraphobia with panic disorder; I12.9 Hypertensive chronic kidney disease with stage 1 through stage 4 chronic kidney disease, or unspecified chronic kidney disease; S06.9XAS Unspecified intracranial injury with loss of consciousness status unknown, sequela; X58.XXXS Exposure to other specified factors, sequela; R41.3 Other amnesia; Z79.4 Long term (current) use of insulin; Z79.82 Long term (current) use of aspirin; Z79.899 Other long term (current) drug therapy
CPT/HCPCS: 36415; 70450; 71046; 71250; 73630; 74176; 76705; 80048; 80053; 80076; 80307; 81001; 82140; 82248; 82550; 82728; 82803; 82947; 83540; 83605; 83690; 83735; 83880; 84443; 85025; 85027; 85610; 85730; 86140; 86704; 86706; 86709; 86803; 86850; 86900; 86901; 86923; 87040; 87077; 87186; 87205; 87340; 87522; 88304; 93005; 93308; 99285; C1769; J0131; J0295; J0690; J0696; J1100; J1610; J1790; J2060; J2250; J2270; J2405; J2543; J2704; J2795; J3010; J3370; J3430; J7120; P9016; P9017; Q9967

== ENCOUNTER → 2024-05-06 10:29 | Outpatient (BNV) | payer OTHER, SELFPAY | PROVIDERS: PCP Family Medicine; Visit Provider Internal Medicine | DX: R94.31 Abnormal electrocardiogram [ECG] [EKG] (principal) | CPT/HCPCS: 93010 ==

== ENCOUNTER 2024-05-06 19:02 | Outpatient (BNV) | payer OTHER, SELFPAY | END 2024-05-09 07:00 | PROVIDERS: Admitting Provider Student in an Organized Health Care Education/Training Program; Emergency Provider Emergency Medicine Emergency Medical Services; PCP Family Medicine; Visit Provider Internal Medicine Cardiovascular Disease | DX: I38 Endocarditis, valve unspecified (principal) | CPT/HCPCS: 93308 ==

== ENCOUNTER → 2024-05-06 19:02 | Outpatient (BNV) | payer OTHER, SELFPAY | PROVIDERS: Admitting Provider Student in an Organized Health Care Education/Training Program; Emergency Provider Emergency Medicine Emergency Medical Services; PCP Family Medicine; Visit Provider Family Medicine | DX: K83.09 Other cholangitis (principal); Z90.49 Acquired absence of other specified parts of digestive tract | CPT/HCPCS: 99223; 99232; 99233; 99239 ==

== ENCOUNTER → 2024-05-06 19:02 | Outpatient (BNV) | payer OTHER, SELFPAY | PROVIDERS: Admitting Provider Student in an Organized Health Care Education/Training Program; Emergency Provider Emergency Medicine Emergency Medical Services; PCP Family Medicine; Visit Provider Surgery | DX: Z90.49 Acquired absence of other specified parts of digestive tract (principal); K83.09 Other cholangitis | CPT/HCPCS: 47562; 99024; 99222; 99232 ==

== ENCOUNTER → 2024-05-06 19:02 | Outpatient (BNV) | payer OTHER, SELFPAY | PROVIDERS: Admitting Provider Student in an Organized Health Care Education/Training Program; Emergency Provider Emergency Medicine Emergency Medical Services; PCP Family Medicine; Visit Provider Internal Medicine | DX: K80.71 Calculus of gallbladder and bile duct without cholecystitis with obstruction (principal); I89.0 Lymphedema, not elsewhere classified; K83.09 Other cholangitis | CPT/HCPCS: 99499 ==

== ENCOUNTER 2024-05-17 13:23 | Outpatient (AMB) | payer OTHER, SELFPAY ==
--- NOTE | 2024-05-17 13:38 | A.OFFVIS_ITS ---
Intake Visit Reasons: cholecystectomy Intake Note: Patient here s/p lap loli. Reports incision healing well. Patient c/o: no concerns. SX: 05-09-2024. Middleware Consultant Required: No Accompanied by: Spouse Allergies No Known Allergies Allergy (Mild, Verified 05/17/24 13:39) NOT APPLICABLE HPI Comments Details: Patient presents with a significant other. He is having minimal incisional discomfort. He is tolerating a diet. He is having regular bowel habits. Patient has many medical issues for which he is being seen by his medical physicians. [facility] Medical History Anasarca Chronic, continuous use of opioids 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 Concussion 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 Diabetes mellitus type 2, controlled Traumatic subarachnoid hemorrhage Traumatic subdural hematoma Temporal skull fracture Traumatic brain injury Major depression Controlled type 2 diabetes mellitus with diabetic nephropathy Nephritis NOS in other disease Chronic kidney disease, stage III (moderate) Other chronic pain Neck pain Dyslipidemia Asthma Anemia of chronic disease Chronic constipation HTN (hypertension) Glaucoma suspect Surgical History (Updated 05/16/24 @ 15:06 by Paty Vasquez Marissa) Hx laparoscopic cholecystectomy (05/09/24) Bilateral inguinal hernia S/P cervical spinal fusion Social History Household Members: Family Housing: House Do you presently have visiting nurse or other home services: Yes Patient Tobacco Use Status: Former Tobacco user Tobacco use type: Cigarette service: No Physical Exam Eyes Other: Anicteric GI Other: Abdomen is soft benign. All wounds clean dry and intact. Assessment & Plan Assessment & Plan (1) S/P laparoscopic cholecystectomy: Code(s): Z90.49 - Acquired absence of other specified parts of digestive tract Category: Medical Plan From a surgical perspective, patient is doing well. I strongly encouraged him and his significant other that he needs to make sure he makes the appointments for for his medical follow-up. All questions answered. Patient will otherwise follow-up p.r.n. Coding Level of Care Code Global (39383) Diagnoses S/P laparoscopic cholecystectomy Z90.49
== END 2024-05-17 13:41 | disposition home or self-care (01) ==
PROVIDERS: PCP Family Medicine; Visit Provider Surgery
DX: Z90.49 Acquired absence of other specified parts of digestive tract (principal)
CPT/HCPCS: 99024

== ENCOUNTER → 2024-05-17 13:23 | Outpatient (BNVA) | payer OTHER, SELFPAY | PROVIDERS: PCP Family Medicine; Visit Provider Surgery | DX: Z90.49 Acquired absence of other specified parts of digestive tract (principal) | CPT/HCPCS: 99212 ==

== ENCOUNTER 2024-07-29 07:17 | Outpatient (REF) | payer OTHER, SELFPAY ==
[2024-07-29 10:41] LABS: Immature Retic Fraction 13.9 % (2.3-13.4); Retic HGB Equivalent 28.4 pg (30.0-35.0); Reticulocyte Percent 1.6 % (0.5-1.8)
[2024-07-29 11:04] LABS: Alanine Aminotransferase 42 U/L (0-40); Albumin Level 3.1 g/dL (3.5-5.0); Alkaline Phosphatase 143 U/L (39-117); Anion Gap 14 (12-20); Aspartate Amino Transferase 40 U/L (5-37); Bilirubin Total 0.4 mg/dL (0.0-1.0); Blood Urea Nitrogen 36 mg/dL (9-16); C Reactive Protein 1.38 mg/dL (< or = 0.50); Calcium 8.9 mg/dL (8.4-10.2); Carbon Dioxide 25 mmol/L (22-29); Chloride 104 mmol/L (96-108); Cholesterol 112 mg/dL (<200); Estimated Glomerular Filt Rate 32; Glucose Random 126 mg/dL (60-115); HDL Cholesterol 26 mg/dL (>40); Iron 60 mcg/dL (45-160); LDL Cholesterol Calculated 67 mg/dL (<100); Percent Iron Saturation 27 % (15-50); Potassium 4.2 mmol/L (3.3-5.1); Sodium 139 mmol/L (135-145); Total Iron Binding Capacity 222 mcg/dL (228-428); Total Protein 7.9 g/dL (6.5-8.0); Triglycerides 96 mg/dL (<150); Unsaturated Iron Binding 162 ug/dL
[2024-07-29 11:19] LABS: Ferritin 288 ng/mL (20-250); TSH reflex Free T4 8.81 uIU/mL (0.32-4.0)
[2024-07-29 11:20] LABS: Erythrocyte Sedimentation Rate 88 MM/HR (0-15)
[2024-07-29 11:26] LABS: Estimated Average Glucose 128 mg/dL; Hemoglobin A1C 99.4183 umol/L; Hemoglobin A1c % 6.1 % (<6.0)
[2024-07-29 11:33] LABS: Folate 11.4 ng/mL (> or = 4.0); Vitamin B12 821 pg/mL (200-900)
[2024-07-29 11:54] LABS: Reflex LDLD? No
== END 2024-07-29 07:18 | disposition home or self-care (01) ==
LOC: HO.LHD 07:17
PROVIDERS: Visit Provider Family Medicine
DX: E11.22 Type 2 diabetes mellitus with diabetic chronic kidney disease (principal); D64.9 Anemia, unspecified; N18.30 Chronic kidney disease, stage 3 unspecified; Z79.4 Long term (current) use of insulin; S91.301D Unspecified open wound, right foot, subsequent encounter; E11.621 Type 2 diabetes mellitus with foot ulcer; L97.418 Non-pressure chronic ulcer of right heel and midfoot with other specified severity; L97.518 Non-pressure chronic ulcer of other part of right foot with other specified severity; I10 Essential (primary) hypertension; E78.5 Hyperlipidemia, unspecified
CPT/HCPCS: 80053; 80061; 82607; 82728; 82746; 83036; 83540; 84439; 84443; 85045; 85652; 86140

== ENCOUNTER 2024-08-01 10:53 | Outpatient (AMB) | payer OTHER, SELFPAY ==
--- NOTE | 2024-08-01 10:46 | HO.NEPHOV_ITS ---
Vital Signs 08/01/24 10:47 Height 5 ft 10 in Weight 240 lb BMI 34.4 Intake Visit Reasons: Low Hgb-pt not ambulatory Hairspring I Inspector Required: No Accompanied by: Significant Other Allergies No Known Allergies Allergy (Mild, Verified 05/17/24 13:39) NOT APPLICABLE HPI Comments Details: 58-year-old male with?HTN, CKD 3 as well as insulin-dependent type 2 diabetes was seen today by [facility] . He recently had toes amputated in [facility] and was on antibiotics which he has finished. He is again having leg surgery tomorrow in [facility]. He is anemic with no active blood loss. His transferrin saturation is over 20 %. He has H/O chronic diastolic CHF and is on diuretics. His serum creatinine has gone up from baseline. He denied nausea, vomiting, diarrhea, chest pain, SOB or urinary symptoms. He is not taking any over the counter medications. COUNT INCLUDES THE [facility] Medical History (Updated 08/01/24 @ 11:17 by Ramone Garay MD) Anasarca Chronic, continuous use of opioids 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 Concussion 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 Diabetes mellitus type 2, controlled Traumatic subarachnoid hemorrhage Traumatic subdural hematoma Temporal skull fracture Traumatic brain injury Major depression Controlled type 2 diabetes mellitus with diabetic nephropathy Nephritis NOS in other disease Chronic kidney disease, stage III (moderate) Other chronic pain Neck pain Dyslipidemia Asthma Anemia of chronic disease Chronic constipation HTN (hypertension) Glaucoma suspect Surgical History Hx laparoscopic cholecystectomy (05/09/24) Bilateral inguinal hernia S/P cervical spinal fusion Social History Household Members: Family Housing: House Do you presently have visiting nurse or other home services: Yes Patient Tobacco Use Status: Former Tobacco user Tobacco use type: Cigarette service: No Review of Systems Const All systems reviewed & are unremarkable except as noted in HPI and below Physical Exam Vital Signs: BMI result Body Mass Index 34.4 Telehealth Telehealth Telehealth Platform: Telephone Location of provider rendering services: practice address Location of patient: address on file Patient Identification confirmed using: Name, : Yes Telehealth method: voice only Patient verbally consented to treatment: Yes Patient verbally consented to billing insurance company: Yes Patient informed of any privacy concerns related to visit: No Minutes spent on Phone/Video with Pt.: 10 Results Reviewed Nephrology Results: Hgb 8.5 g/dl (14.0-18.0) L 05/11/24 WBC 14.0 X10*3/uL (4.8-10.8) H 05/11/24 Plt Count 334 X10*3/uL (160-400) 05/11/24 Sodium 139 mmol/L (135-145) 07/29/24 Potassium 4.2 mmol/L (3.3-5.1) 07/29/24 Chloride 104 mmol/L (96-108) 07/29/24 Carbon Dioxide 25 mmol/L (22-29) 07/29/24 BUN 36 mg/dL (9-16) H 07/29/24 Creatinine 2.15 mg/dL (0.5-1.4) H 07/29/24 Calcium 8.9 mg/dL (8.4-10.2) 07/29/24 Urine Protein 30 (1+) mg/dL (Neg-Trace) H 05/06/24 Assessment & Plan Assessment & Plan (1) Acute kidney injury superimposed on chronic kidney disease: Code(s): N17.9 - Acute kidney failure, unspecified; N18.9 - Chronic kidney disease, unspecified Category: Medical (2) Chronic kidney disease, stage III (moderate): Comment: 01/02/2015 Code(s): N18.30 - Chronic kidney disease, stage 3 unspecified Category: Medical Qualifiers: Chronic kidney disease stage 3 subtype: stage 3b (GFR 30-44) Qualified Code(s): N18.32 - Chronic kidney disease, stage 3b (3) HTN (hypertension): Comment: 08/14/2011 Code(s): I10 - Essential (primary) hypertension Category: Medical Qualifiers: Hypertension type: primary hypertension Qualified Code(s): I10 - Essential (primary) hypertension (4) Anemia in chronic kidney disease (CKD): Code(s): N18.9 - Chronic kidney disease, unspecified; D63.1 - Anemia in chronic kidney disease Category: Medical Qualifiers: Chronic kidney disease stage: stage 3 (moderate) Chronic kidney disease stage 3 subtype: stage 3b (GFR 30-44) Qualified Code(s): N18.32 - Chronic kidney disease, stage 3b; D63.1 - Anemia in chronic kidney disease Plan ETHAN likely due to tubular injury on a backdrop of CKD 3B Reduced torsemide to 20 mg daily; Will be a candidate for SGLT2 i May not tolerate any ACEI/ARB now- needs to reassess Needs to be on Vitamin D; Will monitor Vitamin D and PTH No NSAID's. No other medication changes made. Will be a candidate for Procrit Follow up labs ordered. Answered all questions F/U given( Mom has ESRD and is on HD) Orders: Orders Electrolytes 6 Weeks D63.1 - Anemia in chronic kidney disease, I10 - Essential (primary) hypertension, N18.32 - Chronic kidney disease, stage 3b Complete Blood Count Auto Diff 6 Weeks D63.1 - Anemia in chronic kidney disease, I10 - Essential (primary) hypertension, N18.32 - Chronic kidney disease, stage 3b Blood Urea Nitrogen 6 Weeks D63.1 - Anemia in chronic kidney disease, I10 - Essential (primary) hypertension, N18.32 - Chronic kidney disease, stage 3b Creatinine 6 Weeks D63.1 - Anemia in chronic kidney disease, I10 - Essential (primary) hypertension, N18.32 - Chronic kidney disease, stage 3b Coding Level of Care Code Est Pt Level 4 (55465) Diagnoses Acute kidney injury superimposed on chronic kidney disease N17.9; N18.9 Stage 3b chronic kidney disease N18.32 Chronic kidney disease stage 3 subtype: stage 3b (GFR 30-44) Primary hypertension I10 Hypertension type: primary hypertension Anemia in stage 3b chronic kidney disease N18.32; D63.1 Chronic kidney disease stage: stage 3 (moderate) Chronic kidney disease stage 3 subtype: stage 3b (GFR 30-44)
[2024-08-01 10:47] VITALS: BMI 34.4
== END 2024-08-01 13:08 | disposition home or self-care (01) ==
PROVIDERS: PCP Family Medicine; Visit Provider Internal Medicine Nephrology
DX: N17.9 Acute kidney failure, unspecified (principal); I12.9 Hypertensive chronic kidney disease with stage 1 through stage 4 chronic kidney disease, or unspecified chronic kidney disease; N18.32 Chronic kidney disease, stage 3b; D63.1 Anemia in chronic kidney disease
CPT/HCPCS: 99441

== ENCOUNTER → 2024-08-01 10:53 | Outpatient (BNVA) | payer OTHER, SELFPAY | PROVIDERS: PCP Family Medicine; Visit Provider Internal Medicine Nephrology ==

== ENCOUNTER → 2024-08-08 09:49 | Outpatient (AMB) | payer OTHER, SELFPAY ==
--- NOTE | 2024-08-08 09:49 | A.OFFVIS_ITS ---
Intake Visit Reasons: 6 month follow up Intake Note: Hussein presents as a telehealth today. CC: He only has regular constipation - no other concerns at this time. Allergies No Known Allergies Allergy (Mild, Verified 08/08/24 09:50) NOT APPLICABLE HPI HPI 6 month follow up: Details: A 59 y/o male referred with chronic constipation-being called for f/u RECAP: saw [facility] 01/2020 He has a BM every couple days, hard to pass stool. On going for years. He will not take fiber, he thinks that it worsens his constipation. If he uses fleets, he has good results- but refuses to use it any further TSH was nml 2007 Colonoscopy 11/2018 - normal poor prep recommend repeat 1 year- Dr. Sidhu- he was given linaclotide and it was working very well He was admitted 01/2024 with AMS and leg erythema, swelling from CHf exacerbation, rx with ABx and diuretics, AMS resolved He had admission 05/2024 with possible cholangitis, had ERCP and cholangitis, strep in [place] ([place] with strep anginosus--rarely associated with CRC but can be assoc with cholecystitis) INTERIM: he just recently had amputation of toes on right foot for infection and is awaiting further surgeries he still has hard stools he still takes linaclotide and movantik, also taking a stool softener he takes morphine for back and neck pain, 30 mg TID (increased from 20 mg) he denies abdominal pain no nausea or vomiting EXAM: good color, talking easily, not SOB A/P: 1/ Constipation, related to opiate use, good results with lianclotide and movantik low dose previously, but morphine increased now PLAN: increase movantik to 25 mg, and cont linaclotide 290 mcg colonsocopy after his foot surgeries, he will let me know timing of this [facility] Medical History Anasarca Chronic, continuous use of opioids 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 Concussion 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 Diabetes mellitus type 2, controlled Traumatic subarachnoid hemorrhage Traumatic subdural hematoma Temporal skull fracture Traumatic brain injury Major depression Controlled type 2 diabetes mellitus with diabetic nephropathy Nephritis NOS in other disease Chronic kidney disease, stage III (moderate) Other chronic pain Neck pain Dyslipidemia Asthma Anemia of chronic disease Chronic constipation HTN (hypertension) Glaucoma suspect Surgical History (Updated 08/08/24 @ 09:50 by JUSTEN Rick) Hx of colonoscopy Hx laparoscopic cholecystectomy (05/09/24) Bilateral inguinal hernia S/P cervical spinal fusion Social History Household Members: Family Housing: House Do you presently have visiting nurse or other home services: Yes Patient Tobacco Use Status: Former Tobacco user Tobacco use type: Cigarette service: No Telehealth Telehealth Telehealth Platform: infibond Location of provider rendering services: practice address Location of patient: address on file Patient Identification confirmed using: Name, : Yes Telehealth method: video Patient verbally consented to treatment: Yes Patient verbally consented to billing insurance company: Yes Patient informed of any privacy concerns related to visit: Yes Minutes spent on Phone/Video with Pt.: 9 Assessment & Plan Assessment & Plan (1) Opiate use: Code(s): F11.90 - Opioid use, unspecified, uncomplicated Category: Medical Plan: see above Medications: New naloxegol (Movantik) must be taken on empty stomach; no food 1 hr after or 2-3 hrs before dose 25 mg PO QAM 30 tabs 2RF Discontinued naloxegol (Movantik) Discontinued Reason: Patient Completed Course 12.5 mg PO QAM PRN 30 tabs 2RF for constipation Coding Level of Care Code Tele Est Pt Level 3 (27832) Diagnoses Opiate use F11.90
== END ==
LOC: HO.HGI 09:49
PROVIDERS: PCP Family Medicine; Visit Provider Internal Medicine Gastroenterology
DX: K59.04 Chronic idiopathic constipation (principal); F11.90 Opioid use, unspecified, uncomplicated
CPT/HCPCS: 99213

== ENCOUNTER → 2024-08-08 09:49 | Outpatient (BNVA) | payer OTHER, SELFPAY | PROVIDERS: PCP Family Medicine; Visit Provider Internal Medicine Gastroenterology ==

== ENCOUNTER 2024-08-11 15:08 | Outpatient (AMB) | payer OTHER, SELFPAY ==
--- NOTE | 2024-08-11 15:05 | A.OFFVIS_ITS ---
Intake Visit Reasons: follow up/ Labs(set) Intake Note: Patient is present for F/U LABS Urology Medication:NONE Antibiotic Allergy:NONE Blood Thinner:ASPIRIN Medical Detail Representative Required: No Allergies No Known Allergies Allergy (Mild, Verified 08/11/24 15:07) NOT APPLICABLE HPI Comments Details: Hussein is a 59-year-old male who presents today for telehealth visit, -01/25/24, followed for testicular hypofunction. He was started on Xyosted 75 mg. He has not completed repeat testosterone levels. Past medical history significant for DM2, CKD, and venous insufficiency. He has had recent foot surgery. I have discussed at this time will hold on testosterone replacement medication. lab results, Low testosterone, 09/01/23--TT and FT-- 71 and 15.6, LH 1.4, HB A1c 7.6 Review of chart: 01/25/24--Continue Testosterone, Xyosted 75 mg, Repeat Testosterone levels. 07/10/2023. He was referred hypogonadism. He had an accident in 2016 and had a brain injury. He is here with a family member, He is a poor historian. He denies urinary complaints. Plan: LH hormone testing, fasting glucose, prolactin test, sex hormone binding globulin, FSH, Free, and total testosterone, HbA1c were ordered. 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 Diabetes mellitus type 2, controlled Traumatic subarachnoid hemorrhage Traumatic subdural hematoma Temporal skull fracture Traumatic brain injury Major depression Controlled type 2 diabetes mellitus with diabetic nephropathy Nephritis NOS in other disease Chronic kidney disease, stage III (moderate) Other chronic pain Neck pain Dyslipidemia Asthma Anemia of chronic disease Chronic constipation HTN (hypertension) Glaucoma suspect Surgical History (Updated 08/08/24 @ 09:50 by JUSTEN Rick) Hx of colonoscopy Hx laparoscopic cholecystectomy (05/09/24) Bilateral inguinal hernia S/P cervical spinal fusion Social History Household Members: Family Housing: House Do you presently have visiting nurse or other home services: Yes Patient Tobacco Use Status: Former Tobacco user Tobacco use type: Cigarette service: No Review of Systems Const All systems reviewed & are unremarkable except as noted in HPI and below Reports no additional complaints Eyes Reports no additional complaints ENT Reports no additional complaints Card Reports no additional complaints Resp Reports no additional complaints GI Reports no additional complaints Reports as per HPI Musc Reports no additional complaints Skin/Breast Reports system reviewed and no additional complaints, except as documented Neuro Reports no additional complaints Psych Reports no additional complaints Endo Reports no additional complaints Igor/Lymph Reports no additional complaints Aller/Immun Reports no additional complaints Telehealth Telehealth Telehealth Platform: Telephone Location of provider rendering services: practice address Location of patient: address on file Patient Identification confirmed using: Name, : Yes Telehealth method: voice only Patient verbally consented to treatment: Yes Patient verbally consented to billing insurance company: Yes Patient informed of any privacy concerns related to visit: Yes Minutes spent on Phone/Video with Pt.: 15 Assessment & Plan Assessment & Plan (1) Hypogonadism in male: Code(s): E29.1 - Testicular hypofunction Category: Medical Plan Hold on Testosterone replacement Patient Instructions: The patient had an opportunity to ask questions regarding treatment plan. The patient expressed understanding and agreement with the above treatment plan. The patient is aware they should contact our office by phone for worsening of their current condition or the appearance of new symptoms. Compliance is encouraged with any medications and followup testing that is ordered. It is a privilege to be allowed the opportunity to participate in the urologic care of your patient. If you have any questions or concerns regarding treatment for the above conditions please do not hesitate to contact me. The office telephone contact is [phone]. This note is constructed in part using voice recognition software. While every effort has been made to ensure accuracy branch credit counselor errors may have been included. Yours sincerely, Bashir Smith MD Coding Level of Care Code Tele Est Pt Level 3 (67994) Diagnoses Hypogonadism in male E29.1
== END 2024-08-11 16:30 | disposition home or self-care (01) ==
LOC: HO.HUSH 15:08
PROVIDERS: PCP Family Medicine; Visit Provider Urology
DX: E29.1 Testicular hypofunction (principal)
CPT/HCPCS: 99442

== ENCOUNTER → 2024-08-11 15:08 | Outpatient (BNVA) | payer OTHER, SELFPAY | PROVIDERS: PCP Family Medicine; Visit Provider Urology ==

== ENCOUNTER 2024-10-19 11:34 | Outpatient (AMB) | payer OTHER, SELFPAY ==
--- NOTE | 2024-10-19 11:38 | HO.NEPHOV_ITS ---
Vital Signs 10/19/24 11:44 Height 5 ft 10 in Weight 171 lb 6 oz BMI 24.6 BP 110/70 Blood Pressure Location Rt brachial Position Sitting Pulse 90 Pulse Source Pulse Oximeter Pulse Oximetry (%) 97 Oxygen Delivery Method Room Air Intake Visit Reasons: 2 mnts f/u-Conf w/[employer] Drivability Technician Required: No Accompanied by: Spouse Allergies No Known Allergies Allergy (Mild, Verified 10/19/24 11:43) NOT APPLICABLE HPI Comments Details: 58-year-old male with?HTN, CKD 3 as well as insulin-dependent type 2 diabetes was seen in follow up . He [place] [facility] [place] He is anemic with no active blood loss. His transferrin saturation is over 20 %. He has H/O chronic diastolic CHF and is on diuretics. His serum creatinine has gone up from baseline. He denied nausea, vomiting, diarrhea, chest pain, SOB or urinary symptoms. 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 Diabetes mellitus type 2, controlled Traumatic subarachnoid hemorrhage Traumatic subdural hematoma Temporal skull fracture Traumatic brain injury Major depression Controlled type 2 diabetes mellitus with diabetic nephropathy Nephritis NOS in other disease Chronic kidney disease, stage III (moderate) Other chronic pain Neck pain Dyslipidemia Asthma Anemia of chronic disease Chronic constipation HTN (hypertension) Glaucoma suspect Surgical History Hx of colonoscopy Hx laparoscopic cholecystectomy (05/09/24) Bilateral inguinal hernia S/P cervical spinal fusion Social History Household Members: Family Housing: House Do you presently have visiting nurse or other home services: Yes Patient Tobacco Use Status: Former Tobacco user Tobacco use type: Cigarette service: No Review of Systems Const All systems reviewed & are unremarkable except as noted in HPI and below Physical Exam Const General: comfortable and no acute distress Orientation/consciousness: patient oriented x3 HEENT Head: Yes normocephalic Mouth: Normal oral and palatal mucosa present Eyes EOM: EOMs intact bilaterally Neck Neck: Yes supple Resp Auscultation: clear to auscultation bilaterally Cardio Jugular venous distension: no JVD Rate: regular rate GI Palpation (GI): Soft to palpation Auscultation: normal bowel sounds General: Yes no CVA tenderness Back/Spine/Pelvis Back: no CVA tenderness Skin General skin exam: no rashes or lesions noted Neuro General: patient oriented x3 and moves all extremities Office Meds epoetin boris-epbx 10,000 unit/mL injection solution Performing Provider: Ramone Garay MD Performing Location: [facility] Administered by: Ramone Garay MD on 10/19/24 12:02 Dose Route Admin Location Dispensed Lot Number Expiration Date [facility] Monitoring And Evaluation Advisor 20,000 unit subcut RUE 2 mL [id number] 03/02/26 [id number] [employer] Results Reviewed Nephrology Results: Sodium 139 mmol/L (135-145) 07/29/24 Potassium 4.2 mmol/L (3.3-5.1) 07/29/24 Chloride 104 mmol/L (96-108) 07/29/24 Carbon Dioxide 25 mmol/L (22-29) 07/29/24 BUN 36 mg/dL (9-16) H 07/29/24 Creatinine 2.15 mg/dL (0.5-1.4) H 07/29/24 Calcium 8.9 mg/dL (8.4-10.2) 07/29/24 Assessment & Plan Assessment & Plan (1) Anemia in chronic kidney disease (CKD): Code(s): N18.9 - Chronic kidney disease, unspecified; D63.1 - Anemia in chronic kidney disease Category: Medical Qualifiers: Chronic kidney disease stage: stage 3 (moderate) Chronic kidney disease stage 3 subtype: stage 3b (GFR 30-44) Qualified Code(s): N18.32 - Chronic kidney disease, stage 3b; D63.1 - Anemia in chronic kidney disease (2) HTN (hypertension): Comment: 08/14/2011 Code(s): I10 - Essential (primary) hypertension Category: Medical Qualifiers: Hypertension type: primary hypertension Qualified Code(s): I10 - Essential (primary) hypertension (3) Chronic kidney disease, stage III (moderate): Comment: 01/02/2015 Code(s): N18.30 - Chronic kidney disease, stage 3 unspecified Category: Medical Qualifiers: Chronic kidney disease stage 3 subtype: stage 3b (GFR 30-44) Qualified Code(s): N18.32 - Chronic kidney disease, stage 3b (4) Vitamin D deficiency: Code(s): E55.9 - Vitamin D deficiency, unspecified Category: Medical (5) Secondary hyperparathyroidism (of renal origin): Code(s): N25.81 - Secondary hyperparathyroidism of renal origin Category: Medical Plan ETHAN likely due to tubular injury on a backdrop of CKD 3B Increased torsemide to 40 mg daily alternating with 20 mg every other day Will be a candidate for SGLT2 i May not tolerate any ACEI/ARB now- needs to reassess Needs to be on Vitamin D; Will monitor Vitamin D and PTH No NSAID's. No other medication changes made. Given Procrit [id number] Units today Follow up labs ordered. Answered all questions F/U given( Mom has ESRD and is on HD) Orders: Orders Electrolytes 10/18/24 N18.32 - Chronic kidney disease, stage 3b AMB Epoetin Injection Practice Supplied Today D63.1 - Anemia in chronic kidney disease, N18.32 - Chronic kidney disease, stage 3b Complete Blood Count Auto Diff 3 Weeks D63.1 - Anemia in chronic kidney disease, E55.9 - Vitamin D deficiency, unspecified, I10 - Essential (primary) hypertension, N18.32 - Chronic kidney disease, stage 3b, N25.81 - Secondary hyperparathyroidism of renal origin Creatinine 3 Weeks D63.1 - Anemia in chronic kidney disease, E55.9 - Vitamin D deficiency, unspecified, I10 - Essential (primary) hypertension, N18.32 - Chronic kidney disease, stage 3b, N25.81 - Secondary hyperparathyroidism of renal origin Blood Urea Nitrogen 3 Weeks D63.1 - Anemia in chronic kidney disease, E55.9 - Vitamin D deficiency, unspecified, I10 - Essential (primary) hypertension, N18.32 - Chronic kidney disease, stage 3b, N25.81 - Secondary hyperparathyroidism of renal origin Parathyroid Hormone Intact 3 Weeks D63.1 - Anemia in chronic kidney disease, E55.9 - Vitamin D deficiency, unspecified, I10 - Essential (primary) hypertension, N18.32 - Chronic kidney disease, stage 3b, N25.81 - Secondary hyperparathyroidism of renal origin Creatinine 10/18/24 N18.32 - Chronic kidney disease, stage 3b Blood Urea Nitrogen 10/18/24 N18.32 - Chronic kidney disease, stage 3b Protein Creatinine Ratio, Ur 24 N18.32 - Chronic kidney disease, stage 3b Parathyroid Hormone Intact 24 N18.32 - Chronic kidney disease, stage 3b Vitamin D 25-OH Total 24 N18.32 - Chronic kidney disease, stage 3b Electrolytes 3 Weeks D63.1 - Anemia in chronic kidney disease, E55.9 - Vitamin D deficiency, unspecified, I10 - Essential (primary) hypertension, N18.32 - Chronic kidney disease, stage 3b, N25.81 - Secondary hyperparathyroidism of renal origin Calcium 3 Weeks D63.1 - Anemia in chronic kidney disease, E55.9 - Vitamin D deficiency, unspecified, I10 - Essential (primary) hypertension, N18.32 - Chronic kidney disease, stage 3b, N25.81 - Secondary hyperparathyroidism of renal origin Phosphorus 3 Weeks D63.1 - Anemia in chronic kidney disease, E55.9 - Vitamin D deficiency, unspecified, I10 - Essential (primary) hypertension, N18.32 - Chronic kidney disease, stage 3b, N25.81 - Secondary hyperparathyroidism of renal origin Vitamin D 25-OH Total 3 Weeks D63.1 - Anemia in chronic kidney disease, E55.9 - Vitamin D deficiency, unspecified, I10 - Essential (primary) hypertension, N18.32 - Chronic kidney disease, stage 3b, N25.81 - Secondary hyperparathyroidism of renal origin Coding Level of Care Code Est Pt Level 4 (21406) Diagnoses Anemia in stage 3b chronic kidney disease N18.32; D63.1 Chronic kidney disease stage: stage 3 (moderate) Chronic kidney disease stage 3 subtype: stage 3b (GFR 30-44) Primary hypertension I10 Hypertension type: primary hypertension Stage 3b chronic kidney disease N18.32 Chronic kidney disease stage 3 subtype: stage 3b (GFR 30-44) Vitamin D deficiency E55.9 Secondary hyperparathyroidism (of renal origin) N25.81
[2024-10-19 11:44] VITALS: BP 110/70; PULSE 90; O2SAT 97; BMI 24.6
== END 2024-10-19 12:12 | disposition home or self-care (01) ==
PROVIDERS: PCP Family Medicine; Visit Provider Internal Medicine Nephrology
DX: I12.9 Hypertensive chronic kidney disease with stage 1 through stage 4 chronic kidney disease, or unspecified chronic kidney disease (principal); N18.32 Chronic kidney disease, stage 3b; D63.1 Anemia in chronic kidney disease; E55.9 Vitamin D deficiency, unspecified; N25.81 Secondary hyperparathyroidism of renal origin
CPT/HCPCS: 99214

== ENCOUNTER → 2024-10-19 11:34 | Outpatient (BNVA) | payer OTHER, SELFPAY | PROVIDERS: PCP Family Medicine; Visit Provider Internal Medicine Nephrology | DX: I12.9 Hypertensive chronic kidney disease with stage 1 through stage 4 chronic kidney disease, or unspecified chronic kidney disease (principal); N18.32 Chronic kidney disease, stage 3b; D63.1 Anemia in chronic kidney disease; E55.9 Vitamin D deficiency, unspecified; N25.81 Secondary hyperparathyroidism of renal origin | CPT/HCPCS: 96372; 99212; Q5106 ==

== ENCOUNTER 2024-11-16 15:17 | Outpatient (REF) | payer OTHER, SELFPAY ==
[2024-11-16 16:06] LABS: MANUAL DIFF FLAG NO
[2024-11-16 16:08] LABS: Basophils Absolute Auto 0.1 X10*3/uL (0.0-0.2); Basophils Percent Auto 0.7 % (0-2); Eosinophils Absolute Auto 0.4 X10*3/uL (0.0-0.4); Eosinophils Percent Auto 4.1 % (0-4); Hematocrit 32.8 % (42.0-52.0); Hemoglobin 10.5 g/dl (14.0-18.0); Imm Gran Abs Auto 0.04 X10*3/uL (0.00-0.03); Imm Gran Pct Auto 0.4 % (0.0-0.4); Lymphocytes Absolute Auto 2.5 X10*3/uL (1.2-4.9); Lymphocytes Percent Auto 26.9 % (20-40); Mean Corpuscular Hemoglobin 27.6 pg (27.0-33.0); Mean Corpuscular Volume 86.3 fL (80.0-98.0); Mean Platelet Volume 9.9 fL (9.4-12.4); Monocytes Absolute Auto 0.7 X10*3/uL (0.1-1.2); Monocytes Percent Auto 7.1 % (2-11); Neutrophils Absolute Auto 5.6 x10*3/uL (2.0-8.3); Neutrophils Percent Auto 60.8 % (45-73); Platelet Count 273 X10*3/uL (160-400); Red Cell Distribution Width 12.5 % (11.0-16.0); White Blood Count 9.2 X10*3/uL (4.8-10.8)
[2024-11-16 17:11] LABS: Anion Gap 10 (12-20); Blood Urea Nitrogen 30 mg/dL (9-16); Calcium 9.1 mg/dL (8.4-10.2); Carbon Dioxide 26 mmol/L (22-29); Chloride 105 mmol/L (96-108); Estimated Glomerular Filt Rate 37; Phosphorus 2.7 mg/dL (2.7-4.5); Potassium 3.8 mmol/L (3.3-5.1); Sodium 137 mmol/L (135-145)
[2024-11-16 17:24] LABS: Vitamin D 25-OH Total 55.6 ng/mL (>30)
[2024-11-16 17:44] LABS: Parathyroid Hormone Intact 91.8 pg/mL (8.7-77.1)
== END 2024-11-16 15:18 | disposition home or self-care (01) ==
LOC: HO.HHCL 15:17
PROVIDERS: Visit Provider Internal Medicine Nephrology
DX: I12.9 Hypertensive chronic kidney disease with stage 1 through stage 4 chronic kidney disease, or unspecified chronic kidney disease (principal); N18.32 Chronic kidney disease, stage 3b; D63.1 Anemia in chronic kidney disease; N25.81 Secondary hyperparathyroidism of renal origin; E55.9 Vitamin D deficiency, unspecified
CPT/HCPCS: 36415; 80051; 82306; 82310; 82565; 83970; 84100; 84520; 85025

== ENCOUNTER 2024-12-21 10:11 | Outpatient (AMB) | payer OTHER, SELFPAY ==
--- NOTE | 2024-12-21 10:01 | HO.NEPHOV_ITS ---
Vital Signs 12/21/24 10:02 Height 5 ft 10 in Weight 275 lb BMI 39.5 Intake Visit Reasons: Anemia in chronic kidney disease/ Conf Tight Barrel Inspector Required: No Accompanied by: Spouse Allergies No Known Allergies Allergy (Mild, Verified 12/21/24 10:02) NOT APPLICABLE HPI Comments Details: 58-year-old male with?HTN, CKD 3 as well as insulin-dependent type 2 diabetes was seen in follow up by [facility] . He had toes [place] [facility] [place] He is anemic with no active blood loss but better . His transferrin saturation is over 20 %. He has H/O chronic diastolic CHF and is on diuretics. His serum creatinine is close to baseline. He denied nausea, vomiting, diarrhea, chest pain, SOB or urinary symptoms. 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 Diabetes mellitus type 2, controlled Traumatic subarachnoid hemorrhage Traumatic subdural hematoma Temporal skull fracture Traumatic brain injury Major depression Controlled type 2 diabetes mellitus with diabetic nephropathy Nephritis NOS in other disease Chronic kidney disease, stage III (moderate) Other chronic pain Neck pain Dyslipidemia Asthma Anemia of chronic disease Chronic constipation HTN (hypertension) Glaucoma suspect Surgical History Hx of colonoscopy Hx laparoscopic cholecystectomy (05/09/24) Bilateral inguinal hernia S/P cervical spinal fusion Social History Household Members: Family Housing: House Do you presently have visiting nurse or other home services: Yes Patient Tobacco Use Status: Former Tobacco user Tobacco use type: Cigarette service: No Review of Systems Const All systems reviewed & are unremarkable except as noted in HPI and below Physical Exam Vital Signs: BMI result Body Mass Index 39.5 Telehealth Telehealth Telehealth Platform: Telephone Location of provider rendering services: practice address Location of patient: address on file Patient Identification confirmed using: Name, : Yes Telehealth method: voice only Patient verbally consented to treatment: Yes Patient verbally consented to billing insurance company: Yes Patient informed of any privacy concerns related to visit: No Minutes spent on Phone/Video with Pt.: 10 Results Reviewed Nephrology Results: Hgb 10.5 g/dl (14.0-18.0) L 11/16/24 WBC 9.2 X10*3/uL (4.8-10.8) 11/16/24 Plt Count 273 X10*3/uL (160-400) 11/16/24 Sodium 137 mmol/L (135-145) 11/16/24 Potassium 3.8 mmol/L (3.3-5.1) 11/16/24 Chloride 105 mmol/L (96-108) 11/16/24 Carbon Dioxide 26 mmol/L (22-29) 11/16/24 BUN 30 mg/dL (9-16) H 11/16/24 Creatinine 1.87 mg/dL (0.5-1.4) H 11/16/24 Calcium 9.1 mg/dL (8.4-10.2) 11/16/24 Phosphorus 2.7 mg/dL (2.7-4.5) 11/16/24 PTH Intact 91.8 pg/mL (8.7-77.1) H 11/16/24 Assessment & Plan Assessment & Plan (1) Anemia in chronic kidney disease (CKD): Code(s): N18.9 - Chronic kidney disease, unspecified; D63.1 - Anemia in chronic kidney disease Category: Medical Qualifiers: Chronic kidney disease stage: stage 3 (moderate) Chronic kidney disease stage 3 subtype: stage 3b (GFR 30-44) Qualified Code(s): N18.32 - Chronic kidney disease, stage 3b; D63.1 - Anemia in chronic kidney disease (2) Secondary hyperparathyroidism (of renal origin): Code(s): N25.81 - Secondary hyperparathyroidism of renal origin Category: Medical (3) Vitamin D deficiency: Code(s): E55.9 - Vitamin D deficiency, unspecified Category: Medical (4) HTN (hypertension): Comment: 08/14/2011 Code(s): I10 - Essential (primary) hypertension Category: Medical Qualifiers: Hypertension type: primary hypertension Qualified Code(s): I10 - Essential (primary) hypertension (5) Chronic kidney disease, stage III (moderate): Comment: 01/02/2015 Code(s): N18.30 - Chronic kidney disease, stage 3 unspecified Category: Medical Qualifiers: Chronic kidney disease stage 3 subtype: stage 3b (GFR 30-44) Qualified Code(s): N18.32 - Chronic kidney disease, stage 3b Plan ETHAN likely due to tubular injury on a backdrop of CKD 3B- resolved C/W torsemide to 40 mg daily alternating with 20 mg every other day Will be a candidate for SGLT2 i May not tolerate any ACEI/ARB now- needs to reassess Will monitor Vitamin D and PTH No NSAID's. No other medication changes made Follow up labs ordered. Answered all questions F/U given( Mom has ESRD and is on HD) Orders: Orders Electrolytes 3 Months D63.1 - Anemia in chronic kidney disease, E55.9 - Vitamin D deficiency, unspecified, I10 - Essential (primary) hypertension, N18.32 - Chronic kidney disease, stage 3b, N25.81 - Secondary hyperparathyroidism of renal origin Calcium 3 Months D63.1 - Anemia in chronic kidney disease, E55.9 - Vitamin D deficiency, unspecified, I10 - Essential (primary) hypertension, N18.32 - Chronic kidney disease, stage 3b, N25.81 - Secondary hyperparathyroidism of renal origin Creatinine 3 Months D63.1 - Anemia in chronic kidney disease, E55.9 - Vitamin D deficiency, unspecified, I10 - Essential (primary) hypertension, N18.32 - Chronic kidney disease, stage 3b, N25.81 - Secondary hyperparathyroidism of renal origin Complete Blood Count Auto Diff 3 Months D63.1 - Anemia in chronic kidney disease, E55.9 - Vitamin D deficiency, unspecified, I10 - Essential (primary) hypertension, N18.32 - Chronic kidney disease, stage 3b, N25.81 - Secondary hyperparathyroidism of renal origin IRON PROFILE 3 Months D63.1 - Anemia in chronic kidney disease, E55.9 - Vitamin D deficiency, unspecified, I10 - Essential (primary) hypertension, N18.32 - Chronic kidney disease, stage 3b, N25.81 - Secondary hyperparathyroidism of renal origin Blood Urea Nitrogen 3 Months D63.1 - Anemia in chronic kidney disease, E55.9 - Vitamin D deficiency, unspecified, I10 - Essential (primary) hypertension, N18.32 - Chronic kidney disease, stage 3b, N25.81 - Secondary hyperparathyroidism of renal origin Coding Level of Care Code Tele Est Pt Level 4 (03523) Diagnoses Anemia in stage 3b chronic kidney disease N18.32; D63.1 Chronic kidney disease stage: stage 3 (moderate) Chronic kidney disease stage 3 subtype: stage 3b (GFR 30-44) Secondary hyperparathyroidism (of renal origin) N25.81 Vitamin D deficiency E55.9 Primary hypertension I10 Hypertension type: primary hypertension Stage 3b chronic kidney disease N18.32 Chronic kidney disease stage 3 subtype: stage 3b (GFR 30-44)
[2024-12-21 10:02] VITALS: BMI 39.5
--- OUTSIDE RECORDS SUMMARY | 2024-12-21 10:42 | XMS_ITS | Encounter Summary ---
Author Organization [employer] Address [address] [place] [address] Care Team Providers Care Tour Guide Name Role Phone Madonna Plascencia MD Primary Care Provider Reason for Visit * Reason Onset Date Comments Med Refill 07/06/2024 Encounter Details Date Type Department Care Team ([facility] st Contact Info) Description 07/06/2024 Telephone [facility] MEDICINE [address], [place] [phone] Madonna Plascencia MD [address], [place] [phone] Med Refill Social History Tobacco Use Types Packs/Day Years Used Date Smoking Tobacco: Never Passive Smoke Exposure: Never Smokeless Tobacco: Never Depression Answer Date Recorded Patient Health Questionnaire-9 Score 0 07/07/2023 Housing Stability Answer Date Recorded What is your housing situation today? I have heather vazquez 08/24/[address] you li ve. Do you have problems with any of the following? None of the above 08/24/2023 Food Insecurity Answer Date Recorded Within the past 12 months, y ou worried that your food would run out before you got money to buy more: Never True 08/24/2023 Within the past 12 months,th e food you bought just didn't last and you didn't have enough money to get more: Never True Transportation Answer Date Recorded In the past 12 months, has l ack of transportation kept you from medical appts, meetings, work or from getting things needed for daily living? No 08/24/2023 Utilities Answer Date Recorded In the past 12 months, has t he electric, gas, oil or water [employer] threatened to shut off services in your home? No 08/24/2023 Depression Answer Date Recorded Patient Health Questionnaire-2 Score 0 07/07/2023 Sex and Gender Information Value Date Recorded Sex Assigned at Male 09/01/2022 10:19 AM EDT Legal Sex Male 10:19 AM EDT Gender Identity Male 09/01/2022 10:19 AM EDT Sexual Orientation Straight 09/01/2022 10 :19 AM EDT documented as of this encounter Miscellaneous Notes * Telephone Encounter - Dawn Rodas - 07/25/2024 11:17 AM EDT Tc from pt spouse requesting a status on medication requested above, states inssurance is requesting script to be ( ES ) Please contact at [phone] * Telephone Encounter - Timmy Stephenson - 07/06/2024 10:03 AM EDT TC from pt requesting medication refill. Medications needing refill: morphine CR (MS Contin) 30 MG 12 hr tablet To be sent to: [facility]/pharmacy [id number] [place] [address] - [address] [place] [address] documented in this encounter Plan of Treatment Upcoming Encounters Date Type Department Care Team (Late st Contact Info) Description 12/26/2024 11:15 AM EST Telemedicine [facility] MEDICINE [address] [place] [address] Madonna Plascencia MD [address] [place] [address] 01/04/2025 2:15 PM EST Clinical Support [facility] MED & PEDS [address] [place] [address] Joan Shipley, RN [address] [place] [address] documented as of this encounter Visit Diagnoses Not on filedocumented in this encounter Additional Health Concerns Assessment Noted Time PHQ-9 Depression Total Score: 0 07/07/20 23 1:17 PM EDT documented as of this encounter Care Teams Tour Guide Relationship Specialty Start Date End Date Madonna Plascencia MD [address] [place] [address] PCP - General Family Medicine 08/07/14 documented as of this encounter
--- OUTSIDE RECORDS SUMMARY | 2024-12-21 10:42 | XMS_ITS | Clinical Summary ---
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 kidney disease. Will request prior authorization so that he can remain the same morphine, if not will consider switching to long-acting morphine with less frequency Assessment & Plan (07/14/2024 10:17 AM EDT): -continue judicious use of morphine - his current morphine is not approved by his insurance, however is high-risk for taking long-acting morphine due to his kidney disease. Will request prior authorization so that he can remain the same morphine, if not will consider switching to long-acting morphine with less frequency Assessment & Plan (10/12/2023 6:18 AM EST): -continue judicious use of morphine Assessment & Plan (07/10/2023 12:16 PM EDT): -continue judicious use of morphine Assessment & Plan (05/11/2023 5:03 PM EDT): -continue judicious use of morphine Assessment & Plan (02/14/2023 7:13 AM EDT): -continue judicious use of morphine Chronic kidney disease, stage III (moderate) 12/2014 Assessment & Plan (08/30/2024 10:50 PM EDT): -Nephrology, Dr. Comer, seen in March 2024, upcoming follow up appointment in June -patient is taking SGLT2 inhibitor -Avoid nephrotoxic drugs -Renal dose meds. Assessment & Plan (05/30/2024 6:44 PM EDT): -Nephrology, Dr. Comer, seen in March 2024, upcoming follow up appointment in June -patient is taking SGLT2 inhibitor -Avoid nephrotoxic drugs -Renal dose meds. Assessment & Plan (02/23/2024 10:38 AM EDT): -NephrologyDr. Comer, seen on 01/29/24 -patient is taking SGLT2 inhibitor -Avoid nephrotoxic drugs -Renal dose meds. Assessment & Plan (10/14/2023 4:09 PM EST): -NephrologyDr. Harding, in-person visit in winter 2019, televisit on 08/25/22 -Previously prescribed SGLT-2 inhibitor, but pt reports adverse reaction and has not been taking -Avoid nephrotoxic drugs -Renal dose meds. -Pt is willing to have in-person visit, and requests a new referral to Dr. Harding. Assessment & Plan (07/10/2023 12:14 PM EDT): -NephrologyDr. Harding, in-person visit in winter 2019, televisit on 08/25/22 -Previously prescribed SGLT-2 inhibitor, but pt reports adverse reaction and has not been taking -Avoid nephrotoxic drugs -Renal dose meds. Assessment & Plan (05/11/2023 5:03 PM EDT): -Nephrology, Dr. Harding, in-person visit in winter 2019, televisit on 08/25/22 -Previously prescribed SGLT-2 inhibitor, but pt reports adverse reaction and has not been taking -Avoid nephrotoxic drugs -Renal dose meds. Assessment & Plan (02/14/2023 6:53 AM EDT): -Nephrology, Dr. Harding, in-person visit in winter 2019, televisit on 08/25/22 -Previously prescribed SGLT-2 inhibitor, but pt reports adverse reaction and has not been taking -Avoid nephrotoxic drugs -Renal dose meds. Major depressive disorder 01/02/2015 Overview (02/22/2024): Last Assessment & Plan: Mood disorder: schizoaffective with depression and Hx TBI with personality change - [facility] provider: NMilli Psychiatrjaun Vazquez at [facility] - Current medications: Ambien, Seroquel, Lexapro - Continue working with [facility] provider; encouraged to discuss about non- pharmacological treatment / coping skill development Assessment & Plan (08/30/2024 10:52 PM EDT): Mood disorder: schizoaffective with depression and Hx TBI with personality change - [facility] provider: N. Psychiatrjaun Vazquez at [facility] - Current medications: Ambien, Seroquel, Lexapro - Continue working with [facility] provider; encouraged to discuss about non- pharmacological treatment / coping skill development Assessment & Plan (10/12/2023 6:17 AM EST): Mood disorder: schizoaffective with depression and Hx TBI with personality change - [facility] provider: NMilli Psychiatrjaun Vazquez at [facility] - Current medications: Ambien, Seroquel, Lexapro - Continue working with [facility] provider; encouraged to discuss about non- pharmacological treatment / coping skill development Assessment & Plan (07/10/2023 12:18 PM EDT): Mood disorder: schizoaffective with depression and Hx TBI with personality change - [facility] provider: N. Psychiatrist Dr Vazquez at [facility] - Current medications: Ambien, Seroquel, Lexapro - Continue working with [facility] provider; encouraged to discuss about non- pharmacological treatment / coping skill development Assessment & Plan (02/14/2023 7:10 AM EDT): Mood disorder: schizoaffective with depression and Hx TBI with personality change - [facility] provider: [facility]. Psychiatrist Dr Vazquez at [facility] - Current medications: Ambien, Seroquel, Lexapro - Continue working with [facility] provider; encouraged to discuss about non- pharmacological treatment / coping skill development Neck pain 01/02/2015 Type 2 diabetes mellitus 01/02/2015 Overview (02/22/2024): Last Assessment & Plan: -A1C 6.6% on 05/20/22, stable from 6.8% on 10/29/21 -Dx: in his early 30s -Continue Lantus 80 units qhs -Continue Novolog 80-90 units with each meal -Pt tried trulicity but developed side effects and it was discontinued. -He tried Farxiga in Jul 2021, but stopped due to constipation. Not willing to try another SGLT-2 inhibitor -Continue diligent SMBG, will change to CGM and adjust his insulin -Discussed about the importance of lifestyle modifications -Last eye exam: 05/11/18, Dr. Finn. No diabetic retinopathy, advised to schedule appt, but pt refuses -Last foot exam: 07/29/2021, tinea pedis -Last microalbumin test: 03/05/22 UACR <12. -Last lipid profile: Labs ordered: 03/05/22 TC 105; TG 232; HDL 25; LDL 34. -Last dental exam: before the pandemic. Immunizations: Not up to date with COVID Assessment & Plan (08/30/2024 10:51 PM EDT): -A1C 6.1% on 02/23/24. -Dx: in his early 30s -Continue Lantus to 20 units qhs -Continue Novolog 20 units with each meal -continue farxiga -previously on ozempic, currently on hold due to weight loss and normal BG -Continue diligent SMBG, patient declines CGM -Discussed about the importance of lifestyle modifications -Last eye exam: 05/11/18, Dr. Finn. No diabetic retinopathy, advised to schedule appt, but pt refuses -Last foot exam: 07/07/23, tinea pedis -Last microalbumin test: 07/07/23 UACR 21 -Last lipid profile: Labs ordered: 07/29/24 TC 112; TG 96; LDL 67; HDL 26 -Last dental exam: before the pandemic. Assessment & Plan (07/14/2024 10:19 AM EDT): -A1C 6.1% on 02/23/24. -Dx: in his early 30s -Continue Lantus to 20 units qhs -Continue Novolog 20 units with each meal -continue farxiga -previously on ozempic, currently on hold due to weight loss and normal BG -Continue diligent SMBG, patient declines CGM -Discussed about the importance of lifestyle modifications -Last eye exam: 05/11/18, Dr. Finn. No diabetic retinopathy, advised to schedule appt, but pt refuses -Last foot exam: 07/07/23, tinea pedis -Last microalbumin test: 07/07/23 UACR 21 -Last lipid profile: Labs ordered: 07/07/23 TC 130; TG 200; LDL 65; HDL 25 -Last dental exam: before the pandemic. Assessment & Plan (05/30/2024 6:39 PM EDT): -A1C 6.1% on 02/23/24. -Dx: in his early 30s -Continue Lantus to 40 units qhs -Continue Novolog 20 units with each meal -patient is willing to try GLP1-RA, previously tried trulicity but patient does not remember -continue farxiga -continue ozempic 0.25 mg weekly -Continue diligent SMBG, will change to CGM and adjust his insulin -Discussed about the importance of lifestyle modifications -Last eye exam: 05/11/18, Dr. Finn. No diabetic retinopathy, advised to schedule appt, but pt refuses -Last foot exam: 07/07/23, tinea pedis -Last microalbumin test: 07/07/23 UACR 21 -Last lipid profile: Labs ordered: 07/07/23 TC 130; TG 200; LDL 65; HDL 25 -Last dental exam: before the pandemic. Assessment & Plan (02/23/2024 10:41 AM EDT): -A1C 6.1% on 02/23/24. -Dx: in his early 30s -decrease Lantus to 45 units qhs -Continue Novolog 30 units with each meal -patient is willing to try GLP1-RA, previously tried trulicity but patient does not remember -continue farxiga -start ozempic -Continue diligent SMBG, will change to CGM and adjust his insulin -Discussed about the importance of lifestyle modifications -Last eye exam: 05/11/18, Dr. Finn. No diabetic retinopathy, advised to schedule appt, but pt refuses -Last foot exam: 07/07/23, tinea pedis -Last microalbumin test: 07/07/23 UACR 21 -Last lipid profile: Labs ordered: 07/07/23 TC 130; TG 200; LDL 65; HDL 25 -Last dental exam: before the pandemic. Immunizations: Not up to date with COVID Assessment & Plan (10/14/2023 4:18 PM EST): -A1C 7.9% on 07/07/23. 6.6% on 05/20/22. -Dx: in his early 30s -Continue Lantus 80 units qhs -Continue Novolog 80-90 units with each meal -Pt tried trulicity but developed side effects and it was discontinued. -He tried Farxiga in Jul 2021, but stopped due to constipation. Not willing to try another SGLT-2 inhibitor -Continue diligent SMBG, will change to CGM and adjust his insulin -Discussed about the importance of lifestyle modifications -Last eye exam: 05/11/18, Dr. Finn. No diabetic retinopathy, advised to schedule appt, but pt refuses -Last foot exam: 07/07/23, tinea pedis -Last microalbumin test: 07/07/23 UACR 21 -Last lipid profile: Labs ordered: 07/07/23 TC 130; TG 200; LDL 65; HDL 25 -Last dental exam: before the pandemic. Immunizations: Not up to date with COVID Assessment & Plan (07/10/2023 12:16 PM EDT): -A1C 7.9% on 07/07/23. 6.6% on 05/20/22. -Dx: in his early 30s -Continue Lantus 80 units qhs -Continue Novolog 80-90 units with each meal -Pt tried trulicity but developed side effects and it was discontinued. -He tried Farxiga in Jul 2021, but stopped due to constipation. Not willing to try another SGLT-2 inhibitor -Continue diligent SMBG, will change to CGM and adjust his insulin -Discussed about the importance of lifestyle modifications -Last eye exam: 05/11/18, Dr. Finn. No diabetic retinopathy, advised to schedule appt, but pt refuses -Last foot exam: 07/07/23, tinea pedis -Last microalbumin test: 03/05/22 UACR <12. -Last lipid profile: Labs ordered: 03/05/22 TC 105; TG 232; HDL 25; LDL 34. -Last dental exam: before the pandemic. Immunizations: Not up to date with COVID Assessment & Plan (05/11/2023 5:06 PM EDT): -A1C 6.6% on 05/20/22, stable from 6.8% on 10/29/21 -Dx: in his early 30s -Continue Lantus 80 units qhs -Continue Novolog 80-90 units with each meal -Pt tried trulicity but developed side effects and it was discontinued. -He tried Farxiga in Jul 2021, but stopped due to constipation. Not willing to try another SGLT-2 inhibitor -Continue diligent SMBG, will change to CGM and adjust his insulin -Discussed about the importance of lifestyle modifications -Last eye exam: 05/11/18, Dr. Finn. No diabetic retinopathy, advised to schedule appt, but pt refuses -Last foot exam: 07/29/2021, tinea pedis -Last microalbumin test: 03/05/22 UACR <12. -Last lipid profile: Labs ordered: 03/05/22 TC 105; TG 232; HDL 25; LDL 34. -Last dental exam: before the pandemic. Immunizations: Not up to date with COVID Assessment & Plan (02/14/2023 7:00 AM EDT): -A1C 6.6% on 05/20/22, stable from 6.8% on 10/29/21 -Dx: in his early 30s -Continue Lantus 80 units qhs -Continue Novolog 80-90 units with each meal -Pt tried trulicity but developed side effects and it was discontinued. -He tried Farxiga in Jul 2021, but stopped due to constipation. Not willing to try another SGLT-2 inhibitor -Continue diligent SMBG, will change to CGM and adjust his insulin -Discussed about the importance of lifestyle modifications -Last eye exam: 05/11/18, Dr. Finn. No diabetic retinopathy, advised to schedule appt, but pt refuses -Last foot exam: 07/29/2021, tinea pedis -Last microalbumin test: 03/05/22 UACR <12. -Last lipid profile: Labs ordered: 03/05/22 TC 105; TG 232; HDL 25; LDL 34. -Last dental exam: before the pandemic. Immunizations: Not up to date with COVID Glaucoma suspect 07/15/2013 Anemia of chronic disease 09/03/2012 Assessment & Plan (09/09/2024 9:59 AM EST): - anemia of chronic disease - pt was receiving erythropoietin at nephrology office previously; check its status - he was supposed to have a colonoscopy; will check its status and cardiac clearance - continue iron supplementation, consider decreasing frequency Assessment & Plan (07/14/2024 10:15 AM EDT): - anemia of chronic disease - pt was receiving erythropoietin at nephrology office previously; check its status - he was supposed to have a colonoscopy; will check its status and cardiac clearance - continue iron supplementation Assessment & Plan (05/30/2024 6:40 PM EDT): - anemia of chronic disease - pt was receiving erythropoietin at nephrology office previously; check its status - he was supposed to have a colonoscopy; will check its status and cardiac clearance Assessment & Plan (07/10/2023 12:16 PM EDT): - anemia of chronic disease - pt was receiving erythropoietin at nephrology office previously Assessment & Plan (02/14/2023 7:04 AM EDT): - anemia of chronic disease - pt was receiving erythropoietin at nephrology office previously Asthma 09/03/2012 Overview (02/22/2024): Last Assessment & Plan: - mild intermittent - continue albuterol HFA prn Assessment & Plan (02/14/2023 6:42 AM EDT): - mild intermittent - continue albuterol HFA prn Chronic constipation 09/03/2012 Overview (02/22/2024): Last Assessment & Plan: - multifactorial, but mainly opioid-induced - prescribed Movantik by GI, continue - continue Colace and Miralax prn (caution with electrolyte abnormality) Assessment & Plan (10/12/2023 6:15 AM EST): - multifactorial, but mainly opioid-induced - prescribed Movantik by GI, continue - continue Colace and Miralax prn (caution with electrolyte abnormality) Assessment & Plan (05/11/2023 5:03 PM EDT): - multifactorial, but mainly opioid-induced - prescribed Movantik by GI, continue - continue Colace and Miralax prn (caution with electrolyte abnormality) Assessment & Plan (02/14/2023 6:49 AM EDT): - multifactorial, but mainly opioid-induced - prescribed Movantik by GI, continue - continue Colace and Miralax prn (caution with electrolyte abnormality) Hypertension 08/14/2011 Overview (02/22/2024): Last Assessment & Plan: -Goal BP < 140/90 per JNC-8, < 130/80 per ACC/AHA -DM2, CKD, no known ASCVD -Continue working on lifestyle modifications -Currently prescribed furosemide 20 mg daily and amlodipine 2.5 mg daily; uncertain about his adherence -Relative contraindication to amlodipine due to severe LE swelling -Follow up in 3-6 mo or sooner if any problem arises Assessment & Plan (08/30/2024 10:50 PM EDT): -Goal BP < 140/90 per JNC-8, < 130/80 per ACC/AHA -BP within acceptable range today -DM2, CKD, no known ASCVD -Continue working on lifestyle modifications -continue bumetanide 1 mg BID -continue amlodipine 2.5 mg daily, may need to discontinue due to leg edema -Follow up in 3 mo or sooner if any problem arises Assessment & Plan (05/30/2024 6:29 PM EDT): -Goal BP < 140/90 per JNC-8, < 130/80 per ACC/AHA -BP within acceptable range today -DM2, CKD, no known ASCVD -Continue working on lifestyle modifications -continue bumetanide 1 mg BID -continue amlodipine 2.5 mg daily, may need to discontinue due to leg edema -Follow up in 3 mo or sooner if any problem arises Assessment & Plan (02/23/2024 10:36 AM EDT): -Goal BP < 140/90 per JNC-8, < 130/80 per ACC/AHA -BP not at goal, elevated BP reported at home, patient is not taking medications as prescribed due to side effects, mainly constipation -DM2, CKD, no known ASCVD -Continue working on lifestyle modifications -patient is prescribed torsemide but has not been taking due to constipation, patient had same side effects with furosemide, will switch to bumetanide 1 mg BID -continue amlodipine 2.5 mg daily, may need to discontinue due to leg edema -Follow up in 3-6 mo or sooner if any problem arises Assessment & Plan (10/12/2023 6:15 AM EST): -Goal BP < 140/90 per JNC-8, < 130/80 per ACC/AHA -DM2, CKD, no known ASCVD -Continue working on lifestyle modifications -Currently prescribed furosemide 20 mg daily and amlodipine 2.5 mg daily; uncertain about his adherence -Relative contraindication to amlodipine due to severe LE swelling -Follow up in 3-6 mo or sooner if any problem arises Assessment & Plan (07/10/2023 12:12 PM EDT): -Goal BP < 140/90 per JNC-8, < 130/80 per ACC/AHA -DM2, CKD, no known ASCVD -Continue working on lifestyle modifications -Currently prescribed furosemide 20 mg daily and amlodipine 2.5 mg daily; uncertain about his adherence -Relative contraindication to amlodipine due to severe LE swelling -Follow up in 3-6 mo or sooner if any problem arises Assessment & Plan (05/11/2023 5:07 PM EDT): -Goal BP < 140/90 per JNC-8, < 130/80 per ACC/AHA -DM2, CKD, no known ASCVD -Continue working on lifestyle modifications -Currently prescribed furosemide 20 mg daily and amlodipine 2.5 mg daily; uncertain about his adherence -Relative contraindication to amlodipine due to severe LE swelling -Follow up in 3-6 mo or sooner if any problem arises Assessment & Plan (02/14/2023 6:48 AM EDT): -Goal BP < 140/90 per JNC-8, < 130/80 per ACC/AHA -DM2, CKD, no known ASCVD -Continue working on lifestyle modifications -Currently prescribed furosemide 20 mg daily and amlodipine 2.5 mg daily; uncertain about his adherence -Relative contraindication to amlodipine due to severe LE swelling -Follow up in 3-6 mo or sooner if any problem arises Resolved Problems Problem Noted Date Diagnosed Date Resolved Date Peripheral vascular disease 02/14/2023 02/14/2023 Venous stasis 02/14/2023 05/30/2024 Assessment & Plan (02/23/2024 9:58 AM EDT): -most likely both PAD and venous insufficiency. -Hx venous stasis ulcer, referred to Wound Care clinic, but pt was unable to go out and received Wound Care by visiting [facility]ah and took doxycycline. -Seen by Dr. Valdez on 09/01/23. Dx lymphedema. No significant venous insufficiency. -Pt was recommended to elevate legs. -Prescribed compression stocking. Assessment & Plan (10/14/2023 4:21 PM EST): -most likely both PAD and venous insufficiency. -Hx venous stasis ulcer, referred to Wound Care clinic, but pt was unable to go out and received Wound Care by visiting sarah and took doxycycline. -Seen by Dr. Valdez on 09/01/23. Dx lymphedema. No significant venous insufficiency. -Pt was recommended to elevate legs. -Prescribed compression stocking. Assessment & Plan (07/10/2023 12:13 PM EDT): -most likely both PAD and venous insufficiency. -Hx venous stasis ulcer, referred to Wound Care clinic, but pt was unable to go out and received Wound Care by visiting sarah and took doxycycline. -referred to vascular specialist, but pt has not been able to keep appt due to agoraphobia. -US was ordered, but pt has a difficulty going out and completing the test -Pt was recommended to elevate legs. -Prescribed compression stocking. -pt agreed to be referred again and have US Assessment & Plan (02/14/2023 7:16 AM EDT): -most likely both PAD and venous insufficiency. -Hx venous stasis ulcer, referred to Wound Care clinic, but pt was unable to go out and received Wound Care by visiting [facility] and took doxycycline. -referred to vascular specialist, but pt has not been able to keep appt due to agoraphobia. -US was ordered, but pt has a difficulty going out and completing the test -Pt was recommended to elevate legs. -Prescribed compression stocking. Encounters * This document contains information received from the source organization and may not represent a complete record from that organization. Date Type Department Care Team Description 12/06/2024 Refill [facility] [address] [place] [address] Madonna Plascencia MD Chronic low back pain, unspecified back pain laterality, unspecified whether sciatica present 11/27/2024 Refill [facility] [address] [place] [address] Madonna Plascencia MD Chronic constipation 11/08/2024 Telephone [facility] [address] [place] [address] Madonna Plascencia MD 11/07/2024 Telephone [facility] [address] [place] [address] Madonna Plascencia MD Durable Medical Equipment 11/07/2024 Telephone [facility] [address] [place] [address] Madonna Plascencia MD Home Care Services 11/01/2024 Refill [facility] [address] [place] [address] Madonna Plascencia MD Chronic low back pain, unspecified back pain laterality, unspecified whether sciatica present 10/23/2024 Refill [facility] [address] [place] [address] Madonna Plascencia MD Chronic constipation 10/18/2024 9:30 AM EST Telemedicine [facility] [address] [place] [address] Joan Shipley RN Osteomyelitis of right foot, unspecified type ([facility]/HCC) 10/18/2024 Telephone [facility] [address] [place] [address] Joan Shipley RN 10/18/2024 Travel 10/17/2024 Travel 10/17/2024 Telephone [facility] [address] [place] [address] Joan Shipley RN 10/17/2024 Telephone [facility] [address] [place] [address] Madonna Plascencia MD Appointment Request 10/05/2024 Refill [facility] [address] [place] [address] Madonna Plascencia MD Type 2 diabetes mellitus with hyperglycemia, with long-term current use of insulin ([facility]) 10/04/2024 Telephone [facility] [address] [place] [address] Joan Shipley RN 10/04/2024 Telephone [facility] [address] [place] [address] Madonna Plascencia MD 10/03/2024 Refill [facility] [address] [place] [address] Joan Shipley RN Chronic low back pain, unspecified back pain laterality, unspecified whether sciatica present 10/03/2024 Telephone [facility] [address] [place] [address] Madonna Plascencia MD Med Refill from Last 3 Months Immunizations Name Administration Dates Next Due Hep B, adult 08/03/2008,02/07/2008,12/15/2007 Influenza injectable quadriv alent IIV4 with preservative 07/27/2017,07/21/2016,07/16/2015 Influenza injectable quadriv alent preservative free 11/15/2018 Influenza, IIV3, injectable 10/02/2014, 0 Influenza, Split (incl. linda fied surface antigen) 07/29/2013 Nico SARS-CoV-2 Vaccination 04/28/2021 MMR 05/08/2011 Pneumococcal Conjugate PCV 7 08/03/2008 Pneumococcal Polysaccharide PPSV23 06/05/2014 Tdap 07/27/2017,11/02/2006 Social History Tobacco Use Types Packs/Day Years Used Date Smoking Tobacco: Never Passive Smoke Exposure: Never Smokeless Tobacco: Never Tobacco Cessation:Counseling Given: Not Answered Depression Answer Date Recorded Patient Health Questionnaire-9 [...] t he electric, gas, oil or water company threatened to shut off services in your home? No 08/24/2023 Depression Answer Date Recorded Patient Health Questionnaire-2 Score 0 07/07/2023 Sex and Gender Information Value Date Recorded Sex Assigned at Male 09/01/2022 10:19 AM EDT Legal Sex Male 10:19 AM EDT Gender Identity Male 09/01/2022 10:19 AM EDT Sexual Orientation Straight 09/01/2022 10 :19 AM EDT Last Filed Vital Signs Vital Sign Reading Time Taken Comments Blood Pressure 134/64 05/30/2024 3:38 PM EDT rikki e BP Pulse 69 05/30/2024 3:38 PM EDT Temperature 36.7 ??C (98.1 ??F) 02/23/2024 9:22 AM ED T Respiratory Rate 22 03/11/2024 11:18 AM EDT Oxygen Saturation 97% 02/23/2024 9:22 AM EDT Inhaled Oxygen Concentration - - Weight 125 kg (275 lb 3.2 oz) 07/07/2023 1:18 PM EDT Height 176.9 cm (5' 9.64 ) 07/07/2023 1:18 PM ED T Body Mass Index 39.9 07/07/2023 1:18 PM EDT Plan of Treatment Upcoming Encounters Date Type Department Care Team (Late st Contact Info) Description 12/26/2024 11:15 AM EST Telemedicine [facility] MEDICINE [address] [place] [address] Madonna Plascencia MD 230 [place] [address] 01/04/2025 2:15 PM EST Clinical Support [facility] CHC MED & PEDS 505 [place] [address] Joan Shipley, RN 505 [place] [address] Health Maintenance Due Date Last Done Comments CT Colonography 1965 FIT DNA/Cologuard 1965 FIT 1965 FOBT 1965 Sigmoidoscopy 1965 Eye Exam 1975 Alcohol/Substance Use Screening 1977 Zoster Vaccines (1 of 2) 2015 Pneumococcal Vaccine: 50+ Years (2 of 2 - PCV) 11/12/2016 11/12/2015, 06/05/2014, 08/03/2008 COVID-19 Vaccine ( - 2023- season) 2024 01/15/2022, 04/28/2021 Influenza Vaccine (#1) 2024 9, 07/27/2017, 07/21/2016, Additional history exists Depression Screening 07/07/2024 07/07/2023, 07/07/20 Diabetes: Foot Exam 07/07/2024 07/07/2023, SDOH Screening 01/10/2025 01/11/2024 Diabetes: Hemoglobin A1C 01/26/2025 024, 02/23/2024, 09/01/2023, Additional history exists Tobacco Screening 02/22/2025 02/23/2024 Lipid Panel 07/29/2025 07/29/2024, 07/07/2023 DTaP/Tdap/Td Vaccines (3 - Td or Tdap) 07/27/2027 07/27/2017, 11/02/2006 Colonoscopy 09/30/2028 09/30/2018 Colorectal Cancer Screening 09/30/2028 RSV Patients and Patients Aged 60 years or older (1 - 1-dose 75+ series) 2040 Hepatitis B Vaccines Completed 08/03/2008, 02/07/2008, 12/15/2007 HIV Screening Completed 08/02/2019 Hepatitis C Screening Completed 05/06/2024, 019 HIB Vaccines Aged Out No longer eligi ble based on patient's age to complete this topic HPV Vaccines Aged Out No longer eligi ble based on patient's age to complete this topic Hepatitis A Vaccines Aged Out No long er eligible based on patient's age to complete this topic IPV Vaccines Aged Out No longer eligi ble based on patient's age to complete this topic Meningococcal Vaccine Aged Out No jennifer tomer eligible based on patient's age to complete this topic RSV under 20 months Aged Out No longe r eligible based on patient's age to complete this topic Rotavirus Vaccines Aged Out No longer eligible based on patient's age to complete this topic Procedures Procedure Name Priority Date/Time Associated Diagnosis Comments HEMOGLOBIN A1C Routine 07/29/2024 10:06 AM EDT Type 2 diabetes mellitus with stage 3 chronic kidney disease, with long-term current use of insulin, unspecified whether stage 3a or 3b CKD (CMS/HCC) LIPID PANEL WITH REFLEX TO DIRECT LDL Routine 07/29/2024 10:06 AM EDT Type 2 diabetes mellitus with stage 3 chronic kidney disease, with long-term current use of insulin, unspecified whether stage 3a or 3b CKD (CMS/HCC) Dyslipidemia HEPATITIS PANEL, GENERAL Routine 05/06/2024 11:10 AM EDT HIV 1/2 ANTIGEN AND ANTIBODY Routine 08/02/2019 COLONOSCOPY Routine 09/30/2018 from Last 3 Months or Most Recently Relevant to Health Maintenance Results * (ABNORMAL) Lipid Panel with Reflex to Direct LDL (07/29/2024 10:06 AM EDT) Triglycerides 96 <150 mg/dL [facility] Comment:Desirable Triglyceri de: less than 150 mg/dLBorderline High Triglyceride 150-199 mg/dLHigh Triglyceride: 200-499 mg/dLVery High Triglyceride: greater than or equal to 5OO mg/dL Cholesterol 112 <200 mg/dL [facility] Comment:Desirable Cholestero l: less than 200 mg/dLBorderline High Cholesterol: 200-239 mg/dLHigh Cholesterol: greater than 239 mg/dL LDL Cholesterol Calculated 67 <100 mg/dL [facility] Comment:Desirable LDL: less than 100 mg/dLNear Optimal/Above Optimal LDL: 110- 129 mg/dLBorderline High LDL: 130-159 mg/dLHigh LDL: 160-189 mg/dLVery High LDL: greater than or equal to 190 mg/dL HDL Cholesterol 26(L) >40 mg/dL [facility] Comment:Desirable HDL: great er than 40 mg/dL Note: This HDL assay may give artificially low results in patients with liver disease. Blood 07/29/2024 10:0 6 AM EDT 07/29/2024 10:34 AM EDT us Madonna Plascencia MD LAB BLOOD ORDERABLES Final Resul t [facility] [address] [place] [phone] * (ABNORMAL) Hemoglobin A1c (07/29/2024 10:06 AM EDT) Hemoglobin A1c 6.1(H) <6.0 % [facility] Comment:Hemoglobin A1C Refer ence Range Adults: 4.8 - 6.0 % Non diabetic: < 6.0 % Goal: < 7.0 %Additional Action Suggested: > 8.0 %Note: Hemoglobin A1c results are invalid for patients with abnormal amounts of HbF. Blood transfusions may impact the HbA1c concentration in the patient sample. Estimated Average Glucose 128 mg/dL [facility] Comment:eAG = Estimated ave rage glucose which is %A1C expressed asaverage glucose, using the formula of the C0F-EytfnbzAnqmlqj Glucose study (ADAG), Diabetes Care, Vol.31,#8,Jun. 2007 Blood Venous blood specimen / Unknown 07/29/2024 10:06 AM EDT 07/29/2024 10:34 AM EDT Madonna Plascencia MD LAB BLOOD ORDERABLES Final Resul t Performing Organization Address City/[facility]/ZIP Co de Phone Number [facility] [address] [place] [address] [phone] * Hepatitis Panel, General (05/06/2024 11:10 AM EDT) Hepatitis A IgM Nonreactive Nonreactive [facility] Comment:IgM antibodies to DIALLO V not detected; does not exclude earlyacute or recovered HAV infection. ~Hepatitis B Surface Antibody REACTIVE Nonreactive [facility] Comment:REACTIVE: > 11.99 mI U/mL Hepatitis B Core Antibody Nonreactive Nonreactive [facility] Hepatitis C Antibody GRAYZONE Nonreactive [facility] Comment:Antibodies to HCV ma y or may not be present. Suggest repeatanti-HCV in 4-6 weeks and/or HCV viral load if clinicallyindicated. Hepatitis B Surface Ag Negative Negative [facility] 05/06/2024 11:1 0 AM EDT 05/06/2024 11:14 AM EDT us Generic External Data Provider LAB BLOOD ORDERAB LES Final Result Performing Organization Address [facility] Co de Phone Number [facility] [address] [place] [address] [phone] * HIV 1/2 Antigen and Antibody (08/02/2019) HIV Ag/Ab Nonreactive 08/02/2019 Alysha Provider HEALTH MAINTENANCE Final Result * Colonoscopy (09/30/2018) Colonoscopy Normal Normal 09/30/2018 Pradip Khan Pcp HEALTH MAINTENANCE Final Result from Last 3 Months or Most Recently Relevant to Health Maintenance Insurance [facility] Robina ROHWER PA Care Teams Metalworking Specialist Relationship Specialty Start Date End Date Madonna Plascencia MD [address] [place] [phone] PCP - General Family Medicine 08/07/14
--- OUTSIDE RECORDS SUMMARY | 2024-12-21 10:42 | XMS_ITS | Encounter Summary ---
Author Organization [employer] Address [address] [place] [address] Care Team Providers Care Pvc Loader Name Role Phone Madonna Plascencia MD Primary Care Provider [phone] Reason for Visit * Reason Comments Med Refill Encounter Details Date Type Department Care Team (Late st Contact Info) Description 01/14/2023 Refill [facility] MEDICINE [address] [place] [phone] Madonna Plascencia MD [address] [place] [address] Social History Tobacco Use Types Packs/Day Years Used Date Smoking Tobacco: Never Assessed Sex and Gender Information Value Date Recorded Sex Assigned at Male 09/01/2022 10:19 AM EDT Legal Sex Male 10:19 AM EDT Gender Identity Male 09/01/2022 10:19 AM EDT Sexual Orientation Straight 09/01/2022 10 :19 AM EDT documented as of this encounter Plan of Treatment Upcoming Encounters Date Type Department Care Team (Late st Contact Info) Description 12/26/2024 11:15 AM EST Telemedicine [facility] MEDICINE [address] [place] [address] Madonna Plascencia MD [address] [place], [place] [phone] 01/04/2025 2:15 PM EST Clinical Support [facility] MED & PEDS [address] [place] [address] Joan Shipley, MARIANNE [address] [place] [address] documented as of this encounter Visit Diagnoses Not on filedocumented in this encounter Care Teams Pvc Loader Relationship Specialty Start Date End Date Madonna Plascencia MD [address] [place] [address] PCP - General Family Medicine 08/07/14 documented as of this encounter
--- OUTSIDE RECORDS SUMMARY | 2024-12-21 10:42 | XMS_ITS | Encounter Summary ---
Author Organization [employer] Address [address] [facility] 7t [place] [address] Care Team Providers Care Hand Stripper Name Role Phone Madonna Plascencia MD Primary Care Provider [phone] Encounter Details Date Type Department Care Team ([facility] st Contact Info) Description 07/12/2024 Orders Only [facility] MEDICINE [address] [place], [place] [phone] Madonna Plascencia MD 230 [place], [place] [phone] Social History Tobacco Use Types Packs/Day Years Used Date Smoking Tobacco: Never Passive Smoke Exposure: Never Smokeless Tobacco: Never Depression Answer Date Recorded Patient Health Questionnaire-9 Score 0 07/07/2023 Housing Stability Answer Date Recorded What is your housing situation today? I have heatherbin vazquez 08/24/[address] you [...] Info) Description 12/26/2024 11:15 AM EST Telemedicine [facility] MEDICINE [address] [place] [address] Madonna Plascencia MD 230 [place] [address] 01/04/2025 2:15 PM EST Clinical Support [facility] CHC MED & PEDS [address] [place] [address] Joan Shipley, RN 505 [place] [address] documented as of this encounter Visit Diagnoses Not on filedocumented in this encounter Additional Health Concerns Assessment Noted Time PHQ-9 Depression Total Score: 0 07/07/20 23 1:17 PM EDT documented as of this encounter Care Teams Hand Stripper Relationship Specialty Start Date End Date Madonna Plascencia MD [address] [place] [address] PCP - General Family Medicine 08/07/14 documented as of this encounter
--- OUTSIDE RECORDS SUMMARY | 2024-12-21 10:42 | XMS_ITS | Encounter Summary ---
Author Organization [employer] Address [address] [place] [address] 7 [place] [address] Care Team Providers Care Laundry Sorter Name Role Phone Madonna Plascencia MD Primary Care Provider [phone] Encounter Details Date Type Department Care Team (Late st Contact Info) Description 09/29/2022 Abstract [facility] MEDICINE [address] [place] [phone] Madonna Plascencia MD 230 [place] [address] Social History Tobacco Use Types Packs/Day Years [...] Info) Description 12/26/2024 11:15 AM EST Telemedicine [facility] MEDICINE [address] [place] [address] Madonna Plascencia MD [address] [place] [address] 01/04/2025 2:15 PM EST Clinical Support [facility] CHC MED & PEDS [address] [place] [address] Joan Shipley, MARIANNE 505 [place] [address] documented as of this encounter Visit Diagnoses Not on filedocumented in this encounter Care Teams Laundry Sorter Relationship Specialty Start Date End Date Madonna Plascencia MD [address] [place] [phone] PCP - General Family Medicine 08/07/14 documented as of this encounter
--- OUTSIDE RECORDS SUMMARY | 2024-12-21 10:42 | XMS_ITS | Encounter Summary ---
Author Organization [employer] Address [address] [facility] 7t [place] [address] Care Team Providers Care Electronics Maintenance Technician Name Role Phone Madonna Plascencia MD Primary Care Provider [phone] Reason for Visit * Reason Onset Date Comments Med Refill 06/06/2024 Encounter Details Date Type Department Care Team ([facility] st Contact Info) Description 06/06/2024 Telephone [facility] MEDICINE [address] [place], [place] [phone] Madonna Plascencia MD 230 [place], [place] [phone] Med Refill Social History Tobacco Use Types [...] t he electric, gas, oil or water [employer] threatened to shut off services in your [...] encounter Miscellaneous Notes * Telephone Encounter - Demetrio Mims - 06/06/2024 9:27 AM EDT TC from pt requesting medication refill. Medications needing refill : morphine CR (MS Contin) 30 MG 12 hr tablet To be sent to: [facility]/pharmacy #[id number] [place], [place] - [address] [place] [address] documented in this encounter Plan of Treatment Upcoming Encounters Date Type Department Care Team (Late st Contact Info) Description 12/26/2024 11:15 AM EST Telemedicine [facility] MEDICINE [address] [place] [address] Madonna Plascencia MD [address] [place] [address] 01/04/2025 2:15 PM EST Clinical Support [facility] CHC MED & PEDS [address] [place] [address] Joan Shipley, RN 505 [place] [address] documented as of this encounter Visit Diagnoses Not on filedocumented in this encounter Additional Health Concerns Assessment Noted Time PHQ-9 Depression Total Score: 0 07/07/20 1:17 PM EDT documented as of this encounter Care Teams Electronics Maintenance Technician Relationship Specialty Start Date End Date Madonna Plascencia MD [address] [place] [phone] PCP - General Family Medicine 08/07/14 documented as of this encounter
--- OUTSIDE RECORDS SUMMARY | 2024-12-21 10:42 | XMS_ITS | Encounter Summary ---
Author Organization [email or web address] Address [address] [place] [address] [place] [address] Care Team Providers Care Sod Stripper Name Role Phone Madonna Plascencia MD Primary Care Provider [phone] Reason for Visit * Reason Comments Med Refill Encounter Details Date Type Department Care Team (Late st Contact Info) Description 11/20/[address] [facility] MEDICINE [address] [place] [phone] Madonna Plascencia MD [address] [place] [address] Chronic constipation Social History Tobacco Use Types Packs/Day Years [...] Info) Description 12/26/2024 11:[address] [facility] MEDICINE 230 [place], [place] [phone] Madonna Plascencia MD [address] [place], [place] [phone] 01/04/2025 2:15 PM EST Clinical Support [facility] CHC MED & PEDS 505 [place], [place] [phone] Joan Shipley, MARIANNE 505 [place], [place] [phone] documented as of this encounter Visit Diagnoses Diagnosis Chronic constipation Unspecified constipation documented in this encounter Care Teams Sod Stripper Relationship Specialty Start Date End Date Madonna Plascencia MD [address] [place] [phone] PCP - General Family Medicine 08/07/14 documented as of this encounter
--- OUTSIDE RECORDS SUMMARY | 2024-12-21 10:42 | XMS_ITS | Encounter Summary ---
Author Organization [employer] Address [address] [facility] 7t [place] [address] Care Team Providers Care Arts Manager Name Role Phone Madonna Plascencia MD Primary Care Provider [phone] Reason for Visit * Reason Comments Med Refill Encounter Details Date Type Department Care Team ([facility] st Contact Info) Description 10/05/2024 Refill [facility] MEDICINE [address] [place], [place] [phone] Madonna Plascencia MD 230 [place], [place] [phone] Type 2 diabetes mellitus with hyperglycemia, with long-term current use of insulin ([facility]) Social History Tobacco Use Types Packs/Day Years [...] Info) Description 12/26/2024 11:15 AM EST Telemedicine [facility] MEDICINE [address] [place] [address] Madonna Plascencia MD [address] [place] [address] 01/04/2025 2:15 PM EST Clinical Support [facility] CHC MED & PEDS [address] [place] [address] Joan Shipley, MARIANNE 505 [place] [address] documented as of this encounter Visit Diagnoses Diagnosis Type 2 diabetes mellitus with hyperglycemia, with long-term current use of insulin ([facility]) documented in this encounter Additional Health Concerns Assessment Noted Time PHQ-9 Depression Total Score: 0 07/07/20 23 1:17 PM EDT documented as of this encounter Care Teams Arts Manager Relationship Specialty Start Date End Date Madonna Plascencia MD 230 [place] [address] PCP - General Family Medicine 08/07/14 documented as of this encounter
--- OUTSIDE RECORDS SUMMARY | 2024-12-21 10:42 | XMS_ITS | Encounter Summary ---
Author Organization [employer] Address [address] [facility] 7t [place] [address] Care Team Providers Care First Grade Teacher Name Role Phone Madonna Plascencia MD Primary Care Provider [phone] Reason for Visit * Reason Comments Med Refill Encounter Details Date Type Department Care Team ([facility] st Contact Info) Description 03/12/2024 Refill [facility] MEDICINE [address] [place], [place] [phone] Madonna Plascencia MD 230 [place], [place] [phone] Social History Tobacco Use Types Packs/Day Years [...] Info) Description 12/26/2024 11:15 AM EST Telemedicine [facility] MEDICINE [address] [place] [address] Madonna Plascencia MD [address] [place] [address] 01/04/2025 2:15 PM EST Clinical Support [facility] CHC MED & PEDS 505 [place] [address] Joan Shipley, MARIANNE 505 [place] [address] documented as of this encounter Visit Diagnoses Not on filedocumented in this encounter Additional Health Concerns Assessment Noted Time PHQ-9 Depression Total Score: 0 07/07/20 23 1:17 PM EDT documented as of this encounter Care Teams First Grade Teacher Relationship Specialty Start Date End Date Madonna Plascencia MD [address] [place] [address] PCP - General Family Medicine 08/07/14 documented as of this encounter
--- OUTSIDE RECORDS SUMMARY | 2024-12-21 10:42 | XMS_ITS | Encounter Summary ---
Author Organization [employer] Address [address] [facility] 7t [place] [address] Care Team Providers Care Tinware Lithograph Press Operator Name Role Phone Madonna Plascencia MD Primary Care Provider [phone] Reason for Visit * Reason Onset Date Comments Med Refill 05/09/2024 Encounter Details Date Type Department Care Team ([facility] st Contact Info) Description 05/09/2024 Telephone [facility] MEDICINE 230 [place], [place] [phone] Madonna Plascencia MD 230 [place], [place] [phone] Med Refill Social History Tobacco Use Types [...] t he electric, gas, oil or water [email or web address] threatened to shut off services in your [...] encounter Miscellaneous Notes * Telephone Encounter - Thalia Melgar - 05/09/2024 9:29 AM EDT TC from pt requesting medication refill. Medications needing refill : morphine CR (MS Contin) 30 MG 12 hr tablet To be sent to: [facility]/pharmacy #[id number] [place], [place] - [address] [place] [address] documented in this encounter Plan of Treatment Upcoming Encounters Date Type Department Care Team (Late st Contact Info) Description 12/26/2024 11:15 AM EST Telemedicine [facility] MEDICINE [address] [place] [address] Madonna Plascencia MD [address] [place] [address] 01/04/2025 2:15 PM EST Clinical Support [facility] CHC MED & PEDS 505 [place] [address] Joan Shipley, RN 505 [place] [address] documented as of this encounter Visit Diagnoses Not on filedocumented in this encounter Additional Health Concerns Assessment Noted Time PHQ-9 Depression Total Score: 0 07/07/20 1:17 PM EDT documented as of this encounter Care Teams Tinware Lithograph Press Operator Relationship Specialty Start Date End Date Madonna Plascencia MD [address] [place] [phone] PCP - General Family Medicine 08/07/14 documented as of this encounter
--- OUTSIDE RECORDS SUMMARY | 2024-12-21 10:42 | XMS_ITS | Encounter Summary ---
Author Organization [employer] Address [address] [place] [address] 7 [place] [address] Care Team Providers Care Shredder/Granulator Operator Name Role Phone Madonna Plascencia MD Primary Care Provider [phone] Encounter Details Date Type Department Care Team (Late st Contact Info) Description 05/15/2023 Abstract [facility] MEDICINE [address] [place] [phone] Madonna Plascencia MD [address] [place] [address] Social History Tobacco Use Types Packs/Day Years Used Date Smoking Tobacco: Never Passive Smoke Exposure: Never Smokeless Tobacco: Never Sex and Gender Information Value Date Recorded Sex Assigned at Male 09/01/2022 10:19 AM EDT Legal Sex Male 10:19 AM EDT Gender Identity Male 09/01/2022 10:19 AM EDT Sexual Orientation Straight 09/01/2022 10 :19 AM EDT documented as of this encounter Plan of Treatment Upcoming Encounters Date Type Department Care Team (Late st Contact Info) Description 12/26/2024 11:15 AM EST Telemedicine [facility] MEDICINE 230 [place] [address] Madonna Plascencia MD 230 [place], [place] [phone] 01/04/2025 2:15 PM EST Clinical Support [facility] MED & PEDS 505 [place] [address] Joan Shipley, MARIANNE 505 [place] [address] documented as of this encounter Procedures Procedure Name Priority Date/Time Associated Diagnosis Comments COLONOSCOPY Routine 09/30/2018 documented in this encounter Results * Colonoscopy (09/30/2018) Colonoscopy Normal Normal 09/30/2018 Result [facility] Pcp HEALTH MAINTENANCE Final Result documented in this encounter Visit Diagnoses Not on filedocumented in this encounter Care Teams Shredder/Granulator Operator Relationship Specialty Start Date End Date Madonna Plascencia MD [address] [place] [phone] PCP - General Family Medicine 08/07/14 documented as of this encounter
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
--- OUTSIDE RECORDS SUMMARY | 2024-12-21 10:42 | XMS_ITS | Encounter Summary ---
Author Organization [employer] Address [address] [facility] [address] 7t [place] [address] Care Team Providers Care Outside Property Agent Name Role Phone Madonna Plascencia MD Primary Care Provider [phone] Reason for Visit * Reason Onset Date Comments provider out 05/16/2024 Encounter Details Date Type Department Care Team ([facility] st Contact Info) Description 05/16/2024 Refill [facility] [address] [place], [place] [phone] Madonna Plascencia MD [address] [place], [place] [phone] Social History Tobacco Use Types Packs/Day Years [...] encounter Miscellaneous Notes * Telephone Encounter - Janette Handy MA - 05/23/2024 11:35 AM EDT T/c pt has an appointment on 05/24 @115. Pcp will be out of the office appointment will be cancel . Zacarias will call pt with a new appt . documented in this encounter Plan of Treatment Upcoming Encounters Date Type Department Care Team (Late st Contact Info) Description 12/26/2024 11:15 AM EST Telemedicine [facility] [address] [place] [address] Madonna Plascencia MD [address] [place] [address] 01/04/2025 2:15 PM EST Clinical Support [facility] [address] [place] [address] Joan Shipley, RN [address] [place] [address] documented as of this encounter Visit Diagnoses Not on filedocumented in this encounter Additional Health Concerns Assessment Noted Time PHQ-9 Depression Total Score: 0 07/07/20 23 1:17 PM EDT documented as of this encounter Care Teams Outside Property Agent Relationship Specialty Start Date End Date Madonna Plascencia MD [address] [place] [address] PCP - General Family Medicine 08/07/14 documented as of this encounter
--- OUTSIDE RECORDS SUMMARY | 2024-12-21 10:42 | XMS_ITS | Encounter Summary ---
Author Organization [employer] Address [address] [facility] 7t [place] [address] Care Team Providers Care Waste Minimization Technician Name Role Phone Madonna Plascencia MD Primary Care Provider [phone] Reason for Visit * Reason Comments Med Refill Encounter Details Date Type Department Care Team ([facility] st Contact Info) Description 11/25/2023 Refill [facility] [address] [place], [place] [phone] Madonna Plascencia MD [address] [place], [place] [phone] Social History Tobacco Use Types Packs/Day Years [...] Info) Description 12/26/2024 11:15 AM EST Telemedicine [facility] [address] [place] [address] Madonna Plascencia MD [address] [place] [address] 01/04/2025 2:15 PM EST Clinical Support [facility] [address] [place] [address] Joan Shipley, MARIANNE [address] [place] [address] documented as of this encounter Visit Diagnoses Not on filedocumented in this encounter Additional Health Concerns Assessment Noted Time PHQ-9 Depression Total Score: 0 07/07/20 23 1:17 PM EDT documented as of this encounter Care Teams Waste Minimization Technician Relationship Specialty Start Date End Date Madonna Plascencia MD [address] [place] [address] PCP - General Family Medicine 08/07/14 documented as of this encounter
--- OUTSIDE RECORDS SUMMARY | 2024-12-21 10:42 | XMS_ITS | Encounter Summary ---
Author Organization [employer] Address [address] [facility] 7t [place] [address] Care Team Providers Care Junior Sales Assistant Name Role Phone Madonna Plascencia MD Primary Care Provider [phone] Reason for Visit * Reason Onset Date Comments Appointment Request 10/17/2024 Encounter Details Date Type Department Care Team ([facility] Contact Info) Description 10/17/2024 Telephone [facility] MEDICINE [address] [place], [place] [phone] Madonna Plascencia MD [address] [place], [place] [phone] Appointment Request Social History Tobacco Use Types Packs/Day Years [...] t he electric, gas, oil or water [employer] threatened to shut off services in your [...] encounter Miscellaneous Notes * Telephone Encounter - Aurelio Gonzalez - 10/17/2024 9:15 AM EST Tc from pt requesting to see if it possible for pt to get a earlier apt due to having a Apt to amputate his foot that same day. Contact pt at [phone] documented in this encounter Plan of Treatment Upcoming Encounters Date Type Department Care Team (Late st Contact Info) Description 12/26/2024 11:15 AM EST Telemedicine [facility] MEDICINE [address] [place] [address] Madonna Plascencia MD [address] [place] [address] 01/04/2025 2:15 PM EST Clinical Support [facility] [address] [place] [address] Joan Shipley, RN [address] [place] [address] documented as of this encounter Visit Diagnoses Not on filedocumented in this encounter Additional Health Concerns Assessment Noted Time PHQ-9 Depression Total Score: 0 07/07/20 23 1:17 PM EDT documented as of this encounter Care Teams Junior Sales Assistant Relationship Specialty Start Date End Date Madonna Plascencia MD [address] [place] [address] PCP - General Family Medicine 08/07/14 documented as of this encounter
--- OUTSIDE RECORDS SUMMARY | 2024-12-21 10:42 | XMS_ITS | Encounter Summary ---
Author Organization [facility] Address [address] [place] [address] Phone Care Team Providers Care Compensation And Benefits Analyst Name Role Phone Madonna Plascencia MD Primary Care Provider [phone] Reason for Visit * Reason Comments Med Refill Encounter Details Date Type Department Care Team (Late st Contact Info) Description 10/02/2023 Refill [facility] [address] [place] [address] David Harding MD [address] [facility] [address] [place] [address] Social History Tobacco Use Types Packs/Day Years Used Date Smoking Tobacco: Former Smokeless Tobacco: Former Sex and Gender Information Value Date Recorded Sex Assigned at Not on file Legal Sex Male 5:02 PM EST Gender Identity Not on file Sexual Orientation Not on file documented as of this encounter Plan of Treatment Not on file documented as of this encounter Visit Diagnoses Not on filedocumented in this encounter Care Teams Compensation And Benefits Analyst Relationship Specialty Start Date End Date Madonna Plascencia MD PCP - General 11/12/20 documented as of this encounter
--- OUTSIDE RECORDS SUMMARY | 2024-12-21 10:42 | XMS_ITS | Encounter Summary ---
Author Organization [employer] Address [address] [facility] 7t [place] [address] Care Team Providers Care Aluminum Siding Mechanic Name Role Phone Madonna Plascencia MD Primary Care Provider [phone] Reason for Visit * Reason Comments Med Refill Encounter Details Date Type Department Care Team ([facility] st Contact Info) Description 09/04/2023 Refill [facility] MEDICINE [address] [place], [place] [phone] Madonna Plascencia MD [address] [place], [place] [phone] Social History Tobacco Use Types Packs/Day Years [...] Info) Description 12/26/2024 11:15 AM EST Telemedicine [facility] MEDICINE [address] [place] [address] Madonna Plascencia MD [address] [place] [address] 01/04/2025 2:15 PM EST Clinical Support [facility] [address] [place] [address] Joan Shipley, MARIANNE [address] [place] [address] documented as of this encounter Visit Diagnoses Not on filedocumented in this encounter Additional Health Concerns Assessment Noted Time PHQ-9 Depression Total Score: 0 07/07/20 23 1:17 PM EDT documented as of this encounter Care Teams Aluminum Siding Mechanic Relationship Specialty Start Date End Date Madonna Plascencia MD [address] [place] [address] PCP - General Family Medicine 08/07/14 documented as of this encounter
--- OUTSIDE RECORDS SUMMARY | 2024-12-21 10:42 | XMS_ITS | Encounter Summary ---
Author Organization [employer] Address [address] [facility] 7t [place] [address] Care Team Providers Care Manager Human Capital Name Role Phone Madonna Plascencia MD Primary Care Provider [phone] Reason for Visit * Reason Onset Date Comments Med Refill 09/01/2024 Encounter Details Date Type Department Care Team ([facility] st Contact Info) Description 09/01/2024 Telephone [facility] MEDICINE [address] [place], [place] [phone] Madonna Plascencia MD [address] [place], [place] [phone] Med Refill Social History Tobacco Use Types [...] t he electric, gas, oil or water [employer] threatened to shut off services in your [...] * Telephone Encounter - Aurelio Gonzalez - 09/01/2024 3:46 PM EDT TC from pt requesting medication refill. Medications needing refill : morphine (MSIR) 30 MG tablet To be sent to: [facility]/pharmacy #[id number] - [place] - [address] Contact pt at [phone] documented in this encounter Plan of Treatment Upcoming Encounters Date Type Department Care Team (Late st Contact Info) Description 12/26/2024 11:15 AM EST Telemedicine [facility] MEDICINE [address] [place] [address] Madonna Plascencia MD [address] [place] [address] 01/04/2025 2:15 PM EST Clinical Support [facility] [address] [place] [address] Joan Shipley, MARIANNE [address] [place] [address] documented as of this encounter Visit Diagnoses Not on filedocumented in this encounter Additional Health Concerns Assessment Noted Time PHQ-9 Depression Total Score: 0 07/07/20 23 1:17 PM EDT documented as of this encounter Care Teams Manager Human Capital Relationship Specialty Start Date End Date Madonna Plascencia MD [address] [place] [address] PCP - General Family Medicine 08/07/14 documented as of this encounter
--- OUTSIDE RECORDS SUMMARY | 2024-12-21 10:42 | XMS_ITS | Encounter Summary ---
Author Organization [employer] Address [address] [facility] 7t [place] [address] Care Team Providers Care President + Publisher Name Role Phone Madonna Plascencia MD Primary Care Provider [phone] Reason for Visit * Reason Comments Med Refill Encounter Details Date Type Department Care Team ([facility] st Contact Info) Description 07/11/[address] [facility] MEDICINE [address] [place], [place] [phone] Madonna Plascencia MD [address] [place], [place] [phone] Social History Tobacco Use Types Packs/Day Years [...] Description 12/26/2024 11:[address] [facility] MEDICINE [address] [place] [address] Madonna Plascencia MD [address] [place] [address] 01/04/2025 2:15 PM EST Clinical Support [facility] [address] [place] [address] Joan Shipley, MARIANNE [address] [place] [address] documented as of this encounter Visit Diagnoses Not on filedocumented in this encounter Additional Health Concerns Assessment Noted Time PHQ-9 Depression Total Score: 0 07/07/20 23 1:17 PM EDT documented as of this encounter Care Teams President + Publisher Relationship Specialty Start Date End Date Madonna Plascencia MD [address] [place] [address] PCP - General Family Medicine 08/07/14 documented as of this encounter
--- OUTSIDE RECORDS SUMMARY | 2024-12-21 10:42 | XMS_ITS | Encounter Summary ---
Author Organization [employer] Address [address] [facility] [address]t [place] [address] Care Team Providers Care Manager Domestic Name Role Phone Madonna Plascencia MD Primary Care Provider [phone] Reason for Visit * Reason Onset Date Comments Med Refill 10/03/2024 Encounter Details Date Type Department Care Team ([facility] st Contact Info) Description 10/03/2024 Telephone [facility] MEDICINE [address] [place], [place] [phone] Madonna Plascencia MD [address] [place], [place] [phone] Med Refill Social History Tobacco Use Types [...] t he electric, gas, oil or water [employer] threatened to shut off services in your [...] encounter Miscellaneous Notes * Telephone Encounter - Edilma Potts - 10/03/2024 11:53 AM EST TC from pt requesting medication refill. Medications needing refill : morphine (MSIR) 30 MG tablet To be sent to: [facility]/pharmacy #[id number] - [place] - [address] [facility] documented in this encounter Plan of Treatment Upcoming Encounters Date Type Department Care Team (Late st Contact Info) Description 12/26/2024 11:15 AM EST Telemedicine [facility]INE [address] [place] [address] Madonna Plascencia MD [address] [place] [address] 01/04/2025 2:15 PM EST Clinical Support [facility] [address] [place] [address] Joan Shipley, RN [address] [place] [address] documented as of this encounter Visit Diagnoses Not on filedocumented in this encounter Additional Health Concerns Assessment Noted Time PHQ-9 Depression Total Score: 0 07/07/20 23 1:17 PM EDT documented as of this encounter Care Teams Manager Domestic Relationship Specialty Start Date End Date Madonna Plascencia MD [address] [place] [address] PCP - General Family Medicine 08/07/14 documented as of this encounter
--- OUTSIDE RECORDS SUMMARY | 2024-12-21 10:42 | XMS_ITS | Encounter Summary ---
Author Organization [email or web address] Address 75 [facility] 7t [place] [address] Care Team Providers Care Design Specialist Name Role Phone Madonna Plascencia MD Primary Care Provider [phone] Encounter Details Date Type Department Care Team (Late st Contact Info) Description 07/29/2024 Orders Only [facility] MEDICINE [address] [place], [place] [phone] Madonna Plascencia MD 230 [place] [address] Elevated TSH (Primary Dx) Social History Tobacco Use Types Packs/Day Years [...] Info) Description 12/26/2024 11:15 AM EST Telemedicine [facility] MEDICINE [address] [place] [address] Madonna Plascencia MD [address] [place], [place] [phone] 01/04/2025 2:15 PM EST Clinical Support [facility] MED & PEDS [address] [place], [place] [phone] Joan Shipley RN [address], [place] [phone] Scheduled Orders Name Type Priority Associated Diagnoses Orde r Schedule TSH Lab Routine Elevated TSH Expected: 08/01/2024 (Approximate), Expires: 08/01/2025 T4, Free Lab Routine Elevated TSH Expected: 08/01/2024 (Approximate), Expires: 08/01/2025 Thyroid Peroxidase Antibodies Lab Routine Elevated TSH Expected: 08/01/2024 (Approximate), Expires: 08/01/2025 documented as of this encounter Procedures Procedure Name Priority Date/Time Associated Diagnosis Comments T4, FREE Routine 07/29/2024 10:06 AM EDT documented in this encounter Results * (ABNORMAL) T4, Free (07/29/2024 10:06 AM EDT) Free T4 (Free Thyroxine) 0.70(L) 0.71 - 1.85 ng/dL [facility] 07/29/2024 10:0 6 AM EDT 07/29/2024 10:34 AM EDT us Madonna Plascencia MD LAB BLOOD ORDERABLES Final Resul t [facility] [address] [place] [address] [phone] documented in this encounter Visit Diagnoses Diagnosis Elevated TSH- Primary Other abnormal blood chemistry documented in this encounter Additional Health Concerns Assessment Noted Time PHQ-9 Depression Total Score: 0 07/07/20 23 1:17 PM EDT documented as of this encounter Care Teams Design Specialist Relationship Specialty Start Date End Date Madonna Plascencia MD [address] [place] [address] PCP - General Family Medicine 08/07/14 documented as of this encounter
--- OUTSIDE RECORDS SUMMARY | 2024-12-21 10:43 | XMS_ITS | Encounter Summary ---
Author Organization [employer] Address 75 [facility] 7t [place] [address] Care Team Providers Care Wire Inspector Name Role Phone Madonna Plascencia MD Primary Care Provider [phone] Reason for Visit * Reason Onset Date Comments Med Refill 12/06/2024 Encounter Details Date Type Department Care Team ([facility] st Contact Info) Description 12/06/2024 Refill [facility] MEDICINE 230 [place], [place] [phone] Madonna Plascencia MD 230 [place], [place] [phone] Chronic low back pain, unspecified back pain laterality, unspecified whether sciatica present Social History Tobacco Use Types Packs/Day Years [...] encounter Miscellaneous Notes * Telephone Encounter - Jun Duron - 12/06/2024 11:39 AM EST TC from pt requesting medication refill. Medications needing refill : morphine (MSIR) 30 MG tablet To be sent to: [id number] - ANDREE BADILLO - [address] [facility] documented in this encounter Plan of Treatment Upcoming Encounters Date Type Department Care Team (Late st Contact Info) Description 12/26/2024 11:15 AM EST Telemedicine [facility] MEDICINE [address] [place] [address] Madonna Plascencia MD [address] [place] [address] 01/04/2025 2:15 PM EST Clinical Support [facility] MED & PEDS 505 [place] [address] Joan Shipley, MARIANNE [address] [place] [address] documented as of this encounter Visit Diagnoses Diagnosis Chronic low back pain, unspecified back pain laterality, unspecified whether sciatica present documented in this encounter Additional Health Concerns Assessment Noted Time PHQ-9 Depression Total Score: 0 07/07/20 23 1:17 PM EDT documented as of this encounter Care Teams Wire Inspector Relationship Specialty Start Date End Date Madonna Plascencia MD [address] [place] [address] PCP - General Family Medicine 08/07/14 documented as of this encounter
--- OUTSIDE RECORDS SUMMARY | 2024-12-21 10:43 | XMS_ITS | Encounter Summary ---
Author Organization [employer] Address 75 [facility] 7t [place] [address] Care Team Providers Care Research Administrator Name Role Phone Madonna Plascencia MD Primary Care Provider Reason for Visit * Reason Onset Date Comments Call Back Request 01/25/2024 Encounter Details Date Type Department Care Team ([facility] Contact Info) Description 01/25/2024 Telephone [facility] MEDICINE 230 [place], [place] [phone] Madonna Plascencia MD 230 [place], [place] [phone] Call Back Request Social History Tobacco Use Types Packs/Day [...] t he electric, gas, oil or water [employer] threatened to shut off services in your [...] * Telephone Encounter - Demetrio Mims - 01/25/2024 8:56 AM EDT Tc from the patients date night caregiver requesting a call back in regards to the appt on 01/28 would like appt sooner due to having a important appt on same day documented in this encounter Plan of Treatment Upcoming Encounters Date Type Department Care Team (Late st Contact Info) Description 12/26/2024 11:15 AM EST Telemedicine [facility] MEDICINE [address] [place] [address] Madonna Plascencia MD 230 [place] [address] 01/04/2025 2:15 PM EST Clinical Support [facility] CHC MED & PEDS [address] [place] [address] Joan Shipley, RN 505 [place] [address] documented as of this encounter Visit Diagnoses Not on filedocumented in this encounter Additional Health Concerns Assessment Noted Time PHQ-9 Depression Total Score: 0 07/07/20 23 1:17 PM EDT documented as of this encounter Care Teams Research Administrator Relationship Specialty Start Date End Date Madonna Plascencia MD [address] [place] [address] PCP - General Family Medicine 08/07/14 documented as of this encounter
--- OUTSIDE RECORDS SUMMARY | 2024-12-21 10:43 | XMS_ITS | Encounter Summary ---
Author Organization [employer] Address 75 [facility] 7t [place] [address] Care Team Providers Care Manager Relocation Name Role Phone Madonna Plascencia MD Primary Care Provider [phone] Reason for Visit * Reason Onset Date Comments Durable Medical Equipment 11/07/2024 Encounter Details Date Type Department Care Team ([facility] st Contact Info) Description 11/07/2024 Telephone [facility] MEDICINE 230 [place], [place] [phone] Madonna Plascencia MD 230 [place], [place] [phone] Durable Medical Equipment Social History Tobacco Use Types Packs/Day Years [...] t he electric, gas, oil or water [employer] threatened to shut off services in your [...] Telephone Encounter - Janette Handy MA - 12/01/2024 10:21 AM EST Andree faxed paperwork to [facility] referrals * Telephone Encounter - Bonnie Arroyo - 11/22/2024 11:00 AM EST DME RX for raised toilet seat, cushion and OT eval generated and placed on providers desk for signature. * Telephone Encounter - Bonnie Arroyo - 11/15/2024 2:47 PM EST Patient's critical care technician requesting update on DME request. Please advise if agree with DME raisedtoilet seat with handles, cushion for recliner and the OT eval. Thank you * Telephone Encounter - Moises Alaniz RN - 11/07/2024 1:59 PM EST Please see below. Patients critical care technician is requesting the following DME on the patients behalf.Please review and advise request and if approved please send message to ANDREE to generate RX. RX for hospital bed and ramp was already generated and RN sent message to critical care technician to see if she can still use those. Please advise if we can generate RX for raised toilet seat with handles, cushion for recliner and the OT eval. Thank you. Send message to ANDREE to generate ----- Message from Shanel Jesus sent at 11/07/2024 12:21 PM EST ----- Regarding: DME request Contact: Tien, I am (Shanel Hernandez), Medication Assistant for [facility] [employer], requesting the following DME???s on behalf of Hussein Mandujano 65. DME Item: a small toilet riser with handles, , hospital bed, cushion for recliner a wheel chair ramp OT evaluation. Supportive DX: CHF,kidney disease, diabetes, open wound of right foot, lymphedema. If you should have any inquiries regarding this request, feel free to contact the Medication Assistant below. Medication Assistant: Shanel Hernandez E-mail: [email or web address] Valve Mechanic: Adry Corrales E-mail: [email or web address] Thanks in advance for your assistance with this request. Sincerely, [facility] [employer] documented in this encounter Plan of Treatment Upcoming Encounters Date Type Department Care Team (Late st Contact Info) Description 12/26/2024 11:15 AM EST Telemedicine [facility] MEDICINE [address] [place] [address] Madonna Plascencia MD 230 [place] [address] 01/04/2025 2:15 PM EST Clinical Support [facility] CHC MED & PEDS 505 [place] [address] Joan Shipley, MARIANNE 505 [place] [address] documented as of this encounter Visit Diagnoses Not on filedocumented in this encounter Additional Health Concerns Assessment Noted Time PHQ-9 Depression Total Score: 0 07/07/20 23 1:17 PM EDT documented as of this encounter Care Teams Manager Relocation Relationship Specialty Start Date End Date Madonna Plascencia MD [address] [place] [address] PCP - General Family Medicine 08/07/14 documented as of this encounter
--- OUTSIDE RECORDS SUMMARY | 2024-12-21 10:43 | XMS_ITS | Encounter Summary ---
Author Organization [employer] Address 75 [facility] 7t [place] [address] Care Team Providers Care Extrusion Line Operator Name Role Phone Madonna Plascencia MD Primary Care Provider [phone] Reason for Visit * Reason Onset Date Comments Call Back Request 01/26/2024 Encounter Details Date Type Department Care Team ([facility] Contact Info) Description 01/26/2024 Telephone [facility] MEDICINE [address] [place], [place] [phone] Madonna Plascencia MD [address] [place], [place] [phone] Call Back Request Social History Tobacco Use [...] t he electric, gas, oil or water [employer] threatened to shut off services in your [...] encounter Miscellaneous Notes * Telephone Encounter - Danika Navarrete RN - 01/26/2024 1:21 PM EDT TC placed to Susanne [phone] in regards to below message. Susanne results the pt was referred to them from [facility]. Susanne reports the pt was referred for wound care to bilateral legs d/t cellulitis and also for CHF exacerbation. Susanne reports the pt has a hx of TBI and the pt is very irritable and not receptive to care. Susanne reports she was able to get thru her assessment however when she returned to pt's house today the requested for the pt to be discharged from the services.Susanne reports the pt has been discharged. Sending to PCP as FYI. * Telephone Encounter - Marilee Handy - 01/26/2024 10:21 AM EDT Tc from July with nory harp requesting for a nurse to reach out to susanne (Nurse) to discuss patient care. Please contact Susanne at [phone] documented in this encounter Plan of Treatment Upcoming Encounters Date Type Department Care Team (Late st Contact Info) Description 12/26/2024 11:15 AM EST Telemedicine [facility] MEDICINE [address] [place], [place] [phone] Madonna Plascencia MD 230 [place] [address] 01/04/2025 2:15 PM EST Clinical Support [facility] CHC MED & PEDS [address] [place] [address] Joan Shipley, RN 505 [place] [address] documented as of this encounter Visit Diagnoses Not on filedocumented in this encounter Additional Health Concerns Assessment Noted Time PHQ-9 Depression Total Score: 0 07/07/20 23 1:17 PM EDT documented as of this encounter Care Teams Extrusion Line Operator Relationship Specialty Start Date End Date Madonna Plascencia MD [address] [place] [address] PCP - General Family Medicine 08/07/14 documented as of this encounter
--- OUTSIDE RECORDS SUMMARY | 2024-12-21 10:43 | XMS_ITS | Encounter Summary ---
Author Organization [employer] Address 75 [facility] 7t [place] [address] Care Team Providers Care Online Communications Manager Name Role Phone Madonna Plascencia MD Primary Care Provider Encounter Details Date Type Department Care Team (Late st Contact Info) Description 10/23/2024 Refill [facility] MEDICINE [address] [place], [place] [phone] Madonna Plascencia MD 230 [place] [address] Chronic constipation Social History Tobacco Use Types [...] Info) Description 12/26/2024 11:15 AM EST Telemedicine [facility] MEDICINE [address] [place] [address] Madonna Plascencia MD [address] [place] [address] 01/04/2025 2:15 PM EST Clinical Support [facility] CHC MED & PEDS [address] [place] [address] Joan Shipley, RN 505 [place] [address] documented as of this encounter Visit Diagnoses Diagnosis Chronic constipation Unspecified constipation documented in this encounter Additional Health Concerns Assessment Noted Time PHQ-9 Depression Total Score: 0 07/07/20 23 1:17 PM EDT documented as of this encounter Care Teams Online Communications Manager Relationship Specialty Start Date End Date Madonna Plascencia MD [address] [place] [address] PCP - General Family Medicine 08/07/14 documented as of this encounter
--- OUTSIDE RECORDS SUMMARY | 2024-12-21 10:43 | XMS_ITS | Encounter Summary ---
Author Organization [employer] Address 75 [facility] 7t [place] [address] Care Team Providers Care Cookie Mixer Helper Name Role Phone Madonna Plascencia MD Primary Care Provider [phone] Reason for Visit * Reason Onset Date Comments Referral 01/25/2024 Hospital Follow-up 01/25/2024 Encounter Details Date Type Department Care Team ([facility] st Contact Info) Description 01/25/2024 Telephone [facility] MEDICINE 230 [place], [place] [phone] Madonna Plascencia MD 230 [place], [place] [phone] Referral; Hospital Follow-up Social History Tobacco Use Types Packs/Day Years [...] encounter Miscellaneous Notes * Telephone Encounter - Madonna Plascencia MD - 02/19/2024 2:25 PM EDT Spoke with patient and caregiver. Advised to call vascular specialist for follow up appointment of his legs. Made a referral to wound care clinic just in case, but it does not sound like it is open at this time. Made a non-urgent referral to cardiology for cardiac clearance and recent Dx HFpEF. * Telephone Encounter - Adry Steinberg - 02/19/2024 9:32 AM EDT Tc from pt friend Tung returning call regarding status on last message . Would like to know ifpcp will be doing referral . Last Message ( [facility] [place] [facility] [place] and discharged 01/22/24. Referral requested for wound care located at [address] [place] [phone] and a cardiology [place] . Please contact at [phone] for any additional questions . ) * Telephone Encounter - Adry Steinberg - 01/25/2024 10:40 AM EDT Tc from pt friend Tung requesting to 2 referral . Pt was seen at [facility] [place]18[place]24 and discharged 01/22/24. Referral requested for wound care located at [address] [place] [phone] and a cardiology [place] . Please contact at [phone] for any additional questions . documented in this encounter Plan of Treatment Upcoming Encounters Date Type Department Care Team (Late st Contact Info) Description 12/26/2024 11:15 AM EST Telemedicine [facility] MEDICINE [address] [place] [address] Madonna Plascencia MD [address] [place] [address] 01/04/2025 2:15 PM EST Clinical Support [facility] MED & PEDS [address] [place], [place] [phone] Joan Shipley, RN 505 [place], [place] [phone] documented as of this encounter Visit Diagnoses Not on filedocumented in this encounter Additional Health Concerns Assessment Noted Time PHQ-9 Depression Total Score: 0 07/07/20 23 1:17 PM EDT documented as of this encounter Care Teams Cookie Mixer Helper Relationship Specialty Start Date End Date Madonna Plascencia MD [address] [place] [address] PCP - General Family Medicine 08/07/14 documented as of this encounter
--- OUTSIDE RECORDS SUMMARY | 2024-12-21 10:43 | XMS_ITS | Encounter Summary ---
Author Organization [employer] Address [address] [place] [address] 7t [place] [address] Care Team Providers Care Disability Hearing Officer Name Role Phone Madonna Plascencia MD Primary Care Provider [phone] Reason for Referral * Consultation (Routine) - Closed Specialty Diagnoses / Procedures Referred By Aubree remy Referred To Contact Cardiology Diagnoses Encounter for preoperative assessment for noncoronary cardiac surgery Acute on chronic heart failure with preserved ejection fraction (CMS/HCC) Chronic heart failure with preserved ejection fraction (CMS/HCC) Madonna Plascencia MD [address] [place], [place] Phone: tel: fax: [facility] Referral ID Status Reason Start Date Expiration Date V isits Requested Visits Authorized [id number] Closed Specialty Services Required 02/19/2024 02/18/2025 1 1 * Consultation (Routine) - Closed Specialty Diagnoses / Procedures Referred By Aubree remy Referred To Contact Wound Care Diagnoses Lymphedema Venous stasis Madonna Plascencia MD [address] [place], [place] Phone: tel: fax: [facility] [address] [place] [address] Phone: tel: fax: Referral ID Status Reason Start Date Expiration Date V isits Requested Visits Authorized [id number] Closed Specialty Services Required 02/19/2024 02/18/2025 1 1 Encounter Details Date Type Department Care Team (Late st Contact Info) Description 02/11/2024 Orders Only [facility] MEDICINE [address] [place] [address] Madonna Plascencia MD [address] [place] [address] Lymphedema (Primary Dx); Venous stasis; Encounter for preoperative assessment for noncoronary cardiac surgery; Acute on chronic heart failure with preserved ejection fraction (CMS/HCC); Chronic heart failure with preserved ejection fraction (CMS/HCC); Controlled type 2 diabetes mellitus with diabetic nephropathy, with long-term current use of insulin (CMS/HCC) Social History Tobacco Use Types Packs/Day Years [...] as of this encounter Miscellaneous Notes * Assessment & Plan Note - Madonna Plascencia MD - 02/19/2024 2:36 PM EDTAssociated Problem(s): Chronic heart failure with preserved ejection fraction (CMS/HCC) - acute exacerbation of chronic HF, hospitalized 01/19/24 - 01/22/24, in a setting of cellulitis and ETHAN - most recent transthoracic echocardiogram: 01/20/24 The left ventricular systolic function is normal; The visually estimated ejection fraction is between 60-65%; There is moderately increased left ventricular wall thickness; No obvious valvular pathology seen on this study. - referred to nurse unit manager since patient's GI needs a cardiac pre-op documented in this encounter Plan of Treatment Upcoming Encounters Date Type Department Care Team (Late st Contact Info) Description 12/26/2024 11:15 AM EST Telemedicine [facility] MEDICINE 230 [place] [address] Madonna Plascencia MD [address] [place] [address] 01/04/2025 2:15 PM EST Clinical Support [facility]C MED & PEDS 505 [place], [place] [phone] Joan Shipley, RN [address] [place], [place] [phone] Scheduled Referrals Name Type Priority Associated Diagnoses Orde r Schedule Referral to Cardiology Outpatient Referral Routine Encounter for preoperative assessment for noncoronary cardiac surgery Acute on chronic heart failure with preserved ejection fraction (CMS/HCC) Chronic heart failure with preserved ejection fraction (CMS/HCC) Expected: 02/19/2024 (Approximate), Expires: 02/18/2025 documented as of this encounter Procedures Procedure Name Priority Date/Time Associated Diagnosis Comments AMB REFERRAL TO WOUND CLINIC Routine 06/02/2024 Lymphedema Venous stasis documented in this encounter Results * Referral to Wound Clinic (06/02/2024) us Madonna Plascencia MD OUTPATIENT REFERRAL ORDERABLES F inal Result documented in this encounter Visit Diagnoses Diagnosis Lymphedema- Primary Other noninfectious lymphedema Venous stasis Unspecified venous (peripheral) insufficiency Encounter for preoperative assessment for noncoronary cardiac surgery Acute on chronic heart failure with preserved ejection fraction (CMS/HCC) Chronic heart failure with preserved ejection fraction (CMS/HCC) Controlled type 2 diabetes mellitus with diabetic nephropathy, with long-term current use of insulin (CMS/HCC) documented in this encounter Additional Health Concerns Assessment Noted Time PHQ-9 Depression Total Score: 0 07/07/20 23 1:17 PM EDT documented as of this encounter Care Teams Disability Hearing Officer Relationship Specialty Start Date End Date Madonna Plascencia MD [address] [place] [address] PCP - General Family Medicine 08/07/14 documented as of this encounter
--- OUTSIDE RECORDS SUMMARY | 2024-12-21 10:43 | XMS_ITS | Encounter Summary ---
Author Organization [employer] Address 75 [facility] 7t [place] [address] Care Team Providers Care Business Intelligence Etl Developer Name Role Phone Madonna Plascencia MD Primary Care Provider [phone] Encounter Details Date Type Department Care Team ([facility] st Contact Info) Description 01/18/2024 Orders Only [facility] MEDICINE 230 [place], [place] [phone] Madonna Plascencia MD [address] [place], [place] [phone] Social History Tobacco Use Types Packs/Day Years [...] Info) Description 12/26/2024 11:15 AM EST Telemedicine [facility] MEDICINE 230 [place] [address] Madonna Plascencia MD [address] [place] [address] 01/04/2025 2:15 PM EST Clinical Support [facility] CH[facility] MED & PEDS 505 [place] [address] Joan Shipley, RN [address] [place] [address] documented as of this encounter Visit Diagnoses Not on filedocumented in this encounter Additional Health Concerns Assessment Noted Time PHQ-9 Depression Total Score: 0 07/07/20 23 1:17 PM EDT documented as of this encounter Care Teams Business Intelligence Etl Developer Relationship Specialty Start Date End Date Madonna Plascencia MD [address] [place] [address] PCP - General Family Medicine 08/07/14 documented as of this encounter
--- OUTSIDE RECORDS SUMMARY | 2024-12-21 10:43 | XMS_ITS | Encounter Summary ---
Author Organization [employer] Address [address] [facility] 7t [place] [address] Care Team Providers Care Speeder Hand Name Role Phone Madonna Plascencia MD Primary Care Provider [phone] Reason for Visit * Reason Comments Med Refill Encounter Details Date Type Department Care Team ([facility] st Contact Info) Description 01/15/2024 Refill [facility] MEDICINE [address] [place], [place] [phone] Madonna Plascencia MD [address] [place], [place] [phone] Social History Tobacco Use Types Packs/Day Years [...] Info) Description 12/26/2024 11:15 AM EST Telemedicine [facility] MEDICINE [address] [place] [address] Madonna Plascencia MD [address] [place] [address] 01/04/2025 2:15 PM EST Clinical Support [facility] MED [facility] PEDS [address] [place] [address] Joan Shipley, MARIANNE [address] [place] [address] documented as of this encounter Visit Diagnoses Not on filedocumented in this encounter Additional Health Concerns Assessment Noted Time PHQ-9 Depression Total Score: 0 07/07/20 23 1:17 PM EDT documented as of this encounter Care Teams Speeder Hand Relationship Specialty Start Date End Date Madonna Plascencia MD [address] [place] [id number] PCP - General Family Medicine 08/07/14 documented as of this encounter
--- OUTSIDE RECORDS SUMMARY | 2024-12-21 10:43 | XMS_ITS | Encounter Summary ---
Author Organization [employer] Address [address] [facility] 7t [place] [address] Care Team Providers Care Car Customizer Name Role Phone Madonna Plascencia MD Primary Care Provider [phone] Reason for Visit * Reason Comments Med Refill Encounter Details Date Type Department Care Team ([facility] st Contact Info) Description 11/27/2024 Refill [facility] MEDICINE [address] [place], [place] [phone] Madonna Plascencia MD [address] [place], [place] [phone] Chronic constipation Social History Tobacco Use Types [...] Info) Description 12/26/2024 11:15 AM EST Telemedicine [facility] MEDICINE [address] [place] [address] Madonna Plascencia MD [address] [place] [address] 01/04/2025 2:15 PM EST Clinical Support [facility] MED [facility] PEDS [address] [place] [address] Joan Shipley, MARIANNE [address] [place] [address] documented as of this encounter Visit Diagnoses Diagnosis Chronic constipation Unspecified constipation documented in this encounter Additional Health Concerns Assessment Noted Time PHQ-9 Depression Total Score: 0 07/07/20 23 1:17 PM EDT documented as of this encounter Care Teams Car Customizer Relationship Specialty Start Date End Date Madonna Plascencia MD [address] [place] [address] PCP - General Family Medicine 08/07/14 documented as of this encounter
== END 2024-12-21 11:54 | disposition home or self-care (01) ==
PROVIDERS: PCP Family Medicine; Visit Provider Internal Medicine Nephrology
DX: I12.9 Hypertensive chronic kidney disease with stage 1 through stage 4 chronic kidney disease, or unspecified chronic kidney disease (principal); N18.32 Chronic kidney disease, stage 3b; D63.1 Anemia in chronic kidney disease; N25.81 Secondary hyperparathyroidism of renal origin; E55.9 Vitamin D deficiency, unspecified
CPT/HCPCS: 99214

== ENCOUNTER → 2024-12-21 10:11 | Outpatient (BNVA) | payer OTHER, SELFPAY | PROVIDERS: PCP Family Medicine; Visit Provider Internal Medicine Nephrology ==

== ENCOUNTER 2025-04-28 08:03 | Outpatient (REF) | payer OTHER, SELFPAY ==
--- OUTSIDE RECORDS SUMMARY | 2025-04-28 08:06 | XMS_ITS | Encounter Summary ---
Author Organization [facility] [employer] Address [address] [facility] 7t [place] [address] Care Team Providers Care Wireless Engineer Name Role Phone Madonna Plascencia MD Primary Care Provider Reason for Visit * Reason Comments Med Refill Encounter Details Date Type Department Care Team ([facility] st Contact Info) Description 11/25/2023 Refill [facility] MEDICINE [address] [place], [place] [phone] Madonna Plascencia MD [address] [place], [place] [phone] Social History Tobacco Use Types Packs/Day Years [...] Care Team (Late st Contact Info) Description 06/20/2025 2:00 PM EDT Clinical Support [facility] MED & PEDS [address] [place] [address] Joan Shipley, RN [address] [place] [address] documented as of this encounter Visit Diagnoses Not on filedocumented in this encounter Additional Health Concerns Assessment Noted Time PHQ-9 Depression Total Score: 0 07/07/20 23 1:17 PM EDT documented as of this encounter Care Teams Wireless Engineer Relationship Specialty Start Date End Date Madonna Plascencia MD [address] [place] [id number] PCP - General Family Medicine 08/07/14 Eric Jaimes Plasma Table Operator 03/31/25 documented as of this encounter
[2025-04-28 11:07] LABS: MANUAL DIFF FLAG NO
[2025-04-28 11:11] LABS: Basophils Absolute Auto 0.1 X10*3/uL (0.0-0.2); Basophils Percent Auto 0.7 % (0-2); Eosinophils Absolute Auto 0.2 X10*3/uL (0.0-0.4); Eosinophils Percent Auto 3.1 % (0-4); Hematocrit 32.6 % (42.0-52.0); Hemoglobin 10.2 g/dl (14.0-18.0); Imm Gran Abs Auto 0.05 X10*3/uL (0.00-0.03); Imm Gran Pct Auto 0.7 % (0.0-0.4); Lymphocytes Absolute Auto 1.8 X10*3/uL (1.2-4.9); Lymphocytes Percent Auto 26.8 % (20-40); Mean Corpuscular HGB Conc 31.3 g/dl (31.0-36.0); Mean Corpuscular Hemoglobin 28.1 pg (27.0-33.0); Mean Corpuscular Volume 89.8 fL (80.0-98.0); Mean Platelet Volume 10.6 fL (9.4-12.4); Monocytes Absolute Auto 0.5 X10*3/uL (0.1-1.2); Monocytes Percent Auto 7.2 % (2-11); Neutrophils Absolute Auto 4.1 x10*3/uL (2.0-8.3); Neutrophils Percent Auto 61.5 % (45-73); Platelet Count 218 X10*3/uL (160-400); Red Blood Count 3.63 X10*6/uL (4.60-5.80); White Blood Count 6.7 X10*3/uL (4.8-10.8)
[2025-04-28 11:21] LABS: Estimated Average Glucose 166 mg/dL; Hemoglobin A1C 153.8087 umol/L; Hemoglobin A1c % 7.4 % (<6.0)
[2025-04-28 11:35] LABS: Alanine Aminotransferase 64 U/L (0-40); Albumin Level 3.6 g/dL (3.5-5.0); Alkaline Phosphatase 127 U/L (39-117); Aspartate Amino Transferase 93 U/L (5-37); Bilirubin Direct 0.2 mg/dL (0.0-0.5); Bilirubin Total 0.4 mg/dL (0.0-1.0); Cholesterol 120 mg/dL (<200); HDL Cholesterol 24 mg/dL (>40); Iron 83 mcg/dL (45-160); LDL Cholesterol Calculated 60 mg/dL (<100); Percent Iron Saturation 39 % (15-50); Total Iron Binding Capacity 211 mcg/dL (228-428); Total Protein 7.5 g/dL (6.5-8.0); Triglycerides 184 mg/dL (<150); Unsaturated Iron Binding 128 ug/dL
[2025-04-28 11:48] LABS: Free T4 (Free Thyroxine) 0.86 ng/dL (0.71-1.85); Thyroid Stimulating Hormone 7.04 uIU/mL (0.32-4.0)
[2025-04-28 12:28] LABS: Reflex LDLD? No
[2025-05-01 18:23] LABS: Thyroid Peroxidase Antibodies 2 IU/mL (<9)
== END 2025-04-28 08:04 | disposition home or self-care (01) ==
LOC: HO.LHD 08:03
PROVIDERS: Visit Provider Family Medicine
DX: E11.22 Type 2 diabetes mellitus with diabetic chronic kidney disease (principal); N18.30 Chronic kidney disease, stage 3 unspecified; Z79.4 Long term (current) use of insulin; D63.8 Anemia in other chronic diseases classified elsewhere; R79.89 Other specified abnormal findings of blood chemistry
CPT/HCPCS: 36415; 80061; 80076; 83036; 83540; 84439; 84443; 85025; 86376

== ENCOUNTER 2025-06-21 12:25 | Outpatient (AMB) | payer OTHER, SELFPAY ==
[2025-06-21 12:49] VITALS: BMI 39.5
--- NOTE | 2025-06-21 12:49 | A.OFFVIS_ITS ---
Vital Signs 06/21/25 12:49 Height 5 ft 10 in Weight 275 lb BMI 39.5 Intake Visit Reasons: New Patient- Mass on left palm Intake Note: Hussein is a 59 year old right hand dominant male who presents today as a new patient for evaluation of a mass on his left palm. Patient reported to referring physician he could not bend his hand. He described his pain as a pinched nerve i n the middle of his left hand, worsening for the past year. Patient has a good amount of swelling on the dorsal aspect of the hand which he attributes to the mass on his palm, right below his left middle finger. Patient states it has been bothering him for months . He takes Morphine for other health problems. History of osteomyelitis of the right foot. History of Type 2 DM, last A1C done 04/28/25- 7.4%. Denies previous injuries or surgeries to the left hand. Allergies No Known Allergies Allergy (Mild, Verified 06/21/25 12:54) NOT APPLICABLE HPI HPI New Patient- Mass on left palm: Details: Hussein is a 59 year old right hand dominant male who presents today as a new patient for evaluation of a mass on his left palm. Patient reported to referring physician he could not bend his hand. He described his pain as a pinched nerve in the middle of his left hand, worsening for the past year. Patient has a good amount of swelling on the dorsal aspect of the hand which he attributes to the mass on his palm, right below his left middle finger. Of note, patient states that it is both hands that are swollen. Patient does report some difficulty extending the left ring finger fully Patient states it has been bothering him for months . He takes Morphine for other health problems. History of osteomyelitis of the right foot. History of Type 2 DM, last A1C done 04/28/25- 7.4%. Denies previous injuries or surgeries to the left hand. 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 Diabetes mellitus type 2, controlled Traumatic subarachnoid hemorrhage Traumatic subdural hematoma Temporal skull fracture Traumatic brain injury Major depression Controlled type 2 diabetes mellitus with diabetic nephropathy Nephritis NOS in other disease Chronic kidney disease, stage III (moderate) Neck pain Dyslipidemia Asthma Anemia of chronic disease Chronic constipation HTN (hypertension) Glaucoma suspect Surgical History (Updated 05/09/25 @ 13:21 by Soco Prado RN) Hx of amputation History of circumcision Hx of colonoscopy Hx laparoscopic cholecystectomy (05/09/24) Bilateral inguinal hernia S/P cervical spinal fusion Social History Household Members: Family Housing: House Are you a primary home health care coordinator to a significant other at home: No Do you presently have visiting nurse or other home services: Yes Patient Tobacco Use Status: Former Tobacco user Tobacco use type: Cigarette service: No Physical Exam Vital Signs: BMI result Body Mass Index 39.5 Extrem Other: Patient is alert, oriented, and in no acute distress. Neuro: Normal sensation of the tips of all digits of the left hand at this time Vascular: Cap refill brisk Pain: No tenderness to palpation about Dupuytren's nodule and cord on left hand Some discomfort with range of motion of the left hand ROM: Patient is able to make a closed fist, does have an approximately 5 degree extensor lag at the MCP joint of the left ring finger Skin: Dupuytren's nodule and associated cord noted on the palmar aspect of the left hand extending into the left ring finger No lacerations or abrasions. General: No ecchymosis, erythema, or evidence of infection. Psych: Appears grossly normal Affect normal Attitude cooperative Assessment & Plan Assessment & Plan (1) Dupuytren's contracture of left hand: Code(s): M72.0 - Palmar fascial fibromatosis [Dupuytren] Category: Medical Plan 1. Dupuytren's contracture of the left hand Patient is educated about this condition Patient is educated about the typical treatment course At this time, patient is informed that the best treatment that we have for Dupuytren's disease is surgical intervention, however given his very significant past medical history I feel it is best for him to both discussed with Dr. Rondon and get all of the necessary clearances for surgery, as given his diabetes, history of osteomyelitis, and chronic kidney disease, I feel that the risk of complication for this surgery in his patient would be fairly high Patient expresses frustration at this, stating ?I thought she were going to fix this today? Patient is amenable to seeing Dr. Rondon for next available 30 minute appointment for surgical consult for discussion of potential left partial Dupuytren's fasciectomy Coding Level of Care Code New Pt Level 3 (72948) Diagnoses Dupuytren's contracture of left hand M72.0
--- OUTSIDE RECORDS SUMMARY | 2025-06-21 13:22 | XMS_ITS | Encounter Summary ---
Author Organization [facility] Address [address] [place] [address] Phone Care Team Providers Care Thresher Broomcorn Name Role Phone Madonna Plascencia MD Primary Care Provider [phone] Reason for Visit * Reason Comments Med Refill Encounter Details Date Type Department Care Team (Late st Contact Info) Description 10/02/2023 Refill [facility] [address] [place] [address] David Harding MD [address] [facility] [address] [place] [address] Social History Tobacco Use Types [...] on filedocumented in this encounter Care Teams Thresher Broomcorn Relationship Specialty Start Date End Date Madonna Plascencia MD PCP - General 11/12/20 documented as of this encounter
--- OUTSIDE RECORDS SUMMARY | 2025-06-21 13:22 | XMS_ITS | Encounter Summary ---
Author Organization [facility] Address [address] [facility] [address] [place] [address] Encounters * CPT with [facility] on 2025-06-06 { reasonForRequest : wound on feet , patientReports : ,"denies :[ Mccallum Flash, circumferential mccallum , Mccallum reported with black tissue to the area , Open skin area after a fall with uncontrolled bleeding , Abs cess/infection with streaking noted, presence of fever or without , History of cellulitis, isolated redness noted , Fever and chills noted in setting of wound , Rash", Bites -bugs, spider , Abscess ], chiefComplaints : Wound Care", pmh : COPD/Asthma, Diabetes Mellitus Type 2, Hypertension, Coronary Artery Disease, Congestive Heart Failure , allergies : No Known Drug Allergies ,"otherAllergies : , painAssessment : , visitOutcome : , additionalComments : 59 y.o male complains of Wound Care\n\nSpouse calling for pt .\nPT has a wound on his right foot. 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 \n2 weeksago, he had his foot near the heating, and he burned his 3 toes. \nThe toes were swollen, burned, and blistered. \nShe has been treating them and she feels that they are looking better. \nThe tissue on the toes is red, not necrotic, but she states there is a dark area, but she thinks it is old blood. He can move his toes but his foot is swollen. \nNo discharge or pus noted \nHe does not have a fever, confusion, nausea or vomiting. \nHe does have a baseline short term memory loss. \nHe does haveCHF, on torsemide \nI provided information on the mobile health provider response time and advised the patient and/or caregiver to monitor reported signs and symptoms. I discussed the warning signs of when to seek emergency care. } This visit is for a 59-year-old male with a history including but not limited to COPD, DM type II, HTN, CAD, CHF. Patient's request the visit to have his right foot assessed. She states he accidentally burned his toes two weeks ago on a heater. sent pictures to the PCPs office yesterday, PCP prescribed 10 days of doxycycline BID and Silvadene topical. Patient has very little sensation in his feet at baseline and has difficulty leaving his home for appointments. Patient denies any pain, pus, fevers, nausea, vomiting, diarrhea. NKDA. Patient presents awake and alert, in no acute distress and speaking full sentences. His vital signsare reasonably stable and he is afebrile. Nonfocal neurological exam. Lungs are clear throughout auscultation. Abdomen is soft, nontender, nondistended. Baseline lower extremity edema. Circumferential mccallum to his right second, third and fourth toes (fifth was aputated). No increased warmth or discharge. FSB. I provided demonstration on proper cleaning techniques and applied Silvadene and DSD. We discussed the diagnostic uncertainty of home visits and the risk associated with this. In this case, the patient and I felt this to be an acceptable and reasonable amount of risk given the benefitof avoiding an ED visit. I recommend they follow up with the PCP or an in person appointment to be sure the wound is healing and for additional diabetes teaching. I instructed them to present him to the emergency department for any new or worsening severe symptoms such as severe pain, worsening erythema, high fever, uncontrollable nausea/vomiting, altered mental status. The patient and his were given the opportunity to ask questions and are agreeable to this plan. ORAL_MEDICATION, WOUND_CARE Written by [facility] on 2025-06-06
--- OUTSIDE RECORDS SUMMARY | 2025-06-21 13:22 | XMS_ITS | Encounter Summary ---
Author Organization [employer] Address [address] [facility] 7t [place] [address] Care Team Providers Care Carver And Checkerer Specials Name Role Phone Madonna Plascencia MD Primary Care Provider [phone] Encounter Details Date Type Department Care Team (Late st Contact Info) Description 07/29/2024 Orders Only [facility] MEDICINE [address] [place], [place] [phone] Madonna Plascencia MD [address] [place], [place] [phone] Elevated TSH (Primary Dx) Social History Tobacco [...] Care Team (Late st Contact Info) Description 07/19/2025 10:00 AM EDT Clinical Support [facility] MED & PEDS [address] [place] [address] Joan Shipley RN [address] [place] [address] Scheduled Orders Name Type Priority Associated Diagnoses [...] (Free Thyroxine) 0.70(L) 0.71 - 1.85 ng/dL [facility] 07/29/2024 10:0 6 AM EDT 07/29/2024 10:34 AM EDT us Madonna Plascencia MD LAB BLOOD ORDERABLES Final Resul t [facility] [address] [place] [address] [phone] documented in this encounter Visit Diagnoses Diagnosis Elevated TSH- Primary Other abnormal blood chemistry documented in this encounter Additional Health Concerns Assessment Noted Time PHQ-9 Depression Total Score: 0 07/07/20 23 1:17 PM EDT documented as of this encounter Care Teams Carver And Checkerer Specials Relationship Specialty Start Date End Date Madonna Plascencia MD [address] [place] [id number] PCP - General Family Medicine 08/07/14 Eric Jaimes Commercial Driver'S License Driver 03/31/25 documented as of this encounter
== END 2025-06-21 13:13 | disposition home or self-care (01) ==
LOC: HO.HOS 12:25
PROVIDERS: PCP Family Medicine
DX: M72.0 Palmar fascial fibromatosis [Dupuytren] (principal); E11.9 Type 2 diabetes mellitus without complications
CPT/HCPCS: 99203

== ENCOUNTER → 2025-06-21 12:25 | Outpatient (BNVA) | payer OTHER, SELFPAY | PROVIDERS: PCP Family Medicine | DX: M72.0 Palmar fascial fibromatosis [Dupuytren] (principal) | CPT/HCPCS: 99202 ==

== ENCOUNTER 2025-07-19 10:06 | Outpatient (REF) | payer OTHER, SELFPAY ==
--- OUTSIDE RECORDS SUMMARY | 2025-07-19 10:00 | XMS_ITS | Encounter Summary ---
Author Organization [employer] Address 75 [facility] 7t [place] [address] Care Team Providers Care Embroidery Assistant Name Role Phone Madonna Plascencia MD Primary Care Provider [phone] Reason for Visit * Reason Comments PRINCIPAL TECHNICAL SPECIALIST Encounter Details Date Type Department Care Team (Latest Contact Info) Description 07/19/2025 10:00 AM EDT Clinical Support [facility] MED & PEDS [address] [place] [address] Joan Shipley RN [address] [place] [address] Chronic low back pain, unspecified back pain laterality, unspecified whether sciatica present (Primary Dx) Social History Tobacco Use Types Packs/Day Years Used Date Smoking Tobacco: Never Passive Smoke Exposure: Never Smokeless Tobacco: Never Depression Answer Date Recorded Patient Health Questionnaire-9 Score 0 12/26/2024 Patient Health Questionnaire-9 Score 0 12/26/2024 Last PHQ-9: Questionnaire Data Not on file 0 12/26/2024 Housing Stability Answer Date Recorded What is [...] Date Recorded Patient Health Questionnaire-2 Score 0 12/26/2024 Sex and Gender Information Value Date Recorded Sex Assigned at Male 09/01/2022 10:19 AM EDT Legal Sex Male 10:19 AM EDT Gender Identity Male 09/01/2022 10:19 AM EDT Sexual Orientation Straight 09/01/2022 10 :19 AM EDT documented as of this encounter Progress Notes * Joan Shipley RN - 07/19/2025 10:00 AM EDT SUBJECTIVE: Hussein Mandujano is a 59 y.o. year old male who presents for PRINCIPAL TECHNICAL SPECIALIST Preferred language for medical information: Comoran Interpreted needed: No Hussein Mandujano does report adherence to Morphine Sulfate IR 30 mg, take 1 tablet every 8 hours PRN,last refilled 07/14/25. The patient last took Morphine Sulfate IR on: 07/19/25 Medication is: 80% % effective at alleviating pain. OBJECTIVE: SPECIALTY FINISHING UTILITY PERSON checked: 07/19/2025 Pill count completed for Morphine Sulfate IR, count today is 69 , anticipated count should be 68, this is as expected. Vital Signs Pain Score: 9 Pain Loc: Back Pain Education: Yes Additional pain site: neck, hands, knees, feet Last PCP visit: 06/14/25 BPI completed on: 07/19/2025 , pain severity score: 8.5, activity interference score: 9 BPI completed on: 01/04/25 , pain severity score: 10, activity interference score: 10 Controlled substance agreement signed: Controlled Substance Agreement 01/04/2025 PRINCIPAL TECHNICAL SPECIALIST Tier: 3 Current Medications[1] Smoking status: Denies ETOH use: Denies Illicit substances: Denies Marijuana use: No , Lab Results Component Value Date POCTHC Negative 07/19/2025 POCCOCAINEUR Negative 07/19/2025 POCOPIATEUR Positive (A) 07/19/2025 DOAUR Negative 07/19/2025 POCAMPHETAMI Negative 07/19/2025 POCBENZODIUR Negative 07/19/2025 POCBARBSCRN Negative 07/19/2025 POCMETHADOUR Negative 07/19/2025 POCBUPSCRN Negative 07/19/2025 POCTCAUR Negative 07/19/2025 POCMDMAUR Negative 07/19/2025 POCOXYCODONE Negative 07/19/2025 POCPHENCYCUR Negative 07/19/2025 PROPOXUR Negative 07/19/2025 FENTANYLURIN Negative 07/19/2025 ASSESSMENT: Encounter Diagnosis Name Primary? Chronic low back pain, unspecified back pain laterality, unspecified whether sciatica present Yes PLAN: Information on pain group given: Yes Information on acupuncture given: Previously discussed Narcan education provided: Previously discussed Narcan prescription: inactive- refill request submitted to provider Hussein Mandujano will continue taking medication as prescribed and follow up at the next [facility] visit orsooner if needed. Husseni Mandujano has verbalized understanding of care plan. Future Appointments Date Time Provider Department Center 07/19/2025 10:00 AM Joan [address] RN [facility] 08/29/2025 11:30 AM Madonna Plascencia MD [facility] 10/23/2025 10:30 AM Joan Shipley RN [facility] Joan Shipley RN [1] Current Outpatient Medications: albuterol (Ventolin HFA) 108 (90 Base) MCG/ACT inhaler, inhale 1-2 puff by inhalation route every 4- 6 hours as needed, Disp: , Rfl: ammonium lactate (Lac-Hydrin) 12 % lotion, Apply topically Once per day., Disp: , Rfl: Aspirin Low Dose 81 MG EC tablet, TAKE 1 TABLET (81 MG) BY MOUTH IN THE MORNING, Disp: 90 tablet, Rfl: 3 atorvastatin (Lipitor) 40 MG tablet, TAKE 1 TABLET BY MOUTH AT BEDTIME, Disp: 90 tablet, Rfl: 3 BD Insulin Syringe U/F 31G X 5/16 1 ML misc, USE DIRECTED UP TO 4 TIMES DAILY FOR INSULIN INJECTION, Disp: 120 each, Rfl: 11 Blood Glucose Monitoring Suppl (FreeStyle Lite) w/Device kit, Use as directed up to 4 times daily to check blood sugar, Disp: , Rfl: Blood Glucose Monitoring Suppl (FreeStyle Lite) w/Device kit, 1 each 3 times daily., Disp: 1 kit, Rfl: 1 Blood Pressure Monitor kit, Check BP as directed by your health care provider and as needed for your symptoms, Disp: , Rfl: Continuous Glucose Pesticide Use Medical Coordinator (FreeStyle Amy 2 [place]) device, Use as directed, Disp: 1 each, Rfl: 1 Continuous Glucose Pesticide Use Medical Coordinator (FreeStyle Amy 3 [place]) device, 1 each Once per day. Use as directedfor CGM, Disp: 1 each, Rfl: 0 Continuous Glucose Sensor (FreeStyle Amy 2 Sensor) misc, Use as directed, Disp: 2 each, Rfl: 11 Continuous Glucose Sensor (FreeStyle Amy 3 Plus Sensor) misc, 1 each every 15 days. Apply 1 every15 days as directed for CGM, Disp: 2 each, Rfl: 11 cyanocobalamin (Vitamin B-12) 1000 MCG tablet, TAKE 1 TABLET BY MOUTH EVERY DAY, Disp: 90 tablet, Rfl: 3 docusate sodium (Colace) 100 MG capsule, TAKE 2 CAPSULES BY MOUTH EVERY DAY IN THE MORNING, Disp: 180 capsule, Rfl: 3 epoetin boris (Procrit) 2000 UNIT/ML injection, Inject under the skin., Disp: , Rfl: escitalopram (Lexapro) 20 MG tablet, Take 1 tablet by mouth at bed time., Disp: , Rfl: Farxiga 10 MG, TAKE 1 TABLET BY MOUTH EVERY DAY, Disp: 30 tablet, Rfl: 11 ferrous sulfate 325 (65 Fe) MG EC tablet, Take 1 tablet (325 mg) by mouth Once per day., Disp: 90 tablet, Rfl: 3 folic acid (Folvite) 1 MG tablet, Take 1 tablet (1 mg) by mouth Once per day., Disp: 90 tablet, Rfl: 3 FreeStyle lancets, 1 each by Other route before breakfast, before lunch, and before evening meal. Check blood glucose, Disp: 100 each, Rfl: 11 gabapentin (Neurontin) 300 MG capsule, TAKE 1 CAPSULE BY MOUTH TWICE A DAY, Disp: 60 capsule, Rfl: 5 glucose blood (FREESTYLE LITE) test strip, USE TO CHECK BLOOD SUGAR THREE TIMES A DAY, Disp: 100 strip, Rfl: 11 glucose blood (FreeStyle Precision Misbah Test) test strip, Use to test blood sugar 4 times daily in case of CGM failure or extremes of BG, Disp: 100 each, Rfl: 11 Insulin Aspart (NovoLOG) 100 UNIT/ML solution, Inject 40 Units under the skin before breakfast, before lunch, and before evening meal., Disp: 40 mL, Rfl: 11 insulin glargine (Lantus) 100 UNIT/ML injection, ADMINISTER 50 UNITS SUBCUTANEOUSLY AT NIGHT, Disp:15 mL, Rfl: 11 Lancets 28G misc, Use one lancet to check glucose 6 times daily, Freestyle Lancets, Disp: , Rfl: Linzess 290 MCG capsule, TAKE 1 CAPSULE BY MOUTH EVERY MORNING, Disp: , Rfl: morphine (MSIR) 30 MG tablet, Take 1 tablet (30 mg) by mouth every 8 (eight) hours if needed for severe pain for up to 28 days., Disp: 84 tablet, Rfl: 0 Movantik 12.5 MG tablet, TAKE 1 TABLET BY MOUTH EVERY DAY IN THE MORNING, Disp: , Rfl: naloxone (Narcan) 4 mg/0.1 mL nasal spray, Administer 0.1 mL into affected nostril(s)., Disp: , Rfl: Nerve Stimulator (TENS Therapy Pain Relief) device, Apply to affected areas as directed, Disp: , Rfl: Nerve Stimulator (TENS Therapy Replace Back Pads) misc, Apply to affected areas as directed, Disp: , Rfl: QUEtiapine (SEROquel) 50 MG tablet, Take 50 mg by mouth at bedtime., Disp: , Rfl: sennosides (Senna-Time) 8.6 MG tablet, TAKE 2 TABLETS BY MOUTH EVERY DAY NEEDED FOR CONSTIPATION, Disp: 180 tablet, Rfl: 1 silver sulfADIAZINE (Silvadene) 1 % cream, APPLY TO AFFECTED AREA TWICE A DAY, Disp: 400 g, Rfl: 0 torsemide (Demadex) 20 MG tablet, Take 20 mg by mouth in the morning and 20 mg in the evening., Disp: , Rfl: Xyosted 75 MG/0.5ML solution auto-injector, INJECT 75 MG (0.5 ML) SUBCUTANEOUSLY EVERY WEEK FOR HYPOGONADISM FOR 4 WEEKS, Disp: , Rfl: zolpidem CR (Ambien CR) 12.5 MG ER tablet, TAKE 1 TABLET BY MOUTH EVERY DAY AT BEDTIME NEEDED FOR SLEEP, Disp: , Rfl: documented in this encounter Plan of Treatment Upcoming Encounters Date Type Department Care Team (Tammy st Contact Info) Description 08/29/2025 11:30 AM EDT Telemedicine [facility] MEDICINE [address] [place] [address] Madonna Plascencia MD [address] [place] [address] 10/23/2025 10:30 AM EST Telemedicine [facility] CHC MED & PEDS [address] [place] [address] Joan Shipley, RN [address] [place] [address] documented as of this encounter Procedures Procedure Name Priority Date/Time Associated Diagnosis Comments POCT ASHU-14 URINE DRUG SCREEN Routine 07/19/2025 9:46 AM EDT Chronic low back pain, unspecified back pain laterality, unspecified whether sciatica present documented in this encounter Results * (ABNORMAL) POCT ASHU-14 Urine Drug Screen (07/19/2025 9:46 AM EDT) THC Negative Negative Cocaine Screen, Urine Negative Negative Opiate Screen, Urine Positive(A) Negative Methamphetamine Screen Urine Negative Negative Amphetamine Screen, Urine Negative Negative Benzodiazepines Screen, Urine Negative Negative Barbiturate Screen, Urine Negative Negative Methadone Screen, Urine Negative Negative Buprenophine Screen, Urine Negative Negative TCA, Urine Negative Negative MDMA Urine Negative Negative ng/mL Oxycodone Screen, Urine Negative Negative Phencyclidine (PCP), Urine Negative Negative Propoxyphene, Urine Negative Negative Fentanyl, Urine Negative Negative Urine Urine specimen obtained by clean catch procedure / Unknown 07/19/2025 9:46 AM EDT Narrative Joan Shipley RN - 07/19/2025 9:46 AM EDT . Internal Pass Control Lot# [id number] Exp: 09-01-26 Madonna Plascencia MD POINT OF CARE TEST ENTER/EDIT OR DERABLES Final Result documented in this encounter Visit Diagnoses Diagnosis Chronic low back pain, unspecified back pain laterality, unspecified whether sciatica present- Primary documented in this encounter Additional Health Concerns Assessment Noted Time PHQ-9 Depression Total Score: 0 12/26/19 11:12 AM EST documented as of this encounter Care Teams Embroidery Assistant Relationship Specialty Start Date End Date Madonna Plascencia MD [address] [place] [address] PCP - General Family Medicine 08/07/14 Eric Jaimes Tool Mechanic 03/31/25 documented as of this encounter
--- OUTSIDE RECORDS SUMMARY | 2025-07-19 12:18 | XMS_ITS | Encounter Summary ---
Author Organization [employer] Address 75 [facility] 7t [place] [address] Care Team Providers Care Credit Clerk Name Role Phone Madonna Plascencia MD Primary Care Provider [phone] Reason for Visit * Reason Onset Date Comments Appointment Request 10/17/2024 Encounter Details Date Type Department Care Team ([facility] st Contact Info) Description 10/17/2024 Telephone [facility] MEDICINE [address] [place], [place] [phone] aMdonna Plascencia MD [address] [place], [place] [phone] Appointment Request Social History Tobacco Use Types Packs/Day Years Used Date Smoking Tobacco: Never Passive Smoke Exposure: Never Smokeless Tobacco: Never Depression Answer Date Recorded Patient Health Questionnaire-9 Score 0 07/07/2023 Housing Stability Answer Date Recorded What is your housing situation today? I have heather avzquez 08/24/[address] you li [...] foot that same day. Contact pt at [phone] documented in this encounter Plan of Treatment Upcoming Encounters Date Type Department Care Team (Late st Contact Info) Description 08/29/2025 11:30 AM EDT Telemedicine [facility] MEDICINE [address] [place] [address] Madonna Plascencia MD [address] [place] [address] 10/23/2025 10:30 AM EST Telemedicine [facility] CHC MED & PEDS [address] [place] [address] Joan Shipley, RN [address] [place] [address] documented as of this encounter Visit Diagnoses Not on filedocumented in this encounter Additional Health Concerns Assessment Noted Time PHQ-9 Depression Total Score: 0 07/07/20 23 1:17 PM EDT documented as of this encounter Care Teams Credit Clerk Relationship Specialty Start Date End Date Madonna Plascencia MD [address] [place] [address] PCP - General Family Medicine 08/07/14 Eric Jaimes Pop Singer 03/31/25 documented as of this encounter
--- OUTSIDE RECORDS SUMMARY | 2025-07-19 12:18 | XMS_ITS | Encounter Summary ---
Author Organization [facility] Address [address] [place] [address] Phone Care Team Providers Care Telephoto Installer Name Role Phone Madonna Plascencia MD Primary Care Provider [phone] Reason for Visit * Reason Comments Med Refill Encounter Details Date Type Department Care Team (Late st Contact Info) Description 10/02/2023 Refill [facility] [address] [place] [address] David Harding MD [address] [facility] [address] [place] [address] Social History Tobacco Use Types [...] on filedocumented in this encounter Care Teams Telephoto Installer Relationship Specialty Start Date End Date Madonna Plascencia MD PCP - General 11/12/20 documented as of this encounter
--- OUTSIDE RECORDS SUMMARY | 2025-07-19 12:18 | XMS_ITS | Encounter Summary ---
Author Organization [employer] Address 75 [facility] 7t [place] [address] Care Team Providers Care State Historical Society Director Name Role Phone Madonna Plascencia MD Primary Care Provider [phone] Reason for Visit * Reason Comments Med Refill Encounter Details Date Type Department Care Team (Late st Contact Info) Description 07/11/2024 Refill [facility] MEDICINE [address] [place], [place] [phone] Madonna Plascencia MD [address] [place], [place] [phone] Social History Tobacco Use Types Packs/Day Years [...] Info) Description 08/29/2025 11:30 AM EDT Telemedicine [facility] MEDICINE [address] [place] [address] Madonna Plascencia MD [address] [place] [address] 10/23/2025 10:30 AM EST Telemedicine [facility] CHC MED & PEDS [address] [place] [address] Joan Shipley, RN [address] [place] [address] documented as of this encounter Visit Diagnoses Not on filedocumented in this encounter Additional Health Concerns Assessment Noted Time PHQ-9 Depression Total Score: 0 07/07/20 23 1:17 PM EDT documented as of this encounter Care Teams State Historical Society Director Relationship Specialty Start Date End Date Madonna Plascencia MD [address] [place] [address] PCP - General Family Medicine 08/07/14 Eric Jaimes Computer Training Specialist 03/31/25 documented as of this encounter
--- OUTSIDE RECORDS SUMMARY | 2025-07-19 12:18 | XMS_ITS | Encounter Summary ---
Author Organization [employer] Address 75 [facility] 7t [place] [address] Care Team Providers Care Manager Land Name Role Phone Madonna Plascencia MD Primary Care Provider [phone] Reason for Visit * Reason Comments Med Refill Encounter Details Date Type Department Care Team ([facility] st Contact Info) Description 09/04/2023 Refill [facility] MEDICINE [address] [place], [place] [phone] Madonna Plascencia MD [address] [place], [place] [phone] Social History Tobacco Use Types Packs/Day Years [...] Info) Description 08/29/2025 11:30 AM EDT Telemedicine [facility] MEDICINE [address] [place] [address] Madonna Plascencia MD [address] [place] [address] 10/23/2025 10:30 AM EST Telemedicine [facility] CHC MED & PEDS [address] [place] [address] Joan Shipley, RN [address] [place] [address] documented as of this encounter Visit Diagnoses Not on filedocumented in this encounter Additional Health Concerns Assessment Noted Time PHQ-9 Depression Total Score: 0 07/07/20 23 1:17 PM EDT documented as of this encounter Care Teams Manager Land Relationship Specialty Start Date End Date Madonna Plascencia MD [address] [place] [address] PCP - General Family Medicine 08/07/14 Eric Jaimes Rock Picker 03/31/25 documented as of this encounter
--- OUTSIDE RECORDS SUMMARY | 2025-07-19 12:18 | XMS_ITS | Encounter Summary ---
Author Organization [employer] Address [address] [facility] 7t [place] [address] Care Team Providers Care Form Setter Helper Name Role Phone Madonna Plascencia MD Primary Care Provider [phone] Encounter Details Date Type Department Care Team (Late st Contact Info) Description 07/29/2024 Orders Only [facility] MEDICINE [address] [place], [place] [phone] Madonna Plascencia MD [address] [place], [place] [phone] Elevated TSH (Primary Dx) Social History Tobacco [...] Info) Description 08/29/2025 11:30 AM EDT Telemedicine [facility] MEDICINE [address] [place] [address] Madonna Plascencia MD [address] [place], [place] [phone] 10/23/2025 10:30 AM EST Telemedicine [facility] CHC MED & PEDS [address] [place], [place] [phone] Joan Shipley, RN [address] [place], [place] [phone] Scheduled Orders Name Type Priority Associated Diagnoses [...] (Free Thyroxine) 0.70(L) 0.71 - 1.85 ng/dL [facility] 07/29/2024 10:0 6 AM EDT 07/29/2024 10:34 AM EDT us Madonna Plascencia MD LAB BLOOD ORDERABLES Final Resul t [facility] [address] [place] [address] [phone] documented in this encounter Visit Diagnoses Diagnosis Elevated TSH- Primary Other abnormal blood chemistry documented in this encounter Additional Health Concerns Assessment Noted Time PHQ-9 Depression Total Score: 0 07/07/20 23 1:17 PM EDT documented as of this encounter Care Teams Form Setter Helper Relationship Specialty Start Date End Date Madonna Plascencia MD [address] [place] [address] PCP - General Family Medicine 08/07/14 Eric Jaimes Referral Nurse 03/31/25 documented as of this encounter
--- OUTSIDE RECORDS SUMMARY | 2025-07-19 12:18 | XMS_ITS | Encounter Summary ---
Author Organization [employer] Address [address] [facility] 7t [place] [address] Care Team Providers Care Client Program Manager Name Role Phone Madonna Plascencia MD Primary Care Provider [phone] Encounter Details Date Type Department Care Team ([facility] st Contact Info) Description 10/23/2024 Refill [facility] MEDICINE [address] [place], [place] [phone] Madonna Plascencia MD [address] [place], [place] [phone] Chronic constipation Social History Tobacco Use Types [...] Info) Description 08/29/2025 11:30 AM EDT Telemedicine [facility] MEDICINE [address] [place] [address] Madonna Plascencia MD [address] [place] [address] 10/23/2025 10:30 AM EST Telemedicine [facility] CHC MED & PEDS [address] [place] [address] Joan Shipley, RN [address] [place] [address] documented as of this encounter Visit Diagnoses Diagnosis Chronic constipation Unspecified constipation documented in this encounter Additional Health Concerns Assessment Noted Time PHQ-9 Depression Total Score: 0 07/07/20 23 1:17 PM EDT documented as of this encounter Care Teams Client Program Manager Relationship Specialty Start Date End Date Madonna Plascencia MD [address] [place] [address] PCP - General Family Medicine 08/07/14 Eric Jaimes Forestry Worker 03/31/25 documented as of this encounter
--- OUTSIDE RECORDS SUMMARY | 2025-07-19 12:18 | XMS_ITS | Encounter Summary ---
Author Organization [employer] Address [address] [place] [address] 7t [place] [address] Care Team Providers Care Window Maker Name Role Phone Madonna Plascencia MD Primary Care Provider Reason for Visit * Reason Comments Med Refill Encounter Details Date Type Department Care Team (Late st Contact Info) Description 03/05/2025 Refill [facility] MEDICINE [address] [place], [place] [phone] Madonna Plascencia MD [address] [place], [place] [phone] Social History Tobacco Use Types Packs/Day Years [...] Info) Description 08/29/2025 11:30 AM EDT Telemedicine [facility] MEDICINE [address] [place] [address] Madonna Plascencia MD [address] [place] [address] 10/23/2025 10:30 AM EST Telemedicine [facility] CHC MED & PEDS [address] [place] [address] Joan Shipley, RN [address] [place] [address] documented as of this encounter Visit Diagnoses Not on filedocumented in this encounter Additional Health Concerns Assessment Noted Time PHQ-9 Depression Total Score: 0 12/26/19 11:12 AM EST documented as of this encounter Care Teams Window Maker Relationship Specialty Start Date End Date Madonna Plascencia MD [address] [place] [address] PCP - General Family Medicine 08/07/14 Eric Jaimes Body Trimmer Upholsterer 03/31/25 documented as of this encounter
--- OUTSIDE RECORDS SUMMARY | 2025-07-19 12:18 | XMS_ITS | Encounter Summary ---
Author Organization [employer] Address [address] [place] [address] 7 [place] [address] Care Team Providers Care X Ray Tech Name Role Phone Madonna Plascencia MD Primary Care Provider [phone] Reason for Visit * Reason Comments Med Refill Encounter Details Date Type Department Care Team (Late st Contact Info) Description 01/14/2023 Refill [facility] MEDICINE [address] [place], [place] [phone] Madonna Plascencia MD [address] [place], [place] [phone] Social History Tobacco Use Types Packs/Day Years [...] Info) Description 08/29/2025 11:30 AM EDT Telemedicine [facility] MEDICINE [address] [place] [address] Madonna Plascencia MD [address] [place], [place] [phone] 10/23/2025 10:30 AM EST Telemedicine [facility] CHC MED & PEDS [address] [place], [place] [phone] Joan Shipley, RN [address] [place], [place] [phone] documented as of this encounter Visit Diagnoses Not on filedocumented in this encounter Care Teams X Ray Tech Relationship Specialty Start Date End Date Madonna Plascencia MD [address] [place] [address] PCP - General Family Medicine 08/07/14 Eric Jaimes X Ray Technologist 03/31/25 documented as of this encounter
--- OUTSIDE RECORDS SUMMARY | 2025-07-19 12:18 | XMS_ITS | Encounter Summary ---
Author Organization [employer] Address 75 [facility] 7t [place] [address] Care Team Providers Care Glass Cleaning Machine Tender Name Role Phone Madonna Plascencia MD Primary Care Provider [phone] Reason for Visit * Reason Onset Date Comments Med Refill 07/06/2024 Encounter Details Date Type Department Care Team ([facility] st Contact Info) Description 07/06/2024 Telephone [facility] MEDICINE 230 [place], [place] [phone] Madonna Plascencia MD [address] [place], [place] [phone] Med Refill Social History Tobacco Use Types [...] be ( ES ) Please contact at [phone] * Telephone Encounter - Timmy Stephenson - 07/06/2024 10:03 AM EDT TC from pt requesting medication refill. Medications needing refill: morphine CR (MS Contin) 30 MG 12 hr tablet To be sent to: [facility]/pharmacy [address] [place] [address] documented in this encounter Plan of Treatment Upcoming Encounters Date Type Department Care Team (Late st Contact Info) Description 08/29/2025 11:30 AM EDT Telemedicine [facility] MEDICINE [address] [place] [address] Madonna Plascencia MD [address] [place] [address] 10/23/2025 10:30 AM EST Telemedicine [facility] MED & PEDS [address] [place] [address] Joan Shipley, RN [address] [place] [address] documented as of this encounter Visit Diagnoses Not on filedocumented in this encounter Additional Health Concerns Assessment Noted Time PHQ-9 Depression Total Score: 0 07/07/20 23 1:17 PM EDT documented as of this encounter Care Teams Glass Cleaning Machine Tender Relationship Specialty Start Date End Date Madonna Plascencia MD [address] [place] [address] PCP - General Family Medicine 08/07/14 Eric Jaimes Wire Drawing Setter 03/31/25 documented as of this encounter
--- OUTSIDE RECORDS SUMMARY | 2025-07-19 12:18 | XMS_ITS | Encounter Summary ---
Author Organization [employer] Address [address] [place] [address] 7t [place] [address] Care Team Providers Care Poultryman Name Role Phone Madonna Plascencia MD Primary Care Provider [phone] Encounter Details Date Type Department Care Team (Late st Contact Info) Description 05/15/2023 Abstract [facility] MEDICINE [address] [place] [address] Madonna Plascencia MD 230 [place], [place] [phone] Social History Tobacco Use Types Packs/Day Years [...] Info) Description 08/29/2025 11:30 AM EDT Telemedicine [facility] MEDICINE 230 [place] [address] Madonna Plascencia MD 230 [place], [place] 1987340 10/23/2025 10:30 AM EST Telemedicine [facility] 505 [place], [place] [phone] Joan Shipley, RN 505 [place] [address] documented as of this encounter Procedures Procedure Name Priority Date/Time Associated Diagnosis Comments COLONOSCOPY Routine 09/30/2018 documented in this encounter Results * Colonoscopy (09/30/2018) Colonoscopy Normal Normal 09/30/2018 Result [facility] HEALTH MAINTENANCE Final Result documented in this encounter Visit Diagnoses Not on filedocumented in this encounter Care Teams Poultryman Relationship Specialty Start Date End Date Madonna Plascencia MD [address] [place] [address] PCP - General Family Medicine 08/07/14 Eric Jaimes Dressing Machine Operator 03/31/25 documented as of this encounter
--- OUTSIDE RECORDS SUMMARY | 2025-07-19 12:18 | XMS_ITS | Encounter Summary ---
Author Organization [employer] Address 75 [facility] 7t [place] [address] Care Team Providers Care Faith Healer Name Role Phone Madonna Plascencia MD Primary Care Provider [phone] Reason for Visit * Reason Onset Date Comments Med Refill 09/01/2024 Encounter Details Date Type Department Care Team ([facility] st Contact Info) Description 09/01/2024 Telephone [facility] MEDICINE 230 [place], [place] [phone] Madonna Plascencia MD 230 [place], [place] [phone] Med Refill Social History Tobacco Use Types [...] 30 MG tablet To be sent to: [facility]/pharmacy #[id number] - [place] - [address] Contact pt at [phone] documented in this encounter Plan of Treatment Upcoming Encounters Date Type Department Care Team (Late st Contact Info) Description 08/29/2025 11:30 AM EDT Telemedicine [facility] MEDICINE 230 [place] [address] Madonna Plascencia MD 230 [place] [address] 10/23/2025 10:30 AM EST Telemedicine [facility] MED [facility] PEDS 505 [place] [address] Joan Shipley, RN 505 [place] [address] documented as of this encounter Visit Diagnoses Not on filedocumented in this encounter Additional Health Concerns Assessment Noted Time PHQ-9 Depression Total Score: 0 07/07/20 23 1:17 PM EDT documented as of this encounter Care Teams Faith Healer Relationship Specialty Start Date End Date Madonna Plascencia MD [address] [place] [address] PCP - General Family Medicine 08/07/14 [facility] Tent Finisher 03/31/25 documented as of this encounter
--- OUTSIDE RECORDS SUMMARY | 2025-07-19 12:18 | XMS_ITS | Encounter Summary ---
Author Organization [employer] Address [address] [place] [address] 7 [place] [address] Care Team Providers Care Band Splicer Name Role Phone Madonna Plascencia MD Primary Care Provider [phone] Reason for Visit * Reason Comments Med Refill Encounter Details Date Type Department Care Team (Late st Contact Info) Description 11/20/2022 Refill [facility] MEDICINE 230 [place], [place] [phone] Madonna Plascencia MD 230 [place] [address] Chronic constipation Social History Tobacco Use Types [...] Info) Description 08/29/2025 11:30 AM EDT Telemedicine [facility] MEDICINE 230 [place] [address] Madonna Plascencia MD 230 [place], [place] [phone] 10/23/2025 10:30 AM EST Telemedicine [facility] MED & PEDS 505 [place], [place] [phone] Joan Shipley, MARIANNE 505 [place] [address] documented as of this encounter Visit Diagnoses Diagnosis Chronic constipation Unspecified constipation documented in this encounter Care Teams Band Splicer Relationship Specialty Start Date End Date Madonna Plascencia MD [address] [place] [address] PCP - General Family Medicine 08/07/14 Eric Jaimes Sheet Combining Operator 03/31/25 documented as of this encounter
--- OUTSIDE RECORDS SUMMARY | 2025-07-19 12:18 | XMS_ITS | Encounter Summary ---
Author Organization [employer] Address 75 [facility] 7t [place] [address] Care Team Providers Care Wall To Wall Carpet Installer Name Role Phone Madonna Plascencia MD Primary Care Provider [phone] Encounter Details Date Type Department Care Team ([facility] st Contact Info) Description 07/12/2024 Orders Only [facility] MEDICINE 230 [place], [place] [phone] Madonna Plascencia MD 230 [place], [place] [phone] Social History Tobacco Use Types Packs/Day Years [...] Info) Description 08/29/2025 11:30 AM EDT Telemedicine [facility] MEDICINE 230 [place] [address] Madonna Plascencia MD 230 [place] [address] 10/23/2025 10:30 AM EST Telemedicine [facility] CHC MED & PEDS 505 [place], [place] [phone] Joan Shipley, RN 505 [place] [address] documented as of this encounter Visit Diagnoses Not on filedocumented in this encounter Additional Health Concerns Assessment Noted Time PHQ-9 Depression Total Score: 0 07/07/20 23 1:17 PM EDT documented as of this encounter Care Teams Wall To Wall Carpet Installer Relationship Specialty Start Date End Date Madonna Plascencia MD [address] [place] [address] PCP - General Family Medicine 08/07/14 Eric Theodore Filing Writer 03/31/25 documented as of this encounter
--- OUTSIDE RECORDS SUMMARY | 2025-07-19 12:18 | XMS_ITS | Encounter Summary ---
Author Organization [employer] Address 75 [facility] 7t [place] [address] Care Team Providers Care Wood Shop Teacher Name Role Phone Madonna Plascencia MD Primary Care Provider [phone] Reason for Visit * Reason Onset Date Comments Med Refill 03/06/2025 Encounter Details Date Type Department Care Team ([facility] st Contact Info) Description 03/06/2025 Telephone [facility] MEDICINE 230 [place], [place] [phone] Madonna Plascencia MD 230 [place], [place] [phone] Med Refill Social History Tobacco Use Types [...] encounter Miscellaneous Notes * Telephone Encounter - Courtney Liu - 03/06/2025 9:07 AM EDT TC from pt requesting medication refill. Medications needing refill : morphine (MSIR) 30 MG tablet To be sent to:[facility]/pharmacy #[id number] - [place] - [address] [facility] documented in this encounter Plan of Treatment Upcoming Encounters Date Type Department Care Team (Late st Contact Info) Description 08/29/2025 11:30 AM EDT Telemedicine [facility] MEDICINE 230 [place] [address] Madonna Plascencia MD 230 [place] [address] 10/23/2025 10:30 AM EST Telemedicine [facility] MED [facility] PEDS 505 [place] [address] Joan Shipley, MARIANNE 505 [place] [address] documented as of this encounter Visit Diagnoses Not on filedocumented in this encounter Additional Health Concerns Assessment Noted Time PHQ-9 Depression Total Score: 0 12/26/19 25 11:12 AM EST documented as of this encounter Care Teams Wood Shop Teacher Relationship Specialty Start Date End Date Madonna Plascencia MD [address] [place] [address] PCP - General Family Medicine 08/07/14 Eric Jaimes Counselor At Law 03/31/25 documented as of this encounter
--- OUTSIDE RECORDS SUMMARY | 2025-07-19 12:18 | XMS_ITS | Encounter Summary ---
Author Organization [employer] Address 75 [facility] 7t [place] [address] Care Team Providers Care Flatwork Presser Name Role Phone Madonna Plascencia MD Primary Care Provider [phone] Reason for Visit * Reason Comments Med Refill Encounter Details Date Type Department Care Team (Late st Contact Info) Description 10/05/2024 Refill [facility] MEDICINE 230 [place], [place] [phone] Madonna Plascencia MD 230 [place], [place] [phone] Type 2 diabetes mellitus with hyperglycemia, with long-term current use of insulin ([facility]) Social History Tobacco Use Types Packs/Day Years [...] Info) Description 08/29/2025 11:30 AM EDT Telemedicine [facility] MEDICINE 230 [place] [address] Madonna Plascencia MD 230 [place] [address] 10/23/2025 10:30 AM EST Telemedicine [facility] MED & PEDS 505 [place], [place] [phone] Joan Shipley, RN 505 [place] [address] documented as of this encounter Visit Diagnoses Diagnosis Type 2 diabetes mellitus with hyperglycemia, with long-term current use of insulin ([facility]) documented in this encounter Additional Health Concerns Assessment Noted Time PHQ-9 Depression Total Score: 0 07/07/20 23 1:17 PM EDT documented as of this encounter Care Teams Flatwork Presser Relationship Specialty Start Date End Date Madonna Plascencia MD 230 [place] [address] PCP - General Family Medicine 08/07/14 Erichilaria Jaimes Computer Forwarding System Markup Clerk 03/31/25 documented as of this encounter
--- OUTSIDE RECORDS SUMMARY | 2025-07-19 12:19 | XMS_ITS | Encounter Summary ---
Author Organization [employer] Address 75 [facility] 7t [place] [address] Care Team Providers Care Certified Green Building Engineer Name Role Phone Madonna Plascencia MD Primary Care Provider [phone] Reason for Visit * Reason Onset Date Comments Med Refill 06/06/2024 Encounter Details Date Type Department Care Team ([facility] st Contact Info) Description 06/06/2024 Telephone [facility] MEDICINE 230 [place], [place] [phone] Madonna Plascencia MD 230 [place], [place] [phone] Med Refill Social History Tobacco Use Types [...] 12 hr tablet To be sent to: [facility]/pharmacy #[id number] [place], [place] - [address] [place] [address] documented in this encounter Plan of Treatment Upcoming Encounters Date Type Department Care Team (Late st Contact Info) Description 08/29/2025 11:30 AM EDT Telemedicine [facility] MEDICINE 230 [place] [address] Madonna Plascencia MD 230 [place] [address] 10/23/2025 10:30 AM EST Telemedicine [facility] MED & PEDS 505 [place] [address] Joan Shipley, RN 505 [place] [address] documented as of this encounter Visit Diagnoses Not on filedocumented in this encounter Additional Health Concerns Assessment Noted Time PHQ-9 Depression Total Score: 0 07/07/20 23 1:17 PM EDT documented as of this encounter Care Teams Certified Green Building Engineer Relationship Specialty Start Date End Date Madonna Plascencia MD 230 [place] [address] PCP - General Family Medicine 08/07/14 Eric Jaimes Construction Ironworker Helper 03/31/25 documented as of this encounter
--- OUTSIDE RECORDS SUMMARY | 2025-07-19 12:19 | XMS_ITS | Encounter Summary ---
Author Organization [employer] Address 75 [facility] 7t [place] [address] Care Team Providers Care Test And Research Reactor Operator Name Role Phone Madonna Plascencia MD Primary Care Provider [phone] Reason for Visit * Reason Comments Med Refill Encounter Details Date Type Department Care Team ([facility] st Contact Info) Description 03/12/2024 Refill [facility] MEDICINE 230 [place], [place] [phone] Madonna Plascencia MD 230 [place], [place] [phone] Social History Tobacco Use Types Packs/Day Years [...] Info) Description 08/29/2025 11:30 AM EDT Telemedicine [facility] MEDICINE 230 [place] [address] Madonna Plascencia MD 230 [place] [address] 10/23/2025 10:30 AM EST Telemedicine [facility] CHC MED & PEDS 505 [place] [address] Joan Shipley, RN 505 [place] [address] documented as of this encounter Visit Diagnoses Not on filedocumented in this encounter Additional Health Concerns Assessment Noted Time PHQ-9 Depression Total Score: 0 07/07/20 23 1:17 PM EDT documented as of this encounter Care Teams Test And Research Reactor Operator Relationship Specialty Start Date End Date Madonna Plascencia MD 230 [place] [address] PCP - General Family Medicine 08/07/14 Eric Jaimes Applications Project Manager 03/31/25 documented as of this encounter
--- OUTSIDE RECORDS SUMMARY | 2025-07-19 12:19 | XMS_ITS | Encounter Summary ---
Author Organization [employer] Address 75 [facility] 7t [place] [address] Care Team Providers Care Drill Presser Name Role Phone Madonna Plascencia MD Primary Care Provider [phone] Reason for Visit * Reason Onset Date Comments Call Back Request 01/26/2024 Encounter Details Date Type Department Care Team ([facility] st Contact Info) Description 01/26/2024 Telephone [facility] MEDICINE 230 [place], [place] [phone] Madonna Plascencia MD 230 [place], [place] [phone] Call Back Request Social History Tobacco Use [...] 1:21 PM EDT TC placed to Susanne [phone] in regards to below message. Susanne results the pt was [place] them [facility] Susanne reports the pt was referred for [...] AM EDT Tc from July with [facility] requesting for a nurse to reach out to susanne (Nurse) to discuss patient care. Please contact Susanne at [phone] documented in this encounter Plan of Treatment Upcoming Encounters Date Type Department Care Team (Late st Contact Info) Description 08/29/2025 11:30 AM EDT Telemedicine [facility] MEDICINE 230 [place], [place] [phone] Madonna Plascencia MD 230 [place] [address] 10/23/2025 10:30 AM EST Telemedicine [facility] CHC MED & PEDS [address] [place], [place] [phone] Joan Shipley, RN 505 [place] [address] documented as of this encounter Visit Diagnoses Not on filedocumented in this encounter Additional Health Concerns Assessment Noted Time PHQ-9 Depression Total Score: 0 07/07/20 23 1:17 PM EDT documented as of this encounter Care Teams Drill Presser Relationship Specialty Start Date End Date Madonna Plascencia MD [address] [place] [address] PCP - General Family Medicine 08/07/14 Eric Jaimes Senior Quality Analyst 03/31/25 documented as of this encounter
--- OUTSIDE RECORDS SUMMARY | 2025-07-19 12:19 | XMS_ITS | Encounter Summary ---
Author Organization [employer] Address 75 [facility] 7t [place] [address] Care Team Providers Care Baffle Mounter Name Role Phone Madonna Plascencia MD Primary Care Provider [phone] Reason for Visit * Reason Onset Date Comments Appointment Request 06/19/2025 Encounter Details Date Type Department Care Team ([facility] st Contact Info) Description 06/19/2025 Telephone [facility] MEDICINE 230 [place], [place] [phone] Madonna Plascencia MD 230 [place], [place] [phone] Appointment Request Social History Tobacco Use Types [...] encounter Miscellaneous Notes * Telephone Encounter - Christian Jaime - 06/19/2025 8:06 AM EDT Tc from pt stating they have a different apt scheduled for the same time as pts apt tomorrow 06/20 , they are requesting if apt tomorrow can be done earlier in the day. Contact pt at [phone] documented in this encounter Plan of Treatment Upcoming Encounters Date Type Department Care Team (Late st Contact Info) Description 08/29/2025 11:30 AM EDT Telemedicine [facility] MEDICINE 230 [place] [address] Madonna Plascencia MD 230 [place] [address] 10/23/2025 10:30 AM EST Telemedicine [facility] CHC MED & PEDS 505 [place] [address] Joan Shipley, MARIANNE 505 [place] [address] documented as of this encounter Visit Diagnoses Not on filedocumented in this encounter Additional Health Concerns Assessment Noted Time PHQ-9 Depression Total Score: 0 12/26/19 25 11:12 AM EST documented as of this encounter Care Teams Baffle Mounter Relationship Specialty Start Date End Date Madonna Plascencia MD [address] [place] [address] PCP - General Family Medicine 08/07/14 Eric Jaimes Patternmaker 03/31/25 documented as of this encounter
--- OUTSIDE RECORDS SUMMARY | 2025-07-19 12:19 | XMS_ITS | Encounter Summary ---
Author Organization [employer] Address 75 [facility] 7t [place] [address] Care Team Providers Care Developer Architect Name Role Phone Madonna Plascencia MD Primary Care Provider [phone] Reason for Visit * Reason Onset Date Comments Appointment Request 06/19/2025 Encounter Details Date Type Department Care Team ([facility] st Contact Info) Description 06/19/2025 Telephone [facility] MEDICINE 230 [place], [place] [phone] Madonna Plascencia MD 230 [place], [place] [phone] Appointment Request Social History Tobacco Use Types [...] encounter Miscellaneous Notes * Telephone Encounter - Eidlma Potts - 06/19/2025 1:19 PM EDT Tc from pt partner Akilah regarding QUALITY TESTER visit. Pt needs phone visit due to not being able to put shoes on. Also requesting to change time of visit. documented in this encounter Plan of Treatment Upcoming Encounters Date Type Department Care Team (Late st Contact Info) Description 08/29/2025 11:30 AM EDT Telemedicine [facility] MEDICINE 230 [place] [address] Madonna Plascencia MD 230 [place] [address] 10/23/2025 10:30 AM EST Telemedicine [facility] CHC MED & PEDS 505 [place] [address] Joan Shipley, MARIANNE 505 [place] [address] documented as of this encounter Visit Diagnoses Not on filedocumented in this encounter Additional Health Concerns Assessment Noted Time PHQ-9 Depression Total Score: 0 12/26/19 11:12 AM EST documented as of this encounter Care Teams Developer Architect Relationship Specialty Start Date End Date Madonna Plascencia MD [address] [place] [address] PCP - General Family Medicine 08/07/14 [facility] Order Checker Packer Processer 03/31/25 documented as of this encounter
--- OUTSIDE RECORDS SUMMARY | 2025-07-19 12:19 | XMS_ITS | Encounter Summary ---
Author Organization [employer] Address 75 [facility] 7t [place] [address] Care Team Providers Care Sales Project Engineer Name Role Phone Madonna Plascencia MD Primary Care Provider [phone] Encounter Details Date Type Department Care Team ([facility] st Contact Info) Description 01/18/2024 Orders Only [facility] MEDICINE 230 [place], [place] [phone] Madonna Plascencia MD 230 [place], [place] [phone] Social History Tobacco Use Types Packs/Day Years [...] AM EDT Telemedicine [facility] MEDICINE 230 [place] [address] Madonna Plascencia MD 230 [place] [address] 10/23/2025 10:30 AM EST Telemedicine [facility] CHC MED & PEDS 505 [place], [place] [phone] Joan Shipley, RN 505 [place] [address] documented as of this encounter Visit Diagnoses Not on filedocumented in this encounter Additional Health Concerns Assessment Noted Time PHQ-9 Depression Total Score: 0 07/07/20 23 1:17 PM EDT documented as of this encounter Care Teams Sales Project Engineer Relationship Specialty Start Date End Date Madonna Plascencia MD [address] [place] [address] PCP - General Family Medicine 08/07/14 Eric Theodore Senior Windows Systems Administrator 03/31/25 documented as of this encounter
--- OUTSIDE RECORDS SUMMARY | 2025-07-19 12:19 | XMS_ITS | Encounter Summary ---
Author Organization [employer] Address 75 [facility] 7t [place] [address] Care Team Providers Care Building Trades Teacher Name Role Phone Madonna Plascencia MD Primary Care Provider [phone] Reason for Visit * Reason Onset Date Comments Med Refill 05/09/2024 Encounter Details Date Type Department Care Team ([facility] st Contact Info) Description 05/09/2024 Telephone [facility] MEDICINE 230 [place], [place] [phone] Madonna Plascencia MD 230 [place], [place] [phone] Med Refill Social History Tobacco Use Types [...] 12 hr tablet To be sent to: [facility]/pharmacy #[id number] [place], [place] - [address] [place] [address] documented in this encounter Plan of Treatment Upcoming Encounters Date Type Department Care Team (Late st Contact Info) Description 08/29/2025 11:30 AM EDT Telemedicine [facility] MEDICINE 230 [place] [address] Madonna Plascencia MD 230 [place] [address] 10/23/2025 10:30 AM EST Telemedicine [facility] CHC MED & PEDS 505 [place] [address] Joan Shipley, RN 505 [place] [address] documented as of this encounter Visit Diagnoses Not on filedocumented in this encounter Additional Health Concerns Assessment Noted Time PHQ-9 Depression Total Score: 0 07/07/20 23 1:17 PM EDT documented as of this encounter Care Teams Building Trades Teacher Relationship Specialty Start Date End Date Madonna Plascencia MD 230 [place] [address] PCP - General Family Medicine 08/07/14 Eric Jaimes Rn Field 03/31/25 documented as of this encounter
--- OUTSIDE RECORDS SUMMARY | 2025-07-19 12:19 | XMS_ITS | Encounter Summary ---
Author Organization [employer] Address 75 [facility] 7t [place] [address] Care Team Providers Care Residential Carpenter Name Role Phone Madonna Plascencia MD Primary Care Provider [phone] Reason for Visit * Reason Comments Med Refill Encounter Details Date Type Department Care Team ([facility] st Contact Info) Description 01/15/2024 Refill [facility] MEDICINE 230 [place], [place] [phone] Madonna Plascencia MD 230 [place], [place] [phone] Social History Tobacco Use Types Packs/Day Years [...] Info) Description 08/29/2025 11:30 AM EDT Telemedicine [facility] MEDICINE 230 [place] [address] Madonna Plascencia MD 230 [place] [address] 10/23/2025 10:30 AM EST Telemedicine [facility] CHC MED & PEDS 505 [place] [address] Joan Shipley, RN 505 [place] [address] documented as of this encounter Visit Diagnoses Not on filedocumented in this encounter Additional Health Concerns Assessment Noted Time PHQ-9 Depression Total Score: 0 07/07/20 23 1:17 PM EDT documented as of this encounter Care Teams Residential Carpenter Relationship Specialty Start Date End Date Madonna Plascencia MD 230 [place] [address] PCP - General Family Medicine 08/07/14 Eric Jaimes Print Traffic Manager 03/31/25 documented as of this encounter
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
--- OUTSIDE RECORDS SUMMARY | 2025-07-19 12:19 | XMS_ITS | Encounter Summary ---
Author Organization [employer] Address [address] 7t [place] [address] Care Team Providers Care Heel Seat Pounder Name Role Phone Madonna Plascencia MD Primary Care Provider [phone] Reason for Visit * Reason Comments Med Refill Encounter Details Date Type Department Care Team (Late st Contact Info) Description 06/27/2025 Refill [facility] [address] [place], [place] [phone] Madonna Plascencia MD 230 [place], [place] [phone] Diabetic ulcer of right midfoot associated with type 2 diabetes mellitus, with other ulcer severity (CMS/HCC); Diabetic ulcer of right foot associated with type 2 diabetes mellitus, with other ulcer severity, unspecified part of foot (CMS/HCC) Social History Tobacco Use Types Packs/Day [...] Info) Description 08/29/2025 11:30 AM EDT Telemedicine [facility] [address] [place] [address] Madonna Plascencia MD 230 [place] [address] 10/23/2025 10:30 AM EST Telemedicine [facility] 505 [place], [place] [phone] Joan Shipley, RN 505 [place] [address] documented as of this encounter Visit Diagnoses Diagnosis Diabetic ulcer of right midfoot associated with type 2 diabetes mellitus, with other ulcer severity (CMS/HCC) Diabetic ulcer of right foot associated with type 2 diabetes mellitus, with other ulcer severity, unspecified part of foot (CMS/HCC) documented in this encounter Additional Health Concerns Assessment Noted Time PHQ-9 Depression Total Score: 0 12/26/19 25 11:12 AM EST documented as of this encounter Care Teams Heel Seat Pounder Relationship Specialty Start Date End Date Madonna Plascencia MD [address] [place] [address] PCP - General Family Medicine 08/07/14 [facility] Clinical Lab Assistant 03/31/25 documented as of this encounter
--- OUTSIDE RECORDS SUMMARY | 2025-07-19 12:19 | XMS_ITS | Encounter Summary ---
Author Organization [employer] Address [address] [facility] 7t [place] [address] Care Team Providers Care Tribal Delegate Name Role Phone Madonna Plascencia MD Primary Care Provider [phone] Encounter Details Date Type Department Care Team (Latest Contact Info) Description 07/19/2025 Travel Social History Tobacco Use Types Packs/Day Years [...] Info) Description 08/29/2025 11:30 AM EDT Telemedicine [facility] 230 [place] [address] Madonna Plascencia MD 230 [place] [address] 10/23/2025 10:30 AM EST Telemedicine [facility] 505 [place] [address] Joan Shipley, RN 505 [place] [address] documented as of this encounter Visit Diagnoses Not on filedocumented in this encounter Additional Health Concerns Assessment Noted Time PHQ-9 Depression Total Score: 0 12/26/19 11:12 AM EST documented as of this encounter Care Teams Tribal Delegate Relationship Specialty Start Date End Date Madonna Plascencia MD 230 [place] [address] PCP - General Family Medicine 08/07/14 Eric Jaimes Customer Support Analyst 03/31/25 documented as of this encounter
--- OUTSIDE RECORDS SUMMARY | 2025-07-19 12:19 | XMS_ITS | Encounter Summary ---
Author Organization [employer] Address [address] [place] [address] 7t [place] [address] Care Team Providers Care Receiving Specialist Name Role Phone Madonna Plascencia MD Primary Care Provider [phone] Reason for Referral * Imaging (Routine) - Closed Specialty Diagnoses / Procedures Referred By Aubree remy Referred To Contact Radiology Diagnoses Transaminitis Procedures US Abdomen Comp w elastography Madonna Plascencia MD [address] [place] [address] Phone: tel: fax: [address] Phone: tel: fax: Referral ID Status Reason Start Date Expiration Date Visits Re quested Visits Authorized [id number] Closed 04/28/2025 04/28/2026 1 1 Encounter Details Date Type Department Care Team (Late st Contact Info) Description 04/28/2025 Orders Only [facility] MED[facility]INE [address] [place] [address] [phone] Madonna Plascencia MD 230 [place], [place] [phone] Elevated TSH (Primary Dx); Transaminitis; Immunity status testing Social History Tobacco Use Types Packs/Day Years [...] Description 08/29/2025 11:30 AM EDT Telemedicine [facility]INE 230 [place] [address] Madonna Plascencia MD 230 [place] [address] 10/23/2025 10:30 AM EST Telemedicine [facility]S 505 [place] [address] Joan Shipley, MARIANNE 505 [place] [address] Scheduled Orders Name Type Priority Associated Diagnoses Orde r Schedule TSH Lab Routine Elevated TSH Expected: 04/28/2025 (Approximate), Expires: 04/28/2026 T4, Free Lab Routine Elevated TSH Expected: 04/28/2025 (Approximate), Expires: 04/28/2026 Hepatitis A Antibody, Total Lab Routine Immunity status testing Expected: 04/28/2025 (Approximate), Expires: 04/28/2026 Hepatitis C Antibody with Reflex to HCV, RNA, Quantitative, Real-Time PCR Lab Routine Transaminitis Expected: 04/28/2025, Expires: 04/28/2026 Creatine Kinase, Total Lab Routine Transaminitis Expected: 04/28/2025, Expires: 04/28/2026 Aldolase Lab Routine Transaminitis Expected: 04/28/2025 (Approximate), Expires: 04/28/2026 US Abdomen Comp w elastography Imaging Routine Transaminitis Expected: 04/28/2025, Expires: 04/28/2026 documented as of this encounter Procedures Procedure Name Priority Date/Time Associated Diagnosis Comments THYROID PEROXIDASE ANTIBODIES Routine 04/28/2025 9:57 AM EDT Elevated TSH documented in this encounter Results * Thyroid Peroxidase Antibodies (04/28/2025 9:57 AM EDT) Thyroid Peroxidase Antibodies 2 <9 IU/mL [facility] Comment:THIS TEST WAS PERFOR MED AT:[facility] [place] [id number] TAYLOR MD 04/28/2025 9:57 AM EDT 04/28/2025 11:05 AM EDT us Madonna Plascencia MD LAB BLOOD ORDERABLES Final Resul t [facility] [address] [place], [place] [phone] documented in this encounter Visit Diagnoses Diagnosis Elevated TSH- Primary Other abnormal blood chemistry Transaminitis Nonspecific elevation of levels of transaminase or lactic acid dehydrogenase (LDH) Immunity status testing Antibody response examination documented in this encounter Additional Health Concerns Assessment Noted Time PHQ-9 Depression Total Score: 0 12/26/19 25 11:12 AM EST documented as of this encounter Care Teams Receiving Specialist Relationship Specialty Start Date End Date Madonna Plascencia MD 230 [place] [address] PCP - General Family Medicine 08/07/14 Eric Jaimes Optical Lens Manufacturing Tech 03/31/25 documented as of this encounter
--- OUTSIDE RECORDS SUMMARY | 2025-07-19 12:19 | XMS_ITS | Encounter Summary ---
Author Organization [employer] Address [address] [place] [address] 7t [place] [address] Care Team Providers Care Certified Surgical Tech/First Assistant Name Role Phone Madonna Plascencia MD Primary Care Provider [phone] Reason for Visit * Reason Comments Med Refill Encounter Details Date Type Department Care Team (Late st Contact Info) Description 02/07/2025 Refill [facility]INE 230 [place], [place] [phone] Madonna Plascencia MD 230 [place], [place] [phone] Social History Tobacco Use Types Packs/Day Years [...] Info) Description 08/29/2025 11:30 AM EDT Telemedicine [facility] 230 [place] [address] Madonna Plascencia MD 230 [place] [address] 10/23/2025 10:30 AM EST Telemedicine [facility]S 505 [place] [address] Joan Shipley, RN [address] [place] [address] documented as of this encounter Visit Diagnoses Not on filedocumented in this encounter Additional Health Concerns Assessment Noted Time PHQ-9 Depression Total Score: 0 12/26/19 11:12 AM EST documented as of this encounter Care Teams Certified Surgical Tech/First Assistant Relationship Specialty Start Date End Date Madonna Plascencia MD [address] [place] [address] PCP - General Family Medicine 08/07/14 Eric Jaimes Fermentation Scientist 03/31/25 documented as of this encounter
--- OUTSIDE RECORDS SUMMARY | 2025-07-19 12:19 | XMS_ITS | Encounter Summary ---
Author Organization [employer] Address [address] [place] [address] 7t [place] [address] Care Team Providers Care Breeding Technician Name Role Phone Madonna Plascencia MD Primary Care Provider [phone] Reason for Visit * Reason Onset Date Comments Med Refill 07/19/2025 Encounter Details Date Type Department Care Team ([facility] st Contact Info) Description 07/19/2025 Refill [facility] 505 [place] [address] Joan Shipley RN 505 [place] [address] Social History Tobacco Use Types Packs/Day Years [...] Description 08/29/2025 11:30 AM EDT Telemedicine [facility] 230 [place] [address] Madonna Plascencia MD [address] [place] [address] 10/23/2025 10:30 AM EST Telemedicine [facility] 505 [place] [address] Joan Shipley, RN 505 [place] [address] documented as of this encounter Visit Diagnoses Not on filedocumented in this encounter Additional Health Concerns Assessment Noted Time PHQ-9 Depression Total Score: 0 12/26/19 11:12 AM EST documented as of this encounter Care Teams Breeding Technician Relationship Specialty Start Date End Date Madonna Plascencia MD [address] [place] [address] PCP - General Family Medicine 08/07/14 Eric Jaimes Electrical Manufacturing Technician 03/31/25 documented as of this encounter
--- OUTSIDE RECORDS SUMMARY | 2025-07-19 12:19 | XMS_ITS | Encounter Summary ---
Author Organization [employer] Address [address] [facility] 7t [place] [address] Care Team Providers Care Rewinder Operator Name Role Phone Madonna Plascencia MD Primary Care Provider [phone] Reason for Visit * Reason Onset Date Comments Med Refill 04/05/2025 Encounter Details Date Type Department Care Team ([facility] st Contact Info) Description 04/05/2025 Telephone [facility] MED[facility]INE 230 [place], [place] [phone] Madonna Plascencia MD 230 [place], [place] [phone] Med Refill Social History Tobacco Use Types [...] encounter Miscellaneous Notes * Telephone Encounter - Columba Gilbert - 04/05/2025 8:42 AM EDT TC from pt requesting medication refill. Medications needing refill : morphine (MSIR) 30 MG tablet To be sent to: [facility]/pharmacy #[id number] - [place] - [address] documented in this encounter Plan of Treatment Upcoming Encounters Date Type Department Care Team (Late st Contact Info) Description 08/29/2025 11:30 AM EDT Telemedicine [facility] MED[facility]INE 230 [place] [address] Madonna Plascencia MD 230 [place] [address] 10/23/2025 10:30 AM EST Telemedicine [facility]S 505 [place], [place] [phone] Joan Shipley, MARIANNE 505 [place] [address] documented as of this encounter Visit Diagnoses Not on filedocumented in this encounter Additional Health Concerns Assessment Noted Time PHQ-9 Depression Total Score: 0 12/26/19 25 11:12 AM EST documented as of this encounter Care Teams Rewinder Operator Relationship Specialty Start Date End Date Madonna Plascencia MD 230 [place] [address] PCP - General Family Medicine 08/07/14 Eric Jaimes Blanket Inspector 03/31/25 documented as of this encounter
--- OUTSIDE RECORDS SUMMARY | 2025-07-19 12:19 | XMS_ITS | Encounter Summary ---
Author Organization [employer] Address [address] [facility] 7t [place] [address] Care Team Providers Care Hem Inspector Name Role Phone Madonna Plascencia MD Primary Care Provider [phone] Reason for Visit * Reason Comments Med Refill Encounter Details Date Type Department Care Team ([facility] st Contact Info) Description 11/25/2023 Refill [facility] MED[facility]INE 230 [place], [place] [phone] Madonna Plascencia MD 230 [place], [place] [phone] Social History Tobacco Use Types Packs/Day Years [...] EDT Telemedicine [facility] MEDICINE 230 [place] [address] Madonna Plascencia MD 230 [place] [address] 10/23/2025 10:30 AM EST Telemedicine [facility] 505 [place] [address] Joan Shipley, RN 505 [place] [address] documented as of this encounter Visit Diagnoses Not on filedocumented in this encounter Additional Health Concerns Assessment Noted Time PHQ-9 Depression Total Score: 0 07/07/20 23 1:17 PM EDT documented as of this encounter Care Teams Hem Inspector Relationship Specialty Start Date End Date Madonna Plascencia MD 230 [place] [address] PCP - General Family Medicine 08/07/14 Eric Jaimes Tank Hoop Bender 03/31/25 documented as of this encounter
--- OUTSIDE RECORDS SUMMARY | 2025-07-19 12:19 | XMS_ITS | Encounter Summary ---
Author Organization [employer] Address [address] [facility] 7t [place] [address] Care Team Providers Care Shorts Sifter Name Role Phone Madonna Plascencia MD Primary Care Provider [phone] Reason for Visit * Reason Onset Date Comments provider out 05/16/2024 Encounter Details Date Type Department Care Team ([facility] st Contact Info) Description 05/16/2024 Refill [facility] MEDICINE 230 [place], [place] [phone] Madonna Plascencia MD 230 [place], [place] [phone] Social History Tobacco Use Types Packs/Day Years [...] Info) Description 08/29/2025 11:30 AM EDT Telemedicine [facility] MEDICINE 230 [place] [address] Madonna Plascencia MD 230 [place] [address] 10/23/2025 10:30 AM EST Telemedicine [facility] MED [facility] PEDS 505 [place] [address] Joan Shipley, RN 505 [place] [address] documented as of this encounter Visit Diagnoses Not on filedocumented in this encounter Additional Health Concerns Assessment Noted Time PHQ-9 Depression Total Score: 0 07/07/20 23 1:17 PM EDT documented as of this encounter Care Teams Shorts Sifter Relationship Specialty Start Date End Date Madonna Plascencia MD 230 [place] [address] PCP - General Family Medicine 08/07/14 Eric Jaimes Light Bulb Replacer 03/31/25 documented as of this encounter
--- OUTSIDE RECORDS SUMMARY | 2025-07-19 12:19 | XMS_ITS | Encounter Summary ---
Author Organization [employer] Address [address] [place] [address] 7t [place] [address] Care Team Providers Care Nail Specialist Name Role Phone Madonna Plascencia MD Primary Care Provider [phone] Reason for Referral * Consultation (Routine) - Closed Specialty Diagnoses / Procedures Referred By Aubree remy Referred To Contact Cardiology Diagnoses Encounter for preoperative assessment for noncoronary cardiac surgery Acute on chronic heart failure with preserved ejection fraction (CMS/HCC) Chronic heart failure with preserved ejection fraction (CMS/HCC) Madonna Plascencia MD 230 [place], [place] Phone: tel: fax: [facility] Referral ID Status Reason Start Date Expiration Date V isits Requested Visits Authorized [id number] Closed Specialty Services Required 02/19/2024 02/18/2025 1 1 * Consultation (Routine) - Closed Specialty Diagnoses / Procedures Referred By Aubree remy Referred To Contact Wound Care Diagnoses Lymphedema Venous stasis Madonna Plascencia MD [address] [place], [place] Phone: tel: fax: [facility] [address] [place] [address] Phone: tel: fax: Referral ID Status Reason Start Date Expiration Date V isits Requested Visits Authorized [id number] Closed Specialty Services Required 02/19/2024 02/18/2025 1 1 Encounter Details Date Type Department Care Team (Late st Contact Info) Description 02/11/2024 Orders Only [facility] 230 [place] [address] Madonna Plascencia MD 230 [place] [address] Lymphedema (Primary Dx); Venous stasis; Encounter for [...] seen on this study. - referred to traffic rate analyst since patient's GI needs a cardiac pre-op documented in this encounter Plan of Treatment Upcoming Encounters Date Type Department Care Team (Late st Contact Info) Description 08/29/2025 11:30 AM EDT Telemedicine [facility] 230 [place] [address] Madonna Plascencia MD 230 [place] [address] 10/23/2025 10:30 AM EST Telemedicine [facility] 505 [place], [place] [phone] Joan Shipley, RN 505 [place], [place] [phone] Scheduled Referrals Name Type Priority Associated Diagnoses [...] documented as of this encounter Care Teams Nail Specialist Relationship Specialty Start Date End Date Madonna Plascencia MD 230 [place] [address] PCP - General Family Medicine 08/07/14 Eric Jaimes Information Clerk 03/31/25 documented as of this encounter
--- OUTSIDE RECORDS SUMMARY | 2025-07-19 12:19 | XMS_ITS | Encounter Summary ---
Author Organization [email or web address] Address [address] [facility] 7t [place] [address] Care Team Providers Care Dovetailer Name Role Phone Madonna Plascencia MD Primary Care Provider [phone] Encounter Details Date Type Department Care Team (Late st Contact Info) Description 06/05/2025 Orders Only [facility] MEDICINE 230 [place] [address] Madonna Plascencia MD 230 [place] [address] Diabetic ulcer of right midfoot associated with [...] 08/29/2025 11:30 AM EDT Telemedicine [facility] MEDICINE 230 [place] [address] Madonna Plascencia MD 230 [place] [address] 10/23/2025 10:30 AM EST Telemedicine [facility]S 505 [place] [address] Joan Shipley, MARIANNE 505 [place] [address] documented as of this encounter Visit Diagnoses [...] documented as of this encounter Care Teams Dovetailer Relationship Specialty Start Date End Date Madonna Plascencia MD [address] [place] [address] PCP - General Family Medicine 08/07/14 Eric Jaimes Band Lining Bander 03/31/25 documented as of this encounter
--- OUTSIDE RECORDS SUMMARY | 2025-07-19 12:19 | XMS_ITS | Encounter Summary ---
Author Organization [email or web address] Address [address] [facility] 7t [place] [address] Care Team Providers Care Automotive Tire Tester Name Role Phone Madonna Plascencia MD Primary Care Provider [phone] Reason for Visit * Reason Onset Date Comments Referral 01/25/2024 Hospital Follow-up 01/25/2024 Encounter Details Date Type Department Care Team ([facility] st Contact Info) Description 01/25/2024 Telephone [facility] MEDICINE 230 [place], [place] [phone] Madonna Plascencia MD 230 [place], [place] [phone] Referral; Hospital Follow-up Social History Tobacco Use [...] Last Message ( Pt was seen at [facility] on 01/18/24 and discharged 01/22/24. Referral requested for wound care located at [address] [place] [address] and a cardiology [place] . Please contact at [phone] for any additional questions . ) * Telephone Encounter - Adry Steinberg - 01/25/2024 10:40 AM EDT Tc from pt friend Tung requesting to 2 referral . Pt was seen at [facility] on 01/18/24 and discharged 01/22/24. Referral requested for wound care located at [address] [place] [phone] and a cardi[place] . Please contact at [phone] for any additional questions . documented in this encounter Plan of Treatment Upcoming Encounters Date Type Department Care Team (Late st Contact Info) Description 08/29/2025 11:30 AM EDT Telemedicine [facility] MEDICINE 230 [place] [address] Madonna Plascencia MD 230 [place] [address] 10/23/2025 10:30 AM EST Telemedicine [facility] MED [facility] PEDS 505 [place], [place] [phone] Joan Shipley, RN 505 [place], [place] [phone] documented as of this encounter Visit Diagnoses Not on filedocumented in this encounter Additional Health Concerns Assessment Noted Time PHQ-9 Depression Total Score: 0 07/07/20 23 1:17 PM EDT documented as of this encounter Care Teams Automotive Tire Tester Relationship Specialty Start Date End Date Madonna Plascencia MD [address] [place] [address] PCP - General Family Medicine 08/07/14 Eric Jaimes Diesel Technology Instructor 03/31/25 documented as of this encounter
--- OUTSIDE RECORDS SUMMARY | 2025-07-19 12:19 | XMS_ITS | Encounter Summary ---
Author Organization [employer] Address [address] [place] [address] [address] [place] [address] Care Team Providers Care Coding Educator Name Role Phone Madonna Plascencia MD Primary Care Provider [phone] Reason for Visit * Reason Comments Med Refill Encounter Details Date Type Department Care Team (Late st Contact Info) Description 07/14/2025 Refill [facility] [address] [place], [place] [phone] Madonna Plascencia MD [address] [place], [place] [phone] Social History Tobacco Use Types Packs/Day Years [...] EDT Telemedicine [facility] [address] [place] [address] Madonna Plascencia MD [address] [place] [address] 10/23/2025 10:30 AM EST Telemedicine [facility] [address] [place] [address] Joan Shipley, RN [address] [place] [address] documented as of this encounter Visit Diagnoses Not on filedocumented in this encounter Additional Health Concerns Assessment Noted Time PHQ-9 Depression Total Score: 0 12/26/19 11:12 AM EST documented as of this encounter Care Teams Coding Educator Relationship Specialty Start Date End Date Madonna Plascencia MD [address] [place] [id number] PCP - General Family Medicine 08/07/14 Eric Jaimes Medical Assisting Instructor 03/31/25 documented as of this encounter
--- OUTSIDE RECORDS SUMMARY | 2025-07-19 12:19 | XMS_ITS | Continuity of Care Document ---
Author Name [facility] Medical Address [address] [place] [id number] Organization Unknown Address [address] [place] [address] Medications No known medications Problems No known problems
--- OUTSIDE RECORDS SUMMARY | 2025-07-19 12:19 | XMS_ITS | Encounter Summary ---
Author Organization [facility] Address [address] [facility] [address] [place] [address] Care Team Providers Care Hardware Developer Name Role Phone Madonna Plascencia MD Primary Care Provider [phone] Reason for Visit * Reason Onset Date Comments Call Back Request 01/25/2024 Encounter Details Date Type Department Care Team ([facility] st Contact Info) Description 01/25/2024 Telephone [facility] [address] [place], [place] [phone] Madonna Plascencia MD [address] [place], [place] [phone] Call Back Request Social History Tobacco Use [...] 8:56 AM EDT Tc from the patients certified caregiver requesting a call back in regards to the appt on 01/28 would like appt sooner due to having a important appt on same day documented in this encounter Plan of Treatment Upcoming Encounters Date Type Department Care Team (Late st Contact Info) Description 08/29/2025 11:30 AM EDT Telemedicine [facility]INE [address] [place] [address] Madonna Plascencia MD [address] [place] [address] 10/23/2025 10:30 AM EST Telemedicine [facility] [address] [place] [address] Joan Shipley, RN [address] [place] [address] documented as of this encounter Visit Diagnoses Not on filedocumented in this encounter Additional Health Concerns Assessment Noted Time PHQ-9 Depression Total Score: 0 07/07/20 23 1:17 PM EDT documented as of this encounter Care Teams Hardware Developer Relationship Specialty Start Date End Date Madonna Plascencia MD [address] [place] [address] PCP - General Family Medicine 08/07/14 Eric Jaimes [employer] Electrical Engineer 03/31/25 documented as of this encounter
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
--- OUTSIDE RECORDS SUMMARY | 2025-07-19 12:19 | XMS_ITS | Encounter Summary ---
Author Organization [facility] Address [address] [place] [address] [address] [place] [address] Care Team Providers Care Career Development Engineer Name Role Phone Madonna Plascencia MD Primary Care Provider [phone] Encounter Details Date Type Department Care Team (Late st Contact Info) Description 09/29/2022 Abstract [facility] [address] [place] [phone] Madonna Plascencia MD [address] [place], [place] [phone] Social History Tobacco Use Types Packs/Day Years [...] Info) Description 08/29/2025 11:30 AM EDT Telemedicine [facility] [address] [place] [address] Madonna Plascencia MD [address] [place] [address] 10/23/2025 10:30 AM EST Telemedicine [facility] [address] [place], [place] [phone] Joan Shipley, RN [address] [place], [place] [phone] documented as of this encounter Visit Diagnoses Not on filedocumented in this encounter Care Teams Career Development Engineer Relationship Specialty Start Date End Date Madonna Plascencia MD [address] [place] [phone] PCP - General Family Medicine 08/07/14 Eric Jaimes Traffic Sign Erection Supervisor 03/31/25 documented as of this encounter
[2025-07-19 14:18] LABS: MANUAL DIFF FLAG NO
[2025-07-19 14:33] LABS: Hematocrit 27.8 % (42.0-52.0); Hemoglobin 8.9 g/dl (14.0-18.0); Imm Gran Abs Auto 0.06 X10*3/uL (0.00-0.03); Imm Gran Pct Auto 0.8 % (0.0-0.4); Lymphocytes Absolute Auto 2.0 X10*3/uL (1.2-4.9); Mean Corpuscular HGB Conc 32.0 g/dl (31.0-36.0); Mean Corpuscular Hemoglobin 28.1 pg (27.0-33.0); Mean Corpuscular Volume 87.7 fL (80.0-98.0); NRBC Abs Auto 0.000 X10*3/uL (0.0-0.012); NRBC Pct Auto 0.0 /100WBC (0.0-0.2); Platelet Count 237 X10*3/uL (160-400); Red Blood Count 3.17 X10*6/uL (4.60-5.80); White Blood Count 7.5 X10*3/uL (4.8-10.8)
[2025-07-19 14:51] LABS: Alanine Aminotransferase 41 U/L (0-40); Albumin Level 3.7 g/dL (3.5-5.0); Alkaline Phosphatase 110 U/L (39-117); Anion Gap 14 (12-20); Aspartate Amino Transferase 33 U/L (5-37); Blood Urea Nitrogen 26 mg/dL (9-16); Carbon Dioxide 27 mmol/L (22-29); Chloride 101 mmol/L (96-108); Estimated Glomerular Filt Rate 36; Iron 89 mcg/dL (45-160); Percent Iron Saturation 44 % (15-50); Potassium 3.8 mmol/L (3.3-5.1); Sodium 138 mmol/L (135-145); Total Iron Binding Capacity 203 mcg/dL (228-428); Total Protein 7.5 g/dL (6.5-8.0); Unsaturated Iron Binding 114 ug/dL
[2025-07-19 14:58] LABS: Microalbum/Creatinine Ratio Ur 6.5 ug/mg cr (<30)
[2025-07-19 14:59] LABS: Free T4 (Free Thyroxine) 0.78 ng/dL (0.71-1.85); Thyroid Stimulating Hormone 7.22 uIU/mL (0.32-4.0)
[2025-07-19 15:08] LABS: Free T4 (Free Thyroxine) 0.77 ng/dL (0.71-1.85); Thyroid Stimulating Hormone 7.24 uIU/mL (0.32-4.0)
[2025-07-20 04:50] LABS: ~HepC Num1 0.96 S/CO (0.00-0.79)
[2025-07-20 07:28] LABS: ~HepC Num2 0.86; ~HepC Num3 0.90; ~Hepatitis C Antibody GRAYZONE (Nonreactive)
[2025-07-21 09:29] LABS: ~Hepatitis A Antibody IgG 8.24 S/CO (0.00-0.99)
[2025-07-22 18:09] LABS: HCV Log PCR <1.18 NOT DETECTED Log IU/mL (NOT DETECTED); HepC Viral Load <15 NOT DETECTED IU/mL (NOT DETECTED)
== END 2025-07-19 10:07 | disposition home or self-care (01) ==
LOC: HO.CHCLDS 10:06
PROVIDERS: PCP Family Medicine; Referring Provider Internal Medicine Hypertension Specialist; Visit Provider Internal Medicine Nephrology
DX: Z01.84 Encounter for antibody response examination (principal); I12.9 Hypertensive chronic kidney disease with stage 1 through stage 4 chronic kidney disease, or unspecified chronic kidney disease; E11.22 Type 2 diabetes mellitus with diabetic chronic kidney disease; N18.30 Chronic kidney disease, stage 3 unspecified; D63.1 Anemia in chronic kidney disease; R74.01 Elevation of levels of liver transaminase levels; R79.89 Other specified abnormal findings of blood chemistry; Z79.4 Long term (current) use of insulin
CPT/HCPCS: 36415; 80051; 80076; 82043; 82085; 82550; 82565; 82570; 83540; 84439; 84443; 84520; 85025; 86376; 86708; 86803; 87522

== ENCOUNTER 2025-08-31 07:34 | Outpatient (REF) | payer OTHER, SELFPAY ==
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
--- OUTSIDE RECORDS SUMMARY | 2025-08-31 07:39 | XMS_ITS | Encounter Summary ---
Author Organization [employer] Address [address] [facility] 7t [place] [address] Care Team Providers Care Embossing Press Operator Molded Goods Name Role Phone Madonna Plascencia MD Primary Care Provider Reason for Visit * Reason Onset Date Comments Med Refill 03/06/2025 Encounter Details Date Type Department Care Team ([facility] st Contact Info) Description 03/06/2025 Telephone [facility] MEDICINE [address] [place], [place] [phone] Madonna Plascencia MD 230 [place], [place] [phone] Med Refill Social History Tobacco Use Types [...] (MSIR) 30 MG tablet To be sent to:[facility]/pharmacy #[id number] - [place] - [address] [facility] documented in this encounter Plan of Treatment Upcoming Encounters Date Type Department Care Team (Late st Contact Info) Description 10/23/2025 10:30 AM EST Telemedicine [facility] MED & PEDS 505 [place] [address] Joan Shipley, RN 505 [place] [address] documented as of this encounter Visit Diagnoses Not on filedocumented in this encounter Additional Health Concerns Assessment Noted Time PHQ-9 Depression Total Score: 0 12/26/19 11:12 AM EST documented as of this encounter Care Teams Embossing Press Operator Molded Goods Relationship Specialty Start Date End Date Madonna Plascencia MD [address] [place] [address] PCP - General Family Medicine 08/07/14 Eric Jaimes Cat Skinner 03/31/25 documented as of this encounter
--- OUTSIDE RECORDS SUMMARY | 2025-08-31 07:39 | XMS_ITS | Encounter Summary ---
Author Organization [employer] Address [address] [facility] 7t [place] [address] Care Team Providers Care Photo Machine Operator Name Role Phone Madonna Plascencia MD Primary Care Provider [phone] Reason for Visit * Reason Comments Med Refill Encounter Details Date Type Department Care Team (Late st Contact Info) Description 01/15/2024 Refill [facility] MEDICINE 230 [place], [place] [phone] Madonna Plascencia MD 230 [place], [place] [phone] Social History Tobacco Use Types Packs/Day Years [...] Info) Description 10/23/2025 10:30 AM EST Telemedicine [facility] MED & PEDS 505 [place] [address] Joan Shipley, MARIANNE 505 [place] [address] documented as of this encounter Visit Diagnoses Not on filedocumented in this encounter Additional Health Concerns Assessment Noted Time PHQ-9 Depression Total Score: 0 07/07/20 23 1:17 PM EDT documented as of this encounter Care Teams Photo Machine Operator Relationship Specialty Start Date End Date Madonna Plascencia MD [address] [place] [phone] PCP - General Family Medicine 08/07/14 Eric Jaimes Emergency Dispatch Operator 03/31/25 documented as of this encounter
--- OUTSIDE RECORDS SUMMARY | 2025-08-31 07:39 | XMS_ITS | Encounter Summary ---
Author Organization [employer] Address [address] [facility] 7t [place] [address] Care Team Providers Care Fertilizer Processing Supervisor Name Role Phone Madonna Plascencia MD Primary Care Provider [phone] Reason for Visit * Reason Onset Date Comments Med Refill 04/05/2025 Encounter Details Date Type Department Care Team ([facility] st Contact Info) Description 04/05/2025 Telephone [facility] MEDICINE [address] [place], [place] [phone] Madonna Plascencia MD 230 [place], [place] [phone] Med Refill Social History Tobacco Use Types [...] 30 MG tablet To be sent to: [facility]/pharmacy #[id number] - [place] - [address] [facility] documented in this encounter Plan of Treatment Upcoming Encounters Date Type Department Care Team (Late st Contact Info) Description 10/23/2025 10:30 AM EST Telemedicine [facility] MED & PEDS 505 [place] [address] Joan Shipley, RN 505 [place] [address] documented as of this encounter Visit Diagnoses Not on filedocumented in this encounter Additional Health Concerns Assessment Noted Time PHQ-9 Depression Total Score: 0 12/26/19 11:12 AM EST documented as of this encounter Care Teams Fertilizer Processing Supervisor Relationship Specialty Start Date End Date Madonna Plascencia MD 230 [place] [address] PCP - General Family Medicine 08/07/14 Eric Jaimes Brass Chaser 03/31/25 documented as of this encounter
--- OUTSIDE RECORDS SUMMARY | 2025-08-31 07:39 | XMS_ITS | Encounter Summary ---
Author Organization [employer] Address [address] [place] [address] 7t [place] [address] Care Team Providers Care Associate Programmer Analyst Name Role Phone Madonna Plascencia MD Primary Care Provider [phone] Reason for Referral * Imaging (Routine) - Closed Specialty Diagnoses / Procedures Referred By Aubree remy Referred To Contact Radiology Diagnoses Transaminitis Procedures US Abdomen Comp w elastography Madonna Plascencia MD [address] [place] [address] Phone: tel: fax: [address] Phone: tel: fax: Referral ID Status Reason Start Date Expiration Date Visits Re quested Visits Authorized [id number] Closed 04/28/2025 04/28/2026 1 1 Encounter Details Date Type Department Care Team (Late st Contact Info) Description 04/28/2025 Orders Only [facility] MEDICINE [address] [place] [address] [phone] Madonna Plascencia MD 230 [place], [place] [phone] Elevated TSH (Primary Dx); Transaminitis; Immunity status [...] Info) Description 10/23/2025 10:30 AM EST Telemedicine [facility] MED & PEDS 505 [place] [address] Joan Shipley, RN 505 [place] [address] Scheduled Orders Name Type Priority Associated Diagnoses Orde r Schedule US Abdomen Comp w elastography Imaging Routine Transaminitis Expected: 04/28/2025, Expires: 04/28/2026 documented as of this encounter Procedures Procedure Name Priority Date/Time Associated Diagnosis Comments HEPATITIS C AB W/REFL TO HCV RNA, QN, PCR Routine 07/19/2025 10:14 AM EDT Transaminitis HEPATITIS A ANTIBODY, TOTAL Routine 07/19/2025 10:14 AM EDT Immunity status testing ALDOLASE Routine 07/19/2025 10:14 AM EDT Transaminitis TSH Routine 07/19/2025 10:14 AM EDT Elevated TSH T4, FREE Routine 07/19/2025 10:14 AM EDT Elevated TSH CREATINE KINASE, TOTAL Routine 07/19/2025 10:14 AM EDT Transaminitis THYROID PEROXIDASE ANTIBODIES Routine 04/28/2025 9:57 AM EDT Elevated TSH documented in this encounter Results * Aldolase (07/19/2025 10:14 AM EDT) Aldolase 5.8 <=8.1 U/L [facility] Comment:THIS TEST WAS PERFOR MED AT:[employer]/Birdi [id number] [place] [id number] JO MD,PHD Blood Venous blood specimen / Unknown 07/19/2025 10:14 AM EDT 07/19/2025 2:20 PM EDT us Madonna Plascencia MD LAB BLOOD ORDERABLES Final Resul t Performing Organization Address City/[facility] Co de Phone Number [facility] [address] [place] [phone] * (ABNORMAL) Creatine Kinase, Total (07/19/2025 10:14 AM EDT) Creatine Kinase Total 34(L) 38 - 174 U/L [facility] Blood Venous blood specimen / Unknown 07/19/2025 10:14 AM EDT 07/19/2025 2:20 PM EDT us Madonna Plascencia MD LAB BLOOD ORDERABLES Final Resul t Performing Organization Address City/State/[facility] Co de Phone Number [facility] [address] [place] [phone] * Hepatitis C Antibody with Reflex to HCV, RNA, Quantitative, Real-Time PCR (07/19/2025 10:14 AM EDT) Hepatitis C Antibody GRAYZONE Nonreactive [facility] Comment:Antibodies to HCV ma y or may not be present. Suggest repeatanti-HCV in 4-6 weeks and/or HCV viral load if clinicallyindicated. Blood Venous blood specimen / Unknown 07/19/2025 10:14 AM EDT 07/19/2025 2:00 PM EDT Madonna Plascencia MD LAB BLOOD ORDERABLES Final Resul t Performing Organization Address [facility] de Phone Number [facility] [address] [place] [phone] * Hepatitis A Antibody, Total (07/19/2025 10:14 AM EDT) Hepatitis A Antibody IgG REACTIVE Nonreactive [facility] Comment:The presence of IgG anti-HAV implies past HAV infection(recent or distant) or vaccination against HAV. Blood Venous blood specimen / Unknown 07/19/2025 10:14 AM EDT 07/19/2025 2:20 PM EDT Madonna Plascencia MD LAB BLOOD ORDERABLES Final Resul t Performing Organization Address [facility] Co de Phone Number [facility] [address] [place] [phone] * T4, Free (07/19/2025 10:14 AM EDT) Free T4 (Free Thyroxine) 0.78 0.71 - 1.85 ng/dL [facility] Blood Venous blood specimen / Unknown 07/19/2025 10:14 AM EDT 07/19/2025 2:00 PM EDT Madonna Plascencia MD LAB BLOOD ORDERABLES Final Resul t Performing Organization Address [facility] Co de Phone Number [facility] [address] [place] [phone] * (ABNORMAL) TSH (07/19/2025 10:14 AM EDT) Thyroid Stimulating Hormone 7.22(H) 0.32 - 4.0 uIU/mL [facility] Comment:Note: A sustained TS H level above 2.5 uIU/mL may warrant further investigation. TSH 3rd Generation ([facility]) Blood Venous blood specimen / Unknown 07/19/2025 10:14 AM EDT 07/19/2025 2:00 PM EDT Madonna Plascencia MD LAB BLOOD ORDERABLES Final Resul t Performing Organization Address [facility] Co de Phone Number [facility] [address] [place] [phone] * Thyroid Peroxidase Antibodies (04/28/2025 9:57 AM EDT) Thyroid Peroxidase Antibodies 2 <9 IU/mL [facility] Comment:THIS TEST WAS PERFOR MED AT:[employer] [address] [id number] TAYLOR MD 04/28/2025 9:57 AM EDT 04/28/2025 11:05 AM EDT Madonna Plascencia MD LAB BLOOD ORDERABLES Final Resul t Performing Organization Address [facility] Co de Phone Number [facility] [address] [place] [phone] documented in this encounter Visit Diagnoses Diagnosis Elevated TSH- Primary Other abnormal blood chemistry Transaminitis Nonspecific elevation of levels of transaminase or lactic acid dehydrogenase (LDH) Immunity status testing Antibody response examination documented in this encounter Additional Health Concerns Assessment Noted Time PHQ-9 Depression Total Score: 0 12/26/19 11:12 AM EST documented as of this encounter Care Teams Associate Programmer Analyst Relationship Specialty Start Date End Date Madonna Plascencia MD [address] [place] [address] PCP - General Family Medicine 08/07/14 Eric Jaimes Bologna Maker 03/31/25 documented as of this encounter
--- OUTSIDE RECORDS SUMMARY | 2025-08-31 07:39 | XMS_ITS | Encounter Summary ---
Author Organization [employer] Address [address] [facility] 7t [place] [address] Care Team Providers Care Fisher Lampara Net Name Role Phone Madonna Plascencia MD Primary Care Provider [phone] Encounter Details Date Type Department Care Team ([facility] st Contact Info) Description 01/18/2024 Orders Only [facility] MEDICINE 230 [place], [place] [phone] Madonna Plascencia MD 230 [place], [place] [phone] Social History Tobacco Use Types Packs/Day Years [...] Upcoming Encounters Date Type Department Care Team ([facility] st Contact Info) Description 10/23/2025 10:30 AM EST Telemedicine [facility] MED & PEDS [address] [place] [address] Joan Shipley, RN 505 [place] [address] documented as of this encounter Visit Diagnoses Not on filedocumented in this encounter Additional Health Concerns Assessment Noted Time PHQ-9 Depression Total Score: 0 07/07/20 23 1:17 PM EDT documented as of this encounter Care Teams Fisher Lampara Net Relationship Specialty Start Date End Date Madonna Plascencia MD [address] [place] [address] PCP - General Family Medicine 08/07/14 Eric Jaimes Soldering Inspector 03/31/25 documented as of this encounter
--- OUTSIDE RECORDS SUMMARY | 2025-08-31 07:40 | XMS_ITS | Encounter Summary ---
Author Organization [employer] Address [address] [facility] 7t [place] [address] Care Team Providers Care Software Installer Name Role Phone Madonna Plascencia MD Primary Care Provider [phone] Reason for Visit * Reason Comments Med Refill Encounter Details Date Type Department Care Team (Late st Contact Info) Description 06/27/2025 Refill [facility] MEDICINE 230 [place], [place] [phone] Madonna Plascencia MD 230 [place], [place] [phone] Diabetic ulcer of right midfoot associated with [...] Info) Description 10/23/2025 10:30 AM EST Telemedicine [facility] MED & PEDS 505 [place] [address] Joan Shipley, MARIANNE 505 [place] [address] documented as of this encounter Visit Diagnoses [...] documented as of this encounter Care Teams Software Installer Relationship Specialty Start Date End Date Madonna Plascencia MD [address] [place] [phone] PCP - General Family Medicine 08/07/14 Eric Jaimes Molded Rubber Goods Cutter 03/31/25 documented as of this encounter
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
--- OUTSIDE RECORDS SUMMARY | 2025-08-31 07:40 | XMS_ITS | Encounter Summary ---
Author Organization [employer] Address [address] [place] [address] 7t [place] [address] Care Team Providers Care Machine Paint Mixer Name Role Phone Madonna Plascencia MD Primary Care Provider [phone] Encounter Details Date Type Department Care Team (Late Contact Info) Description 05/15/2023 Abstract [facility] MEDICINE 230 [place], [place] [phone] Madonna Plascencia MD 230 [place], [place] [phone] Social History Tobacco Use Types Packs/Day Years [...] Encounters Date Type Department Care Team (Late Contact Info) Description 10/23/2025 10:30 AM EST Telemedicine [facility] MED & PEDS [address] [place] [address] Joan Shipley, MARIANNE 505 [place] [address] documented as of this encounter Procedures Procedure Name Priority Date/Time Associated Diagnosis Comments COLONOSCOPY Routine 09/30/2018 documented in this encounter Results * Colonoscopy (09/30/2018) Colonoscopy Normal Normal 09/30/2018 Result [facility] Unassigned Pcp HEALTH MAINTENANCE Final Result documented in this encounter Visit Diagnoses Not on filedocumented in this encounter Care Teams Machine Paint Mixer Relationship Specialty Start Date End Date Madonna Plascencia MD [address] [place] [address] PCP - General Family Medicine 08/07/14 Eric Jaimes Oil Burner Servicer And Installer 03/31/25 documented as of this encounter
--- OUTSIDE RECORDS SUMMARY | 2025-08-31 07:40 | XMS_ITS | Data Portability ---
Author Organization [employer] [facility], [facility] [employer] [facility] Address [address] [place] [address] Care Team Providers Care Scraper Tender Name Role Phone HIM CCA OTHER Unavailable Primary Care Provider [phone] Assessment Encounter Date Assessment Date Assessment LastModified by Organization Details LastModified Time 01/18/2024 01/18/2024 I provided real -time medical direction via phone for this encounter, and was available for additional phone based assistance as needed. I have reviewed and agree with the Assessment and Plan as documented by the Sample Display Preparer. We discussed the diagnostic uncertainty of home visits and the risk associated with this. In this case the patient and I felt this to be an acceptable and reasonable amount of risk given the benefit of avoiding an ED visit. The patient given the opportunity to ask questions. Advised if develops CP/severe SOB/turning blue/uncontrolle d n/v/d or black/bloody emesis or stool/ AMS/ syncope/ hi fever unresponsive to APAP to call 911- verbalized understanding of instruction [email or web address] Not available 01/18/2024 18:34:02 06/06/2025 06/06/2025 I provided real -time medical direction via phone for this encounter, and was available for additional phone based assistance as needed. I have reviewed and agree with the Assessment and Plan as documented by the Sample Display Preparer. We discussed the diagnostic uncertainty of home visits and the risk associated with this. In this case the patient and I felt this to be an acceptable and reasonable amount of risk given the benefit of avoiding an ED visit given the current exam however he should have a low threshold for going into the ER if it worsens.. The patient given the opportunity to ask questions. Advised if develops CP/severe SOB/turning blue/uncontrolle d n/v/d or black/bloody emesis or stool/ AMS/ syncope/cold, blue, leg or redness going up his leg with heat and increasing pain /hi fever unresponsive to APAP to call 911- verbalized understanding of instruction Not available 06/07/2025 17:48:10 Plan of Treatment Reminders Order Date Submit Date Provider Last Modified By Organization Details Last Modified Time Details Appointments None recorde d. Lab glucose , fingers tick, blood 025 06/06/20 25 [email or web address] [facility], [address] [place] [address], [phone] 5 10:46:46 glucose , fingers tick, blood 024 01/18/[email or web address], [address] 4 16:11:28 Referral None recorde d. Procedures None recorde d. Surgeries None recorde d. Imaging None recorde d. Medication Orders None recorde d. Patient TargetsNo targets recorded. Patient Instructions Encounter Date Encounter Id Patient Instructions Last Modified By Organization Details Last Modified Time 01/18/2024 [id number] application of wound dressing* [email or web address] Not available 01/18/2024 16:11:23 06/06/2025 [id number] application of wound dressing* Not available 06/06/2025 10:48:29 Reason for Referral None Reported. Results Created Date Observation Date Name Description Value Unit Range Abnormal Flag Note LastModifiedBy Organization Detail LastModifiedTime 01/18/20 24 01/18/2024 gluco se, finge rstic k, blood Blood Glucose: mg/dl 388 Not Available [address], [address] 01/18/2024 16:07:28 06/06/20 25 06/06/2025 gluco se, finge rstic k, blood Blood Glucose: mg/dl 315 Not Available [address], [address] 06/06/2025 10:46:31 Result Notes None recorded. Medical Equipment None Reported. Allergies No known drug allergies Medications Name Sig Start Date Stop Date Status Note LastModified by Organization Details LastModified Time atorvastatin 40 mg tablet TAKE 1 TABLET BY MOUTH EVERYDAY AT BEDTIME active Not Available Not Available No t Available senna 8.6 mg tablet TAKE 2 TABLETS BY MOUTH EVERY DAY NEEDED FOR CONSTIPATIO N active Not Available Not Available No t Available Lantus U-100 Insulin 100 unit/mL subcutaneous solution ADMINISTER 80 UNITS SUBCUTANEOU SLY ONCE DAILY active Not Available Not Available No t Available amlodipine 2.5 mg tablet TAKE 1 TABLET BY MOUTH 1 TIME EACH DAY. active Not Available Not Available No t Available morphine ER 30 mg tablet,exten ded release TAKE 1 TABLET BY MOUTH 3 TIMES A DAY FOR 28 DAYS DONT CRUSH CHEW OR SPLIT active Not Available Not Available No t Available aspirin 81 mg tablet,delay ed release TAKE 1 TABLET BY MOUTH EVERY DAY active Not Available Not Available No t Available quetiapine 100 mg tablet TAKE 1 TABLET BY MOUTH EVERYDAY AT BEDTIME active Not Available Not Available No t Available cephalexin 500 mg capsule TAKE 1 CAPSULE BY MOUTH TWICE A DAY active Not Available Not Available No t Available docusate sodium 100 mg capsule TAKE 2 CAPSULES BY MOUTH EVERY DAY IN THE MORNING active Not Available Not Available No t Available furosemide 20 mg tablet TAKE 1 TABLET BY MOUTH EVERY DAY IN THE MORNING active Not Available Not Available No t Available Novolog U-100 Insulin aspart 100 unit/mL subcutaneous solution INJECT 80 UNIT BY SUBCUTANEOU S ROUTE BEFORE EVERY MEAL, 3 TIMES PER DAY. active Not Available Not Available No t Available zolpidem 10 mg tablet TAKE 1 TABLET BY MOUTH EVERY DAY AT BEDTIME NEEDED active Not Available Not Available No t Available ketoconazole 2 % topical cream APPLY BY TOPICAL ROUTE TWICE DAILY TO THE AFFECTED AREA(S) NEEDED active Not Available Not Available No t Available doxycycline hyclate 100 mg tablet TAKE 1 TABLET BY MOUTH TWICE A DAY active Not Available Not Available No t Available escitalopram 20 mg tablet TAKE 1 TABLET BY MOUTH EVERY DAY active Not Available Not Available No t Available zolpidem ER 12.5 mg tablet,exten ded release,mult iphase TAKE 1 TABLET BY MOUTH EVERY DAY AT BEDTIME NEEDED FOR SLEEP active Not Available Not Available No t Available quetiapine 50 mg tablet TAKE 1 TABLET BY MOUTH EVERYDAY AT BEDTIME active Not Available Not Available No t Available Gavilax 17 gram/dose oral powder TAKE 17 GRAMS BY MOUTH EVERY DAY MIXED WITH 8 OZ. WATER. USE ONLY NEEDED active Not Available Not Available No t Available Linzess 290 mcg capsule TAKE 1 CAPSULE BY MOUTH EVERY MORNING active Not Available Not Available No t Available BD Insulin Syringe Ultra-Fine 1 mL 31 gauge x 5/16 USE DIRECTED UP TO 4 TIMES DAILY FOR INSULIN INJECTION active Not Available Not Available No t Available Movantik 12.5 mg tablet TAKE 1 TABLET BY MOUTH EVERY MORNING active Not Available Not Available No t Available [facility] 10 billion cell-200 mg capsule TAKE 1 CAPSULE BY MOUTH EVERY DAY active Not Available Not Available No t Available Xyosted 75 mg/0.5 mL subcutaneous auto-injecto r INJECT 75 MG (0.5 ML) SUBCUTANEOU SLY EVERY WEEK FOR HYPOGONADIS M FOR 4 WEEKS active Not Available Not Available No t Available Vitals Date Recorded Respiratory rate Oxygen saturation Oxygen saturation in Arterial blood by Pulse oximetry Heart rate Body height Body weight Body temperature Systolic And Diastolic Provider Name and Address Organization Details Last Updated DateTime 4 16 /min 94 % 94 % 95 /min 177.8 cm 498956 g 97.5 [degF] 186/70 mm[Hg] Not Available [facility] 4 15:58:52 Date Recorded Respiratory rate Oxygen saturation Oxygen saturation in Arterial blood by Pulse oximetry Body temperature Heart rate Systolic And Diastolic Provider Name and Address Organization Details Last Updated DateTime 5 16 /min 97 % 97 % 97.7 [degF] 67 /min 156/69 mm[Hg] Not Available [facility] 5 10:39:21 Social History None recorded. Functional Status None recorded. Mental Status None recorded. Family History Nothing Reported. Medical History No medical history recorded. Past Encounters Encounter ID Performer Location Encounter Start Date Encounter Closed Date Diagnosis/Indication Diagnosis SNOMED-CT Code Diagnosis ICD10 Code Diagnosis IMO Codes Diagnosis Note [id number] Jessica Singh MD [facility] - [facility] [address] [place] [phone] 01/18/2024 15:58:37 01/18/2024 22:20:06 Venous stasis edema of bilateral lower limbs [id number] I87.2 w/ skin tears- no objective s/s of infection at this time. Patient had dressing supplies at home with Xeroform. I requested that he apply Xeroform with bulky wraps to lower extremitie s. Patient advised to elevate his legs. Medic reviewed signs of infection closely with the patient. Patient was unable to make his PCP appointmen t today but he has another appointmen t for the . Advised the need to follow-up with PCP on the , needs BP rechecked as well as blood sugar and wounds-pat ient would benefit from Zahraa boots/woun d clinic-fabian fernandes in note to care administrative tech Hyperglycemia 57060764 R 73.9 Patient is on Lantus and 8 units of Humalog 3 times a day. He had coffee with sugar and blueberry muffin for breakfast. He does not eat lunch and then he will eat dinner. When the medic obtained his blood sugar@ 4 PM (because he has not been monitoring his blood sugar) he gave himself 8 units of Humalog which he had not done prior today. He reports he is supposed to be on 8 units 3 times a day- advised need for diabetic counseling . Note sent to care administrative tech regarding close follow-up with this patient and need for diabetic and dietary counseling Essential hypertension [id number] I10 Patient is only taking amlodipine 2.5 mg daily. I do not know what his baseline is as we have no old records. He denies chest pain, orthopnea, dyspnea on exertion, dizziness. It is possible that his PCP was limiting the amlodipine to prevent any further edema. Advised him to discuss with his PCP as his blood pressure should be better controlled [id number] Jessica Singh MD [facility] [address] [address] 06/06/2025 10:39:10 06/07/2025 20:24:28 Burn of skin 079106584 T30.0 [id number] in setting of DM w/ neuropathy . With cellulitis -no clinical evidence of DVT. Patient has only had 1 dose of doxycyclin e/ silvadene so too early to gauge response-a dvised to wash with tepid soapy water pat dry then apply Silvadene sparingly and put gauze between the toes with the Silvadene to prevent maceration as well as covering the entire foot. Medic did the initial dressing to instruct patient and caregiver how to do. Advised to elevate legs to reduce swelling. Continue daily Silvadene and twice daily doxycyclin e. Advised patient he needs close follow-up with his PCP possible referral to wound care clinic/[facility] e [facility] nursing and also needs diabetes education with respect to diet /monitorin g blood sugar and possible medication adjustment as his blood sugar is 315 and he is taking 80 units of NovoLog for this as his blood sugar is chronicall y elevated he reports note sent to [facility] to reach out to care team regarding follow-up Patient is aware he can call us for a revisit to recheck anytime. Health Concerns Section Related Observation LastModified by Organization Natasha ls LastModified Time None Recorded Concern Status LastModified by Organization Details LastModified Time None Recorded Advance Directives Directive None Recorded Payers Insurance Date Sequence Insurance Name Policy Number Policy Isbell Covered Member ID Isbell Member ID Guarantor Name 06/06/2025 1 [facility] - DOS ON OR AFTER 2023 - DUAL ELIGIBLE - LONG TERM OPTIONS AND ONE CARE (MEDICARE REPLACEMENT/ADV ANTAGE - HMO) Hussein Mandujano [id number] Hussein Mandujano Notes Date Note Type Note Provider Name and Address Organization Details Recorded Time 01/18/2024 text/html ROS as noted in the [facility] Nurse Triage Notes (Lina Garcia): Reason For Request: Pt's caregiver reporting an open wound on left leg and a smaller wound on right leg>wounds from a fall experienced 2 1/2 weeks ago>mbr has trouble getting out of house due to multiple reasons including brain injury. Chief Complaints: Wound Care, Falls PMH: Diabetes, Neurologic (E.G. ALS/MS), COPD/Asthma Allergies: No Known Comments: Fall 2.5 weeks ago. Wounds to BLE's from fall. Reports redness with yellowish drainage. No fevers. + chills x2 days. Denies pain. ..................... ..................... ..................... ..................... ..................... ..................... ............... Sample Display Preparer Note From Ranulfo Mathew: Pt reports fall two weeks ago causing open wounds with drainage. Pt has hx of venous stasis, has pneumatic compression boots at home and has IDDM. Pt denies CP, SOB, MICHEL, pain, f/n/v/d. Pt missed PCP appt today and has f/u on Thursday. Pt is alert, NAD. Hypertensive, VS otherwise stable. Afebrile. Non focal neuro exam. Lungs CTA. Benign ABD exam. BLE s have edema and discoloration (baseline, mother notes edema has improved), no erythema or warmth, clear weeping drainage noted. Both LE wrapped with pt s xeroform and then covered with DSD. Pt instructed to keep pcp appointment on Thursday and if too weak to go, then go to the ED. Pt instructed to seek emergent medical care for new or worsening sx, which are reviewed with him and his mother. ..................... ..................... ..................... ..................... ..................... ..................... ............... Disposition: Fulfilled Jessica Singh MD [address] [place] [address],[address], [place], [address], [employer] 01/18/2024 18:36:21 06/06/2025 text/html ROS as noted in the [facility] Nurse Triage Notes (Mandie Moralez): Reason For Request: wound on feet Denies: Mccallum Flash, circumferential mccallum Mccallum reported with black tissue to the area Open skin area after a fall with uncontrolled bleeding Abscess/infection with streaking noted, presence of fever or without History of cellulitis, isolated redness noted Fever and chills noted in setting of wound Rash Bites -bugs, spider Abscess Chief Complaints: Wound Care PMH: COPD/Asthma, Diabetes Mellitus Type 2, Hypertension, Coronary Artery Disease, Congestive Heart Failure PMH Reviewed at 06/06/2025 - 09:03 Allergies Reviewed at 06/06/2025 - 09:03 Comments: 59 y.o male complains of Wound Care Spouse calling for pt . PT has a wound on his right foot. 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 2 weeks ago, he had his foot near the heating, and he burned his 3 toes. The toes were swollen, burned, and blistered. She has been treating them and she feels that they are looking better. The tissue on the toes is red, not necrotic, but she states there is a dark area, but she thinks it is old blood. He can move his toes but his foot is swollen. No discharge or pus noted He does not have a fever, confusion, nausea or vomiting. He does have a baseline short term memory loss. He does have CHF, on torsemide I provided information on the mobile health provider response time and advised the patient and/or caregiver to monitor reported signs and symptoms. I discussed the warning signs of when to seek emergency care. Sample Display Preparer Organization Information for [employer] Business Legal Name: [facility] Address: [address] [place] [address], [address] Clip Loading Machine Adjuster: José Miguel Salas MD [facility] No.: [id number] Sample Display Preparer POC Test Results from Ranulfo Mathew Blood Glucose Measurement (10:43:06) Blood Glucose: 315mg/dL ..................... ..................... ..................... ..................... ..................... ..................... ............... Sample Display Preparer Note From Ranulfo Mathew: This visit is for a 59-year-old male [...] distress and speaking full sentences. His vital signs are reasonably stable and he is afebrile. Nonfocal [...] and reasonable amount of risk given the benefit of avoiding an ED visit. I recommend they [...] questions and are agreeable to this plan. [facility] Lab Orders: glucose, fingerstick, blood: Performed ..................... ..................... ..................... ..................... ..................... ..................... ............... [facility] Consulted: Jessica Singh ..................... ..................... ..................... ..................... ..................... ..................... ............... Disposition: Fulfilled Jessiac Singh MD [address] [facility],[address], [place], [address], [employer] 06/07/2025 17:53:14
--- OUTSIDE RECORDS SUMMARY | 2025-08-31 07:40 | XMS_ITS | Encounter Summary ---
Author Organization [employer] Address [address] [facility] 7t [place] [address] Care Team Providers Care Juvenile Justice Officer Name Role Phone Madonna Plascencia MD Primary Care Provider [phone] Reason for Visit * Reason Comments Med Refill Encounter Details Date Type Department Care Team ([facility] st Contact Info) Description 11/25/2023 Refill [facility] MEDICINE [address] [place], [place] [phone] Madonna Plascencia MD [address] [place], [place] [phone] Social History Tobacco Use Types Packs/Day Years [...] Info) Description 10/23/2025 10:30 AM EST Telemedicine [facility] MED & PEDS [address] [place] [address] Joan Shipley, MARIANNE [address] [place] [address] documented as of this encounter Visit Diagnoses Not on filedocumented in this encounter Additional Health Concerns Assessment Noted Time PHQ-9 Depression Total Score: 0 07/07/20 23 1:17 PM EDT documented as of this encounter Care Teams Juvenile Justice Officer Relationship Specialty Start Date End Date Madonna Plascencia MD [address] [place] [address] PCP - General Family Medicine 08/07/14 Eric Jaimes Chemical Applicator 03/31/25 documented as of this encounter
--- OUTSIDE RECORDS SUMMARY | 2025-08-31 07:40 | XMS_ITS | Encounter Summary ---
Author Organization [employer] Address [address] [facility] 7t [place] [address] Care Team Providers Care Needlemaker Name Role Phone Madonna Plascencia MD Primary Care Provider Reason for Visit * Reason Onset Date Comments Call Back Request 01/26/2024 Encounter Details Date Type Department Care Team ([facility] st Contact Info) Description 01/26/2024 Telephone [facility] MEDICINE [address] [place], [place] [phone] Madonna Plascencia MD [address] [place], [place] [phone] Call Back Request Social History Tobacco Use [...] 1:21 PM EDT TC placed to Susanne [phone] in regards to below message. Susanne results the pt was referred to them from [facility]. Susanne reports the pt was referred for [...] discuss patient care. Please contact Susanne at [phone] documented in this encounter Plan of Treatment Upcoming Encounters Date Type Department Care Team (Late st Contact Info) Description 10/23/2025 10:30 AM EST Telemedicine [facility] MED & PEDS [address] [place] [address] Joan Shipley, RN [address] [place] [address] documented as of this encounter Visit Diagnoses Not on filedocumented in this encounter Additional Health Concerns Assessment Noted Time PHQ-9 Depression Total Score: 0 07/07/20 23 1:17 PM EDT documented as of this encounter Care Teams Needlemaker Relationship Specialty Start Date End Date Madonna Plascencia MD [address] [place] [address] PCP - General Family Medicine 08/07/14 Eric Jaimes Manpower Development Manager 03/31/25 documented as of this encounter
--- OUTSIDE RECORDS SUMMARY | 2025-08-31 07:40 | XMS_ITS | Encounter Summary ---
Author Organization [employer] Address [address] [facility] [address] [place] [address] Care Team Providers Care Percussion Instructor Name Role Phone Madonna Plascencia MD Primary Care Provider Reason for Visit * Reason Comments Med Refill Encounter Details Date Type Department Care Team (Late st Contact Info) Description 02/07/2025 Refill [facility] MEDICINE [address] [place], [place] [phone] Madonna Plascencia MD [address] [place], [place] [phone] Social History Tobacco Use Types Packs/Day Years [...] Description 10/23/2025 10:30 AM EST Telemedicine [facility] MED & PEDS [address] [place] [address] Joan Shipley, RN [address] [place] [address] documented as of this encounter Visit Diagnoses Not on filedocumented in this encounter Additional Health Concerns Assessment Noted Time PHQ-9 Depression Total Score: 0 12/26/19 11:12 AM EST documented as of this encounter Care Teams Percussion Instructor Relationship Specialty Start Date End Date Madonna Plascencia MD [address] [place] [address] PCP - General Family Medicine 08/07/14 Eric Jaimes Moshgiach 03/31/25 documented as of this encounter
--- OUTSIDE RECORDS SUMMARY | 2025-08-31 07:40 | XMS_ITS | Encounter Summary ---
Author Organization [employer] Address [address] [place] [address] [address] [place] [address] Care Team Providers Care Marine Machinist Name Role Phone Madonna Plascencia MD Primary Care Provider [phone] Reason for Referral * Consultation (Routine) - Closed Specialty Diagnoses / Procedures Referred By Aubree remy Referred To Contact Cardiology Diagnoses Encounter for preoperative assessment for noncoronary cardiac surgery Acute on chronic heart failure with preserved ejection fraction (HCC) Chronic heart failure with preserved ejection fraction (HCC) Madonna Plascencia MD [address] [place], [place] Phone: tel: fax: [facility] Referral ID Status Reason Start Date Expiration Date V isits Requested Visits Authorized [id number] Closed Specialty Services Required 02/19/2024 02/18/2025 1 1 * Consultation (Routine) - Closed Specialty Diagnoses / Procedures Referred By Aubree remy Referred To Contact Wound Care Diagnoses Lymphedema Venous stasis Madonna Plascencia MD [address] [place], [place] Phone: tel: fax: [facility] [address] [place] [address] Phone: tel: fax: Referral ID Status Reason Start Date Expiration Date V isits Requested Visits Authorized [id number] Closed Specialty Services Required 02/19/2024 02/18/2025 1 1 Encounter Details Date Type Department Care Team (Late st Contact Info) Description 02/11/2024 Orders Only [facility] MEDICINE [address] [place] [address] Madonna Plascencia MD [address] [place] [address] Lymphedema (Primary Dx); Venous stasis; Encounter for [...] the past 12 months, has t he [employer], gas, oil or water [employer] threatened to shut off services in your [...] Chronic heart failure with preserved ejection fraction (HCC) - acute exacerbation of chronic HF, hospitalized 01/19/24 - 01/22/24, in a setting of cellulitis and ETHAN - most recent transthoracic echocardiogram: 01/20/24 The left ventricular systolic function is normal; The visually estimated ejection fraction is between 60-65%; There is moderately increased left ventricular wall thickness; No obvious valvular pathology seen on this study. - referred to music producer since patient's GI needs a cardiac pre-op documented in this encounter Plan of Treatment Upcoming Encounters Date Type Department Care Team (Late st Contact Info) Description 10/23/2025 10:30 AM EST Telemedicine [facility] MED & PEDS [address] [place] [address] Joan Shipley, RN [address] [place] [address] Scheduled Referrals Name Type Priority Associated Diagnoses [...] chronic heart failure with preserved ejection fraction (HCC) Chronic heart failure with preserved ejection fraction (HCC) Controlled type 2 diabetes mellitus with diabetic nephropathy, with long-term current use of insulin (HCC) documented in this encounter Additional Health Concerns Assessment Noted Time PHQ-9 Depression Total Score: 0 07/07/20 23 1:17 PM EDT documented as of this encounter Care Teams Marine Machinist Relationship Specialty Start Date End Date Madonna Plascencia MD [address] [place] [address] PCP - General Family Medicine 08/07/14 Eric Jaimes Screw Machine Tender 03/31/25 documented as of this encounter
--- OUTSIDE RECORDS SUMMARY | 2025-08-31 07:40 | XMS_ITS | Encounter Summary ---
Author Organization [facility] Address [address] [place] [address] Phone Care Team Providers Care Mill Control Operator Name Role Phone Madonna Plascencia MD Primary Care Provider [phone] Reason for Visit * Reason Comments Med Refill Encounter Details Date Type Department Care Team (Late st Contact Info) Description 10/02/2023 Refill [facility] [address] [place] [address] David Harding MD [address] [facility] [address] [place] [address] Social History Tobacco Use Types [...] on filedocumented in this encounter Care Teams Mill Control Operator Relationship Specialty Start Date End Date Madonna Plascencia MD PCP - General 11/12/20 documented as of this encounter
--- OUTSIDE RECORDS SUMMARY | 2025-08-31 07:40 | XMS_ITS | Encounter Summary ---
Author Organization [employer] Address [address] [facility] 7t [place] [address] Care Team Providers Care Staff Consultant Name Role Phone Madonna Plascencia MD Primary Care Provider [phone] Reason for Visit * Reason Onset Date Comments Appointment Request 06/19/2025 Encounter Details Date Type Department Care Team ([facility] st Contact Info) Description 06/19/2025 Telephone [facility] MEDICINE 230 [place], [place] [phone] Madonna Plascencia MD 230 [place], [place] [phone] Appointment Request Social History Tobacco Use Types [...] * Telephone Encounter - Edilma Potts - 06/19/2025 1:19 PM EDT Tc from pt partner Akilah regarding PRODUCT DEVELOPMENT MANAGER visit. Pt needs phone visit due to not being able to put shoes on. Also requesting to change time of visit. documented in this encounter Plan of Treatment Upcoming Encounters Date Type Department Care Team (Late st Contact Info) Description 10/23/2025 10:30 AM EST Telemedicine [facility] MED & PEDS [address] [place] [address] Joan Shipley, MARIANNE 505 [place] [address] documented as of this encounter Visit Diagnoses Not on filedocumented in this encounter Additional Health Concerns Assessment Noted Time PHQ-9 Depression Total Score: 0 12/26/19 11:12 AM EST documented as of this encounter Care Teams Staff Consultant Relationship Specialty Start Date End Date Madonna Plascencia MD 230 [place] [address] PCP - General Family Medicine 08/07/14 Eric Jaimes Rod Buster 03/31/25 documented as of this encounter
--- OUTSIDE RECORDS SUMMARY | 2025-08-31 07:40 | XMS_ITS | Encounter Summary ---
Author Organization [employer] Address [address] [facility] 7t [place] [address] Care Team Providers Care Power Plant Operations Manager Name Role Phone Madonna Plascencia MD Primary Care Provider Encounter Details Date Type Department Care Team ([facility] st Contact Info) Description 10/23/2024 Refill [facility] MEDICINE 230 [place], [place] [phone] Madonna Plascencia MD 230 [place], [place] [phone] Chronic constipation Social History Tobacco Use Types [...] Info) Description 10/23/2025 10:30 AM EST Telemedicine [facility] MED & PEDS 505 [place] [address] Joan Shipley, RN 505 [place] [address] documented as of this encounter Visit Diagnoses Diagnosis Chronic constipation Unspecified constipation documented in this encounter Additional Health Concerns Assessment Noted Time PHQ-9 Depression Total Score: 0 07/07/20 23 1:17 PM EDT documented as of this encounter Care Teams Power Plant Operations Manager Relationship Specialty Start Date End Date Madonna Plascencia MD [address] [place] [address] PCP - General Family Medicine 08/07/14 Eric Jaimes Phlebotomy Specialist 03/31/25 documented as of this encounter
--- OUTSIDE RECORDS SUMMARY | 2025-08-31 07:40 | XMS_ITS | Encounter Summary ---
Author Organization [employer] Address [address] [facility] 7t [place] [address] Care Team Providers Care Tire And Lube Technician Name Role Phone Madonna Plascencia MD Primary Care Provider [phone] Encounter Details Date Type Department Care Team (Late st Contact Info) Description 06/05/2025 Orders Only [facility] MEDICINE 230 [place] [address] Madonna Plascencia MD 230 [place] [address] Diabetic ulcer of right midfoot associated with [...] Upcoming Encounters Date Type Department Care Team ([facility] st Contact Info) Description 10/23/2025 10:30 AM EST Telemedicine [facility] MED & PEDS 505 [place] [address] Joan Shipley RN 505 [place] [address] documented as of this encounter Visit Diagnoses [...] documented as of this encounter Care Teams Tire And Lube Technician Relationship Specialty Start Date End Date Madonna Plascencia MD [address] [place] [address] PCP - General Family Medicine 08/07/14 Eric Jaimes Cloth Washer Operator 03/31/25 documented as of this encounter
--- OUTSIDE RECORDS SUMMARY | 2025-08-31 07:40 | XMS_ITS | Encounter Summary ---
Author Organization [employer] Address [address] [facility] 7t [place] [address] Care Team Providers Care Belt Measurer Name Role Phone Madonna Plascencia MD Primary Care Provider [phone] Reason for Visit * Reason Onset Date Comments Call Back Request 01/25/2024 Encounter Details Date Type Department Care Team ([facility] st Contact Info) Description 01/25/2024 Telephone [facility] MEDICINE 230 [place], [place] [phone] Madonna Plascencia MD 230 [place], [place] [phone] Call Back Request Social History Tobacco Use [...] 8:56 AM EDT Tc from the patients palliative care coordinator requesting a call back in regards to the appt on 01/28 would like appt sooner due to having a important appt on same day documented in this encounter Plan of Treatment Upcoming Encounters Date Type Department Care Team ([facility] st Contact Info) Description 10/23/2025 10:30 AM EST Telemedicine [facility] MED & PEDS 505 [place] [address] Joan Shipley, RN 505 [place] [address] documented as of this encounter Visit Diagnoses Not on filedocumented in this encounter Additional Health Concerns Assessment Noted Time PHQ-9 Depression Total Score: 0 07/07/20 23 1:17 PM EDT documented as of this encounter Care Teams Belt Measurer Relationship Specialty Start Date End Date Madonna Plascencia MD [address] [place] [address] PCP - General Family Medicine 08/07/14 Eric Jaimes Porter Used Car Lot 03/31/25 documented as of this encounter
--- OUTSIDE RECORDS SUMMARY | 2025-08-31 07:40 | XMS_ITS | Encounter Summary ---
Author Organization [employer] Address [address] [facility] 7t [place] [address] Care Team Providers Care Deckhand Oyster Dredge Name Role Phone Madonna Plascencia MD Primary Care Provider [phone] Reason for Visit * Reason Onset Date Comments Appointment Request 06/19/2025 Encounter Details Date Type Department Care Team ([facility] st Contact Info) Description 06/19/2025 Telephone [facility] MEDICINE 230 [place], [place] [phone] Madonna Plascencia MD 230 [place], [place] [phone] Appointment Request Social History Tobacco Use Types [...] earlier in the day. Contact pt at [phone] documented in this encounter Plan of Treatment Upcoming Encounters Date Type Department Care Team (Late st Contact Info) Description 10/23/2025 10:30 AM EST Telemedicine [facility] MED & PEDS 505 [place] [address] Joan Shipley, RN 505 [place] [address] documented as of this encounter Visit Diagnoses Not on filedocumented in this encounter Additional Health Concerns Assessment Noted Time PHQ-9 Depression Total Score: 0 12/26/19 11:12 AM EST documented as of this encounter Care Teams Deckhand Oyster Dredge Relationship Specialty Start Date End Date Madonna Plascencia MD 230 [place] [address] PCP - General Family Medicine 08/07/14 Eric Jaimes Typewriter Repairer 03/31/25 documented as of this encounter
--- OUTSIDE RECORDS SUMMARY | 2025-08-31 07:40 | XMS_ITS | Encounter Summary ---
Author Organization [employer] Address [address] [facility] 7t [place] [address] Care Team Providers Care Color Buffer Name Role Phone Madonna Plascencia MD Primary Care Provider [phone] Reason for Visit * Reason Comments Med Refill Encounter Details Date Type Department Care Team (Late st Contact Info) Description 03/05/2025 Refill [facility] MEDICINE 230 [place], [place] [phone] Madonna Plascencia MD 230 [place], [place] [phone] Social History Tobacco Use Types Packs/Day Years [...] Info) Description 10/23/2025 10:30 AM EST Telemedicine [facility] MED & PEDS 505 [place] [address] Joan Shipley, RN 505 [place] [address] documented as of this encounter Visit Diagnoses Not on filedocumented in this encounter Additional Health Concerns Assessment Noted Time PHQ-9 Depression Total Score: 0 12/26/19 11:12 AM EST documented as of this encounter Care Teams Color Buffer Relationship Specialty Start Date End Date Madonna Plascencia MD 230 [place] [address] PCP - General Family Medicine 08/07/14 Eric Jaimes Digital Imager 03/31/25 documented as of this encounter
--- OUTSIDE RECORDS SUMMARY | 2025-08-31 07:40 | XMS_ITS | Encounter Summary ---
Author Organization [employer] Address [address] [facility] 7t [place] [address] Care Team Providers Care Mowing Machine Operator Name Role Phone Madonna Plascencia MD Primary Care Provider [phone] Reason for Visit * Reason Onset Date Comments Referral 01/25/2024 Hospital Follow-up 01/25/2024 Encounter Details Date Type Department Care Team ([facility] st Contact Info) Description 01/25/2024 Telephone [facility] MEDICINE 230 [place], [place] [phone] Madonna Plascencia MD 230 [place], [place] [phone] Referral; Hospital Follow-up Social History Tobacco Use [...] Last Message ( Pt was [place] at [facility] [place]24 and discharged 01/22/24. Referral requested for wound care located at [address] [place] [address] and a cardiology [place] . Please contact at [phone] for any additional questions . ) * Telephone Encounter - Adry Steinberg - 01/25/2024 10:40 AM EDT Tc from pt friend Tung requesting to 2 referral . Pt was seen at [facility] [place] 01[place]18[place]24 and discharged 01/22/24. Referral requested for wound care located at [address] [place] [address] and a cardiology [place] . Please contact at [phone] for any additional questions . documented in this encounter Plan of Treatment Upcoming Encounters Date Type Department Care Team (Late st Contact Info) Description 10/23/2025 10:30 AM EST Telemedicine [facility] MED & PEDS 505 [place] [address] Joan Shipley, RN 505 [place] [address] documented as of this encounter Visit Diagnoses Not on filedocumented in this encounter Additional Health Concerns Assessment Noted Time PHQ-9 Depression Total Score: 0 07/07/20 23 1:17 PM EDT documented as of this encounter Care Teams Mowing Machine Operator Relationship Specialty Start Date End Date Madonna Plascencia MD 230 [place] [address] PCP - General Family Medicine 08/07/14 Eric Jaimes Platform Inspector 03/31/25 documented as of this encounter
--- OUTSIDE RECORDS SUMMARY | 2025-08-31 07:41 | XMS_ITS | Encounter Summary ---
Author Organization [employer] Address [address] [facility] 7t [place] [address] Care Team Providers Care Black Topper Name Role Phone Madonna Plascencia MD Primary Care Provider Reason for Visit * Reason Onset Date Comments Med Refill 09/01/2024 Encounter Details Date Type Department Care Team ([facility] st Contact Info) Description 09/01/2024 Telephone [facility] MEDICINE 230 [place], [place] [phone] Madonna Plascencia MD 230 [place], [place] [phone] Med Refill Social History Tobacco Use Types [...] Miscellaneous Notes * Telephone Encounter - Aurelio Carlos - 09/01/2024 3:46 PM EDT TC from pt requesting medication refill. Medications needing refill : morphine (MSIR) 30 MG tablet [facility]: [facility][id number] - [place] - [address] [facility] [address] Contact pt at [phone] documented in this encounter Plan of Treatment Upcoming Encounters Date Type Department Care Team (Late st Contact Info) Description 10/23/2025 10:30 AM EST Telemedicine [facility] MED & PEDS 505 [place] [address] Joan Shipley, RN 505 [place] [address] documented as of this encounter Visit Diagnoses Not on filedocumented in this encounter Additional Health Concerns Assessment Noted Time PHQ-9 Depression Total Score: 0 07/07/20 23 1:17 PM EDT documented as of this encounter Care Teams Black Topper Relationship Specialty Start Date End Date Madonna Plascencia MD [address] [place] [address] PCP - General Family Medicine 08/07/14 Eric Jaimes Dude Wrangler 03/31/25 documented as of this encounter
--- OUTSIDE RECORDS SUMMARY | 2025-08-31 07:41 | XMS_ITS | Encounter Summary ---
Author Organization [employer] Address [address] [facility] 7t [place] [address] Care Team Providers Care Turf Grower Name Role Phone Madonna Plascencia MD Primary Care Provider [phone] Reason for Visit * Reason Comments Med Refill Encounter Details Date Type Department Care Team ([facility] st Contact Info) Description 08/25/2025 Refill [facility] MEDICINE 230 [place], [place] [phone] Madonna Plascencia MD 230 [place], [place] [phone] Social History Tobacco Use Types Packs/Day Years [...] Info) Description 10/23/2025 10:30 AM EST Telemedicine [facility] MED & PEDS 505 [place] [address] Joan Shipley, RN 505 [place] [address] documented as of this encounter Visit Diagnoses Not on filedocumented in this encounter Additional Health Concerns Assessment Noted Time PHQ-9 Depression Total Score: 0 12/26/19 11:12 AM EST documented as of this encounter Care Teams Turf Grower Relationship Specialty Start Date End Date Madonna Plascencia MD 230 [place] [address] PCP - General Family Medicine 08/07/14 Eric Jaimes Taxicab Driver 03/31/25 documented as of this encounter
--- OUTSIDE RECORDS SUMMARY | 2025-08-31 07:41 | XMS_ITS | Encounter Summary ---
Author Organization [employer] Address [address] [facility] 7t [place] [address] Care Team Providers Care Marketing Editor Name Role Phone Madonna Plascencia MD Primary Care Provider [phone] Reason for Visit * Reason Onset Date Comments Med Refill 07/06/2024 Encounter Details Date Type Department Care Team ([facility] st Contact Info) Description 07/06/2024 Telephone [facility] MEDICINE 230 [place], [place] [phone] Madonna Plascencia MD 230 [place], [place] [phone] Med Refill Social History Tobacco Use Types [...] be ( ES ) Please contact at [phone] * Telephone Encounter - Timmy Stephenson - 07/06/2024 10:03 AM EDT TC from pt requesting medication refill. Medications needing refill: morphine CR (MS Contin) 30 MG 12 hr tablet To be sent to: [facility]/pharmacy #[address] [place] [address] documented in this encounter Plan of Treatment Upcoming Encounters Date Type Department Care Team ([facility] st Contact Info) Description 10/23/2025 10:30 AM EST Telemedicine [facility] MED & PEDS 505 [place] [address] Joan Shipley RN 505 [place] [address] documented as of this encounter Visit Diagnoses Not on filedocumented in this encounter Additional Health Concerns Assessment Noted Time PHQ-9 Depression Total Score: 0 07/07/20 23 1:17 PM EDT documented as of this encounter Care Teams Marketing Editor Relationship Specialty Start Date End Date Madonna Plascencia MD [address] [place] [address] PCP - General Family Medicine 08/07/14 Eric Jaimes Mold Repairer 03/31/25 documented as of this encounter
--- OUTSIDE RECORDS SUMMARY | 2025-08-31 07:41 | XMS_ITS | Encounter Summary ---
Author Organization [employer] Address [address] [facility] 7t [place] [address] Care Team Providers Care Humidifier Attendant Name Role Phone Madonna Plascencia MD Primary Care Provider [phone] Reason for Visit * Reason Comments Med Refill Encounter Details Date Type Department Care Team (Late st Contact Info) Description 07/11/2024 Refill [facility] MEDICINE 230 [place], [place] [phone] Madonna Plascencia MD 230 [place], [place] [phone] Social History Tobacco Use Types Packs/Day Years [...] Info) Description 10/23/2025 10:30 AM EST Telemedicine [facility] MED & PEDS 505 [place] [address] Joan Shipley, MARIANNE 505 [place] [address] documented as of this encounter Visit Diagnoses Not on filedocumented in this encounter Additional Health Concerns Assessment Noted Time PHQ-9 Depression Total Score: 0 07/07/20 23 1:17 PM EDT documented as of this encounter Care Teams Humidifier Attendant Relationship Specialty Start Date End Date Madonna Plascencia MD [address] [place] [address] PCP - General Family Medicine 08/07/14 Eric Jaimes Performance Improvement Consultant 03/31/25 documented as of this encounter
--- OUTSIDE RECORDS SUMMARY | 2025-08-31 07:41 | XMS_ITS | Encounter Summary ---
Author Organization [employer] Address [address] [facility] 7t [place] [address] Care Team Providers Care Software Engineer Backend Name Role Phone Madonna Plascencia MD Primary Care Provider [phone] Reason for Visit * Reason Onset Date Comments Med Refill 05/09/2024 Encounter Details Date Type Department Care Team ([facility] st Contact Info) Description 05/09/2024 Telephone [facility] MEDICINE 230 [place], [place] [phone] Madonna Plascencia MD 230 [place], [place] [phone] Med Refill Social History Tobacco Use Types [...] 12 hr tablet To be sent to: [facility]/pharmacy #[id number] [place], [place] - [address] [place] [address] documented in this encounter Plan of Treatment Upcoming Encounters Date Type Department Care Team (Late st Contact Info) Description 10/23/2025 10:30 AM EST Telemedicine [facility] MED & PEDS 505 [place] [address] Joan Shipley, RN 505 [place] [address] documented as of this encounter Visit Diagnoses Not on filedocumented in this encounter Additional Health Concerns Assessment Noted Time PHQ-9 Depression Total Score: 0 07/07/20 23 1:17 PM EDT documented as of this encounter Care Teams Software Engineer Backend Relationship Specialty Start Date End Date Madonna Plascencia MD 230 [place] [address] PCP - General Family Medicine 08/07/14 Eric Jaimes Telephone Station Installer 03/31/25 documented as of this encounter
--- OUTSIDE RECORDS SUMMARY | 2025-08-31 07:41 | XMS_ITS | Encounter Summary ---
Author Organization [employer] Address [address] [facility] 7t [place] [address] Care Team Providers Care Rework Operator Name Role Phone Madonna Plascencia MD Primary Care Provider [phone] Encounter Details Date Type Department Care Team (Latest Contact Info) Description 08/29/2025 Travel Social History Tobacco Use Types Packs/Day [...] Description 10/23/2025 10:30 AM EST Telemedicine [facility] MED & PEDS 505 [place] [address] Joan Shipley, MARIANNE 505 [place] [address] documented as of this encounter Visit Diagnoses Not on filedocumented in this encounter Additional Health Concerns Assessment Noted Time PHQ-9 Depression Total Score: 0 12/26/19 11:12 AM EST documented as of this encounter Care Teams Rework Operator Relationship Specialty Start Date End Date Madonna Plascencia MD 230 [place] [address] PCP - General Family Medicine 08/07/14 Eric Jaimes Chemistry Technical Officer 03/31/25 documented as of this encounter
--- OUTSIDE RECORDS SUMMARY | 2025-08-31 07:41 | XMS_ITS | Encounter Summary ---
Author Organization [employer] Address 75 [facility] 7t [place] [address] Care Team Providers Care Cnc Operator Name Role Phone Madonna Plascencia MD Primary Care Provider [phone] Reason for Visit * Reason Comments Med Refill Encounter Details Date Type Department Care Team (Late st Contact Info) Description 10/05/[address] [facility] MEDICINE 230 [place], [place] [phone] Madonna Plascencia MD 230 [place], [place] [phone] Type 2 diabetes mellitus with hyperglycemia, with long-term current use of insulin ([facility]) Social History Tobacco Use Types Packs/Day Years [...] [facility] [place] [facility] 505 [place] [address] Joan Shipley, MARIANNE 505 [place] [address] documented as of this encounter Visit Diagnoses Diagnosis Type 2 diabetes mellitus with hyperglycemia, with long-term current use of insulin (HCC) documented in this encounter Additional Health Concerns Assessment Noted Time PHQ-9 Depression Total Score: 0 07/07/20 23 1:17 PM EDT documented as of this encounter Care Teams Cnc Operator Relationship Specialty Start Date End Date Madonna Plascencia MD [address] [place] [address] PCP - General Family Medicine 08/07/14 Eric Jaimes Dry Room Attendant 03/31/25 documented as of this encounter
--- OUTSIDE RECORDS SUMMARY | 2025-08-31 07:41 | XMS_ITS | Encounter Summary ---
Author Organization [employer] Address [address] [facility] 7t [place] [address] Care Team Providers Care Continuous Mining Machine Lode Miner Name Role Phone Madonna Plascencia MD Primary Care Provider [phone] Reason for Visit * Reason Onset Date Comments CCA 08/29/2025 Encounter Details Date Type Department Care Team ([facility] st Contact Info) Description 08/29/2025 Telephone [facility] MEDICINE 230 [place], [place] [phone] Nila Bashir RN CCA Social History Tobacco Use Types Packs/Day Years [...] encounter Miscellaneous Notes * Telephone Encounter - Nila Bashir RN - 08/29/2025 1:53 PM EDT TC placed to [facility] Provider Services Line and a direct message will be sent to the pt managed [facility] lia[facility] to request below from PCP. enamel drier to call back the office ----- Message from Madonna Plascencia MD sent at 08/29/2025 1:23 PM EDT ----- Please call patient's managed care liaison and ask them to arrange a [facility] RN home visit for influenza, PCV20, and COVID vaccines. Patient is home-bound due to diabetic foot ulcer, chronic osteomyelitis. Thankyou. documented in this encounter Plan of Treatment Upcoming Encounters Date Type Department Care Team (Late st Contact Info) Description 10/23/2025 10:30 AM EST Telemedicine [facility] MED & PEDS 505 [place] [address] Joan Shipley, RN 505 [place] [address] documented as of this encounter Visit Diagnoses Not on filedocumented in this encounter Additional Health Concerns Assessment Noted Time PHQ-9 Depression Total Score: 0 12/26/19 25 11:12 AM EST documented as of this encounter Care Teams Continuous Mining Machine Lode Miner Relationship Specialty Start Date End Date Madonna Plascencia MD 230 [place] [address] PCP - General Family Medicine 08/07/14 Eric Jaimes Beam Carrier Hauler Pusher 03/31/25 documented as of this encounter
--- OUTSIDE RECORDS SUMMARY | 2025-08-31 07:41 | XMS_ITS | Encounter Summary ---
Author Organization [employer] Address [address] [facility] 7t [place] [address] Care Team Providers Care Residential Solar Consultant Name Role Phone Madonna Plascencia MD Primary Care Provider [phone] Encounter Details Date Type Department Care Team ([facility] st Contact Info) Description 07/12/2024 Orders Only [facility] MEDICINE [address] [place], [place] [phone] Madonna Plascencia MD [address] [place], [place] [phone] Social History Tobacco Use Types Packs/Day Years [...] Upcoming Encounters Date Type Department Care Team ([facility] st Contact Info) Description 10/23/2025 10:30 AM EST Telemedicine [facility] MED & PEDS [address] [place] [address] Joan Shipley, RN [address] [place] [address] documented as of this encounter Visit Diagnoses Not on filedocumented in this encounter Additional Health Concerns Assessment Noted Time PHQ-9 Depression Total Score: 0 07/07/20 23 1:17 PM EDT documented as of this encounter Care Teams Residential Solar Consultant Relationship Specialty Start Date End Date Madonna Plascencia MD [address] [place] [address] PCP - General Family Medicine 08/07/14 Eric Jaimes Service Architect 03/31/25 documented as of this encounter
--- OUTSIDE RECORDS SUMMARY | 2025-08-31 07:41 | XMS_ITS | Encounter Summary ---
Author Organization [employer] Address [address] [facility] 7t [place] [address] Care Team Providers Care Education Nurse Name Role Phone Madonna Plascencia MD Primary Care Provider [phone] Reason for Visit * Reason Comments Med Refill Encounter Details Date Type Department Care Team (Late st Contact Info) Description 07/20/2025 Refill [facility] MED[facility]INE 230 [place], [place] [phone] Madonna Plascencia MD [address] [place], [place] [phone] Social History Tobacco Use Types Packs/Day Years [...] Info) Description 10/23/2025 10:30 AM EST Telemedicine [facility] MED & PEDS [address] [place] [address] Joan Shipley, RN 505 [place] [address] documented as of this encounter Visit Diagnoses Not on filedocumented in this encounter Additional Health Concerns Assessment Noted Time PHQ-9 Depression Total Score: 0 12/26/19 11:12 AM EST documented as of this encounter Care Teams Education Nurse Relationship Specialty Start Date End Date Madonna Plascencia MD [address] [place] [address] PCP - General Family Medicine 08/07/14 Eric Jaimes Commercial Stripper 03/31/25 documented as of this encounter
--- OUTSIDE RECORDS SUMMARY | 2025-08-31 07:41 | XMS_ITS | Encounter Summary ---
Author Organization [employer] Address [address] [facility] 7t [place] [address] Care Team Providers Care Water Resource Consultant Name Role Phone Madonna Plascencia MD Primary Care Provider [phone] Reason for Visit * Reason Onset Date Comments Med Refill 08/11/2025 Encounter Details Date Type Department Care Team ([facility] st Contact Info) Description 08/11/2025 Telephone [facility] MEDICINE [address] [place], [place] [phone] Madonna Plascencia MD [address] [place], [place] [phone] Med Refill Social History Tobacco Use Types [...] * Telephone Encounter - Christian Jaime - 08/11/2025 8:51 AM EDT TC from pt requesting medication refill. Medications needing refill : morphine (MSIR) 30 MG tablet To be sent to: [facility] - [place], [place] - [address] [facility] documented in this encounter Plan of Treatment Upcoming Encounters Date Type Department Care Team (Late st Contact Info) Description 10/23/2025 10:30 AM EST Telemedicine [facility]S [address] [place] [address] Joan Shipley, RN [address] [place] [address] documented as of this encounter Visit Diagnoses Not on filedocumented in this encounter Additional Health Concerns Assessment Noted Time PHQ-9 Depression Total Score: 0 12/26/19 11:12 AM EST documented as of this encounter Care Teams Water Resource Consultant Relationship Specialty Start Date End Date Madonna Plascencia MD [address] [facility] [place] [address] PCP - General Family Medicine 08/07/14 Eric Jaimes Fisher [employer] 03/31/25 documented as of this encounter
--- OUTSIDE RECORDS SUMMARY | 2025-08-31 07:41 | XMS_ITS | Encounter Summary ---
Author Organization [employer] Address [address] [facility] 7t [place] [address] Care Team Providers Care Machine Boss Name Role Phone Madonna Plascencia MD Primary Care Provider [phone] Reason for Visit * Reason Onset Date Comments Appointment Request 10/17/2024 Encounter Details Date Type Department Care Team ([facility] st Contact Info) Description 10/17/2024 Telephone [facility] MEDICINE 230 [place], [place] [phone] Madonna Plascencia MD [address] [place], [place] [phone] Appointment Request Social History Tobacco Use Types [...] encounter Miscellaneous Notes * Telephone Encounter - Aurelioteetee NarayananCarlos - 10/17/2024 9:15 AM EST Tc from pt requesting to see if it possible for pt to get a earlier apt due to having a Apt to amputate his foot that same day. Contact pt at [phone] documented in this encounter Plan of Treatment Upcoming Encounters Date Type Department Care Team (Late st Contact Info) Description 10/23/2025 10:30 AM EST Telemedicine [facility] MED & PEDS [address] [place] [address] Joan Shipley, RN [address] [place] [address] documented as of this encounter Visit Diagnoses Not on filedocumented in this encounter Additional Health Concerns Assessment Noted Time PHQ-9 Depression Total Score: 0 07/07/20 23 1:17 PM EDT documented as of this encounter Care Teams Machine Boss Relationship Specialty Start Date End Date Madonna Plascencia MD [address] [place] [address] PCP - General Family Medicine 08/07/14 Eric Theodore Screen Tender 03/31/25 documented as of this encounter
--- OUTSIDE RECORDS SUMMARY | 2025-08-31 07:41 | XMS_ITS | Encounter Summary ---
Author Organization [employer] Address [address] [place] [address] 7t [place] [address] Care Team Providers Care Loom Winder Tender Name Role Phone Madonna Plascencia MD Primary Care Provider [phone] Encounter Details Date Type Department Care Team (Late st Contact Info) Description 09/29/2022 Abstract [facility] MEDICINE [address] [place] [address] Madonna Plascencia MD [address] [place] [address] Social History Tobacco Use Types Packs/Day Years [...] Info) Description 10/23/2025 10:30 AM EST Telemedicine [facility] MED [facility] PEDS 505 [place] [address] Joan Shipley, MARIANNE 505 [place] [address] documented as of this encounter Visit Diagnoses Not on filedocumented in this encounter Care Teams Loom Winder Tender Relationship Specialty Start Date End Date Madonna Plascencia MD [address] [place] [address] PCP - General Family Medicine 08/07/14 Eric Theodore Asbestos Brake Lining Finisher 03/31/25 documented as of this encounter
--- OUTSIDE RECORDS SUMMARY | 2025-08-31 07:41 | XMS_ITS | Encounter Summary ---
Author Organization [employer] Address [address] [facility] 7t [place] [address] Care Team Providers Care Entry Rep Name Role Phone Madonna Plascencia MD Primary Care Provider [phone] Reason for Visit * Reason Comments Med Refill Encounter Details Date Type Department Care Team ([facility] st Contact Info) Description 03/12/2024 Refill [facility] MEDICINE [address] [place], [place] [phone] Madonna Plascencia MD 230 [place], [place] [phone] Social History Tobacco Use Types Packs/Day Years [...] Description 10/23/2025 10:30 AM EST Telemedicine [facility] MED & PEDS [address] [place] [address] Joan Shipley, MARIANNE 505 [place] [address] documented as of this encounter Visit Diagnoses Not on filedocumented in this encounter Additional Health Concerns Assessment Noted Time PHQ-9 Depression Total Score: 0 07/07/20 23 1:17 PM EDT documented as of this encounter Care Teams Entry Rep Relationship Specialty Start Date End Date Madonna Plascencia MD [address] [place] [address] PCP - General Family Medicine 08/07/14 Eric Jaimes Call Out Clerk 03/31/25 documented as of this encounter
--- OUTSIDE RECORDS SUMMARY | 2025-08-31 07:41 | XMS_ITS | Encounter Summary ---
Author Organization [employer] Address [address] [facility] [address] [place] [address] Care Team Providers Care Machinist Apprentice Name Role Phone Madonna Plascencia MD Primary Care Provider [phone] Reason for Visit * Reason Comments Med Refill Encounter Details Date Type Department Care Team ([facility] st Contact Info) Description 09/04/2023 Refill [facility] MEDICINE 230 [place], [place] [phone] Madonna Plascencia MD [address] [place], [place] [phone] Social History Tobacco Use Types Packs/Day Years [...] Info) Description 10/23/2025 10:30 AM EST Telemedicine [facility] MED & PEDS [address] [place] [address] Joan Shipley, MARIANNE 505 [place] [address] documented as of this encounter Visit Diagnoses Not on filedocumented in this encounter Additional Health Concerns Assessment Noted Time PHQ-9 Depression Total Score: 0 07/07/20 23 1:17 PM EDT documented as of this encounter Care Teams Machinist Apprentice Relationship Specialty Start Date End Date Madonna Plascencia MD [address] [place] [address] PCP - General Family Medicine 08/07/14 Eric Jaimes Utility Tractor Operator 03/31/25 documented as of this encounter
--- OUTSIDE RECORDS SUMMARY | 2025-08-31 07:41 | XMS_ITS | Clinical Summary ---
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 exists HIB Vaccines Aged Out No longer eligi [...] Procedure Name Priority Date/Time Associated Diagnosis Comments TSH Routine 08/29/2025 Hypothyroidism, unspecified type HEPATITIS C VIRAL RNA, QUANTITATIVE, REAL-TIME PCR Routine 07/19/2025 10:14 AM EDT CREATININE, SERUM Routine 07/19/2025 10: 14 AM EDT UREA NITROGEN (BUN) Routine 07/19/2025 1 0:14 AM EDT ELECTROLYTE PANEL Routine 07/19/2025 10: 14 AM EDT CBC WITH AUTO DIFFERENTIAL Routine 07/19/2025 10:14 AM EDT ALDOLASE Routine 07/19/2025 10:14 AM EDT Transaminitis CREATINE KINASE, TOTAL Routine 07/19/2025 10:14 AM EDT Transaminitis HEPATITIS C AB W/REFL TO HCV RNA, QN, PCR Routine 07/19/2025 10:14 AM EDT Transaminitis HEPATITIS A ANTIBODY, TOTAL Routine 07/19/2025 10:14 AM EDT Immunity status testing T4, FREE Routine 07/19/2025 10:14 AM EDT Elevated TSH TSH Routine 07/19/2025 10:14 AM EDT Elevated TSH HEPATIC FUNCTION PANEL Routine 07/19/2025 10:14 AM EDT Transaminitis IRON AND TOTAL IRON BINDING CAPACITY Routine 07/19/2025 10:14 AM EDT Anemia of chronic disease THYROID PEROXIDASE ANTIBODIES Routine 07/19/2025 10:14 AM EDT Elevated TSH T4, FREE Routine 07/19/2025 10:14 AM EDT Elevated TSH TSH Routine 07/19/2025 10:14 AM EDT Elevated TSH POCT ASHU-14 URINE DRUG SCREEN Routine 07/19/2025 9:46 AM EDT Chronic low back pain, unspecified back pain laterality, unspecified whether sciatica present ALBUMIN, RANDOM URINE W/CREATININE Routine 07/19/2025 9:30 AM EDT Type 2 diabetes mellitus with stage 3 chronic kidney disease, with long-term current use of insulin, unspecified whether stage 3a or 3b CKD (CMS/HCC) HEMOGLOBIN A1C Routine 04/28/2025 9:57 AM EDT [...] whether stage 3a or 3b CKD (CMS/HCC) HM HIV 1/2 ANTIGEN AND ANTIBODY Routine 08/02/2019 HM COLONOSCOPY Routine 09/30/2018 from Last 3 Months or Most Recently Relevant to Health Maintenance Results * TSH (08/29/2025) Only the most recent of3 resultswithin the time period is included. Blood Venous blood specimen / Unknown us Madonna Plascencia MD LAB BLOOD ORDERABLES Final Resul t [facility] [address] [place] [phone] * Hepatitis C Viral RNA, Quantitative, Real-Time PCR (07/19/2025 10:14 AM EDT) [facility] Hepatitis C Viral Load <15 NOT DETECTED NOT DETECTED IU/mL [facility] HCV Log PCR <1.18 NOT DETECTED NOT DETECTED Log IU/mL [facility] Comment:For additional infor stacey, please refer [email or web address].[email or web address]/faq/[email or web address](This link is being provided for informational/educational purposes only.)THIS TEST WAS PERFORMED AT:[employer] [place] [id number] TAYLOR MD 07/19/2025 10:1 4 AM EDT 07/20/2025 10:45 AM EDT Generic External Data Provider LAB BLOOD ORDERAB LES Final Result Performing Organization Address [facility]/ZIP Co de Phone Number [facility] [address] [place] [phone] * (ABNORMAL) Creatinine, Serum (07/19/2025 10:14 AM EDT) [facility] Creatinine, Serum 1.93(H) 0.5 - 1.4 mg/dL [facility] Estimated Glomerular Filt Rate 36 [facility] Comment:Chronic Kidney Disea se: Estimated GFR < 60 mL/min/1.44h0Jbxaro Kidney Disease: Estimated GFR < 15 mL/min/1.73m2 07/19/2025 10:1 4 AM EDT 07/19/2025 2:20 PM EDT us Generic External Data Provider LAB BLOOD ORDERAB LES Final Result Performing Organization Address [facility]/ZIP Co de Phone Number [facility] [address] [place] [phone] * (ABNORMAL) CBC auto differential (07/19/2025 10:14 AM EDT) White Blood Count 7.5 4.8 - 10.8 X10*3/uL [facility] Red Blood Count 3.17(L) 4.60 - 5.80 X10*6/uL [facility] Hemoglobin 8.9(L) 14.0 - 18.0 g/dl [facility] Hematocrit 27.8(L) 42.0 - 52.0 % [facility] Mean Corpuscular Volume 87.7 80.0 - 98.0 fL [facility] Mean Corpuscular Hemoglobin 28.1 27.0 - 33.0 pg [facility] Mean Corpuscular HGB Conc 32.0 31.0 - 36.0 g/dl [facility] Red Cell Distribution Width 13.2 11.0 - 16.0 % [facility] Platelet Count 237 160 - 400 X10*3/uL [facility] Mean Platelet Volume 10.4 9.4 - 12.4 fL [facility] Neutrophils Percent Auto 60.5 45 - 73 % [facility] Imm Gran Pct Auto 0.8(H) 0.0 - 0.4 % [facility] Lymphocytes Percent Auto 25.9 20 - 40 % [facility] Monocytes Percent Auto 9.2 2 - 11 % [facility] Eosinophils Percent Auto 3.2 0 - 4 % [facility] Basophils Percent Auto 0.4 0 - 2 % [facility] NRBC Pct Auto 0.0 0.0 - 0.2 /100WBC [facility] Neutrophils Absolute Auto 4.6 2.0 - 8.3 x10*3/uL [facility] Imm Gran Abs Auto 0.06(H) 0.00 - 0.03 X10*3/uL [facility] Lymphocytes Absolute Auto 2.0 1.2 - 4.9 X10*3/uL [facility] Monocytes Absolute Auto 0.7 0.1 - 1.2 X10*3/uL [facility] Eosinophils Absolute Auto 0.2 0.0 - 0.4 X10*3/uL [facility] Basophils Absolute Auto 0.0 0.0 - 0.2 X10*3/uL [facility] NRBC Abs Auto 0.000 0.0 - 0.012 X10*3/uL [facility] 07/19/2025 10:1 4 AM EDT 07/19/2025 2:00 PM EDT us Generic External Data Provider LAB BLOOD ORDERAB LES Final Result Performing Organization Address [facility] Co de Phone Number [facility] [address] [place] [phone] * Hepatitis C Antibody with Reflex to HCV, RNA, Quantitative, Real-Time PCR (07/19/2025 10:14 AM EDT) Hepatitis C Antibody GRAYZONE Nonreactive [facility] Comment:Antibodies to HCV ma y or may not be present. Suggest repeatanti-HCV in 4-6 weeks and/or HCV viral load if clinicallyindicated. Blood Venous blood specimen / Unknown 07/19/2025 10:14 AM EDT 07/19/2025 2:00 PM EDT us Madonna Plascencia MD LAB BLOOD ORDERABLES Final Resul t Performing Organization Address [facility] de Phone Number [facility] [address] [place] [phone] * Thyroid Peroxidase Antibodies (07/19/2025 10:14 AM EDT) Thyroid Peroxidase Antibodies 1 <9 IU/mL [facility] Comment:THIS TEST WAS PERFOR MED AT:[employer] [place] [id number] TAYLOR MD Blood Venous blood specimen / Unknown 07/19/2025 10:14 AM EDT 07/19/2025 2:00 PM EDT us Madonna Plascencia MD LAB BLOOD ORDERABLES Final Resul t Performing Organization Address [facility] Co de Phone Number [facility] [address] [place] [phone] * (ABNORMAL) Iron And Total Iron Binding Capacity (07/19/2025 10:14 AM EDT) Iron 89 45 - 160 mcg/dL [facility] Total Iron Binding Capacity 203(L) 228 - 428 mcg/dL [facility] Percent Iron Saturation 44 15 - 50 % [facility] Unsaturated Iron Binding 114 ug/dL [facility] Blood Venous blood specimen / Unknown 07/19/2025 10:14 AM EDT 07/19/2025 2:20 PM EDT Madonna Plascencia MD LAB BLOOD ORDERABLES Final Resul t Performing Organization Address [facility] Co [facility] Number [facility] [address] [place] [phone] * Hepatitis A Antibody, Total (07/19/2025 10:14 AM EDT) Pathologist [facility] Hepatitis A Antibody IgG REACTIVE Nonreactive [facility] Comment:The presence of IgG anti-HAV implies past HAV infection(recent or distant) or vaccination against HAV. Blood Venous blood specimen / Unknown 07/19/2025 10:14 AM EDT 07/19/2025 2:20 PM EDT Madonna Plascencia MD LAB BLOOD ORDERABLES Final Resul t Performing Organization Address [facility] Co de Phone Number [facility] [address] [place] [phone] * Aldolase (07/19/2025 10:14 AM EDT) Pathologist [facility] Aldolase 5.8 <=8.1 U/L [facility] Comment:THIS TEST WAS PERFOR MED AT:[employer] [place] [id number] JO MD,PHD Blood Venous blood specimen / Unknown 07/19/2025 10:14 AM EDT 07/19/2025 2:20 PM EDT us Madonna Plascencia MD LAB BLOOD ORDERABLES Final Resul t Performing Organization Address [facility] Co de Phone Number [facility] [address] [place] [phone] * (ABNORMAL) BUN (Blood Urea Nitrogen) (07/19/2025 10:14 AM EDT) Urea Nitrogen (BUN) 26(H) 9 - 16 mg/dL [facility] 07/19/2025 10:1 4 AM EDT 07/19/2025 2:20 PM EDT us Generic External Data Provider LAB BLOOD ORDERAB LES Final Result Performing Organization Address [facility] Co de Phone Number [facility] [address] [place] [phone] * T4, Free (07/19/2025 10:14 AM EDT) Only the most recent of2 resultswithin the time period is included. Free T4 (Free Thyroxine) 0.78 0.71 - 1.85 ng/dL [facility] Blood Venous blood specimen / Unknown 07/19/2025 10:14 AM EDT 07/19/2025 2:00 PM EDT us Madonna Plascencia MD LAB BLOOD ORDERABLES Final Resul t Performing Organization Address [facility] Co de Phone Number [facility] [address] [place] [phone] * (ABNORMAL) Creatine Kinase, Total (07/19/2025 10:14 AM EDT) Creatine Kinase Total 34(L) 38 - 174 U/L [facility] Blood Venous blood specimen / Unknown 07/19/2025 10:14 AM EDT 07/19/2025 2:20 PM EDT Madonna Plascencia MD LAB BLOOD ORDERABLES Final Resul t Performing Organization Address [facility] Co de Phone Number [facility] [address] [place] [phone] * (ABNORMAL) Hepatic Function Panel (07/19/2025 10:14 AM EDT) Bilirubin, Total 0.5 0.0 - 1.0 mg/dL [facility] Bilirubin, Direct 0.2 0.0 - 0.5 mg/dL [facility] Aspartate Amino Transferase 33 5 - 37 U/L [facility] Alanine Aminotransferase 41(H) 0 - 40 U/L [facility] Total Protein 7.5 6.5 - 8.0 g/dL [facility] Albumin Level 3.7 3.5 - 5.0 g/dL [facility] Alkaline Phosphatase 110 39 - 117 U/L [facility] Blood Venous blood specimen / Unknown 07/19/2025 10:14 AM EDT 07/19/2025 2:20 PM EDT us Madonna Plascencia MD LAB BLOOD ORDERABLES Final Resul t Performing Organization Address [facility] Co de Phone Number [facility] [address] [place] [phone] * Electrolyte Panel (07/19/2025 10:14 AM EDT) Sodium 138 135 - 145 mmol/L [facility] Potassium 3.8 3.3 - 5.1 mmol/L [facility] Chloride 101 96 - 108 mmol/L [facility] Carbon Dioxide 27 22 - 29 mmol/L [facility] Anion Gap 14 12 - 20 [facility] 07/19/2025 10:1 4 AM EDT 07/19/2025 2:20 PM EDT Generic External Data Provider LAB BLOOD ORDERAB LES Final Result [facility] [address] [place] [phone] * (ABNORMAL) POCT ASHU-14 Urine Drug Screen [...] AM EDT . Internal Pass Control Lot# [id number] Exp: 09-01-26 Madonna Plascencia MD POINT OF CARE TEST ENTER/EDIT OR DERABLES Final Result * Albumin, Random Urine W/Creatinine (07/19/2025 9:30 AM EDT) Creatinine, Urine 137.41 mg/dL [facility] Microalbumin Urine 9.0 mg/L [facility] Microalbum Creatinine Ratio Ur 6.5 <30 ug/mg cr [facility] Comment:Albumin/Creatinine R atio Reference Ranges: Normal: < 30 ug/mg creatinine Microalbuminuria: 30 - 300 ug/mg creatinineClinical Albuminuria: > 300 ug/mg creatinine Urine 07/19/2025 9:30 AM EDT 07/19/2025 2:11 PM EDT Madonna Plascencia MD LAB URINE ORDERABLES Final Resul t Performing Organization Address [facility] Co de Phone Number [facility] [address] [place] [phone] * (ABNORMAL) Lipid Panel with Reflex to Direct LDL (04/28/2025 9:57 AM EDT) Triglycerides 184(H) <150 mg/dL [facility] Comment:Desirable Triglyceri de: less than 150 mg/dLBorderline High Triglyceride 150-199 mg/dLHigh Triglyceride: 200-499 mg/dLVery High Triglyceride: greater than or equal to 5OO mg/dL Cholesterol 120 <200 mg/dL [facility] Comment:Desirable Cholestero l: less than 200 mg/dLBorderline High Cholesterol: 200-239 mg/dLHigh Cholesterol: greater than 239 mg/dL LDL Cholesterol Calculated 60 <100 mg/dL [facility] Comment:Desirable LDL: less than 100 mg/dLNear Optimal/Above Optimal LDL: 110- 129 mg/dLBorderline High LDL: 130-159 mg/dLHigh LDL: 160-189 mg/dLVery High LDL: greater than or equal to 190 mg/dL HDL Cholesterol 24(L) >40 mg/dL [facility] Comment:Desirable HDL: great er than 40 mg/dL Note: This HDL assay may give artificially low results in patients with liver disease. Blood 04/28/2025 9:57 AM EDT 04/28/2025 11:05 AM EDT Madonna Plascencia MD LAB BLOOD ORDERABLES Final Resul t Performing Organization Address [facility]/ZIP Co de Phone Number [facility] [address] [place] [phone] * (ABNORMAL) Hemoglobin A1c (04/28/2025 9:57 AM EDT) Hemoglobin A1c 7.4(H) <6.0 % [facility] Comment:Hemoglobin A1C Refer ence Range Adults: 4.8 - 6.0 % Non diabetic: < 6.0 % Goal: < 7.0 %Additional Action Suggested: > 8.0 %Note: Hemoglobin A1c results are invalid for patients with abnormal amounts of HbF. Blood transfusions may impact the HbA1c concentration in the patient sample. Estimated Average Glucose 166 mg/dL [facility] Comment:eAG = Estimated ave rage glucose which is %A1C expressed asaverage glucose, using the formula of the Z9M-PncpytdUfxaujx Glucose study (ADAG), Diabetes Care, Vol.31,#8,Jun. 2007 Blood Venous blood specimen / Unknown 04/28/2025 9:57 AM EDT 04/28/2025 11:05 AM EDT Madonna Plascencia MD LAB BLOOD ORDERABLES Final Resul t [facility] [address] [place] [phone] * HIV 1/2 Antigen and Antibody (08/02/2019) HIV Ag/Ab Nonreactive 08/02/2019 Alysha Paul MD HEALTH MAINTENANCE Final Result * Colonoscopy (09/30/2018) Colonoscopy Normal Normal 09/30/2018 [facility] Unassigned Pcp HEALTH MAINTENANCE Final Result from Last 3 Months or Most Recently Relevant to Health Maintenance Insurance [employer] < 65 Care Teams Cytology Teacher Relationship Specialty Start Date End Date Madonna Plascencia MD [address] [place] [phone] PCP - General Family Medicine 08/07/14 Eric Jaimes Surfacer Operator 03/31/25
--- OUTSIDE RECORDS SUMMARY | 2025-08-31 07:41 | XMS_ITS | Encounter Summary ---
Author Organization [employer] Address [address] [facility] [address] [place] [address] Care Team Providers Care Communication Assistant Name Role Phone Madonna Plascencia MD Primary Care Provider [phone] Reason for Visit * Reason Onset Date Comments provider out 05/16/2024 Encounter Details Date Type Department Care Team ([facility] st Contact Info) Description 05/16/2024 Refill [facility] [address] [place], [place] [phone] Madonna Plascencia MD [address] [place], [place] [phone] Social History Tobacco Use Types Packs/Day Years [...] Upcoming Encounters Date Type Department Care Team ([facility] st Contact Info) Description 10/23/2025 10:30 AM EST Telemedicine [facility] [address] [place] [phone] Joan Shipley, RN [address] [place] [address] documented as of this encounter Visit Diagnoses Not on filedocumented in this encounter Additional Health Concerns Assessment Noted Time PHQ-9 Depression Total Score: 0 07/07/20 1:17 PM EDT documented as of this encounter Care Teams Communication Assistant Relationship Specialty Start Date End Date Madonna Plascencia MD [address] [place] [phone] PCP - General Family Medicine 08/07/14 Eric Jaimes Pump Rebuilder 03/31/25 documented as of this encounter
--- OUTSIDE RECORDS SUMMARY | 2025-08-31 07:41 | XMS_ITS | Encounter Summary ---
Author Organization [employer] Address [address] [facility] [address] [place] [address] Care Team Providers Care Substitute Teacher Name Role Phone Madonna Plascencia MD Primary Care Provider [phone] Encounter Details Date Type Department Care Team (Latest Contact Info) Description 07/21/2025 Results Follow-Up [facility] [address] [place], [place] [phone] Madonna Plascencia MD [address] [place] [address] CBC auto differential Social History Tobacco Use Types Packs/Day Years [...] past 12 months, has t he electric, [employer], oil or water [employer] threatened to shut off services in your [...] encounter Miscellaneous Notes * Telephone Encounter - Ofelia Corrales RN - 08/29/2025 11:32 AM EDT Faxed home draw orders to [facility] home draw program and emailed supervisor housecleaner with instructions to draw on or after 08/31/25. * Telephone Encounter - Ofelia Corrales RN - 07/21/2025 9:05 AM EDT Labs ordered by pt's steel rule die maker. Telephone call placed to [facility] who report no upcoming appts.Pt last seen in December and has cancelled multiple appts since then. Requested she send message ayse workers compensation claims specialist to review labs as it appears pt need procrit injection. Telephone call placed to [facility]. Informed of results from CBC and need for possible procrit injection from nephrology. She reports the reason why they cancelled nephrology follow up is because he needed labs done first. Labs done because pt had to come in for pill count so he got it done while hewas here. She states will call nephrology to make follow up now. She denied any S/Sx of GI bleed (dark, tarry stools, abdominal pain, coffee ground emesis, etc). Informed of slightly abnormal TSH. Informed of options below: periodic labs or low dose levothyroxine with lab in 6 weeks which I can possibly send home draw for. She would like low dose levothyroxine sent with home draw TSH in 6 weeks. Advised that it is to be taken daily at least 40 minutes before food/drink or any other medications.Confirmed pharmacy as [facility]. She requested I make it primary pharmacy in chart as meds keep getting sent to alternate pharmacy. Updated chart to reflect this request. Queued levothyroxine. Please inform patient that her thyroid hormone is mildly abnormal. At this level, we can either monitor with periodic lab (which is difficult for him because usually home-bound) or try a low dose thyroid medication. Because he has constipation and increased insulin needs, I recommend trying levothyroxine. If patient agrees, please queue levothyroxine 50 mcg daily. Repeat lab in 6 weeks (please order lab). Thank you. * Telephone Encounter - Ofelia Corrales RN - 07/21/2025 9:05 AM EDT ----- Message from Madonna Plascencia MD sent at 07/21/2025 6:36 AM EDT ----- CBC was ordered by specialist. Please make sure patient has a follow up appointment with steel rule die maker. Patient probably needs Procrit from steel rule die maker, but please confirm if he is scheduled to receive Procrit injection from steel rule die maker. Please make sure patient is not having GI bleed. If yes, hold ASA and will refer to GI. Thank you. ----- Message ----- From: Interface, Lab Results In Sent: 07/19/2025 2:34 PM EDT To: Madonna Plascencia MD documented in this encounter Plan of Treatment Upcoming Encounters Date Type Department Care Team (Late st Contact Info) Description 10/23/2025 10:30 AM EST Telemedicine [facility] [address] [place] [address] Joan Shipley, MARIANNE [address] [place] [address] documented as of this encounter Procedures Procedure Name Priority Date/Time Associated Diagnosis Comments TSH Routine 08/29/2025 Hypothyroidism, unspecified type documented in this encounter Results * TSH (08/29/2025) Blood Venous blood specimen / Unknown us Madonna Plascencia MD LAB BLOOD ORDERABLES Final Resul t [facility] [address] [place] [phone] documented in this encounter Visit Diagnoses Diagnosis Hypothyroidism, unspecified type- Primary documented in this encounter Additional Health Concerns Assessment Noted Time PHQ-9 Depression Total Score: 0 12/26/19 11:12 AM EST documented as of this encounter Care Teams Substitute Teacher Relationship Specialty Start Date End Date Madonna Plascencia MD [address] [place] [address] PCP - General Family Medicine 08/07/14 Eric Jaimes Pricing Consultant 03/31/25 documented as of this encounter
--- OUTSIDE RECORDS SUMMARY | 2025-08-31 07:41 | XMS_ITS | Encounter Summary ---
Author Organization [employer] Address [address] [facility] 7t [place] [address] Care Team Providers Care Peoplesoft Hcm Developer Name Role Phone Madonna Plascencia MD Primary Care Provider [phone] Encounter Details Date Type Department Care Team (Late st Contact Info) Description 07/29/2024 Orders Only [facility] MEDICINE [address] [place], [place] [phone] Madonna Plascencia MD [address] [place], [place] [phone] Elevated TSH (Primary Dx) Social History Tobacco [...] Info) Description 10/23/2025 10:30 AM EST Telemedicine [facility] MED & PEDS [address] [place] [address] Joan Shipley, RN [address] [place] [address] documented as of this encounter Procedures Procedure Name Priority Date/Time Associated Diagnosis Comments THYROID PEROXIDASE ANTIBODIES Routine 07/19/2025 10:14 AM EDT Elevated TSH TSH Routine 07/19/2025 10:14 AM EDT Elevated TSH T4, FREE Routine 07/19/2025 10:14 AM EDT Elevated TSH T4, FREE Routine 07/29/2024 10:06 AM EDT documented in this encounter Results * Thyroid Peroxidase Antibodies (07/19/2025 10:14 AM EDT) Thyroid Peroxidase Antibodies 1 <9 IU/mL [facility] Comment:THIS TEST WAS PERFOR MED AT:[facility] [id number] TAYLOR MD Blood Venous blood specimen / Unknown 07/19/2025 10:14 AM EDT 07/19/2025 2:00 PM EDT us Madonna Plascencia MD LAB BLOOD ORDERABLES Final Resul t [facility] [address] [place] [phone] * T4, Free (07/19/2025 10:14 AM EDT) Free T4 (Free Thyroxine) 0.77 0.71 - 1.85 ng/dL [facility] Blood Venous blood specimen / Unknown 07/19/2025 10:14 AM EDT 07/19/2025 2:20 PM EDT Madonna Plascencia MD LAB BLOOD ORDERABLES Final Resul t Performing Organization Address City/[facility]/ZIP Co de Phone Number [facility] [address] [place] [phone] * (ABNORMAL) TSH (07/19/2025 10:14 AM EDT) Thyroid Stimulating Hormone 7.24(H) 0.32 - 4.0 uIU/mL [facility] Comment:Note: A sustained TS H level above 2.5 uIU/mL may warrant further investigation. TSH 3rd Generation ([facility]) Blood Venous blood specimen / Unknown 07/19/2025 10:14 AM EDT 07/19/2025 2:20 PM EDT us Madonna Plascencia MD LAB BLOOD ORDERABLES Final Resul t Performing Organization Address [facility] Co de Phone Number [facility] [address] [place] [phone] * (ABNORMAL) T4, Free (07/29/2024 10:06 AM EDT) Free T4 (Free Thyroxine) 0.70(L) 0.71 - 1.85 ng/dL [facility] 07/29/2024 10:0 6 AM EDT 07/29/2024 10:34 AM EDT us Madonna Plascencia MD LAB BLOOD ORDERABLES Final Resul t Performing Organization Address City/[facility]/ZIP Co de Phone Number [facility] [address] [place] [phone] documented in this encounter Visit Diagnoses Diagnosis Elevated TSH- Primary Other abnormal blood chemistry documented in this encounter Additional Health Concerns Assessment Noted Time PHQ-9 Depression Total Score: 0 07/07/20 23 1:17 PM EDT documented as of this encounter Care Teams Peoplesoft Hcm Developer Relationship Specialty Start Date End Date Madonna Plascencia MD [address] [place] [address] PCP - General Family Medicine 08/07/14 Eric Jaimes Stone Carriage Operator 03/31/25 documented as of this encounter
--- OUTSIDE RECORDS SUMMARY | 2025-08-31 07:41 | XMS_ITS | Encounter Summary ---
Author Organization [employer] Address [address] [place] [address] [address] [place] [address] Care Team Providers Care Blood Bank Laboratory Professional Name Role Phone Madonna Plascencia MD Primary Care Provider [phone] Reason for Visit * Reason Comments Med Refill Encounter Details Date Type Department Care Team (Late st Contact Info) Description 01/14/2023 Refill [facility] MEDICINE [address] [place] [address] Madonna Plascencia MD [address] [place] [address] Social History Tobacco Use Types Packs/Day Years [...] Info) Description 10/23/2025 10:30 AM EST Telemedicine [facility] CH[facility] MED & PEDS [address] [place] [address] Joan Shipley, MARIANNE [address] [place] [address] documented as of this encounter Visit Diagnoses Not on filedocumented in this encounter Care Teams Blood Bank Laboratory Professional Relationship Specialty Start Date End Date Madonna Plascencia MD [address] [place] [address] PCP - General Family Medicine 08/07/14 Eric Jaimes Tax Examiner 03/31/25 documented as of this encounter
--- OUTSIDE RECORDS SUMMARY | 2025-08-31 07:41 | XMS_ITS | Encounter Summary ---
Author Organization [employer] Address [address] [place] [address] [address] [place] [address] Care Team Providers Care Ticket Collector Name Role Phone Madonna Plascencia MD Primary Care Provider [phone] Reason for Visit * Reason Comments Med Refill Encounter Details Date Type Department Care Team (Late st Contact Info) Description 11/20/2022 Refill [facility] MEDICINE [address] [place] [address] Madonna Plascencia MD [address] [place] [address] Chronic constipation Social History Tobacco Use Types [...] Info) Description 10/23/2025 10:30 AM EST Telemedicine [facility] CH[facility] MED & PEDS [address] [place] [address] Joan Shipley, MARIANNE [address] [place] [address] documented as of this encounter Visit Diagnoses Diagnosis Chronic constipation Unspecified constipation documented in this encounter Care Teams Ticket Collector Relationship Specialty Start Date End Date Madonna Plascencia MD [address] [place] [address] PCP - General Family Medicine 08/07/14 Eric Jaimes Drill Press Operator Helper 03/31/25 documented as of this encounter
--- OUTSIDE RECORDS SUMMARY | 2025-08-31 07:41 | XMS_ITS | Encounter Summary ---
Author Organization [employer] Address [address] [facility] [address]t [place] [address] Care Team Providers Care Self Propelled Dredge Operator Name Role Phone Madonna Plascencia MD Primary Care Provider [phone] Reason for Visit * Reason Onset Date Comments Med Refill 06/06/2024 Encounter Details Date Type Department Care Team ([facility] st Contact Info) Description 06/06/2024 Telephone [facility] MEDICINE [address] [place], [place] [phone] Madonna Plascencia MD [address] [place], [place] [phone] Med Refill Social History Tobacco Use Types [...] Miscellaneous Notes * Telephone Encounter - Demetrio Prasanna - 06/06/2024 9:27 AM EDT TC from pt requesting medication refill. Medications needing refill : morphine CR (MS Contin) 30 MG 12 hr tablet To be sent to: [facility]/pharmacy #[id number] [place], [place] - [address] [place] [address] documented in this encounter Plan of Treatment Upcoming Encounters Date Type Department Care Team (Late st Contact Info) Description 10/23/2025 10:30 AM EST Telemedicine [facility] MED & PEDS [address] [place] [address] Joan Shipley, RN [address] [place] [address] documented as of this encounter Visit Diagnoses Not on filedocumented in this encounter Additional Health Concerns Assessment Noted Time PHQ-9 Depression Total Score: 0 07/07/20 23 1:17 PM EDT documented as of this encounter Care Teams Self Propelled Dredge Operator Relationship Specialty Start Date End Date Madonna Plascencia MD [address] [place] [address] PCP - General Family Medicine 08/07/14 Eric Jaimes Parking Station Attendant 03/31/25 documented as of this encounter
--- OUTSIDE RECORDS SUMMARY | 2025-08-31 07:41 | XMS_ITS | Encounter Summary ---
Author Organization [employer] Address [address] [facility] [address] [place] [address] Care Team Providers Care Copy Lathe Tender Name Role Phone Madonna Plascencia MD Primary Care Provider Encounter Details Date Type Department Care Team ([facility] st Contact Info) Description 07/21/2025 Results Follow-Up [facility] MEDICINE [address] [place], [place] [phone] Madonna Plascencia MD [address] [place] [address] TSH, T4, Free, Hepatitis C Antibody with Reflex to HCV, RNA, Quantitative, Real-Time PCR, Additional followed-up results: 2 Social History Tobacco Use Types Packs/Day [...] Upcoming Encounters Date Type Department Care Team ([facility] st Contact Info) Description 10/23/2025 10:30 AM EST Telemedicine [facility] CHC MED & PEDS [address] [place] [address] Joan Shipley, MARIANNE [address] [place] [address] documented as of this encounter Visit Diagnoses Not on filedocumented in this encounter Additional Health Concerns Assessment Noted Time PHQ-9 Depression Total Score: 0 12/26/19 11:12 AM EST documented as of this encounter Care Teams Copy Lathe Tender Relationship Specialty Start Date End Date Madonna Plascencia MD [address] [place] [phone] PCP - General Family Medicine 08/07/14 Eric Jaimes Hole Puncher Strap 03/31/25 documented as of this encounter
[2025-08-31 10:08] LABS: Thyroid Stimulating Hormone 7.07 uIU/mL (0.32-4.0)
== END 2025-08-31 07:35 | disposition home or self-care (01) ==
LOC: HO.LHD 07:34
PROVIDERS: Visit Provider Family Medicine
DX: E03.9 Hypothyroidism, unspecified (principal)
CPT/HCPCS: 36415; 84443